=== PATIENT | male | born 1940 | race Caucasian/White ===

== ENCOUNTER 2017-08-19 15:00 | Outpatient (RCR) | payer MEDICARE, OTHER, SELFPAY ==
--- NOTE | 2017-06-02 12:03 | HP.PTEVAL_ITS ---
Patient's Visit Information DHARA ORDONEZ is a 77 year old M referred to Physical Therapy by MD ANALI Pickett with a diagnosis of R shoulder pain. Date of Evaluation: 06/02/17 Physical Therapist: Everardo Mckinley DPT, OC - Visit Plan Frequency: 1x/Week Duration: 2-4 Weeks Plan: weekly to progress HEP of postural strength, c/s stretches and ensure appropriate activity modification(impingement vs R stenosis.) Pec stretches. - Subjective Subjective: Just before [place], was doing GTB ex rows and progressed to blue band. R Shoulder hurt afterwards. Pain is middle of shoulder and moved out to lateral shoulder and sometimes into scapula. Hurts to use the mouse. No numbness or tingling. Sometimes hurts at rest intermittently. Later in day is worse. Evening TV watching [employer] heating pad. Shoulder feels tight. Sleep is not interrupted. Cannot lie on side as it hurts. Basic ADLS as dressing can be painful. Reaching behind can hurt. Doing the dishes and reaching OH can be painful. Spends day cleaning house and laundry. Puzzles on computer and they can hurt shoulder. - Pain R lateral shoulder pain. Pain Intensity (Out of 10): 1 Pain Intensity Range: 0, 7 - Objective R shoulder tender supraspinatus and into UT. Forward head posture with elevated adn prottracted scapula. Tightness present in UT and hard for patient to move scapula smoothly. UE AROM elevation 135 B shoulders, 60 ext rot adn full IR only slight pain with IR R. C/S aROM 30 ext, 30 R rot and 45 L rotation , R SB reproduces R shoulder pain. reflexes 2/3 bi and tri. sensation UE WNL to gross light touch. Strength UE 4-/5 without myotomal abnormalities or unusual pain. - HK adn neer impingement tests. - ext rot lag test. Slight + R c/s compression test. - Goals Goal 1:: Full R shoulder AROM and c/s ROM without pain Goal Time Frame: 2-4 Weeks Goal 2:: Pt feel 50% improvement in pain level. Goal Time Frame: 2-4 Weeks Goal 3:: I approp HEP to minimize future problems. Goal Time Frame: 2-4 Weeks - Rehabilitation Potential Physical Therapy Diagnosis: C/S stenosis vs R shoulder bursitis. Rehabilitation Potential: Fair - Anticipated Interventions Patient/Client Instruction: Educate patient on: Condition, Plan of Care For the Purpose of:: To decrease pain, To increase ROM, To improve nutrient delivery to tissue Therapeutic Exercise to Include: Strength training, Flexibilty training, Passive ROM, Active ROM, Scapular Strength/Stabilization For the Purpose of:: To decrease pain, To improve nutrient delivery to tissue Thank you for the opportunity to evaluate your patient. For Medicare and Medicare HMO plans, please review the plan of care and approve it. It will need to be FAXED BACK to us at [phone] for Medicare purposes. Please let me know if there are questions or concerns regarding this plan of care. Physician Signature: Date:
--- NOTE | 2017-07-21 11:20 | HP.PTREVAL_ITS ---
Elmer Roth MD, It has been my pleasure to treat DHARA ORDONEZ over the last 3 visits for R shoulder pain. Please see the progress note below for an update on the physical therapy plan of care! Subjective: Had bad flu and that has kept him out of here. Could not do his ex early on. Has been able to do his back exercises lately. Breathing muscles hurt with some his his pulling exercises. Gets some LBP and diagphragm pain which doctor knows about and with specific movements. Shoulder has hardly bothered him lately, other pain are getting his attention. Objective/Function: Patient has 140 degrees abd and flexion today without pain. Ext rotation is symmetrical and 50 and IR is L4 B and slightly painful on R. Posture is good today with focus. Strength in shoulders is 4-/5 without pain today in rotations and flex, abd. OVERALL DOING GREAT FAR SHOULDER IS CONCERNED BUT ACTIVITY HAS BEEN LIMITED DUE TO FLU. THIS HAS LIKELY HELPED HIS INFLAMMATION BUT NTO HIS STRENGTH. Plan Plan: Taugth patient to wean back to current ex. F/U in 2-3 weeks after back to current ex for progression to iso c/s ret, IR, add, ext with pics. Will likely f/u again 2 weeks later for discharge depending on condition. Goals Goal 1:: Full R shoulder AROM and c/s ROM without pain Goal Time Frame: 2-4 Weeks Goal Progress: Goal Met Goal 2:: Pt feel 50% improvement in pain level. Goal Time Frame: 2-4 Weeks Goal Progress: Goal Met Goal 3:: I approp HEP to minimize future problems. Goal Time Frame: 2-4 Weeks Goal Progress: Progressing Anticipated Interventions Patient/Client Instruction: Educate patient on: Condition, Plan of Care For the Purpose of:: To decrease pain, To increase ROM, To improve nutrient delivery to tissue Therapeutic Exercise to Include: Strength training, Flexibilty training, Passive ROM, Active ROM, Scapular Strength/Stabilization For the Purpose of:: To decrease pain, To improve nutrient delivery to tissue Please do not hesitate to contact me at [phone] by phone or Fax: if you have questions or concerns regarding this new plan of care! Sincerely, Everardo Mckinley, DPT, OC
--- NOTE | 2017-08-19 15:58 | HP.PTDCSUM_ITS ---
HP - PT D/C Summary It has been my pleasure to treat DHARA ORDONEZ under orders from Elmer Roth MD, for the diagnosis of R shoulder pain for a total of 5 visit(s). Discharge Date: 08/19/17 Please see the following information for a summary of their discharge status. 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 Will have another standard stress test. That will be in September. Shoulder is fine...pretty well. L ribs seem to come and go, was doing well fro a while. Back to regular exercises and doing 2 sets. Doing back exercises adn some stretches. Activites at home are normal, not as busy in the spring, yard work conrad tart soon. Will need to mow and garden. - Pain R lateral shoulder pain. Pain Intensity (Out of 10): 0 - Objective Objective/Function: Full aROM R shoulder awithout pain. Strength at 4/5 and symmetrical with L without apin. Still has some intermittent c/o pain in L ribs since flu . - Goals Goal 1:: Full R shoulder AROM and c/s ROM without pain Goal Progress: Goal Met Goal 2:: Pt feel 50% improvement in pain level. Goal Progress: Goal Met Goal 3:: I approp HEP to minimize future problems. Goal Progress: Goal Met - Plan Plan: D/C shoulder. Recommended he see doctor for L rib pain as it is up and down and lingering. - D/C Information Discharge Comments: Patient ready to continue shoulder strength and stretching I. No pain and full aROM. Will contact doctor regarding cotninuing L rib pain from flu. If there are questions or concerns regarding this patient's physical therapy, please feel free to call me at [phone]. Thank you for the referral of this patient. Sincerely, Everardo Mckinley, DPT, OC
== END 2017-08-19 19:00 | disposition home or self-care (01) ==
LOC: PT 15:00
PROVIDERS: Family Provider Family Medicine; PCP Family Medicine; Visit Provider Family Medicine
DX: M25.511 Pain in right shoulder (principal)
CPT/HCPCS: 97110; 97162; 97164; 97530

== ENCOUNTER → 2017-09-10 10:24 | Outpatient (CLI) | payer MEDICARE, OTHER, SELFPAY ==
--- NOTE | 2017-09-10 10:25 | STE_ITS ---
Reason For Study: CAD/ASHD Stress Results Protocol: Stress Echocardiogram Maximum Predicted HR: 142 bpm Target HR: 121 bpm% Maximum Pr edicted HR: 92 % DurationHeart Rate Stage (mm:ss) (bpm) BPCom ment BASELINE 53 140/76 DEFINITY 5 ML USED DURING STRESS MIRA PROTOCOL- STAGE 1 2:10 13 0 140/80SOB, FATIGUE RECOVERY 75 122/80 Stress Duration: 2:10 mm:ss Maximum Stress HR: 130 bpm Baseline Echocardiogram Findings The estimated ejection fraction is 65 %. Stress Echo Wall motion Data Resting WMIntermediate WMStress WM Resting Wall Motion Wall Motion Stress No regional wall motion Anterio-Basal: Severely abnormalities noted. hypokinetic. Mid-Anterior : Severely Hypokinetic. Mid-anteroseptal : Severly Hypokinetic. Anterior [place] : Severly Hypokinetic. EKG Data Normal intervals are noted. The patient exercised according to the regular Mira protocol for a total duration of 2:10. The maximum heart rate attained was 130 beats per minute. This was 91% of maximum predicted heart rate. The patient exercised into stage 1 of the Mira protocol. Interpretation Summary No regional wall motion abnormalities noted. The estimated ejection fraction is 65 %. Abnormal, adequate, treadmill echocardiogram. Positive for ischemia by echocardiographic criteria. Very poor exercise capacity for age. Appropriate blood pressure response to exercise. Test terminated due to dyspnea. Patient developed rate-dependent right bundle branch block during exercise with associated PVCs. In addition the patient developed severe proximal mid and apical anterior anterior apical hypokinesis at peak exercise with a post-rest EF of approximately 25%. No anginal symptoms noted. Patient referred to our office for set up for urgent catheterization tomorrow morning. Patient's symptom-free at the end of the procedure. Results explained immediately to the patient and his . Ordering Physician: Bro Wahl Referring Physician: Bro Wahl Performed By: Marissa Wylie, RDCS, RVT
--- NOTE | 2017-09-10 12:15 | RAD_ITS ---
STUDY: X-RAY CHEST REASON FOR EXAM: Male, 77 years old. Shortness of breath. TECHNIQUE: PA and lateral views of the chest. COMPARISON: September 26, 2013. FINDINGS: The lungs are clear and expanded. There is no demonstrated pleural abnormality. Normal size heart. Normal mediastinum and dary. Normal visualized pulmonary arteries. Normal visualized aortic arch and descending thoracic aorta. There are diffuse degenerative changes of the visualized thoracic spine. There is degenerative osteoarthritis of the bilateral shoulders. There is no demonstrated abnormality of the visualized soft tissue structures of the upper abdomen. RAD/Chest PA and Lateral IMPRESSION: No acute cardiopulmonary disease or interval change. Electronically Signed: Angelo Sanabria DO at 12:06 EDT Tel [phone], Service support ,
[2017-09-10 13:00] LABS: Absolute Lymphocyte Count 1.73 X10^3/ul (0.83-4.51); Basophil# 0.01 X10^3/uL; Basophil% 0.2 % (0-1); Eosinophil# 0.25 X10^3/uL; Eosinophils% 4.4 % (0-5); Hematocrit 42.5 % (40-54); Hemoglobin 14.1 g/dl (13.0-16.5); Lymphocyte # 1.73 X10^3/ul (4.0); Lymphocyte % 30.6 % (19-41); Mean Corp Hgb Conc 33.2 g/gl (32-36); Mean Corpuscular Hgb 30.7 pg (27.0-32.0); Mean Corpuscular Volume 92.4 fL (80-94); Mean Platelet Vol. 10.7 fl (6.2-12.0); Monocyte# 0.62 X10^3/uL; Neutrophil # 3.03 X10^3/uL (2.7-7.7); Neutrophil % 53.6 % (47-70); Platelet Count 214 K/mm3 (150-450); RBC Distribution Width CV 14.3 % (11.6-14.6); RBC Distribution Width SD 46.8 fl (35.1-43.9); White Blood Count 5.7 K/mm3 (4.4-11.0)
[2017-09-10 13:10] LABS: POSITIVE COUNT NO; POSITIVE DIFFERENTIAL NO; POSITIVE MORPHOLOGY NO
[2017-09-10 13:17] LABS: International Normalized Ratio 1.1; Prothrombin Time (Protime)PT. 13.8 SECONDS (11.7-14.9)
[2017-09-10 13:18] LABS: Partial Thromboplast Time 29.7 Seconds (24.1-36.2)
[2017-09-10 13:23] LABS: Anion Gap 6 (5-15); BUN 20 mg/dL (7-18); BUN/Creat Ratio 19.6 RATIO (10-20); Calcium,Total 9.3 mg/dL (8.5-10.1); Chloride 108 mmol/L (98-107); Creatinine, Serum 1.02 mg/dL (0.70-1.30); EST Glomerular Filtration Rate 75 mL/min (>60); Est Glom Filt Rate - Afr Amer 91 mL/min (>60); Glucose 96 mg/dL (74-106); Potassium 5.2 mmol/L (3.5-5.1); Sodium Level 142 mmol/L (136-145)
== END ==
PROVIDERS: Family Provider Family Medicine; PCP Family Medicine; Visit Provider Internal Medicine Cardiovascular Disease
DX: I25.10 Atherosclerotic heart disease of native coronary artery without angina pectoris (principal); I25.2 Old myocardial infarction; E78.5 Hyperlipidemia, unspecified; Z86.73 Personal history of transient ischemic attack (TIA), and cerebral infarction without residual deficits; I61.9 Nontraumatic intracerebral hemorrhage, unspecified; R94.39 Abnormal result of other cardiovascular function study
CPT/HCPCS: 36415; 71046; 80048; 85025; 85610; 85730; 93017; 93350; Q9957; A4216; C8928

== ENCOUNTER 2017-09-11 08:01 | Day surgery (SDC) | payer MEDICARE, OTHER, SELFPAY ==
[2017-09-10 13:49] VITALS: BMI 25.9
--- NOTE | 2017-09-11 10:43 | CL.D_ITS ---
Patient Name: DHARA ORDONEZ Study Date: 09/11/2017 Performing: Bro Wahl MD Ht: 70.07 inches 178 cm : 1940 Wt: 180.78 lbs 82 kg Age: 77 Gender: male BSA: 2 PROCEDURE(S) PERFORMED MN72-YST/COR/LV CLINICAL PROFILE AND INDICATIONS Indications: New Onset Angina <= 2 months, Worsening Angina, Stable Known CAD Heart Failure: None Stress/Imaging Stress Echocardiogram: Yes Result: Positive High RiskStress Echocardiogram: Positi ve High Risk Angina Classification Anginal Classification w/in 2 Weeks: CCS II CAD Presentations: Unstable angina. Comorbidities/Risk Factors: Hypertension Dyslipidemia CONCLUSIONS Triple vessel CAD of the LAD, DIAG, RCA RECOMMENDATIONS Surgery consult for coronary revascularization at [facility] with Dr Chávez or Randi. Start hyzaar 50/12.5mg po daily. Manual sheath removal. DESCRIPTION OF PROCEDURE The patient arrived to the procedure lab. The risks and benefits of the procedure as well as a full d escription of our services here and current unavailability of surgical backup were fully explained to the patient and/or their significant other prior to the catheterization. The Timeout was completed, verifying the correct patient and procedure. The patient's procedural site was prepped and draped in the usual fashion. Local anesthetic was given subcutaneously to right groin region with Lidocaine 2%. Using a modified Seldinger technique, arterial access was obtained via the right femoral artery, a 4 Fr sheath was inserted Left Coronary Artery selective angiography was performed in multiple views us ing a 4 Fr. JL5 catheter. Left Coronary Artery selective angiography was performed in multiple views using a 4 Fr. JL4 catheter. Right Coronary Artery selective angiography was then performed in multipl e views using a 4 Fr. 3DRC catheter. Left Ventriculography was performed in PHILLIPS projection using a 4 Fr. Pigtail catheter. LV to AO pullback pressures were then recorded.The arterial sheath was pulled a nd manual compression applied until hemostasis is achieved. CORONARY ANGIOGRAPHY DOMINANCE: Right Dominant LEFT HEART ASSESSMENT Left Ventricular Ejection Fraction: by LV Gram 65 % Normal LV wall motion Normal Left Ventricular systolic function Elevated Left Ventricular End Diastolic Pressure LEFT ANTERIOR DECENDING ARTERY: PROX LAD: is occluded DIAGONAL 1: Proximal - 70 % Stenosis CIRCUMFLEX ARTERY: Angiographically normal RIGHT CORONARY ARTERY: PROX RCA: 60 % Stenosis MID RCA: 75 % Stenosis COLLATERAL FLOW: Collateral flow from Right to Left COMPLICATIONS No Complications PROCEDURE MEDICATIONS Versed 1 mg IV Oxygen: 2 L/min via nasal cannula SUMMARY OF HEMODYNAMIC DATA Time AIR REST ECG 08:18:03 AO 132/67 (96) SA 10:17:58 LV 168/-8, 16 10:24:53 LV 189/-10, 20 10:25:00 LVp 189/-10, 18 10:25:21 AOp 184/76 (118) 10:25:26 AO 188/77 (120) 10:26:42 Signed By Bro Wahl MD On 09/11/2017 10:42:41 Bro Wahl MD
== END 2017-09-11 23:59 | disposition home or self-care (01) ==
PROVIDERS: Family Provider Family Medicine; PCP Family Medicine; Visit Provider Internal Medicine Cardiovascular Disease
DX: I25.110 Atherosclerotic heart disease of native coronary artery with unstable angina pectoris (principal); I25.2 Old myocardial infarction; I10 Essential (primary) hypertension; E78.5 Hyperlipidemia, unspecified; F32.9 Major depressive disorder, single episode, unspecified; F41.9 Anxiety disorder, unspecified; Z87.891 Personal history of nicotine dependence; Z79.82 Long term (current) use of aspirin; Z79.899 Other long term (current) drug therapy
CPT/HCPCS: 93458; 99152; 99153; J7030; C1769; C1894; Q9967

== ENCOUNTER → 2018-04-20 09:50 | Outpatient (CLI) | payer MEDICARE, OTHER, SELFPAY ==
[2018-04-15 13:17] VITALS: BMI 26.9
--- NOTE | 2018-04-20 09:52 | CDU_ITS ---
Reason For Study: CVA Rt. Velocities/BP Lt. Velocities/BP Prox CCA 144/22.6 cm/sec. Prox CCA 118/15.7 cm/sec. Mid CCA 84.5/16.7 cm/sec. Mid CCA 108/20.4 cm/sec. Dist CCA 85.6/14.9 cm/sec. Dist CCA 90.4/18.9 cm/sec. Prox ICA 73.9/18.9 cm/sec. Prox ICA 84.4/21.1 cm/sec. Mid ICA 76.2/24 cm/sec. Mid ICA 74.5/19.9 cm/sec. Dist ICA 104/21.7 cm/sec. Dist ICA 75/27 cm/sec. Rt. ICA/CCA = 1.21. Lt. ICA/CCA = 0.78. Prox ECA 107/13.4 cm/sec. Prox ECA 76.8/7.62 cm/sec. Rt. Vert. 65.7/12.9 cm/sec. Lt. Vert. 57.5/17.6 cm/sec. Right Extracranial There is intimal thickening but no significant atherosclerotic plaque noted in the right common carotid artery. There is heterogeneous, smooth atherosclerotic plaque noted in the right internal carotid artery. The atherosclerotic plaque causes acoustic shadowing. There is intimal thickening but no significant atherosclerotic plaque noted in the right external carotid artery. Antegrade flow is noted in the right vertebral artery. Left Extracranial There is intimal thickening but no significant atherosclerotic plaque noted in the left common carotid artery. There is heterogeneous, smooth atherosclerotic plaque noted in the left internal carotid artery. There is intimal thickening but no significant atherosclerotic plaque noted in the left external carotid artery. Antegrade flow is noted in the left vertebral artery. Procedure Carotid Duplex [id number]. Exam performed in department. Interpretation Summary Mild plague at the proximal right internal carotid with <50% stenosis. Mild calcific plague at the proximal left internal carotid with <50% stenosis. Normal flow bilateral external carotids Patent and antegrade vertebrals bilaterally Ordering Physician: Bro Wahl Referring Physician: Elmer Roth Performed By: Jesika Eisenberg RVT and Student
--- OUTSIDE RECORDS SUMMARY | 2018-06-06 10:00 | XMS RPT_ITS ---
:1940 Author Organization OHIP Support Name Relationship Address Phone ORDONEZ, MATT Unavailable [address] + [place] [address] R Unavailable Unavailable Unavailable ORDONEZ, MATT Unavailable [address] + [place] [address] R Unavailable Unavailable Unavailable ORDONEZ, MATT Unavailable [address] + [place] [address] R Unavailable Unavailable Unavailable ORDONEZ, MATT Unavailable [address] + [place] [address] R Unavailable Unavailable Unavailable ORDONEZ, MATT Unavailable [address] + [place] [address] R Unavailable Unavailable Unavailable ORDONEZ, MATT Unavailable [address] + [place] [address] R Unavailable Unavailable Unavailable ORDONEZ, MATT Unavailable [address] + [place] [address] R Unavailable Unavailable Unavailable ORDONEZ, MATT Unavailable [address] + [place] [address] R Unavailable Unavailable Unavailable ORDONEZ, MATT Unavailable [address] + [place] [address] R Unavailable Unavailable Unavailable ORDONEZ, MATT Unavailable [address] + [place] [address] R Unavailable Unavailable Unavailable ORDONEZ, MATT Unavailable [address] + [place] [address] R Unavailable Unavailable Unavailable ORDONEZ, MATT Unavailable [address] + [place] [address] R Unavailable Unavailable Unavailable ORDONEZ, MATT Unavailable [address] + [place] [address] R Unavailable Unavailable Unavailable ORDONEZ, MATT Unavailable [address] + [place] [address] R Unavailable Unavailable Unavailable MATT ORDONEZ Unavailable [address] + [place] [address] R Unavailable Unavailable Unavailable Care Team Providers Name Role Phone PriyaGagandeep george Attending Unavailable Bro Wahl Referring Unavailable Gonzalez, Elmer Primary Care Unavailable Bro Wahl Consulting Unavailable Bro Wahl Attending Unavailable Bro Wahl Referring Unavailable Gonzalez, Elmer Primary Care Unavailable Gonzalez, Elmer Attending Unavailable Gonzalez, Elmer Referring Unavailable Gonzalez, Elmer Primary Care Unavailable Bro Wahl Attending Unavailable Gonzalez, Elmer Referring Unavailable Bro Wahl Attending Unavailable Bro Wahl Referring Unavailable Ognzalez, Elmer Primary Care Unavailable Viktor Fierro D.O. Attending Unavailable Bro Wahl Referring Unavailable Hayley Sanchez Attending Unavailable Bro Wahl Attending Unavailable Gonzalez, Elmer Referring Unavailable Gonzalez, Elmer Primary Care Unavailable Bro Wahl Attending Unavailable Bro Wahl Referring Unavailable Gonzalez, Elmer Primary Care Unavailable Bro Wahl Attending Unavailable Gonzalez, Elmer Primary Care Unavailable Bro Wahl Referring Unavailable Bro Wahl Attending Unavailable Bro Wahl Attending Unavailable Bro Wahl Attending Unavailable Gonzalez, Elmer Referring Unavailable Bro Wahl Attending Unavailable Gonzalez, Elmer Referring Unavailable Bro Wahl Attending Unavailable Vish, Bro Referring Unavailable Gonzalez, Elmer Primary Care Unavailable PROBLEMS PROBLEMS DATE TYPE CONDITION / CODE ATTENDING STATUS SOURCE 05/13/2018 Unknown I25.10 - Ile[place] Sam Atherosclerotic heart D.O. [facility] disease [facility] coronary artery Repository without angina pectoris / I25.10(ICD-10) 04/23/2018 Unknown I63.9 - Cerebral Bro Wahl Active [place] infarction, Community unspecified / Hospital I63.9(ICD-10) Repository 04/23/2018 Unknown E78.5 - Bro Wahl Active [place] Hyperlipidemia, Community unspecified / Hospital E78.5(ICD-10) Repository 04/15/2018 Unknown R94.39 - Abnormal Bro aWhl Active [place] result of other [facility] cardiovascular Hospital function study / Repository R94.39(ICD-10) 10/22/2017 Unknown I25.2 - Old Bro Wahl Active [place] myocardial infarction Community / I25.2(ICD-10) Hospital Repository 10/22/2017 Unknown I61.9 - Nontraumatic Bro Wahl Active [place] intracerebral Community hemorrhage, Hospital unspecified / Repository I61.9(ICD-10) 08/20/2017 Unknown M25.511 - Pain in Gonzalez Elmer Active [place] right shoulder / Community M25.511(ICD-10) Hospital Repository PROCEDURES PROCEDURES No Procedure Records FoundRESULTS RESULTS PULMONARY FUNCTION Observed: 2018 Status: F Source: [place] TEST 10:24 AM [facility] [place] [facility] Pulmonary Services/Neurology [address] [place] [address] MR#: [id number] Acct: [id number] Name: JARED ORDONEZ Rep #: [id number] : 1940 78 From: Viktor Fierro DO Referring Dr: Bro Wahl MD Status: REG CLI Ordering Dr: Date: Location: [facility] Sex: M C INTRODUCTION: The patient is a 77-year-old male that presents for pulmonary function studies secondary to a diagnosis of coronary artery disease. Respiratory therapy reports good patient effort. Bronchodilators were used during testing. INTERPRETATION: Forced expiration spirometry demonstrates the presence of a moderate large airways obstructive ventilatory defect. There was no significant response to aerosolized bronchodilators, based upon strict ATS criteria. Spirograms are of good quality and do not plateau indicating slow emptying of the lungs. Body plethysmography was performed and reveals lung volumes to be within normal limits. Diffusing capacity by single breath CO is within normal limits at 83% of predicted. IMPRESSION: These pulmonary function studies demonstrate the presence of an irreversible moderate large airways obstructive ventilatory defect with preserved lung volumes and diffusing capacity. 04/30/18 1024 <Electronically signed by Viktor Fierro DO> Date Viktor Fierro DO CC: Bro Wahl MD; Elmer Roth MD Date Dictated: 04/30/18 1022 Date Transcribed: 04/30/18 1022 Endband Sizer: HARISH Signed LIVER PROFILE Collected: 04/23/2018 Status: F Source: [place] 10:06 AM [facility] [place] TYPE CODE TESTS RESULT OUT OF RANGE REFERENCE UNITS LAB L501.1500 6.4-8.2 g/dL Normal T PROT 7.1 LAB L501.1800 3.2-5.0 g/dL Normal ALB 3.5 LAB L501.1950 2.2-4.2 g/dL Normal GLOB 3.6 LAB L501.4100 15-37 U/L Normal AST 20 LAB L501.4305 45-117 U/L High ALK P 118 LAB L501.4405 16-61 U/L Normal ALT 24 LAB L501.4600 0.20-1.00 mg/dL Normal T BILI 0.90 LAB L501.4700 0.00-0.30 mg/dL Normal D BILI 0.21 Performed By: #### L500.3400, L500.4100 #### [facility] [address] [facility] [address] [place], [place], [address] LIPID PROFILE Collected: 04/23/2018 Status: F Source: [place] 10:06 AM [facility] [place] TYPE CODE TESTS RESULT OUT OF RANGE REFERENCE UNITS LAB L501.4900 200 mg/dL Normal CHOL 158 Result Comment: <200 mg/dL Desirable 200-240 mg/dL Borderline >240 mg/dL High Risk LAB L501.5000 mg/dL Normal TRIG 124 Result Comment: The drugs N-Acetylcysteine and Metamizole may falsely depress this assay. Serum Triglycerides Reference Interval Normal <150 mg/dL Borderline high 150 - 199 mg/dL High 200 - 499 mg/dL Very High > or = 500 mg/dL LAB L501.6400 mg/dL Normal HDL 59 Result Comment: The drugs N-Acetylcysteine and Metamizole may falsely depress this assay. Reference Range HDL <40 mg/dL Low HDL Cholesterol HDL >or= 60 mg/dL High HDL Cholesterol LAB L501.6500 0-130 mg/dL Normal LDL 74 LAB L501.6600 5-40 mg/dL Normal VLDL 25 Performed By: #### L500.3400, L500.4100 #### [facility] [address] [facility] [address] [place], [place], [address] CAROTID DUPLEX Observed: 04/20/2018 Status: F Source: [place] ULTRASOUND 12:35 PM [facility] [place] [facility] Cardiovascular Services [address] [facility] [address] [place] [address] Carotid Duplex Ultrasound 04/20/18 0957 MR#: [id number] Acct: [id number] Name: JARED ORDONEZ Rep #: [id number] : 1940 77 From: Gagandeep Hendricks MD Attending Dr: Bro Wahl MD Status: REG CLI Ordering Dr: Bro Wahl MD Date: 04/20/18 Location: [facility] Sex: M C Admitted: Reason For Study: CVA Rt. Velocities/BP Lt. Velocities/BP Prox CCA 144/22.6 cm/sec. Prox CCA 118/15.7 cm/sec. Mid CCA 84.5/16.7 cm/sec. Mid CCA 108/20.4 cm/sec. Dist CCA 85.6/14.9 cm/sec. Dist CCA 90.4/18.9 cm/sec. Prox ICA 73.9/18.9 cm/sec. Prox ICA 84.4/21.1 cm/sec. Mid ICA 76.2/24 cm/sec. Mid ICA 74.5/19.9 cm/sec. Dist ICA 104/21.7 cm/sec. Dist ICA 75/27 cm/sec. Rt. ICA/CCA = 1.21. Lt. ICA/CCA = 0.78. Prox ECA 107/13.4 cm/sec. Prox ECA 76.8/7.62 cm/sec. Rt. Vert. 65.7/12.9 cm/sec. Lt. Vert. 57.5/17.6 cm/sec. Right Extracranial There is intimal thickening but no significant atherosclerotic plaque noted in the right common carotid artery. There is heterogeneous, smooth atherosclerotic plaque noted in the right internal carotid artery. The atherosclerotic plaque causes acoustic shadowing. There is intimal thickening but no significant atherosclerotic plaque noted in the right external carotid artery. Antegrade flow is noted in the right vertebral artery. Left Extracranial There is intimal thickening but no significant atherosclerotic plaque noted in the left common carotid artery. There is heterogeneous, smooth atherosclerotic plaque noted in the left internal carotid artery. There is intimal thickening but no significant atherosclerotic plaque noted in the left external carotid artery. Antegrade flow is noted in the left vertebral artery. Procedure Carotid Duplex [id number]. Exam performed in department. Interpretation Summary Mild plague at the proximal right internal carotid with <50% stenosis. Mild calcific plague at the proximal left internal carotid with <50% stenosis. Normal flow bilateral external carotids Patent and antegrade vertebrals bilaterally Ordering Physician: Bro Wahl Referring Physician: Elmer Roth Performed By: Jesika Eisenberg RVT and Student 04/20/18 1235 Date Gagandeep Hendricks MD CC: Bro Wahl MD; Elmer Roth MD Date Dictated: 04/20/18 0957 Date Transcribed: 04/20/18 1235 Endband Sizer: Signed CARDIOLOGY VISIT Observed: 04/15/2018 Status: F Source: [place] REPORT 1:49 PM [facility] HOSPITAL REPOSITORY [facility] [address] [place] [address]. [address] [place] [address] OFFICE VISIT Date of Service: 04/15/18 MR#: [id number] Acct: [id number] Name: JARED ORDONEZ Rep #: [id number] : 1940 Provider: Bro Wahl MD Age/Sex: 77/M Location: [facility] [place] Status: Signed HPI HPI Chief Complaint: Routine follow-up/discuss treatment options. Details: Mister Ordonez is a very pleasant 77-year-old gentleman, who came to [facility] ER on 09/26/13 and noted a increasing fever and minimal headache. A CT scan of his head demonstrated a small intra-axial acute hematoma along the left occipital lobe with edema. He was then transferred to [facility] for further care. At that time he was found to have diminishing mental status and hypotension requiring urgent intubation. During this time troponins were evaluated and the patient was found to have a small type II non-ST elevation myocardial infarction with a peak troponin of 1.7. Patient underwent medical therapy and underwent an echocardiogram on 09/27/13. This demonstrated normal LV function with an LVEF 55%, RVSP of 33 mmHg. patient then underwent a transesophageal echocardiogram on 10/04/13 which demonstrated normal LV function, negative bubble study, and a mobile echodensity in the right atrium that may be consistent with a calcified Chiari network or filamentous mobile mass. Patient underwent a coronary CT angiogram on 10/05/13 which demonstrated the object in the right atrium appeared to be a thickened елена terminalis, with a possible stenosis of 70% in both the LAD and diagonal branch, 50% in the left circumflex, and 50% in the right coronary. No catheterization was performed given the patient's recent CVA and inability to endure dual antiplatelet therapy at that time. A stress test dated 11/02/13 was negative for inducible ischemia. His CVA had resolved he underwent a diagnostic coronary angiogram on 09/11/17 at [facility] which demonstrated severe three-vessel coronary artery disease and he was referred for bypass surgery at [facility] with Dr Bryan. I am not sure exactly what happened, but apparently the patient required additional testing such as PFTs and carotids, however none of these were ever scheduled, and the patient did not follow-up with Dr. Bryan. The patient claims that severity of his condition was not discussed with him at the time of his catheterization, however this was conveyed to the patient as well as to his , confirmed by his today. at that time, the patient and his family decided to pursue medical therapy given his history of bacterial meningitis and previous CVA. He is now here in follow-up. Since that time the patient denies any chest pain, angina, shortness of breath or dyspnea on exertion. 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 He is been doing fairly well ever since. In our office today's blood pressure is 90/44, pulse is 56 and regular. His physical exam is as below. His lipids as of 01/2015 showed HDL of 46 and LDL of 73. his lipids as of 10/04/15 showing HDL 60 and LDL of 90. Lipids as of 02/22/16 show an HDL of 56 and an LDL of 65. His lipids as of 04/09/17 show an HDL of 59 and an LDL of 79. Repeat lipids are pending. dobutamine stress echo on 11/02/13 was negative for inducible ischemia. 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 Accompanied by: Is patient in pain?: No Allergies No Known Allergies Allergy (Verified 04/13/18 10:33) Medications acetaminophen 325 mg capsule 325 mg PO Q4H PRN 08/12/17 [History Confirmed 04/13/18] aspirin 81 mg tablet,delayed release 81 mg PO QDAY tab 08/12/17 [History Confirmed 04/13/18] ibuprofen 200 mg tablet 400 mg PO QHS tab 08/12/17 [History Confirmed 04/13/18] lorazepam 1 mg tablet 1 mg PO QDAY tab 08/12/17 [History Confirmed 04/13/18] paroxetine 20 mg tablet 20 mg PO .COMPLEX 08/12/17 [History Confirmed 04/13/18] clopidogrel 75 mg tablet 75 mg PO QDAY #30 tab 09/10/17 [Rx Confirmed 04/13/18] metoprolol tartrate 25 mg tablet 25 mg PO BID #180 tab 10/29/17 [Rx Confirmed 04/13/18] atorvastatin 40 mg tablet 40 mg PO QHS #90 tab 12/16/17 [Rx Confirmed 04/13/18] losartan 50 mg-hydrochlorothiazide 12.5 mg tablet 1 tab PO QDAY #90 tab 03/15/18 [Rx Confirmed 04/13/18] [facility] Medical History Triple vessel coronary artery disease (Chronic) Atherosclerotic heart disease of [place] coronary artery without angina pectoris (Chronic) History of non-ST elevation myocardial infarction (NSTEMI) (Acute) Hyperlipidemia (Chronic) CVA (cerebral vascular accident) (Acute) Intracerebral hemorrhage (Acute) Anxiety (Chronic) Depression (Chronic) History of tobacco abuse (Resolved) Surgical History History of thoracentesis (Resolved) History of vasectomy (Resolved) Family History Father Presence of permanent cardiac pacemaker Social History Smoking Status: Former smoker alcohol intake: never substance use type: does not use ROS Const Const: Positive for other (Here to discuss PCI, wants to talk to Dr. Vish cortez.); negative for fatigue, weakness, body ache, fever(s), headache(s), chills, frequent falls, night sweats, daytime sleepiness, difficulty sleeping, excessive sweating, weight gain, weight loss, increased appetite, poor appetite or anorexia Eyes Eyes: Negative for blind spots, loss of peripheral vision, transient loss of vision, blurry vision, change in vision, double vision, floaters, tunnel vision or other ENT ENT: Negative for dizziness, hearing loss, tinnitus, Nosebleed/epistaxis, post nasal drip, lip swelling, tongue swelling, bleeding gums, hoarseness, neck pain, dry mouth, other, headache(s) or balance problems Cardio Chest Pain: No Palpitations: No Edema: None Muscle aches with walking: None Resp Respiratory: Negative for SOB with activity, SOB at rest, SOB orthopnea\SOB lying down, Cough, Coughing up blood/hemoptysis, chest congestion, pain on inspiration, snoring, stridor, wheezing, crackles, paroxysmal nocturnal dyspnea or other GI GI: Negative nausea, vomiting, heartburn, constipation, belching, bloating, cramping, vomiting blood/hematemesis, bright, red blood in stools, black,tarry stools, loose stools, Difficulty Swallowing or other : Negative for hematuria, frequent nighttime urination/ nocturia, erectile dysfunction or abnormal vaginal bleeding Musc Musc: Positive for joint pain (Left knee pain); negative for balance problems, muscle aches/ myalgia or muscle weakness Skin Skin: Negative redness, non-healing lesions, rash, unusual bruising, skin ulcer, wounds, jaundice or other Neuro Neuro: Negative for blurry vision, double vision, dizziness, lightheadedness, near syncope, syncope, orthostatic symptoms, confusion, memory loss, restless legs, vertigo, seizures, lack of coordination, other, weakness, headache(s) or frequent falls Tigre Hematologic/Lymphatic: Negative for easy bleeding, easy bruising, enlarged lymph nodes or other Endo Endo: Negative for cold intolerance, heat intolerance, flushing, increased thirst/drinking, increased hunger, hair loss, hair growth, other, fatigue or excessive sweating Psych Psych: Negative for anxiety, depression, thoughts of harming anyone, thoughts of harming yourself, visual hallucinations, panic attacks or audible hallucinations Allergy Allergy/Immunology: Negative for lip swelling, Negative for tongue swelling, Negative for rash, Negative for throat swelling, Negative for hives Cardiology Exam Const Appearance: cooperative, healthy appearing and no acute distress Nutritional Appearance: well nourished Orientation: alert, oriented x3 and oriented to person Head Head: normal to inspection, atraumatic and normocephalic Nose: external nose normal Face and Sinus: face symmetric Mouth: oral mucosae normal Eyes General: appearance normal, both eyes and all related structures Eyelids: eyelids normal Conjunctivae: conjunctivae normal Pupils: PERRL and normal by confrontation EOM: EOM intact bilaterally Neck Neck: normal visual inspection and full ROM Carotids: normal carotid upstroke Chest Chest inspection: normal inspection of the chest Auscultation: Bilateral: Clear to Auscultation Cardio Palpation: normal PMI Rate: regular rate Rhythm: regular rhythm Heart sounds: S1 normal and S2 normal GI GI: normal to inspection, no hepatosplenomegaly and bowel sounds present Neuro General: alert, oriented x3, awake, CN's II-XI intact bilaterally and moves all extremities Skin Skin: no rashes or lesions noted Extremities Pulses: Normal: Right Femoral Pulse, Left Femoral Pulse, Right Dorsalis Pedis Pulse, Left Dorsalis Pedis Pulse, Right Posterior Tibial Pulse, Left Posterior Tibial Pulse, Right Radial Pulse, Left Radial Pulse Lower Extremity Edema: None: Bilateral Psych Psychological: normal affect Assessment AND Plan 1. Atherosclerotic heart disease of [place] coronary artery without angina pectoris I25.10 Plan 1. Coronary artery disease: I once again thoroughly explained to the patient and his his coronary artery and anatomy, and indicated to them that his angioplasty is somewhat high risk as it provides collateral blood flow from the right coronary artery to the LAD. The patient's and the patient are quite concerned about possible emergent bypass surgery here at a non-surgical center. In addition, my feeling is that the patient would most likely benefit from bypass surgery to bypass his RCA, distal LAD, and diagonal branches. This would provide a much more complete revascularization. In addition the patient requires carotid ultrasound and pulmonary function test to risk stratify him for upcoming bypass surgery. After discussing with the patient and his the options, they wish to pursue consultation for a second opinion with Dr. Ro at [facility]. In addition if he is not a surgical candidate, I would refer him to Dr. Khan at [facility] for PCI of his RCA and medical management of his LAD. Patient should the patient have difficulty with PCI of his RCA he may be sent to emergency bypass surgery rather than be transported emergently to [facility]. Given his anatomy and the concerns of the patient is I would not recommend PCI here at [facility] unless it was emergent. We will order PFTs, carotid ultrasound, the patient will continue his baby aspirin, Plavix and Lopressor as well as his Hyzaar. Orders Orders: Referrals: 2. Hyperlipidemia E78.5 Plan 2. Hyperlipidemia: We will repeat his lipid profile. His LDL should be less than 70. Continue Lipitor. 3. Return office in 6 months. This note was generated using a voice recognition system and there may be incorrect words, spelling or punctuation that were not noted when reviewing the office note prior to saving. Orders Orders: Plan Detail Other Orders Orders: Follow Up +6M (Vish) Coding Level of Care Code Off vis,est,level 3 Diagnoses Atherosclerotic heart disease of [place] coronary artery without angina pectoris I25.10 Hyperlipidemia E78.5 Coding Level of Care Code Off vis,est,level 3 Diagnoses Atherosclerotic heart disease of [place] coronary artery without angina pectoris I25.10 Hyperlipidemia E78.5 04/15/18 1349 <Electronically signed by Bro Wahl MD> Date Bro Wahl MD [facility] Signature: Date (if applicable) CC: Elmer Roth MD CARDIOLOGY VISIT Observed: 03/15/2018 Status: F Source: [place] REPORT 3:26 PM [facility] [place] [facility] [address] [place] [address] OFFICE VISIT Date of Service: 03/15/18 MR#: [id number] Acct: [id number] Name: JARED ORDONEZ Rep #: [id number] : 1940 Provider: Bro Wahl MD Age/Sex: 77/M Location: [facility] [place] Status: Signed HPI HPI Chief Complaint: Routine follow-up Details: Mister Ordonez is a very pleasant 77-year-old gentleman, who came to [facility] ER on 09/26/13 and noted a increasing fever and minimal headache. A CT scan of his head demonstrated a small intra-axial acute hematoma along the left occipital lobe with edema. He was then transferred to [facility] for further care. At that time he was found to have diminishing mental status and hypotension requiring urgent intubation. During this time troponins were evaluated and the patient was found to have a small type II non-ST elevation myocardial infarction with a peak troponin of 1.7. Patient underwent medical therapy and underwent an echocardiogram on 09/27/13. This demonstrated normal LV function with an LVEF 55%, RVSP of 33 mmHg. patient then underwent a transesophageal echocardiogram on 10/04/13 which demonstrated normal LV function, negative bubble study, and a mobile echodensity in the right atrium that may be consistent with a calcified Chiari network or filamentous mobile mass. Patient underwent a coronary CT angiogram on 10/05/13 which demonstrated the object in the right atrium appeared to be a thickened елена terminalis, with a possible stenosis of 70% in both the LAD and diagonal branch, 50% in the left circumflex, and 50% in the right coronary. No catheterization was performed given the patient's recent CVA and inability to endure dual antiplatelet therapy at that time. A stress test dated 11/02/13 was negative for inducible ischemia. His CVA had resolved he underwent a diagnostic coronary angiogram on 09/11/17 at [facility] which demonstrated severe three-vessel coronary artery disease and he was referred for bypass surgery at [facility]. At that time, the patient and his family decided to pursue medical therapy given his history of bacterial meningitis and previous CVA. He is now here in follow-up. Since that time the patient denies any chest pain, angina, shortness of breath or dyspnea on exertion. 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 He is been doing fairly well ever since. In our office today's blood pressure is 110/60, pulse is 64 and regular. His physical exam is as below. His lipids as of 01/2015 showed HDL of 46 and LDL of 73. his lipids as of 10/04/15 showing HDL 60 and LDL of 90. Lipids as of 02/22/16 show an HDL of 56 and an LDL of 65. His lipids as of 04/09/17 show an HDL of 59 and an LDL of 79. Repeat lipids are pending dobutamine stress echo on 11/02/13 was negative for inducible ischemia. Intake Vital Signs03/15/18 Height 5 ft 10 in 03/15/18 Weight: 193 lb 03/15/18 Body Mass Index (BMI) 27.6 03/15/18 Blood Pressure 110/60 Intake Visit Reasons: 6 M FU Allergies No Known Allergies Allergy (Verified 08/14/17 10:39) Medications acetaminophen 325 mg capsule 325 mg PO Q4H PRN 08/12/17 [History Confirmed 03/15/18] aspirin 81 mg tablet,delayed release 81 mg PO QDAY tab 08/12/17 [History Confirmed 03/15/18] ibuprofen 200 mg tablet 400 mg PO QHS tab 08/12/17 [History Confirmed 03/15/18] lorazepam 1 mg tablet 1 mg PO QDAY tab 08/12/17 [History Confirmed 03/15/18] paroxetine 20 mg tablet 20 mg PO .COMPLEX 08/12/17 [History Confirmed 03/15/18] clopidogrel 75 mg tablet 75 mg PO QDAY #30 tab 09/10/17 [Rx Confirmed 03/15/18] metoprolol tartrate 25 mg tablet 25 mg PO BID #180 tab 10/29/17 [Rx Confirmed 03/15/18] atorvastatin 40 mg tablet 40 mg PO QHS #90 tab 12/16/17 [Rx Confirmed 03/15/18] losartan 50 mg-hydrochlorothiazide 12.5 mg tablet 1 tab PO QDAY #90 tab 03/15/18 [Rx Confirmed 03/15/18] [facility] Medical History Atherosclerotic heart disease of [place] coronary artery without angina pectoris (Chronic) History of non-ST elevation myocardial infarction (NSTEMI) (Acute) Hyperlipidemia (Chronic) CVA (cerebral vascular accident) (Acute) Intracerebral hemorrhage (Acute) Anxiety (Chronic) Depression (Chronic) History of tobacco abuse (Resolved) Surgical History History of thoracentesis (Resolved) History of vasectomy (Resolved) Family History Father Presence of permanent cardiac pacemaker Social History Smoking Status: Former smoker alcohol intake: never substance use type: does not use ROS Const Const: Negative for fatigue, weakness, body ache, fever(s), headache(s), chills, frequent falls, night sweats, daytime sleepiness, difficulty sleeping, excessive sweating, weight gain, weight loss, increased appetite, poor appetite, anorexia or other Eyes Eyes: Negative for blind spots, loss of peripheral vision, transient loss of vision, blurry vision, change in vision, double vision, floaters, tunnel vision or other ENT ENT: Negative for headache(s), dizziness, hearing loss, tinnitus, Nosebleed/epistaxis, balance problems, post nasal drip, lip swelling, tongue swelling, bleeding gums, hoarseness, neck pain, dry mouth or other Cardio Chest Pain: No Resp Respiratory: Negative for SOB with activity, SOB at rest, SOB orthopnea\SOB lying down, Coughing up blood/hemoptysis, chest congestion, pain on inspiration, snoring, stridor, wheezing, crackles, paroxysmal nocturnal dyspnea or other GI GI: Negative nausea, vomiting, heartburn, constipation, belching, bloating, cramping, vomiting blood/hematemesis, bright, red blood in stools, black,tarry stools, loose stools, Difficulty Swallowing or other : Negative for hematuria, frequent nighttime urination/ nocturia, erectile dysfunction or abnormal vaginal bleeding Musc Musc: Negative for balance problems, muscle aches/ myalgia, muscle weakness or joint pain Skin Skin: Negative redness, non-healing lesions, rash, unusual bruising, skin ulcer, wounds, jaundice or other Neuro Neuro: Negative for weakness, headache(s), frequent falls, blurry vision, double vision, dizziness, lightheadedness, near syncope, syncope, orthostatic symptoms, confusion, memory loss, restless legs, vertigo, seizures, lack of coordination or other Tigre Hematologic/Lymphatic: Negative for easy bleeding, easy bruising, enlarged lymph nodes or other Endo Endo: Negative for fatigue, excessive sweating, cold intolerance, heat intolerance, flushing, increased thirst/drinking, increased hunger, hair loss, hair growth or other Psych Psych: Negative for anxiety, depression, thoughts of harming anyone, thoughts of harming yourself, visual hallucinations, panic attacks or audible hallucinations Allergy Allergy/Immunology: Negative for lip swelling, Negative for tongue swelling, Negative for rash, Negative for throat swelling, Negative for hives Cardiology Exam Const Appearance: cooperative, healthy appearing and no acute distress Nutritional Appearance: well nourished Orientation: alert, oriented x3 and oriented to person Head Head: normal to inspection, atraumatic and normocephalic Nose: external nose normal Face and Sinus: face symmetric Mouth: oral mucosae normal Eyes General: appearance normal, both eyes and all related structures Eyelids: eyelids normal Conjunctivae: conjunctivae normal Pupils: PERRL and normal by confrontation EOM: EOM intact bilaterally Neck Neck: normal visual inspection and full ROM Carotids: normal carotid upstroke Chest Chest inspection: normal inspection of the chest Auscultation: Bilateral: Clear to Auscultation Cardio Palpation: normal PMI Rate: regular rate Rhythm: regular rhythm Heart sounds: S1 normal and S2 normal GI GI: normal to inspection, no hepatosplenomegaly and bowel sounds present Neuro General: alert, oriented x3, awake, CN's II-XI intact bilaterally and moves all extremities Skin Skin: no rashes or lesions noted Extremities Pulses: Normal: Right Femoral Pulse, Left Femoral Pulse, Right Dorsalis Pedis Pulse, Left Dorsalis Pedis Pulse, Right Posterior Tibial Pulse, Left Posterior Tibial Pulse, Right Radial Pulse, Left Radial Pulse Lower Extremity Edema: None: Bilateral Psych Psychological: normal affect Assessment AND Plan 1. Atherosclerotic heart disease of [place] coronary artery without angina pectoris I25.10 Plan 1. Coronary artery disease: Patient had climbed to go through bypass surgery and wish to pursue medical management at that time in September 2017. Over the summer he had some dyspnea on exertion which she attributed to the high humidity. Patient has had no exertional anginal symptoms, and a positive stress test in September 2017 with abnormalities of the anterior apical wall. I recommended to the patient that I relocate is Cassy from September 2017 to determine if he may benefit from angioplasty and stenting. He tolerated dual antiplatelet therapy despite his previous CVA in the past. She may require bare-metal stenting in order to limit dual antiplatelet therapy. The meantime his blood pressure is fairly well controlled. He will continue his baby aspirin, Hyzaar and metoprolol. Orders Orders: 2. Hyperlipidemia E78.5 Plan 2. Hyperlipidemia: His LDL and HDL cholesterol are fairly well-controlled on her last lipid profile. We will repeat his lipid profile. Continue Lipitor. 3. Return office in 6 months. This note was generated using a voice recognition system and there may be incorrect words, spelling or punctuation that were not noted when reviewing the office note prior to saving. Orders Orders: Plan Detail Other Medications Refilled: Follow Up +6M (Vish) Coding Level of Care Code Off vis,est,level 3 Diagnoses Atherosclerotic heart disease of [place] coronary artery without angina pectoris I25.10 Hyperlipidemia E78.5 Coding Level of Care Code Off vis,est,level 3 Diagnoses Atherosclerotic heart disease of [place] coronary artery without angina pectoris I25.10 Hyperlipidemia E78.5 03/15/18 1526 <Electronically signed by Bro Wahl MD> Date Bro Wahl MD Cosigner Signature: Date (if applicable) CC: Elmer Roth MD STRESS TEST ECHO W/O Observed: 09/10/2017 Status: F Source: [place] CONTRAST 1:08 PM [facility] [place] [facility] Cardiovascular Services [address] [place] [address] Stress Test Echo W/Contrast MR#: [id number] Acct: [id number] Name: JARED ORDONEZ Rep #: [id number] : 1940 77 From: Bro Wahl MD Primary Care: Elmer Roth Status: REG CLI Ordering Dr: Bro Wahl MD Sex: M C Reason For Study: CAD/ASHD Stress Results Protocol: Stress Echocardiogram Maximum Predicted HR: 142 bpm Target HR: 121 bpm% Maximum Pr edicted HR: 92 % DurationHeart Rate Stage (mm:ss) (bpm) BPCom ment BASELINE 53 140/76 DEFINITY 5 ML USED DURING STRESS JAC PROTOCOL- STAGE 1 2:10 13 0 140/80SOB, FATIGUE RECOVERY 75 122/80 Stress Duration: 2:10 mm:ss Maximum Stress HR: 130 bpm Baseline Echocardiogram Findings The estimated ejection fraction is 65 %. Stress Echo Wall motion Data Resting WMIntermediate WMStress WM Resting Wall Motion Wall Motion Stress No regional wall motion Anterio-Basal: Severely abnormalities noted. hypokinetic. Mid-Anterior : Severely Hypokinetic. Mid-anteroseptal : Severly Hypokinetic. Anterior [place] : Severly Hypokinetic. EKG Data Normal intervals are noted. The patient exercised according to the regular Jac protocol for a total duration of 2:10. The maximum heart rate attained was 130 beats per minute. This was 91% of maximum predicted heart rate. The patient exercised into stage 1 of the Jac protocol. Interpretation Summary No regional wall motion abnormalities noted. The estimated ejection fraction is 65 %. Abnormal, adequate, treadmill echocardiogram. Positive for ischemia by echocardiographic criteria. Very poor exercise capacity for age. Appropriate blood pressure response to exercise. Test terminated due to dyspnea. Patient developed rate-dependent right bundle branch block during exercise with associated PVCs. In addition the patient developed severe proximal mid and apical anterior anterior apical hypokinesis at peak exercise with a post-rest EF of approximately 25%. No anginal symptoms noted. Patient referred to our office for set up for urgent catheterization tomorrow morning. Patient's symptom-free at the end of the procedure. Results explained immediately to the patient and his . Ordering Physician: Bro Wahl Referring Physician: Bro Wahl Performed By: Marissa Wylie, RDCS, RVT 09/10/17 1308 Date Bro Wahl MD CC: Bro Wahl MD; [facility] Date Dictated: 09/10/17 1047 Date Transcribed: 09/10/17 1308 Endband Sizer: Signed CBC W/DIFF, AUTOMATED Collected: 09/10/2017 Status: F Source: [place] 12:30 PM [facility] [place] TYPE CODE TESTS RESULT OUT OF RANGE REFERENCE UNITS LAB L100.1000 4.4-11.0 K/mm3 Normal WBC 5.7 LAB L100.1200 4.6-6.2 M/mm3 Normal RBC 4.60 LAB L100.1300 13.0-16.5 g/dl Normal HGB 14.1 LAB L100.1400 40-54 % Normal HCT 42.5 LAB L100.1500 80-94 fL Normal MCV 92.4 LAB L100.1600 27.0-32.0 pg Normal MCH 30.7 LAB L100.1700 32-36 g/gl Normal MCHC 33.2 LAB L100.1810 11.6-14.6 % Normal RDW CV 14.3 LAB L100.1820 35.1-43.9 fl High RDW SD 46.8 LAB L100.1900 150-450 K/mm3 Normal PLT 214 LAB L100.2000 6.2-12.0 fl Normal MPV 10.7 LAB L100.2100 47-70 % Normal NEUT% 53.6 LAB L100.2200 19-41 % Normal LY% 30.6 LAB L100.2300 0-10 % High MONO% 11.0 LAB L100.2400 0-5 % Normal EO% 4.4 LAB L100.2500 0-1 % Normal BASO% 0.2 LAB L100.2550 0.0-0.9 % Normal IM GRAN % 0.200 Result Comment: IG% - Immature Granulocytes (promyelocytes, myelocytes and metamyelocytes) > 1% indicates that a LEFT SHIFT is Present. LAB L100.2620 2.0-7.7 X10 3/uL Normal Absolute Neut 3.0 LAB L100.2720 0.83-4.51 X10 3/ul Normal Absolute Lymph 1.73 Performed By: #### L100.0100 #### [facility] [address] [place], [address] PROTHROMBIN TIME W/INR Collected: 09/10/2017 Status: F Source: [place] 12:30 PM [facility] [place] TYPE CODE TESTS RESULT OUT OF RANGE REFERENCE UNITS LAB L300.4150 11.7-14.9 SECONDS Normal PROTIME 13.8 LAB L300.4200 Normal INR 1.1 Performed By: #### L300.3900, L300.4310, L500.2500 #### [facility] [address] [place], [address] PARTIAL THROMBOPLAST Collected: 09/10/2017 Status: F Source: [place] TIME 12:30 PM [facility] [place] TYPE CODE TESTS RESULT OUT OF RANGE REFERENCE UNITS LAB L300.4310 24.1-36.2 Seconds Normal PTT 29.7 Performed By: #### L300.3900, L300.4310, L500.2500 #### [facility] [address] [place], [address] BASIC METABOLIC Collected: 09/10/2017 Status: F Source: [place] PROFILE (BMP) 12:30 PM [facility] [place] TYPE CODE TESTS RESULT OUT OF RANGE REFERENCE UNITS LAB L501.0100 74-106 mg/dL Normal GLU 96 Result Comment: Please note revised GLUCOSE reference range effective 2017. LAB L501.1000 7-18 mg/dL High BUN 20 LAB L501.1100 0.70-1.30 mg/dL Normal CREAT,SERUM 1.02 Result Comment: The validity of the calculated GFR AND GFRAA in patients over 70 years has not been determined. Clinical correlation is essential. LAB L501.1110 >60 mL/min Normal EST GFR 75 Result Comment: Non- GFR Calc LAB L501.1115 >60 mL/min Normal EST GFR - AA 91 Result Comment: GFR Calc LAB L501.1300 10-20 RATIO Normal BUN/CRE 19.6 LAB L501.2200 8.5-10.1 mg/dL CA Normal 9.3 LAB L501.5300 136-145 mmol/L NA Normal 142 LAB L501.5600 3.5-5.1 mmol/L High K 5.2 LAB L501.5900 98-107 mmol/L High CL 108 LAB L501.6100 21.0-32.0 mmol/L Normal CO2 28.0 LAB L501.6200 5-15 Normal GAP 6 Performed By: #### L300.3900, L300.4310, L500.2500 #### [facility] [address] [place], [address] CHEST PA AND LATERAL Observed: 09/10/2017 Status: F Source: [place] 12:09 PM [facility] [place] [facility] Imaging Services [address] [place] [address] Chest PA and Lateral MR#: [id number] Acct: [id number] Name: JARED ORDONEZ Earl Rep #: [id number] : 1940 M 77 From: Angelo Sanabria DO PCP: Elmer Roth Status: REG CLI Study: Chest PA and Lateral Date of Exam: 09/10/17 Exam# [id number] Ordering Dr: Bro Wahl MD STUDY: X-RAY CHEST REASON FOR EXAM: Male, 77 years old. Shortness of breath. TECHNIQUE: PA and lateral views of the chest. COMPARISON: September 26, 2013. FINDINGS: The lungs are clear and expanded. There is no demonstrated pleural abnormality. Normal size heart. Normal mediastinum and dary. Normal visualized pulmonary arteries. Normal visualized aortic arch and descending thoracic aorta. There are diffuse degenerative changes of the visualized thoracic spine. There is degenerative osteoarthritis of the bilateral shoulders. There is no demonstrated abnormality of the visualized soft tissue structures of the upper abdomen. RAD/Chest PA and Lateral IMPRESSION: No acute cardiopulmonary disease or interval change. Electronically Signed: Angelo SanabriaDO at 12:06 EDT Tel [phone], Service support , CC: Bro Wahl MD; Elmer Roth Endband Sizer: Signed PT D/C SUMMARY (1) Observed: 08/20/2017 Status: F Source: [place] 9:07 AM [facility] [place] [facility] [address] [place], [place] [address] Fax REHABILITATION SERVICES DISCHARGE SUMMARY MR#: [id number] Acct: [id number] Name: JARED ORDONEZ Rep #: [id number] : 1940 77 From: Everarod Mckinley DPT, OCS, CSCS Referring Dr.: Elmer Roth Status: REG RCR Insurance: MEDICARE PART A B AARP HP - PT D/C Summary It has been my pleasure to treat JARED ORDONEZ under orders from Elmer Roth MD, for the diagnosis of R shoulder pain for a total of 5 visit(s). Discharge Date: 08/19/17 Please see the following information for a summary of their discharge status. 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 Will have another standard stress test. That will be in September. Shoulder is fine...pretty well. L ribs seem to come and go, was doing well fro a while. Back to regular exercises and doing 2 sets. Doing back exercises adn some stretches. Activites at home are normal, not as busy in the spring, yard work conrad tart soon. Will need to mow and garden. - Pain R lateral shoulder pain. Pain Intensity (Out of 10): 0 - Objective Objective/Function: Full aROM R shoulder awithout pain. Strength at 4/5 and symmetrical with L without apin. Still has some intermittent c/o pain in L ribs since flu . - Goals Goal 1:: Full R shoulder AROM and c/s ROM without pain Goal Progress: Goal Met Goal 2:: Pt feel 50% improvement in pain level. Goal Progress: Goal Met Goal 3:: I approp HEP to minimize future problems. Goal Progress: Goal Met - Plan Plan: D/C shoulder. Recommended he see doctor for L rib pain as it is up and down and lingering. - D/C Information Discharge Comments: Patient ready to continue shoulder strength and stretching I. No pain and full aROM. Will contact doctor regarding cotninuing L rib pain from flu. If there are questions or concerns regarding this patient's physical therapy, please feel free to call me at [phone]. Thank you for the referral of this patient. Sincerely, Everardo Mckniley, DPT, OC <Electronically signed by Everardo Mckinley DPT, OCS, CSCS> 08/20/17 0907 CC: Elmer Roth EBG Signed CARDIOLOGY VISIT Observed: 08/14/2017 Status: F Source: [place] REPORT 11:32 AM [facility] [place] [facility] [place] [address] [place] [address] OFFICE VISIT Date of Service: 08/14/17 MR#: [id number] Acct: [id number] Name: JARED ORDONEZ Rep #: [id number] : 1940 Provider: Bro Wahl MD Age/Sex: 77/M Location: [facility] Status: Signed HPI HPI Chief Complaint: Routine follow-up Details: Mister Ordonez is a very pleasant 77-year-old gentleman, who came to [facility] ER on 09/26/13 and noted a increasing fever and minimal headache. A CT scan of his head demonstrated a small intra-axial acute hematoma along the left occipital lobe with edema. He was then transferred to [facility] for further care. At that time he was found to have diminishing mental status and hypotension requiring urgent intubation. During this time troponins were evaluated and the patient was found to have a small type II non-ST elevation myocardial infarction with a peak troponin of 1.7. Patient underwent medical therapy and underwent an echocardiogram on 09/27/13. This demonstrated normal LV function with an LVEF 55%, RVSP of 33 mmHg. patient then underwent a transesophageal echocardiogram on 10/04/13 which demonstrated normal LV function, negative bubble study, and a mobile echodensity in the right atrium that may be consistent with a calcified Chiari network or filamentous mobile mass. Patient underwent a coronary CT angiogram on 10/05/13 which demonstrated the object in the right atrium appeared to be a thickened елена terminalis, with a possible stenosis of 70% in both the LAD and diagonal branch, 50% in the left circumflex, and 50% in the right coronary. No catheterization was performed given the patient's recent CVA and inability to endure dual antiplatelet therapy at that time. A stress test dated 11/02/13 was negative for inducible ischemia. He has Never had a heart catheterization. Prior to that and since that time the patient denies any chest pain, angina, shortness of breath or dyspnea on exertion. 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 He is been doing fairly well ever since. In our office today's blood pressure is 120/60, pulse is 58 and regular. His physical exam is as below. His lipids as of 01/2015 showed HDL of 46 and LDL of 73. his lipids as of 10/04/15 showing HDL 60 and LDL of 90. Lipids as of 02/22/16 show an HDL of 56 and an LDL of 65. Dobutamine stress echo on 11/02/13 was negative for inducible ischemia. MEDICATIONS Intake Vital Signs08/14/17 Height 5 ft 10 in Intake Visit Reasons: F/U Allergies No Known Allergies Allergy (Verified 08/14/17 10:39) Medications acetaminophen 325 mg capsule 325 mg PO Q4H PRN 08/12/17 [History Confirmed 08/14/17] aspirin 81 mg tablet,delayed release 81 mg PO QDAY tab 08/12/17 [History Confirmed 08/14/17] atorvastatin 40 mg tablet 40 mg PO QHS tab 08/12/17 [History Confirmed 08/14/17] ibuprofen 200 mg tablet 400 mg PO QHS tab 08/12/17 [History Confirmed 08/14/17] lorazepam 1 mg tablet 1 mg PO QDAY tab 08/12/17 [History Confirmed 08/14/17] metoprolol tartrate 25 mg tablet 25 mg PO BID 08/12/17 [History Confirmed 08/14/17] paroxetine 20 mg tablet 20 mg PO .COMPLEX 08/12/17 [History Confirmed 08/14/17] [facility] Medical History Atherosclerotic heart disease of [place] coronary artery without angina pectoris (Chronic) History of non-ST elevation myocardial infarction (NSTEMI) (Acute) Hyperlipidemia (Chronic) CVA (cerebral vascular accident) (Acute) Intracerebral hemorrhage (Acute) Anxiety (Chronic) Depression (Chronic) History of tobacco abuse (Resolved) Surgical History History of thoracentesis (Resolved) History of vasectomy (Resolved) Family History Father Presence of permanent cardiac pacemaker Social History Smoking Status: Former smoker alcohol intake: never substance use type: does not use ROS Const Const: Negative for fatigue, weakness, difficulty sleeping, frequent falls, headache(s) or excessive sweating Eyes Eyes: Negative for loss of peripheral vision, transient loss of vision, blurry vision or double vision ENT ENT: Negative for headache(s), dizziness, Nosebleed/epistaxis or balance problems Cardio Chest Pain: No Edema: None Muscle aches with walking: None Resp Respiratory: Negative for SOB with activity, SOB at rest, SOB orthopnea\SOB lying down or paroxysmal nocturnal dyspnea GI GI: Negative nausea or heartburn : Negative for hematuria Musc Musc: Negative for muscle aches/ myalgia, muscle weakness, joint pain or balance problems Skin Skin: Negative non-healing lesions, unusual bruising or rash Neuro Neuro: Negative for weakness, frequent falls, blurry vision, headache(s), dizziness, lightheadedness, orthostatic symptoms or double vision Tigre Hematologic/Lymphatic: Negative for easy bruising Endo Endo: Negative for fatigue, excessive sweating or increased thirst/drinking Psych Psych: Negative for anxiety or depression Allergy Allergy/Immunology: Negative for hives, Negative for rash Cardiology Exam Const Appearance: cooperative, healthy appearing and no acute distress Nutritional Appearance: well nourished Orientation: alert, oriented x3 and oriented to person Head Head: normal to inspection, atraumatic and normocephalic Nose: external nose normal Face and Sinus: face symmetric Mouth: oral mucosae normal Eyes General: appearance normal, both eyes and all related structures Eyelids: eyelids normal Conjunctivae: conjunctivae normal Pupils: PERRL and normal by confrontation EOM: EOM intact bilaterally Neck Neck: normal visual inspection and full ROM Carotids: normal carotid upstroke Chest Chest inspection: normal inspection of the chest Auscultation: Bilateral: Clear to Auscultation Cardio Palpation: normal PMI Rate: regular rate Rhythm: regular rhythm Heart sounds: S1 normal and S2 normal GI GI: normal to inspection, no hepatosplenomegaly and bowel sounds present Neuro General: alert, oriented x3, awake, CN's II-XI intact bilaterally and moves all extremities Skin Skin: no rashes or lesions noted Extremities Pulses: Normal: Right Femoral Pulse, Left Femoral Pulse, Right Dorsalis Pedis Pulse, Left Dorsalis Pedis Pulse, Right Posterior Tibial Pulse, Left Posterior Tibial Pulse, Right Radial Pulse, Left Radial Pulse Lower Extremity Edema: None: Bilateral Psych Psychological: normal affect Assessment AND Plan 1. Atherosclerotic heart disease of [place] coronary artery without angina pectoris I25.10 Plan 1. Coronary artery disease: The patient has known coronary disease but evidence by CT scan when he had his non-STEMI during his CVA. Patient denies any chest pain symptoms however he had evidence of calcified disease in his LAD, circumflex and RCA. I recommended he undergo a repeat treadmill echocardiogram for coronary surveillance that is been 4 years since his last one. If this is grossly abnormal for ischemia, I have a low threshold for repeat catheterization. In the meantime he will continue baby aspirin, Lopressor. Orders Orders: 2. Hyperlipidemia E78.5 Plan 2. Hyperlipidemia: His LDL and HDL cholesterol are fairly well-controlled. Continue Lipitor. 3. Return office in 6 months per This note was generated using a voice recognition system and there may be incorrect words, spelling or punctuation that were not noted when reviewing the office note prior to saving. Orders Orders: Plan Detail Follow Up +6m (Vish) Coding Level of Care Code Off vis,est,level 3 Diagnoses Atherosclerotic heart disease of [place] coronary artery without angina pectoris I25.10 Hyperlipidemia E78.5 Coding Level of Care Code Off vis,est,level 3 Diagnoses Atherosclerotic heart disease of [place] coronary artery without angina pectoris I25.10 Hyperlipidemia E78.5 08/14/17 1132 <Electronically signed by Bro Wahl MD> Date Bro Wahl MD Cosign Signature: Date (if applicable) CC: RE-EVALUATION - PT (1) Observed: 07/21/2017 Status: F Source: [place] 11:53 AM [facility] [place] [facility] [address] [place], [place] [address] Fax REEVALUATION / MEDICARE RECERTIFICATION PHYSICAL THERAPY MR#: [id number] Acct: [id number] Name: JARED ORDONEZ Rep #: [id number] : 1940 77 From: Everardo Mckinley DPT, OCS, CSCS Referring Dr.: Elmer Roth Status: REG RCR Insurance: MEDICARE PART A B AARP Elmer Roth MD, It has been my pleasure to treat JARED ORDONEZ over the last 3 visits for R shoulder pain. Please see the progress note below for an update on the physical therapy plan of care! Subjective: Had bad flu and that has kept him out of here. Could not do his ex early on. Has been able to do his back exercises lately. Breathing muscles hurt with some his his pulling exercises. Gets some LBP and diagphragm pain which doctor knows about and with specific movements. Shoulder has hardly bothered him lately, other pain are getting his attention. Objective/Function: Patient has 140 degrees abd and flexion today without pain. Ext rotation is symmetrical and 50 and IR is L4 B and slightly painful on R. Posture is good today with focus. Strength in shoulders is 4-/5 without pain today in rotations and flex, abd. OVERALL DOING GREAT FAR SHOULDER IS CONCERNED BUT ACTIVITY HAS BEEN LIMITED DUE TO FLU. THIS HAS LIKELY HELPED HIS INFLAMMATION BUT NTO HIS STRENGTH. Plan Plan: Taugth patient to wean back to current ex. F/U in 2- 3 weeks after back to current ex for progression to iso c/s ret, IR, add, ext with pics. Will likely f/u again 2 weeks later for discharge depending on condition. Goals Goal 1:: Full R shoulder AROM and c/s ROM without pain Goal Time Frame: 2-4 Weeks Goal Progress: Goal Met Goal 2:: Pt feel 50% improvement in pain level. Goal Time Frame: 2-4 Weeks Goal Progress: Goal Met Goal 3:: I approp HEP to minimize future problems. Goal Time Frame: 2-4 Weeks Goal Progress: Progressing Anticipated Interventions Patient/Client Instruction: Educate patient on: Condition, Plan of Care For the Purpose of:: To decrease pain, To increase ROM, To improve nutrient delivery to tissue Therapeutic Exercise to Include: Strength training, Flexibilty training, Passive ROM, Active ROM, Scapular Strength/Stabilization For the Purpose of:: To decrease pain, To improve nutrient delivery to tissue Please do not hesitate to contact me at [phone] by phone or if you have questions or concerns regarding this new plan of care! Sincerely, Everardo Mckinley DPT, OC <Electronically signed by Everardo Mckinley DPT, NGUYEN, CSCS> 07/21/17 1153 CC: Elmer Roth EBG Signed For Medicare only, by signing this I certify the plan of care. Physicians Signature Date INITAL EVALUATION (1) Observed: 06/03/2017 Status: F Source: [place] - PT 7:52 AM [facility] [place] [facility] [address] [place] [address] Fax REHABILITATION SERVICES INITIAL EVALUATION MR#: [id number] Acct: [id number] Name: JARED ORDONEZ Rep #: [id number] : 1940 77 From: Everardo Mckinley DPT, OCS, CSCS Referring DrDandy: Elmer Roth Status: REG RCR Insurance: AARP MEDICARE PART A B Patient's Visit Information JARED ORDONEZ is a 77 year old M referred to Physical Therapy by MD ANALI Pickett with a diagnosis of R shoulder pain. Date of Evaluation: 06/02/17 Physical Therapist: Everardo Mckinley DPT, OC - Visit Plan Frequency: 1x/Week Duration: 2-4 Weeks Plan: weekly to progress HEP of postural strength, c/s stretches and ensure appropriate activity modification(impingement vs R stenosis.) Pec stretches. - Subjective Subjective: Just before [place], was doing GTB ex rows and progressed to blue band. R Shoulder hurt afterwards. Pain is middle of shoulder and moved out to lateral shoulder and sometimes into scapula. Hurts to use the mouse. No numbness or tingling. Sometimes hurts at rest intermittently. Later in day is worse. Evening TV watching [employer] heating pad. Shoulder feels tight. Sleep is not interrupted. Cannot lie on side as it hurts. Basic ADLS as dressing can be painful. Reaching behind can hurt. Doing the dishes and reaching [place] can be painful. Spends day cleaning house and laundry. Puzzles on computer and they can hurt shoulder. - Pain R lateral shoulder pain. Pain Intensity (Out of 10): 1 Pain Intensity Range: 0, 7 - Objective R shoulder tender supraspinatus and into UT. Forward head posture with elevated adn prottracted scapula. Tightness present in UT and hard for patient to move scapula smoothly. UE AROM elevation 135 B shoulders, 60 ext rot adn full IR only slight pain with IR R. C/S aROM 30 ext, 30 R rot and 45 L rotation, R SB reproduces R shoulder pain. reflexes 2/3 bi and tri. sensation UE WNL to gross light touch. Strength UE 4-/5 without myotomal abnormalities or unusual pain. - HK adn neer impingement tests. - ext rot lag test. Slight + R c/s compression test. - Goals Goal 1:: Full R shoulder AROM and c/s ROM without pain Goal Time Frame: 2-4 Weeks Goal 2:: Pt feel 50% improvement in pain level. Goal Time Frame: 2-4 Weeks Goal 3:: I approp HEP to minimize future problems. Goal Time Frame: 2-4 Weeks - Rehabilitation Potential Physical Therapy Diagnosis: C/S stenosis vs R shoulder bursitis. Rehabilitation Potential: Fair - Anticipated Interventions Patient/Client Instruction: Educate patient on: Condition, Plan of Care For the Purpose of:: To decrease pain, To increase ROM, To improve nutrient delivery to tissue Therapeutic Exercise to Include: Strength training, Flexibilty training, Passive ROM, Active ROM, Scapular Strength/Stabilization For the Purpose of:: To decrease pain, To improve nutrient delivery to tissue Thank you for the opportunity to evaluate your patient. For Medicare and Medicare HMO plans, please review the plan of care and approve it. It will need to be FAXED BACK to us at [phone] for Medicare purposes. Please let me know if there are questions or concerns regarding this plan of care. Physician Signature: Date: <Electronically signed by Everardo Mckinley DPT, OCS, CSCS> 06/03/17 0752 CC: Elmer Roth EBG Signed For Medicare only, by signing this I certify the plan of care. Physicians Signature Date ALLERGIES ALLERGIES DATE TYPE / CODE NAME / CODE REACTION SEVERITY SOURCE 04/13/2018 Drug No Known Unknown Jany [facility] Allergy/4160 Allergies/F00 Hospital 53641(SNOMED [id number](RXNOR Repository CT) M) ENCOUNTERS ENCOUNTERS ADMIT/DISCHARGE ACCOUNT ADMITTING ENCOUNTER LOCATION SOURCE NUMBER CLASS 2018 [id number] Ambulatory BMSBuilding:[place] 0 [facility] Repository 04/29/2018 [id number] Ambulatory [place] 8 [facility] ing:PSN Repository 04/23/2018 [id number] Ambulatory [place]any 7 [facility] ing:LABSPEC Repository 04/20/2018 [id number] Ambulatory BMSBuilding:B Jany 5 [facility] Repository 04/20/2018 [id number] Ambulatory [place] Jany 7 [facility] ing:CVS Repository 04/15/2018/ [id number] Ambulatory BMSBuilding:B [place] [address] [facility] Repository 03/15/2018/ [id number] Ambulatory BMSBuilding:B Jany 8 [address] [facility] Repository 09/11/2017/ [id number] Ambulatory Jany [place] 8 [facility] ing:CLSP Repository 09/11/2017 [id number] Ambulatory BMSBuilding:W [place] 7 [facility] Repository 09/10/2017 [id number] Ambulatory [place] 9 [facility] ing:CVS Repository 09/10/2017 [id number] Ambulatory BMSBuilding:W [place] 3 [facility] Repository 08/19/2017/ [id number] Ambulatory [place] 8 2 [facility] ing:PT Repository 08/14/2017/ [id number] Ambulatory BMSBuilding:B [place] 8 [address] [facility] Repository 08/12/2017 [id number] Ambulatory BMSBuilding:B [place] [address] [facility] Repository 06/18/2017 [id number] Ambulatory BMSBuilding:B [place] [address] [facility] Repository PAYERS PAYERS ENCOUNTER GUARANTOR PAYER SUBSCRIBER SOURCE 2018 JARED Elliott Primary JARED Nguyenoster [id number] Insurance:MEDICARE PRATTDOB: [facility] [id number] Number[place] Repository [id number]: [phone] [id number] [phone] () Date:2018-04-15 2018 Secondary JARED R Jany Insurance:AARPPolicy PRATTDOB: [facility] Number: [id number] Hospital [id number] Repository Date:9554-95-55[address], [place] [address]QJ: 2018 Tertiary NOT GIVENUNK Jany Insurance:SELF PAY [facility] Number: Effective Repository Date:2018 04/29/2018 JARED Elliott Primary JARED [place]oster [id number] Insurance:MEDICARE PRATTDOB: [facility] PART A olicy [id number] Number: Repository [address]Pnl: 330 [id number] [phone] () Date:2018-04-15 04/29/2018 Secondary JARED R [place] Insurance:AARPPolicy PRATTDOB: Community Number: [id number] [id number] Repository Date:9500-05-89[address], [place] [address]KA: 04/29/2018 Tertiary NOT GIVENUNK Jany Insurance:SELF PAY [facility] Number: Effective Repository Date:2018-04-15 04/23/2018 JARED R Primary JARED R [place] [id number] Insurance:MEDICARE PRATTDOB: [facility] PART A olic [id number] Number: Repository [id number]: 330 [id number] [phone] (HP) Date:2018-04-23 04/23/2018 Secondary JARED R [place] Insurance:AARPPolicy PRATTDOB: Community Number: [id number] Hospital [id number] Repository Date:7066-45-60FJ [address], [place] [address]EX: 04/23/2018 Tertiary NOT GIVENUNK Jany Insurance:SELF PAY [facility] Number: Effective Repository Date:2018-04-23 04/20/2018 JARED R Primary JARED R Jany [id number] Insurance:MEDICARE PRATTDOB: [facility] PART A olic [id number] Number: Repository [id number]: 330 [id number] [phone] () Date:2018-04-15 04/20/2018 Secondary JARED R [place] Insurance:AARPPolicy PRATTDOB: Community Number: [id number] Hospital [id number] Repository Date:9963-19-94[address], [place] [address]EM: 04/20/2018 Tertiary NOT GIVENUNK [place] Insurance:SELF PAY [facility] Number: Effective Repository Date:2018-04-20 04/20/2018 JARED R Primary JARED R Jany [id number] Insurance:MEDICARE PRATTDOB: Community [place] PART A [facility] [id number] Number: Repository [id number]: 330 [id number] [phone] (HP) Date:2018-04-15 04/20/2018 Secondary JARED R [place] Insurance:AARPPolicy PRATTDOB: Community Number: [id number] Hospital [id number] Repository Date:4779-59-66OI [facility] [address], [place] [address]DG: 04/20/2018 Tertiary NOT GIVENUNK [place] Insurance:SELF PAY [facility] Number: Effective Repository Date:2018-04-15 04/15/2018 JARED R Primary JARED R Jany [id number] Insurance:MEDICARE PRATTDOB: [facility] PART A [facility] [id number] [place] Number[facility] Repository [address]Vuh: 330 [id number] [phone] () Date:2018-04-08 04/15/2018 Secondary JARED R [place] Insurance:AARPPolicy PRATTDOB: Community Number: [id number] Hospital [id number] Repository Date:1862-56-96[address], [place] [address]PF: 04/15/2018 Tertiary NOT GIVENUNK Jany Insurance:SELF PAY [facility] Number: Effective Repository Date:2018-04-15 03/15/2018 JARED R Primary JARED R Jany [id number] Insurance:MEDICARE PRATTDOB: [facility] PART A [facility] [id number] [place] Number: Repository [address]Doo: 330 [id number] [phone] (HP) Date:2017-08-14 03/15/2018 Secondary JARED R [place] Insurance:AARPPolicy PRATTDOB: Community Number: [id number] Hospital [id number] Repository Date:5743-55-21NV [address], [place] [address]AQ: 03/15/2018 Tertiary NOT GIVENUNK [place] Insurance:SELF PAY [facility] Number: Effective Repository Date:2018-03-15 09/11/2017 JARED R Primary JARED R Jany [id number] Insurance:MEDICARE PRATTDOB: Community [place] PART A [place]licy [id number] Number: Repository [address]Njv: [phone] [id number] [phone] () Date:2017-09-10 09/11/2017 Secondary JARED R Jany Insurance:AARPPolicy PRATTDOB: Community Number: [id number] Hospital [id number] Repository Date:7474-62-83UY [address], [place] [address]UU: 09/11/2017 Tertiary NOT GIVENUNK Jany Insurance:SELF PAY [facility] Number: Effective Repository Date:2017-09-10 09/11/2017 JARED R Primary JARED R Jany [id number] Insurance:MEDICARE PRATTDOB: Community [place] PART A olic [id number] Number: Repository [address]Rcv: [phone] [id number] [phone] (HP) Date:2017-09-10 09/11/2017 Secondary JARED R [place] Insurance:AARPPolicy PRATTDOB: Community Number: [id number] Hospital [id number] Repository Date:3832-18-49EY [address], [place] [address]MM: 09/11/2017 Tertiary NOT GIVENUNK Jany Insurance:SELF PAY [facility] Number: Effective Repository Date:2017-09-11 09/10/2017 JARED R Primary JARED R [place] [id number] Insurance:MEDICARE PRATTDOB: Community BIGGS PART [facility] [id number] Number: Repository [id number]: [phone] [id number] [phone] (HP) Date:2017-08-14 09/10/2017 Secondary JARED R [place] Insurance:AARPPolicy PRATTDOB: Community Number: [id number] Hospital [id number] Repository Date:9395-61-71WO [address], [place] [address]ZW: 09/10/2017 Tertiary NOT GIVENUNK [place] Insurance:SELF PAY [facility] Number: Effective Repository Date:2017-08-14 09/10/2017 JARED R Primary JARED R [place] [id number] Insurance:MEDICARE PRATTDOB: [facility] [id number] Number: Repository [id number]: 330 [id number] [phone] (HP) Date:2017-08-14 09/10/2017 Secondary JARED R Jany Insurance:AARPPolicy PRATTDOB: Community Number: [id number] Hospital [id number] Repository Date:3631-06-34[address]X [address], [place] [address]XN: 09/10/2017 Tertiary NOT GIVENUNK Jany Insurance:SELF PAY [facility] Number: Effective Repository Date:2017-09-10 08/19/2017 JARED R Primary JARED R [place] [id number] Insurance:MEDICARE PRATTDOB: [facility] PART [facility] [id number] Number: Repository [address]Nbz: [phone] [id number] [phone] (HP) Date:2004-04-10 08/19/2017 Secondary JARED R Jany Insurance:AARPPolicy PRATTDOB: Community Number: [id number] Hospital [id number] Repository Date:7140-42-39[address], [place] [address]UM: 08/19/2017 Tertiary NOT GIVENUNK Jany Insurance:SELF PAY [facility] Number: Effective Repository Date:2017-05-27 08/14/2017 JARED R Primary JARED R Jany [id number] Insurance:MEDICARE PRATTDOB: Community BIG[place] PART A [facility] [id number] Number: Repository [id number]: [phone] [id number] [phone] (HP) Date:2017-07-08 08/14/2017 Secondary JARED R [place] Insurance:AARPPolicy PRATTDOB: Community Number: [id number] Hospital [id number] Repository Date:4735-64-71SU [address], [place] [address]CV: 08/14/2017 Tertiary NOT GIVENUNK Jany Insurance:SELF PAY [facility] Number: Effective Repository Date:2017-08-14 08/12/2017 Jared R Primary Jared R Jany [id number] Insurance:MEDICARE PrattDOB: [facility] PART A [facility] [id number] Number: Repository [id number]: [phone] [id number] [phone] () Date:2017-08-12 08/12/2017 Secondary Jared R Jany Insurance:AARPPolicy PrattDOB: Community Number: [id number] Hospital [id number] Repository Date:7857-79-72GZ [address], [place] [address]PT: 08/12/2017 Tertiary NOT GIVENUNK Jany Insurance:SELF PAY [facility] Number: Effective Repository Date:2017-08-12 06/18/2017 Jared R Primary Jared R Jany [id number] Insurance:AARPPolicy PrattDOB: [facility] Number: [id number], [place] [id number] Repository [address]Qpg: [phone]) Date:3658-12-10[phone] () [place]19[place], [place] [address]MD: 06/18/2017 Secondary Jared Carmichael Insurance:MEDICARE PrattDOB: Community PART A BPolicy [id number] [facility] Number: Repository [id number] Date:2017-04-15 06/18/2017 Tertiary NOT GIVENANGEL Carmichael Insurance:SELF PAY [facility] Number: Effective Repository Date:2017-04-15
== END ==
PROVIDERS: Family Provider Family Medicine; PCP Family Medicine; Referring Provider Internal Medicine Cardiovascular Disease; Visit Provider Internal Medicine Cardiovascular Disease
DX: Z01.818 Encounter for other preprocedural examination (principal); Z86.73 Personal history of transient ischemic attack (TIA), and cerebral infarction without residual deficits; I25.10 Atherosclerotic heart disease of native coronary artery without angina pectoris
CPT/HCPCS: 93880

== ENCOUNTER → 2018-04-23 10:00 | Outpatient (CLI) | payer MEDICARE, OTHER, SELFPAY ==
[2018-04-15 13:17] VITALS: BMI 26.9
[2018-04-23 11:46] LABS: AST(SGOT) 20 U/L (15-37); Alanine Aminotransfer ALT/SGPT 24 U/L (16-61); Albumin, Serum 3.5 g/dL (3.2-5.0); Alkaline Phosphatase 118 U/L (45-117); Bilirubin, Direct 0.21 mg/dL (0.00-0.30); Cholesterol 158 mg/dL (200); Globulin 3.6 g/dL (2.2-4.2); High Density Lipoprotein 59 mg/dL; Protein, Total 7.1 g/dL (6.4-8.2); Triglycerides 124 mg/dL; Very Low Density Lipoprotein 25 mg/dL (5-40)
--- OUTSIDE RECORDS SUMMARY | 2018-06-09 00:29 | XMS RPT_ITS ---
:1940 Author Organization OHIP Support Name Relationship Address Phone ORDONEZ, MATT Unavailable [address] + [place] [address] R Unavailable Unavailable Unavailable ORDONEZ, MATT Unavailable [address] + [place] [address] R Unavailable Unavailable Unavailable ORDONEZ, MATT Unavailable [address] + [place] [address] R Unavailable Unavailable Unavailable ORDONEZ, MATT Unavailable [address] + [place] [address] R Unavailable Unavailable Unavailable ORDONEZ, MATT Unavailable [address] + [place] [address] R Unavailable Unavailable Unavailable ORDONEZ, MATT Unavailable [address] + [place] [address] R Unavailable Unavailable Unavailable ORDONEZ, MATT Unavailable [address] + [place] [address] R Unavailable Unavailable Unavailable ORDONEZ, MATT Unavailable [address] + [place] [address] R Unavailable Unavailable Unavailable ORDONEZ, MATT Unavailable [address] + [place] [address] R Unavailable Unavailable Unavailable ORDONEZ, MATT Unavailable [address] + [place] [address] R Unavailable Unavailable Unavailable ORDONEZ, MATT Unavailable [address] + [place] [address] R Unavailable Unavailable Unavailable ORDONEZ, MATT Unavailable [address] + [place] [address] R Unavailable Unavailable Unavailable ORDONEZ, MATT Unavailable [address] + [place] [address] R Unavailable Unavailable Unavailable ORDONEZ, MATT Unavailable [address] + [place] [address] R Unavailable Unavailable Unavailable MATT ORDONEZ Unavailable [address] + [place] [address] R Unavailable Unavailable Unavailable Care Team Providers [...] Referring Unavailable Gonzalez, Elmer Primary Care Unavailable Viktor Fierro D.O. [...] I25.10 - Ileana Sam Atherosclerotic heart [facility] disease 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 / I25.2(ICD-10) Hospital Repository 10/22/2017 Unknown 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, Hospital unspecified / Repository I61.9(ICD-10) 08/20/2017 Unknown M25.511 - Pain in Gonzalez Elmer Active [place] right shoulder / Community M25.511(ICD-10) Hospital Repository PROCEDURES PROCEDURES No Procedure Records FoundRESULTS RESULTS PULMONARY FUNCTION Observed: 2018 Status: F Source: [place] TEST 10:24 AM [facility] REPOSITORY [facility] Pulmonary Services/Neurology [address] [place] [address] MR#: [id number] Acct: [id number] Name: JARED ORDONEZ Rep #: [id number] : 1940 78 From: Viktor Fierro DO Referring Dr: Bro Wahl MD Status: REG CLI Ordering Dr: Date: Location: [facility] Sex: M C INTRODUCTION: The patient is [...] Dictated: 04/30/18 1022 Date Transcribed: 04/30/18 1022 Metal Bonding Press Operator: HARISH Signed LIVER PROFILE Collected: 04/23/2018 Status: F Source: [place] 10:06 AM [facility] REPOSITORY TYPE CODE TESTS RESULT OUT OF [...] 0.21 Performed By: #### L500.3400, L500.4100 #### [facility] [address] [facility] [address] [place], [place], [address] LIPID PROFILE Collected: 04/23/2018 Status: F Source: [place] 10:06 AM [facility] REPOSITORY TYPE CODE TESTS RESULT OUT OF [...] 25 Performed By: #### L500.3400, L500.4100 #### [facility] [address] [facility] [address] [place], [place], [address] CAROTID DUPLEX Observed: 04/20/2018 Status: F Source: [place] ULTRASOUND 12:35 PM [facility] REPOSITORY [facility] Cardiovascular Services [address] [facility] [place] [address] Carotid Duplex Ultrasound 04/20/18 0957 MR#: [id number] Acct: [id number] Name: JARED ORDONEZ Rep #: [id number] : 1940 77 From: Gagandeep Hendricks MD [...] the left vertebral artery. Procedure Carotid Duplex 76377. Exam performed in department. Interpretation Summary Mild [...] Dictated: 04/20/18 0957 Date Transcribed: 04/20/18 1235 Metal Bonding Press Operator: Signed CARDIOLOGY VISIT Observed: 04/15/2018 Status: F Source: [place] REPORT 1:49 PM [facility] HOSPITAL REPOSITORY [facility] [address] [place] [address]. [address] [place] [address] OFFICE VISIT Date of Service: 04/15/18 MR#: [id number] Acct: [id number] Name: JARED ORDONEZ Rep #: [id number] : 1940 Provider: Bro Wahl MD Age/Sex: 77/M Location: [facility] Status: Signed HPI HPI Chief Complaint: Routine follow-up/discuss treatment options. Details: Mister Ordonez is a very pleasant 77-year-old gentleman, who came to [facility] ER on 09/26/13 and noted a increasing fever and minimal headache. A CT scan of his head demonstrated a small intra-axial acute hematoma along the left occipital lobe with edema. He was then transferred to [facility] for further care. At that time he [...] a diagnostic coronary angiogram on 09/11/17 at [facility] which demonstrated severe three-vessel coronary artery disease and he was referred for bypass surgery at [facility] with Dr Bryan. 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 Atherosclerotic heart disease of enterprise coronary artery without angina pectoris I25.10 Plan [...] a second opinion with Dr. Ro at [facility]. In addition if he is not a surgical candidate, I would refer him to Dr. Khan at [facility] for PCI of his RCA and medical management of his LAD. Patient should the patient have difficulty with PCI of his RCA he may be sent to emergency bypass surgery rather than be transported emergently to [facility]. Given his anatomy and the concerns of the patient is I would not recommend PCI here at [facility] unless it was emergent. We will [...] vis,est,level 3 Diagnoses Atherosclerotic heart disease of enterprise coronary artery without angina pectoris I25.10 Hyperlipidemia E78.5 Coding Level of Care Code Off vis,est,level 3 Diagnoses Atherosclerotic heart disease of enterprise coronary artery without angina pectoris I25.10 Hyperlipidemia E78.5 04/15/18 1349 <Electronically signed by Bro Wahl MD> Date Bro Wahl MD [facility] Signature: Date (if applicable) CC: Elmer Roth MD CARDIOLOGY VISIT Observed: 03/15/2018 Status: F Source: [place] REPORT 3:26 PM [facility] REPOSITORY [facility] [address] [place] [address] OFFICE VISIT Date of Service: 03/15/18 MR#: [id number] Acct: [id number] Name: JARED ORDONEZ Rep #: [id number] : 1940 Provider: Bro Wahl MD Age/Sex: 77/M Location: [facility] [place] [place] Status: Signed HPI HPI Chief Complaint: Routine follow-up Details: Mister Ordonez is a very pleasant 77-year-old gentleman, who came to [facility] ER on 09/26/13 and noted a increasing fever and minimal headache. A CT scan of his head demonstrated a small intra-axial acute hematoma along the left occipital lobe with edema. He was then transferred to [facility] for further care. At that time he [...] a diagnostic coronary angiogram on 09/11/17 at [facility] which demonstrated severe three-vessel coronary artery disease and he was referred for bypass surgery at [facility]. 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 Atherosclerotic heart disease of enterprise coronary artery without angina pectoris I25.10 Plan [...] vis,est,level 3 Diagnoses Atherosclerotic heart disease of enterprise coronary artery without angina pectoris I25.10 Hyperlipidemia E78.5 Coding Level of Care Code Off vis,est,level 3 Diagnoses Atherosclerotic heart disease of enterprise coronary artery without angina pectoris I25.10 Hyperlipidemia E78.5 03/15/18 1526 <Electronically signed by Bro Wahl MD> Date Bro Wahl MD Cosigner Signature: Date (if applicable) CC: Elmer Roth MD STRESS TEST ECHO W/O Observed: 09/10/2017 Status: F Source: [place] CONTRAST 1:08 PM [facility] REPOSITORY [facility] Cardiovascular Services [address] [place] [address] Stress Test Echo W/Contrast MR#: [id number] Acct: [id number] Name: JARED ORDONEZ Rep #: [id number] : 1940 77 From: Bro Wahl MD [...] Severely Hypokinetic. Mid-anteroseptal : Severly Hypokinetic. Anterior [place] : Severly Hypokinetic. EKG Data Normal intervals [...] Bro Wahl MD CC: Bro Wahl MD; [facility] Date Dictated: 09/10/17 1047 Date Transcribed: 09/10/17 1308 Metal Bonding Press Operator: Signed CBC W/DIFF, AUTOMATED Collected: 09/10/2017 Status: F Source: [place] 12:30 PM [facility] REPOSITORY TYPE CODE TESTS RESULT OUT OF [...] Lymph 1.73 Performed By: #### L100.0100 #### [facility] [address] [facility] [place], [address] PROTHROMBIN TIME W/INR Collected: 09/10/2017 Status: F Source: [place] 12:30 PM [facility] REPOSITORY TYPE CODE TESTS RESULT OUT OF RANGE REFERENCE UNITS LAB L300.4150 11.7-14.9 SECONDS Normal PROTIME 13.8 LAB L300.4200 Normal INR 1.1 Performed By: #### L300.3900, L300.4310, L500.2500 #### [facility] [address] [place], [address] PARTIAL THROMBOPLAST Collected: 09/10/2017 Status: F Source: [place] TIME 12:30 PM [facility] REPOSITORY TYPE CODE TESTS RESULT OUT OF RANGE REFERENCE UNITS LAB L300.4310 24.1-36.2 Seconds Normal PTT 29.7 Performed By: #### L300.3900, L300.4310, L500.2500 #### [facility] [address] [place], [address] BASIC METABOLIC Collected: 09/10/2017 Status: F Source: [place] PROFILE (BMP) 12:30 PM [facility] REPOSITORY TYPE CODE TESTS RESULT OUT OF [...] Performed By: #### L300.3900, L300.4310, L500.2500 #### [facility] [address] [place], [address] CHEST PA AND LATERAL Observed: 09/10/2017 Status: F Source: [place] 12:09 PM [facility] REPOSITORY [facility] Imaging Services [address] [place] [address] Chest PA and Lateral MR#: [id number] Acct: [id number] Name: JARED ORDONEZ Earl Rep #: [id number] : 1940 M 77 From: Angelo Sanabria DO PCP: Elmer Roth Status: REG CLI Study: Chest PA and Lateral Date of Exam: 09/10/17 Exam# [id number] Ordering Dr: Bro Wahl MD STUDY: X-RAY [...] Signed: Angelo SanabriaDO at 12:06 EDT Tel [phone], Service support , CC: Bro Wahl MD; Elmer Roth Metal [employer]ing Press Operator: Signed PT D/C SUMMARY (1) Observed: 08/20/2017 Status: F Source: [place] 9:07 AM [facility] REPOSITORY [facility] [address] [place], [place] [address] Fax REHABILITATION SERVICES DISCHARGE SUMMARY MR#: [id number] Acct: [id number] Name: JARED ORDONEZ Rep #: [id number] : 1940 77 From: Everardo Mckinley DPT, [...] their discharge status. - Subjective Subjective: Saw supervisor border department. Will have another standard stress test. That [...] please feel free to call me at [phone]. Thank you for the referral of this patient. Sincerely, Everardo Mckinley, DPT, OC <Electronically signed by Everardo Mckinley DPT, OCS, CSCS> 08/20/17 0907 CC: Elmer Roth EBG Signed CARDIOLOGY VISIT Observed: 08/14/2017 Status: F Source: [place] REPORT 11:32 AM [facility] REPOSITORY [place] [facility] [place] [address] [facility] [place] [address] OFFICE VISIT Date of Service: 08/14/17 MR#: [id number] Acct: [id number] Name: JARED ORDONEZ Rep #: [id number] : 1940 Provider: Bro Wahl MD Age/Sex: 77/M Location: [facility] [place] [place] Status: Signed HPI HPI Chief Complaint: Routine follow-up Details: Mister Ordonez is a very pleasant 77-year-old gentleman, who came to [facility] ER on 09/26/13 and noted a increasing fever and minimal headache. A CT scan of his head demonstrated a small intra-axial acute hematoma along the left occipital lobe with edema. He was then transferred to [facility] for further care. 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 Atherosclerotic heart disease of enterprise coronary artery without angina pectoris I25.10 Plan [...] vis,est,level 3 Diagnoses Atherosclerotic heart disease of enterprise coronary artery without angina pectoris I25.10 Hyperlipidemia E78.5 Coding Level of Care Code Off vis,est,level 3 Diagnoses Atherosclerotic heart disease of enterprise coronary artery without angina pectoris I25.10 Hyperlipidemia E78.5 08/14/17 1132 <Electronically signed by Bro Wahl MD> Date Bro Wahl MD Cosign Signature: Date (if applicable) CC: RE-EVALUATION - PT (1) Observed: 07/21/2017 Status: F Source: [place] 11:53 AM [facility] REPOSITORY [facility] [address] [place], [place] [address] Fax REEVALUATION / MEDICARE RECERTIFICATION PHYSICAL THERAPY MR#: [id number] Acct: [id number] Name: JARED ORDONEZ Rep #: [id number] : 1940 77 From: Everardo Mckinley DPT, [...] do not hesitate to contact me at [phone] by phone or if you have questions or concerns regarding this new plan of care! Sincerely, Everardo Mckinley DPT, OC <Electronically signed by Everardo Mckinley DPT, NGUYEN, CSCS> 07/21/17 1153 CC: Elmer Roth EBG Signed For Medicare only, by signing this I certify the plan of care. Physicians Signature Date INITAL EVALUATION (1) Observed: 06/03/2017 Status: F Source: [place] - PT 7:52 AM [facility] REPOSITORY [facility] Physical Therapy [address] [place] [address] Fax REHABILITATION SERVICES INITIAL EVALUATION MR#: [id number] Acct: [id number] Name: JRAED ORDONEZ Rep #: [id number] : 1940 77 From: Everardo Mckinley DPT, [...] in day is worse. Evening TV watching 3nder heating pad. Shoulder feels tight. Sleep is [...] to be FAXED BACK to us at [phone] for Medicare purposes. Please let me know [...] SOURCE 04/13/2018 Drug No Known Unknown [place] [facility] Allergy/4160 Allergies/F00 Hospital 34457(SNOMED 9360474(RXNOR Repository CT) M) ENCOUNTERS ENCOUNTERS ADMIT/DISCHARGE ACCOUNT ADMITTING ENCOUNTER LOCATION SOURCE NUMBER CLASS 2018 [id number] Ambulatory BMSBuilding:W [place] 0 [facility] Repository 04/29/2018 [id number] Ambulatory [place] 8 [facility] ing:PSN Repository 04/23/2018 [id number] Ambulatory [place] 7 [facility] ing:LABSPEC Repository 04/20/2018 [id number] Ambulatory BMSBuilding:B [place] 5 [facility] Repository 04/20/2018 [id number] Ambulatory [place] 7 [facility] ing:CVS Repository 04/15/2018/ [id number] Ambulatory BMSBuilding:B [place] 8 1 [facility] Repository 03/15/2018/ [id number] Ambulatory BMSBuilding:B [place] 8 5 [facility] Repository 09/11/2017/ [id number] Ambulatory [place] 8 8 [facility] ing:CLSP Repository 09/11/2017 [id number] Ambulatory BMSBuilding:W [place] 7 [facility] Repository 09/10/2017 [id number] Ambulatory [place] 9 [facility] ing:CVS Repository 09/10/2017 [id number] Ambulatory BMSBuilding:W [place] 3 [facility] Repository 08/19/2017/ [id number] Ambulatory [place] 8 2 [facility] ing:PT Repository 08/14/2017/ [id number] Ambulatory BMSBuilding:B [place] 8 3 [facility] Repository 08/12/2017 [id number] Ambulatory BMSBuilding:B [place] 3 [facility] Repository 06/18/2017 [id number] Ambulatory BMSBuilding:B [place] 6 [facility] Repository PAYERS PAYERS ENCOUNTER GUARANTOR PAYER SUBSCRIBER SOURCE 2018 JARED Elliott Primary JARED [place] [id number] Insurance:MEDICARE PRATTDOB: [facility] [id number], [place] Number: Repository [id number]: [phone] [id number] [phone] () Date:2018-04-15 2018 Secondary JARED R [place] Insurance:AARPPolicy PRATTDOB: [facility] Number: [id number] Hospital [id number] Repository Date:6340-16-68CF [address], [place] [address]QY: 2018 Tertiary NOT GIVENUNK [place] Insurance:SELF PAY [facility] Number: Effective Repository Date:2018 04/29/2018 JARED Elliott Primary JARED [place] [id number] Insurance:MEDICARE PRATTDOB: [facility] PART A [place]licy [id number], [place] Number: Repository 526[address]Lnk: 330 [id number] [phone] () Date:2018-04-15 04/29/2018 Secondary JARED R [place] Insurance:AARPPolicy PRATTDOB: Community Number: [id number] Hospital [id number] Repository Date:1164-06-00IV [address], [place] [address]JX: 04/29/2018 Tertiary NOT GIVENUNK [place] Insurance:SELF PAY [facility] Number: Effective Repository Date:2018-04-15 04/23/2018 JARED R Primary JARED R [place] [id number] Insurance:MEDICARE PRATTDOB: [facility] PART A olic [id number], [place] Number: Repository [id number]: 330 [id number] [phone] (HP) Date:2018-04-23 04/23/2018 Secondary JARED R [place] Insurance:AARPPolicy PRATTDOB: Community Number: [id number] Hospital [id number] Repository Date:1122-25-82[address], [place] [address]CD: 04/23/2018 Tertiary NOT GIVENUNK [place] Insurance:SELF PAY [facility] Number: Effective Repository Date:2018-04-23 04/20/2018 JARED R Primary JARED R [place] [id number] Insurance:MEDICARE PRATTDOB: [facility] PART A olic [id number], [place] Number: Repository [address]Wld: 330 [id number] [phone] () Date:2018-04-15 04/20/2018 Secondary JARED R [place] Insurance:AARPPolicy PRATTDOB: Community Number: [id number] Hospital [id number] Repository Date:8107-16-09XS [address]JNPWCS, [place] [address]BM: 04/20/2018 Tertiary NOT GIVENUNK [place] Insurance:SELF PAY [facility] Number: Effective Repository Date:2018-04-20 04/20/2018 JARED R Primary JARED R [place] [id number] Insurance:MEDICARE PRATTDOB: Community [place] PART A [facility] [id number], [place] Number: Repository [id number]: 330 [id number] [phone] (HP) Date:2018-04-15 04/20/2018 Secondary JARED R [place] Insurance:AARPPolicy PRATTDOB: Community Number: [id number] Hospital [id number] Repository Date:4818-71-52HZ [facility] [address], [place] [address]BD: 04/20/2018 Tertiary NOT GIVENUNK [place] Insurance:SELF PAY [facility] Number: Effective Repository Date:2018-04-15 04/15/2018 JARED R Primary JARED R [place] [id number] Insurance:MEDICARE PRATTDOB: [facility] PART A [id number] [place] Number: Repository [id number]: 330 [id number] [phone] () Date:2018-04-08 04/15/2018 Secondary JARED R [place] Insurance:AARPPolicy PRATTDOB: Community Number: [id number] Hospital [id number] Repository Date:5150-51-75QM [address], [place] [address]EP: 04/15/2018 Tertiary NOT GIVENUNK [place] Insurance:SELF PAY [facility] Number: Effective Repository Date:2018-04-15 03/15/2018 JARED R Primary JARED R [place] [id number] Insurance:MEDICARE PRATTDOB: [facility] PART A [id number] [place] Number: Repository [address]Fjj: 330 [id number] [phone] (HP) Date:2017-08-14 03/15/2018 Secondary JARED R [place] Insurance:AARPPolicy PRATTDOB: Community Number: [id number] Hospital [id number] Repository Date:0262-41-53JS [address]B, [place] [address]FB: 03/15/2018 Tertiary NOT GIVENUNK [place] Insurance:SELF PAY [facility] Number: Effective Repository Date:2018-03-15 09/11/2017 JARED R Primary JARED R [place] [id number] Insurance:MEDICARE PRATTDOB: Community [address] PART A [place] [id number], [place] Number: Repository [address]Qgu: [phone]) [id number] [phone] () Date:2017-09-10 09/11/2017 Secondary JARED R [place] Insurance:AARPPolicy PRATTDOB: Community Number: [id number] Hospital [id number] Repository Date:3712-12-53VE [address]LEFPQ, [place] [address]DS: 09/11/2017 Tertiary NOT GIVENUNK [place] Insurance:SELF PAY [facility] Number: Effective Repository Date:2017-09-10 09/11/2017 JARED R Primary JARED R [place] [id number] Insurance:MEDICARE PRATTDOB: Community [place] PART A olic [id number], [place] Number: Repository [address]Iho: [phone]) [id number] [phone] (HP) Date:2017-09-10 09/11/2017 Secondary JARED R [place] Insurance:AARPPolicy PRATTDOB: Community Number: [id number] Hospital [id number] Repository Date:3458-15-93WO [address]JA, [place] [address]YA: 09/11/2017 Tertiary NOT GIVENUNK [place] Insurance:SELF PAY [facility] Number: Effective Repository Date:2017-09-11 09/10/2017 JARED R Primary JARED R [place] [id number] Insurance:MEDICARE PRATTDOB: Community [address] PART [facility] [id number], [place] Number: Repository [address]Iiv: [phone]) [id number] [phone] (HP) Date:2017-08-14 09/10/2017 Secondary JARED R [place] Insurance:AARPPolicy PRATTDOB: Community Number: [id number] Hospital [id number] Repository Date:8133-26-10KO [address]ZBQSLPB, [place] [address]QW: 09/10/2017 Tertiary NOT GIVENUNK [place] Insurance:SELF PAY [facility] Number: Effective Repository Date:2017-08-14 09/10/2017 JARED R Primary JARED R [place] [id number] Insurance:MEDICARE PRATTDOB: [facility] [id number], [place] Number: Repository [address]Dre: 330 [id number] [phone] (HP) Date:2017-08-14 09/10/2017 Secondary JARED R [place] Insurance:AARPPolicy PRATTDOB: Community Number: [id number] Hospital [id number] Repository Date:7838-92-43OC [address]UKFSAFB, [place] [address]LK: 09/10/2017 Tertiary NOT GIVENUNK [place] Insurance:SELF PAY [facility] Number: Effective Repository Date:2017-09-10 08/19/2017 JARED R Primary JARED R [place] [id number] Insurance:MEDICARE PRATTDOB: [facility] PART [facility] [id number], [place] Number: Repository [address]Ylp: [phone]) [id number] [phone] (HP) Date:2004-04-10 08/19/2017 Secondary JARED R [place] Insurance:AARPPolicy PRATTDOB: Community Number: [id number] Hospital [id number] Repository Date:[id number] [address], [place] [address]OT: 08/19/2017 Tertiary NOT GIVENUNK Jany Insurance:SELF PAY [facility]: Effective Repository Date:2017-05-27 08/14/2017 JARED R Primary JARED R Jany [id number] Insurance:MEDICARE PRATTDOB: Community BIGGS PART A [facility] [id number] Number: Repository [id number]: [phone] [id number] [phone] (HP) Date:2017-07-08 08/14/2017 Secondary JARED R [place] Insurance:AARPPolicy PRATTDOB: Community Number: [id number] Hospital [id number] Repository Date:[id number] [address], [place] [address]WA: 08/14/2017 Tertiary NOT GIVENUNK Jany Insurance:SELF PAY [facility] Number: Effective Repository Date:2017-08-14 08/12/2017 Jared R Primary Jared R Jany [id number] Insurance:MEDICARE PrattDOB: [facility] PART A [facility] [id number] Number: Repository [address]Rjl: [phone] [id number] [phone] Date:2017-08-12 08/12/2017 Secondary Jared R Jany Insurance:AARPPolicy PrattDOB: Community Number: [id number] Hospital [id number] Repository Date:[id number] [address], [place] [address]ZV: 08/12/2017 Tertiary NOT GIVENUNK Jany Insurance:SELF PAY [facility] Number: Effective Repository Date:2017-08-12 06/18/2017 Jared R Primary Jared R Jany [id number] Insurance:AARPPolicy PrattDOB: [facility] Number: [id number] [id number] Repository [address]Zqm: [phone] Date:[id number] [phone] () [place], [place] [address]XM: 06/18/2017 Secondary Jared Carm[place] Insurance:MEDICARE PrattDOB: Community PART A BPolicy [id number] [facility] Number: Repository [id number] Date:2017-04-15 06/18/2017 Tertiary NOT GIVENANGEL [place] Insurance:SELF PAY [facility] Number: Effective Repository Date:2017-04-15
== END ==
PROVIDERS: Family Provider Family Medicine; PCP Family Medicine; Referring Provider Internal Medicine Cardiovascular Disease; Visit Provider Internal Medicine Cardiovascular Disease
DX: E78.5 Hyperlipidemia, unspecified (principal); I25.10 Atherosclerotic heart disease of native coronary artery without angina pectoris; Z86.73 Personal history of transient ischemic attack (TIA), and cerebral infarction without residual deficits
CPT/HCPCS: 36415; 80061; 80076

== ENCOUNTER → 2018-04-29 09:51 | Outpatient (CLI) | payer MEDICARE, OTHER, SELFPAY ==
[2018-04-15 13:17] VITALS: BMI 26.9
--- NOTE | 2018-04-30 10:22 | PFT ---
INTRODUCTION: The patient is a 77-year-old male that presents for pulmonary function studies secondary to a diagnosis of coronary artery disease. Respiratory therapy reports good patient effort. Bronchodilators were used during testing. INTERPRETATION: Forced expiration spirometry demonstrates the presence of a moderate large airways obstructive ventilatory defect. There was no significant response to aerosolized bronchodilators, based upon strict ATS criteria. Spirograms are of good quality and do not plateau indicating slow emptying of the lungs. Body plethysmography was performed and reveals lung volumes to be within normal limits. Diffusing capacity by single breath CO is within normal limits at 83% of predicted. IMPRESSION: These pulmonary function studies demonstrate the presence of an irreversible moderate large airways obstructive ventilatory defect with preserved lung volumes and diffusing capacity.
== END ==
PROVIDERS: Family Provider Family Medicine; PCP Family Medicine; Referring Provider Internal Medicine Cardiovascular Disease; Visit Provider Internal Medicine Cardiovascular Disease
DX: I25.10 Atherosclerotic heart disease of native coronary artery without angina pectoris (principal); R94.39 Abnormal result of other cardiovascular function study
CPT/HCPCS: 94060; 94726; 94729

== ENCOUNTER → 2018-09-10 12:48 | Outpatient (CLI) | payer MEDICARE, OTHER, SELFPAY ==
[2018-04-15 13:17] VITALS: BMI 26.9
--- NOTE | 2018-09-10 12:59 | RAD_ITS ---
STUDY: X-RAY - LUMBAR SPINE REASON FOR EXAM: Male, 78 years old. Back and hip pain TECHNIQUE: 5 view(s) of the lumbar spine were obtained. COMPARISON: None FINDINGS: Normal lumbar lordosis. There is a dextroscoliosis of the lumbar spine. There is a normal alignment of the vertebrae. There is diffuse demineralization with multi-level endplate spondylosis. There is multi-level degenerative disc disease with multi-level disc space narrowing. There is no demonstrated fracture. There is no demonstrated spondylolysis of the pars interarticulares. Severe multilevel facet arthropathy identified throughout the lumbar spine. There is atherosclerotic calcification of the abdominal aorta without a demonstrated aneurysm. RAD/L/S Spine Min 4 Views IMPRESSION: Severe multilevel degenerative disc disease and facet arthropathy. Canal and foraminal stenosis likely. No compression fracture. Electronically Signed: Arie Fong MD at 7:46 EDT , Service support ,
--- NOTE | 2018-09-10 12:59 | RAD_ITS ---
STUDY: X-RAY - PELVIS AND LEFT HIP REASON FOR EXAM: Male, 78 years old. Left hip pain TECHNIQUE: 3 views of the pelvis and hip. COMPARISON: None. FINDINGS: There is a non-specific bowel gas pattern. There are atherosclerotic vascular calcifications of the pelvic arteries. Normal bilateral iliac wings, sacroiliac joints and visualized sacrum. Normal bilateral superior and inferior pubic rami. Normal pubic symphysis. Normal bilateral ischial tuberosities. There are osteoarthritic changes of the femoral head with marginal osteophyte formation. There is osteoarthritic spur formation of the acetabular rim. There is moderate articular joint space narrowing of the hip. RAD/HIP, UNI W/ Pelvis 2-3 Views IMPRESSION: 1. Moderate osteoarthrosis of the left hip. Electronically Signed: Arie Fong MD at 7:47 EDT , Service support ,
== END ==
PROVIDERS: Family Provider Family Medicine; PCP Family Medicine; Referring Provider Family Medicine; Visit Provider Family Medicine
DX: M54.32 Sciatica, left side (principal)
CPT/HCPCS: 72110; 73502

== ENCOUNTER → 2018-10-22 10:08 | Outpatient (CLI) | payer MEDICARE, OTHER, SELFPAY ==
[2018-04-15 13:17] VITALS: BMI 26.9
[2018-10-22 11:13] LABS: AST(SGOT) 23 U/L (15-37); Alanine Aminotransfer ALT/SGPT 23 U/L (16-61); Albumin, Serum 3.6 g/dL (3.2-5.0); Alkaline Phosphatase 113 U/L (45-117); Bilirubin, Direct 0.16 mg/dL (0.00-0.30); Cholesterol 154 mg/dL (200); Globulin 3.4 g/dL (2.2-4.2); High Density Lipoprotein 71 mg/dL; Triglycerides 83 mg/dL; Very Low Density Lipoprotein 17 mg/dL (5-40)
== END ==
PROVIDERS: Family Provider Family Medicine; PCP Family Medicine; Referring Provider Internal Medicine Cardiovascular Disease; Visit Provider Internal Medicine Cardiovascular Disease
DX: I25.10 Atherosclerotic heart disease of native coronary artery without angina pectoris (principal); E78.5 Hyperlipidemia, unspecified
CPT/HCPCS: 36415; 80061; 80076

== ENCOUNTER 2018-10-25 14:00 | Outpatient (RCR) | payer MEDICARE, OTHER, SELFPAY ==
[2018-04-15 13:17] VITALS: BMI 26.9
--- NOTE | 2018-09-21 14:31 | HP.PTEVAL_ITS ---
Patient's Visit Information DHARA ORDONEZ is a 78 year old M referred to Physical Therapy by Elmer Roth MD with a diagnosis of Sciatica,. Date of Evaluation: 09/21/18 Physical Therapist: Everardo Mckinley, MARY JANET, OCS, CSCS - Visit Plan Frequency: 2x /Week Duration: 2-4 Weeks Plan: 2x/week for 2-4 weeks for. long leg traction L. HS, piriformis stretch adn quad stretch. L hip NWB strength. - Subjective Findings: LBP starting the week bfore Thanksgiving last year for no apparent reason. This happened 13 years ago and was doing well until this started back up. Has been busy and could not take care of it unitl now. Was doing exercises from first occurence for 13 years. Had x rays: Sever Lumbar disc disease, OA L hip. PT. Given meds prednisone for 7 days whcih did not help. That was a couple weeks ago. Doing some exercises at home btu unable to get up and down from floor. Pain is all in L leg to foot and into mid LB. Pain is constant adn worse with walking adn stepping. L knee always hurts also. Needs meds to sleep at night due to pain. Sitting is not painful, walking is worse. Walking the dog up the hill is most painful. Able to do basics at home. Activities include doing stuff at home, washing cleaning. Avoids anything strenuous due to heart, is to avoid strenuous activity by cardiac doctor. No falls and no AD. - Pain L leg and LB Pain Intensity (Out of 10): 1 Pain Intensity Range: 1, 9 - Objective Walks with L antalgia and avoid L hip extension. Much better with cane in R and walker as far as pain goes. Transfers I, steps not attempted today. R hip aROM WFL and without pain. L hip ROM ext to neutral, flexion to 100 adn very painful end range, er 25 adn IR painful extreme at 10, R hip rotation int 25 adn exteranl 45. knee AROM WFL and without pain. HS adn piriformis mod tender L. strength B hips 3+, knees 4-. ankles strength 4/5. LB AROM ext max limited, flexion mod limited, SB mod limited and painful to go left. + L hip scour. - SLR and slump test. - Goals Goal 1:: Pain 0-2/10 at worst adn walk withotu antalgia. Goal Time Frame: 4-6 Weeks Goal 2:: Pt feel 50% better with pain and activities normal for him as prior to onset. Goal Time Frame: 4-6 Weeks - Rehabilitation Potential Physical Therapy Diagnosis: L sided pain Rehabilitation Potential: Questionable - Anticipated Interventions Patient/Client Instruction: Educate patient on: Condition For the Purpose of:: To decrease pain, To improve ability of physical actions for home/community/work/leisure, To improve gait and locomotor functions Therapeutic Exercise to Include: Strength training, Flexibilty training, Passive ROM, Active ROM For the Purpose of:: To decrease pain, To increase tolerance to activity/condition/position Thank you for the opportunity to evaluate your patient. For Medicare and Medicare HMO plans, please review the plan of care and approve it. It will need to be FAXED BACK to us at [phone] for Medicare purposes. For Medicare only, by signing this I certify the plan of care. Please let me know if there are questions or concerns regarding this plan of care. Physician Signature: Date:
--- NOTE | 2018-10-25 15:13 | HP.PTDCSUM ---
HP - PT D/C Summary It has been my pleasure to treat DHARA ORDONEZ under orders from Elmer Roth MD, for the diagnosis of Sciatica, for a total of 9 visit(s). Discharge Date: 10/25/18 Please see the following information for a summary of their discharge status. - Subjective Subjective: Wasn't horrible pain over the weekend 09/17. - Pain L leg and LB Pain Intensity (Out of 10): 0 - Overall Improvement % Improvement: 0 - Objective Objective/Function: Gait is improved and less L antalgia but still avoids L hip extension at end of stance. L hip strength is 4/5. L hip PROM is 5 IR with pain, 30 ext rotation, 105 flexion and neutral ext. This appears to be a L hip arthritic problem to this therapist and treating the hip nor the back has given much improvement. - Goals Goal 1:: Pain 0-2/10 at worst adn walk withotu antalgia. Goal Progress: Not Progressing Goal 2:: Pt feel 50% better with pain and activities normal for him as prior to onset. Goal Progress: Not Progressing - Plan Plan: D/C back to doctor for next option(injection/ortho?) May benefit from aquatic therapy if no other options. - D/C Information Discharge Comments: Not progressing and recommend return to doctor for next step. If there are questions or concerns regarding this patient's physical therapy, please feel free to call me at [phone]. Thank you for the referral of this patient. Sincerely, Everardo Mckinley, DPT, OCS, CSCS
== END 2018-10-25 19:00 | disposition home or self-care (01) ==
LOC: PT 14:00
PROVIDERS: Family Provider Family Medicine; PCP Family Medicine; Visit Provider Family Medicine
DX: M54.32 Sciatica, left side (principal); M51.36 Other intervertebral disc degeneration, lumbar region
CPT/HCPCS: 97110; 97140; 97162; 97530

== ENCOUNTER → 2018-12-22 11:48 | Outpatient (CLI) | payer MEDICARE, OTHER, SELFPAY ==
[2018-10-28 13:01] VITALS: BMI 26.6
--- NOTE | 2018-12-22 12:10 | RAD_ITS ---
STUDY: X-RAY - LEFT KNEE REASON FOR EXAM: Male, 78 years old. Knee pain TECHNIQUE: 4 view(s) of the knee. COMPARISON: None. FINDINGS: Normal visualized distal femur. Normal visualized proximal tibia and fibula. Normal proximal tibiofibular articulation. Normal medial femorotibial compartment. Normal lateral femorotibial compartment. Normal patellofemoral articulation. There are atherosclerotic calcifications. RAD/Knee 4 or More Views IMPRESSION: Normal x-ray examination of the knee. Electronically Signed: Jared Holt MD at 12:37 EDT Tel , Service support ,
== END ==
PROVIDERS: Family Provider Family Medicine; PCP Family Medicine; Referring Provider Anesthesiology Pain Medicine; Visit Provider Anesthesiology Pain Medicine
DX: M17.12 Unilateral primary osteoarthritis, left knee (principal)
CPT/HCPCS: 73564

== ENCOUNTER → 2019-01-03 14:55 | Outpatient (CLI) | payer MEDICARE, OTHER, SELFPAY ==
[2018-10-28 13:01] VITALS: BMI 26.6
[2019-01-03 17:48] LABS: Absolute Lymphocyte Count 1.37 X10^3/uL (0.83-4.51); Absolute Neutrophil Count 3.6 X10^3/uL (2.0-7.7); Basophil# 0.04 X10^3/uL; Basophil% 0.6 % (0-1); Eosinophil# 0.35 X10^3/uL; Eosinophils% 5.5 % (0-5); Hemoglobin 11.4 g/dL (13.0-16.5); Lymphocyte # 1.37 X10^3/ul (4.0); Lymphocyte % 21.4 % (19-41); Mean Corp Hgb Conc 33.5 g/dL (32-36); Mean Corpuscular Hgb 29.7 pg (27.0-32.0); Mean Corpuscular Volume 88.5 fL (80-94); Mean Platelet Vol. 10.5 fl (6.2-12.0); Monocyte# 1.01 X10^3/uL; Monocyte% 15.8 % (0-10); NRBC Flagged by Analyzer 0 % (0-5); Neutrophil # 3.62 X10^3/uL (2.7-7.7); Neutrophil % 56.4 % (47-70); Platelet Count 345 K/mm3 (150-450); RBC Distribution Width CV 12.9 % (11.6-14.6); RBC Distribution Width SD 41.7 fl (35.1-43.9); Red Blood Count 3.84 M/mm3 (4.6-6.2); White Blood Count 6.4 K/mm3 (4.4-11.0)
[2019-01-03 17:56] LABS: ALB/GLOB Ratio 0.7 RATIO (0.9-2.4); AST(SGOT) 28 U/L (15-37); Alanine Aminotransfer ALT/SGPT 29 U/L (16-61); Albumin, Serum 2.9 g/dL (3.2-5.0); Alkaline Phosphatase 149 U/L (45-117); Anion Gap 10 (5-15); BUN 12 mg/dL (7-18); BUN/Creat Ratio 13.4 RATIO (10-20); Calcium,Total 8.9 mg/dL (8.5-10.1); Chloride 100 mmol/L (98-107); Creatinine, Serum 0.89 mg/dL (0.70-1.30); EST Glomerular Filtration Rate 87 mL/min (>60); Est Glom Filt Rate - Afr Amer 105 mL/min (>60); Globulin 4.4 g/dL (2.2-4.2); Glucose 83 mg/dL (74-106); Potassium 3.1 mmol/L (3.5-5.1); Protein, Total 7.3 g/dL (6.4-8.2); Sodium Level 137 mmol/L (136-145); T4 Free Direct 1.37 ng/dL (0.76-1.46); Thyroid Stim Hormone (TSH) 1.93 uIU/mL (0.358-3.74)
[2019-01-03 18:26] LABS: Vitamin B12 769 pg/mL (211-911)
== END ==
PROVIDERS: Family Provider Family Medicine; PCP Family Medicine; Visit Provider Family Medicine
DX: E78.5 Hyperlipidemia, unspecified (principal); F05 Delirium due to known physiological condition; F03.90 Unspecified dementia, unspecified severity, without behavioral disturbance, psychotic disturbance, mood disturbance, and anxiety
CPT/HCPCS: 36415; 80053; 82607; 84439; 84443; 85025

== ENCOUNTER → 2019-01-21 11:11 | Outpatient (CLI) | payer MEDICARE, OTHER, SELFPAY ==
[2018-10-28 13:01] VITALS: BMI 26.6
[2019-01-21 12:54] LABS: Absolute Lymphocyte Count 1.09 X10^3/uL (0.83-4.51); Basophil# 0.02 X10^3/uL; Basophil% 0.3 % (0-1); Eosinophil# 0.19 X10^3/uL; Eosinophils% 2.6 % (0-5); Hematocrit 34.3 % (40-54); Hemoglobin 11.5 g/dL (13.0-16.5); Lymphocyte # 1.09 X10^3/ul (4.0); Lymphocyte % 14.9 % (19-41); Mean Corp Hgb Conc 33.5 g/dL (32-36); Mean Corpuscular Volume 86.6 fL (80-94); Mean Platelet Vol. 10.3 fl (6.2-12.0); Monocyte# 0.99 X10^3/uL; Monocyte% 13.5 % (0-10); NRBC Flagged by Analyzer 0 % (0-5); Neutrophil # 4.99 X10^3/uL (2.7-7.7); Neutrophil % 68.3 % (47-70); Platelet Count 296 K/mm3 (150-450); RBC Distribution Width CV 13.7 % (11.6-14.6); RBC Distribution Width SD 43.1 fl (35.1-43.9); Red Blood Count 3.96 M/mm3 (4.6-6.2); White Blood Count 7.3 K/mm3 (4.4-11.0)
[2019-01-21 13:36] LABS: Anion Gap 9 (5-15); BUN 16 mg/dL (7-18); BUN/Creat Ratio 16.1 RATIO (10-20); Chloride 103 mmol/L (98-107); Creatinine, Serum 0.99 mg/dL (0.70-1.30); EST Glomerular Filtration Rate 77 mL/min (>60); Est Glom Filt Rate - Afr Amer 93 mL/min (>60); Ferritin 790 ng/mL (26-388); Glucose 86 mg/dL (74-106); Iron 27 ug/dL (65-175); Potassium 3.1 mmol/L (3.5-5.1); Sodium Level 139 mmol/L (136-145)
== END ==
PROVIDERS: Family Provider Family Medicine; PCP Family Medicine; Visit Provider Family Medicine
DX: E87.6 Hypokalemia (principal); D64.9 Anemia, unspecified
CPT/HCPCS: 36415; 80048; 82728; 83540; 85025

== ENCOUNTER 2019-01-21 13:32 | Inpatient (IN) | payer MEDICARE, OTHER, SELFPAY ==
[2018-10-28 13:01] VITALS: BMI 26.6
[2019-01-21 13:33] VITALS: BP 100/54; PULSE 92; RESP 20; TEMP 36.8; O2SAT 97; BMI 26.5
[2019-01-21 13:50] VITALS: BP 117/65; PULSE 83; RESP 18; O2SAT 97
--- NOTE | 2019-01-21 13:53 | ED.DCSUM_ITS ---
History of Present Illness Chief Complaint: Hypotension Informant: Patient, Family Onset: Today Current Severity: Moderate Maximum Severity: Moderate Narrative: Presents with inability to be at home. 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 He is now left to be by himself at home. He is brought in by his [id number] who is leaving for [place] tomorrow and the neighbor. They both state that the patient cannot function outpatient by himself, apparently he wanders the streets has some dementia, and is unsafe. Past Medical History - Allergies and Home Meds Allergies/Adverse Reactions: Allergies No Known Allergies Allergy (Verified 01/21/19 13:35) Primary Care Physician: Elmer Roth MD [Primary Care Provider] - 3-5 Days Past Medical History: - - Medical history and medications were reviewed. Hypertension, hypercholesterolemia, psychiatric disease, smoker Lives: Spouse/ Significant Other Smoking Status: Former smoker Review of Systems All systems negative except as indicated General: Reports: - - Is oriented to place to person. He understand the situation he has and and he agrees that he can no longer stay at home that he is not safe. He gives me a reasonable review of systems. Denies: Chills, Fever Cardiovascular: Denies: Chest pain Respiratory: Denies: Dyspnea, Cough Gastrointestinal: Denies: Abdominal pain, Nausea Genitourinary: Denies: Dysuria, Hematuria Neurological: Denies: Headache Psych: Denies: Depression Endocrine: Denies: Polyuria Hematologic: Denies: Easy bruising Allergy: Denies: Uticaria Physical Exam Vital Signs/Narrative: Vital Signs Temp Pulse Resp BP Pulse Ox 01/21/19 13:50 83 18 117/65 97 01/21/19 13:33 98.3 F 92 20 H 100/54 L 97 Diagnostic/Tx/Re-eval - Medical Decision Making Patient is medically clear, I discussed with social services coordinator, unfortunately because of insurance he cannot be placed to any facility I have talked to continuum of care manager and social work, there is no availability of any ECF tonight. I called the hospitalist for admission to observation. Disposition admit to observation in stable condition ED Disposition - Plan for ED Patient: Disposition: Psychiatric Hospital or Unit Diagnosis: Weakness, Dementia Referrals: Elmer Roth MD [Primary Care Provider] - 3-5 Days
[2019-01-21 14:20] LABS: Absolute Lymphocyte Count 1.27 X10^3/uL (0.83-4.51); Absolute Neutrophil Count 4.1 X10^3/uL (2.0-7.7); Basophil# 0.02 X10^3/uL; Basophil% 0.3 % (0-1); Eosinophil# 0.27 X10^3/uL; Eosinophils% 3.9 % (0-5); Hematocrit 32.6 % (40-54); Lymphocyte # 1.27 X10^3/ul (4.0); Lymphocyte % 18.5 % (19-41); Mean Corp Hgb Conc 33.7 g/dL (32-36); Mean Corpuscular Hgb 29.3 pg (27.0-32.0); Mean Corpuscular Volume 86.9 fL (80-94); Mean Platelet Vol. 10.2 fl (6.2-12.0); Monocyte# 1.22 X10^3/uL; Monocyte% 17.8 % (0-10); NRBC Flagged by Analyzer 0 % (0-5); Neutrophil # 4.05 X10^3/uL (2.7-7.7); Neutrophil % 59.2 % (47-70); Platelet Count 297 K/mm3 (150-450); RBC Distribution Width CV 13.8 % (11.6-14.6); RBC Distribution Width SD 42.4 fl (35.1-43.9); Red Blood Count 3.75 M/mm3 (4.6-6.2); White Blood Count 6.9 K/mm3 (4.4-11.0)
--- NOTE | 2019-01-21 14:30 | CM.ED ---
Social Work Assessment Date of Assessment: 01/21/19 Informant: DR. CONTRERAS Reason for Consult: DISCHARGE PLANNING-PLACEMENT PATIENT UNABLE TO CARE FOR SELF AT HOME. Information obtained from: CHART, DR. CONTRERAS, PATIENT, PATIENT'S FRIEND AND [id number], JOSE LUIS. 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 FAMILY DOES NOT ANTICIPATE WILL BE RELEASED FROM HOSPITAL UNTIL THURSDAY. FAMILY STATING DOES NOT FEEL CAN CONTINUE TO CARE FOR PATIENT AND ARE WANTING PATIENT PLACED AT THIS TIME FOR RESPITE CARE. DISCUSSED OPTIONS AND REFERRAL FOR RESPITE CARE TO BE MADE TO THE [facility]. Mental Health History: PATIENT REPORTS HX OF ANXIETY AND DEPRESSION. PATIENT IS TREATED WITH MEDICATION AND STATES FOLLOWS WITH DR. PRIETO. Substance Abuse History: PATIENT AND FAMILY DENY ANY HX OF SUBSTANCE ABUSE. Interventions: DROSSER ASSESSMENT LIST OF NURSING HOMES REVIEWED AND DISCUSSED REFERRAL FOR RESPITE CARE TO BE MADE TO THE [facility] Assessment: PATIENT REFERRED TO DROSSER BY DR. CONTRERAS PATIENT IS UNABLE TO CARE FOR SELF AT HOME. PATIENT'S IS CURRENTLY IN THE HOSPITAL AND IS MAIN CAREGIVER FOR PATIENT. PATIENT'S [id number], JOSE LUIS HAS BEEN ASSISTING PATIENT, BUT MUST GO BACK HOME FOR HIS OWN MEDICAL NEEDS. PATIENT'S FRIEND IS ALSO PRESENT AND REPORTS WAS ATTEMPTING TO FIND RESPITE CARE FOR PATIENT, BUT DID NOT GET IT SET UP IN TIME. NO OTHER FAMILY MEMBERS ABLE TO ASSIST WITH PATIENT'S CARE NEEDS. [id number] STATES PATIENT WITH SLIGHT DEMENTIA AND WILL SLEEP ALL DAY AND THEN WANDER THE HOUSE AT NIGHT. PATIENT IN AGREEMENT THAT HE CAN NOT GO BACK HOME AND CARE FOR SELF. DISCUSSED RETIREMENT. PATIENT WILL BE PRIVATE PAY DR. CONTRERAS STATES PATIENT DOES NOT MEET CRITERIA FOR ADMISSION. REFERRAL TO BE MADE TO THE [facility]. PLAN: RETIREMENT PLACEMENT FOR RESPITE CARE, FAMILY TO CONTINUE TO DISCUSS LONG-TERM CARE NEEDS. CONRADO VELAZQUEZ, STEAM PRESSER, STUDIO CONTROL OPERATOR.
--- NOTE | 2019-01-21 14:35 | CM.ED ---
SOCIAL WORK CALL TO [facility] [place], SPOKE WITH CARLENE. CARLENE STATES WILL NEED TO REVIEW AND SPEAK WITH OR SOMEONE IN CHARGE OF FINANCES TO REVIEW PRIVATE PAYMENT. THIS WORKER TO FOLLOW UP. CONRADO VELAZQUEZ, AUTO BODY STRAIGHTENER, GUARD ENTRANCE REGISTRAR.
[2019-01-21 14:36] LABS: ALB/GLOB Ratio 0.7 RATIO (0.9-2.4); AST(SGOT) 33 U/L (15-37); Alanine Aminotransfer ALT/SGPT 23 U/L (16-61); Albumin, Serum 2.9 g/dL (3.2-5.0); Alkaline Phosphatase 173 U/L (45-117); Anion Gap 7 (5-15); BUN 15 mg/dL (7-18); BUN/Creat Ratio 15.4 RATIO (10-20); Calcium,Total 9.1 mg/dL (8.5-10.1); Chloride 101 mmol/L (98-107); Creatinine, Serum 0.98 mg/dL (0.70-1.30); EST Glomerular Filtration Rate 79 mL/min (>60); Est Glom Filt Rate - Afr Amer 95 mL/min (>60); Estimated Creatinine Clearance 63.11 ml/min; Glucose 106 mg/dL (74-106); Potassium 3.7 mmol/L (3.5-5.1); Protein, Total 6.9 g/dL (6.4-8.2); Sodium Level 135 mmol/L (136-145)
[2019-01-21 15:09] VITALS: BP 127/62; PULSE 78; RESP 16; O2SAT 98
--- NOTE | 2019-01-21 15:20 | CM.ED ---
SOCIAL WORK MET WITH PATIENT AND PATIENT'S [id number] IN ROOM TO FURTHER DISCUSS PRIVATE PAY OPTION. IS UNAVAILABLE BY PHONE TO DISCUSS WITH CUSTODIAL. [id number] TO ATTEMPT TO GET IN CONTACT WITH PATIENT AND 'S FINANCIAL POWER OF ELECTRIC POWER LINE EXAMINER TO ANSWER QUESTIONS FOR FACILITY. FINANCIAL POWER OF ELECTRIC POWER LINE EXAMINER IS IMMANUEL PEREZ . CALL TO CARLENE AT THE AVEN[facility] TO UPDATE ON THE ABOVE. CARLENE TO FOLLOW UP WITH FINANCIAL POA. CONRADO VELAZQUEZ, LAMINATION OPERATOR, FIRMWARE MANAGER.
--- NOTE | 2019-01-21 15:30 | CM.ED ---
SOCIAL WORK DEMOGRAPHIC AND CLINICAL DOCUMENTATION FAXED TO CARLENE AT THE [facility]. CONRADO VELAZQUEZ, TREE PLANTER, DIRECTOR OF UNDERGRADUATE ADMISSIONS.
--- NOTE | 2019-01-21 16:50 | CM.ED ---
SOCIAL WORK CALL TO CARLENE AT THE AVENUE TO CHECK ON STATUS OF REFERRAL. PER CARLENE, HAS NOT SPOKEN TO FINANCIAL POA AND DID NOT RECEIVE FAX AND REQUESTS INFORMATION BE FAXED TO A DIFFERENT FAX NUMBER. REFERRAL RE-FAXED AT THIS TIME. CARLENE TO CALL FINANCIAL POA AT THIS TIME. CONRADO VELAZQUEZ, DIRECTOR SOCIAL SERVICE, CERTIFIED MEDICAL ASST.
[2019-01-21 16:54] VITALS: BP 125/77; PULSE 67; RESP 16; O2SAT 97
--- NOTE | 2019-01-21 17:15 | CM.ED ---
SOCIAL WORK MET WITH PATIENT AND [id number] IN ROOM TO UPDATE ON STATUS. CALL TO THE AVENUE, SPOKE WITH CARLENE. PER CARLENE, CONCERNED WITH REPORT BY ED PHYSICIAN D/T WANDERING THE STREETS. CARLENE STATES WILL NEED TO REVIEW WITH HER BOSS AND GET BACK TO THIS WORKER. DR. CONTRERAS AND NURSING UPDATED ON THE ABOVE. CONRADO VELAZQUEZ, LABOR ECONOMICS PROFESSOR, MANAGER ANIMAL.
--- NOTE | 2019-01-21 17:20 | CM.ED ---
SOCIAL WORK RECEIVED CALL BACK FROM CARLENE AT THE [place] WHO REPORTS ADMINISTRATION HAS DECLINED PATIENT D/T CONCERNS WITH WANDERING AND PRIVATE PAY STATUS. THIS WORKER DISCUSSED WITH PATIENT AND [id number] WHO REPORT PATIENT ONLY WANDERS THE HOUSE AT NIGHT. THIS WORKER CALLED AND RELAYED INFORMATION TO CARLENE WHO STATES STILL UNABLE TO ACCOMMODATE PATIENT. CALL TO [facility] WHO REPORT ADMISSIONS HAS LEFT FOR THE DAY. UPDATED DR. CONTRERAS. DR. CONTRERAS TO DISCUSS WITH HOSPITALIST PATIENT IS UNSAFE TO RETURN HOME ALONE. CONRADO VELAZQUEZ, TWISTER OPERATOR, JAVA SPRING DEVELOPER.
--- NOTE | 2019-01-21 18:12 | PCM.HP.STD ---
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 Wahl reviewed films. (4) Abnormal stress echo Status: Chronic (5) Atherosclerotic heart disease of [place] coronary artery without angina pectoris Status: Chronic (6) History of non-ST elevation myocardial infarction (NSTEMI) Status: Chronic (7) Hyperlipidemia Status: Chronic (8) CVA (cerebral vascular accident) Status: Chronic (9) Intracerebral hemorrhage Status: Chronic History of Present Illness Date of Admission: 01/21/19 Chief Complaint: Generalized weakness. Hypotension The patient is a 78 year old M with multiple comorbidities as listed above was brought in ER as patient was found hypotensive by PCP, Dr. Damon. As per the patient, patient blood pressure has been running low and Dr. Doll is trying to lower the antihypertensive medications. The patient has dementia and does not remember well his BP but in ED, it was found 100/54. Heart rate 92/min. No hypoxia or tachypnea. Patient activities of living are dependent on secondary to dementia and arthritis and she is being admitted in [facility] for valvular surgery. Patient has severe left hip arthritis and you just walker and needs help for ADL. 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 [] Labs are unremarkable except alkaline phosphatase 173, albumin 2.9. Sodium 135. Patient had one urine output in the ER which he does not remember well. Past Medical History Past Medical History (Chronic Problems): Chronic Problems (Last Reviewed 10/14/18 @ 19:21 by Sisi Orellana) Dementia (Chronic) Triple vessel coronary artery disease (Chronic) Patient was seen by surgery but he refused CABG: now possibly could have PCI of RCA, Dr. Wahl reviewed films. Abnormal stress echo (Chronic) Atherosclerotic heart disease of [place] coronary artery without angina pectoris (Chronic) History of non-ST elevation myocardial infarction (NSTEMI) (Chronic) Hyperlipidemia (Chronic) CVA (cerebral vascular accident) (Chronic) Intracerebral hemorrhage (Chronic) Medical History: Medical History (Last Reviewed 10/14/18 @ 19:21 by Sisi Orellana) Triple vessel coronary artery disease (Chronic) I25.10 Patient was seen by surgery but he refused CABG: now possibly could have PCI of RCA, Dr. Wahl reviewed films. Atherosclerotic heart disease of [place] coronary artery without angina pectoris (Chronic) I25.10 History of non-ST elevation myocardial infarction (NSTEMI) (Acute) I25.2 Hyperlipidemia (Chronic) E78.5 CVA (cerebral vascular accident) (Acute) I63.9 Intracerebral hemorrhage (Acute) I61.9 Anxiety F41.9 Depression F32.9 History of tobacco abuse Z87.891 Allergies No Known Allergies Allergy (Verified 01/21/19 13:35) Home Medications: Ambulatory Orders Medication Instructions Recorded ibuprofen 200 mg tablet 400 mg PO BID tab 08/12/17 lorazepam 1 mg tablet 1 mg PO 4X/DAY PRN PRN tab 08/12/17 paroxetine 20 mg tablet 10 mg PO DAILY 08/12/17 atorvastatin 40 mg tablet 40 mg PO QHS #90 tab 12/29/18 Clopidogrel Bisulfate [Clopidogrel] 75 mg PO DAILY 01/21/19 Ibuprofen 200 mg PO BID 01/21/19 Losartan/Hydrochlorothiazide 0.5 tab PO DAILY 01/21/19 [Losartan-Hctz 50-12.5 mg Tab] Ramelteon 8 mg PO DAILY 01/21/19 Surgical History: Surgical History (Last Reviewed 10/14/18 @ 19:21 by Sisi Orellana) History of thoracentesis Z98.890 09/29/13 Lt sided pleural effusion History of vasectomy Z98.52 Lives: Spouse/ Significant Other Smoking Status: Former smoker - *Family History Paternal Family History: Family History (Last Reviewed 10/14/18 @ 19:21 by Sisi Orellana) Father Presence of permanent cardiac pacemaker Review of Systems Constitutional: Denies: Chills, Fever, Weight Change HEENT: Reports: Difficulty Hearing Cardiovascular: Denies: Chest Pain, Palpitations Respiratory: Denies: Cough, Shortness of breath at rest, Sputum production Gastrointestinal: Denies: Abdominal Pain, Nausea, Vomiting Neurological: Reports: Balance problems, Incoordination Unable to obtain accurate/complete ROS d/t: Because of dementia. VTE Information - Inpt Only VTE Present on Admission: No VTE Mechan Device Prophylaxis: None VTE Pharm Prophylaxis ordered?: Yes Patient Problems: Active and Suspected Problems (Last Reviewed 06/06/19 @ 19:21 by Sisi Orellana) Weakness (Acute) - Physical Exam General: Alert, Cooperative, Disoriented - Disoriented to time HEENT: Atraumatic, PERRLA, EOMI, Normocephalic Oral: Dry Mucosa Neck: Supple, No JVD, Negative Carotid Bruits Lungs: Clear to auscultation, No rhonchi, No wheeze, No rales, Diminished - Air entry diminished in bilateral lung bases. Cardiovascular: Regular rate, Regular Rhythm, Normal S1, Normal S2, No murmurs Abdomen: Bowel Sounds Present, Soft, Non Tender, Non-Distended Extremities: No edema, Capillary Refill Less than 3 Seconds Skin: No rashes, No breakdown Musculoskeletal: Arthritic Changes, Tenderness - Tenderness over the left hip joint. Neurological: Cranial nerves II-XII grossly intact, Deep Tendon Reflexes 2+/4 and Symmetrical, Neuro grossly intact Psych/Mental Status: Normal Affect, Appropriate Vital Signs Temp Pulse Resp BP Pulse Ox 98.3 F 67 16 125/77 H 97 01/21/19 13:33 01/21/19 16:54 01/21/19 16:54 01/21/19 16:54 01/21/19 16:54 Oxygen Delivery Method Room Air Weight: 185 lb Body Mass Index (BMI) 26.5 Laboratory Tests Past 24 Hrs 01/21/19 01/21/19 14:05 14:05 WBC 6.9 RBC 3.75 L Hgb 11.0 L Hct 32.6 L MCV 86.9 MCH 29.3 MCHC 33.7 RDW Std Deviation 42.4 RDW Coeff of Ethan 13.8 Plt Count 297 MPV 10.2 Immature Gran % (Auto) 0.300 Neut % (Auto) 59.2 Lymph % (Auto) 18.5 L [place] % (Auto) 17.8 H Eos % (Auto) 3.9 Baso % (Auto) 0.3 Absolute Neuts (auto) 4.1 Absolute Lymphs (auto) 1.27 Nucleated RBC % 0 Sodium 135 L Potassium 3.7 Chloride 101 Carbon Dioxide 27.0 Anion Gap 7 BUN 15 Creatinine 0.98 Estim Creat Clear Calc 63.11 Est GFR (MDRD) Af Amer 95 Est GFR (MDRD) Non-Af 79 BUN/Creatinine Ratio 15.4 Glucose 106 Calcium 9.1 Total Bilirubin 1.00 AST 33 ALT 23 Alkaline Phosphatase 173 H Total Protein 6.9 Albumin 2.9 L Globulin 4.0 Albumin/Globulin Ratio 0.7 L Assessment/Plan All Active Problems (Last Reviewed 10/14/18 @ 19:21 by Sisi Orellana) Weakness (Acute) The patient is a 78 year old M with multiple comorbidities as listed above was brought in ER as patient was found hypotensive by PCP, Dr. Roth'tasha. As per the patient, patient blood pressure has been running low and Dr. Doll is trying to lower the antihypertensive medications. The patient has dementia and does not remember well his BP but in ED, it was found 100/54. Heart rate 92/min. No hypoxia or tachypnea. [] Labs are unremarkable except alkaline phosphatase 173, albumin 2.9. Sodium 135. Patient had one urine output in the ER which he does not remember well. 1. Hypotension: This is recovered in ER. Most recent blood pressure 127/62. Heart rate 78/min. IV fluid normal saline 100 mils per hour. Hold antihypertensive medication today and may resume tomorrow a.m. with lower dose, starting losartan 25 mg daily and titrate up as per BP profiles. At home, patient is on losartan?HCTZ 50/12.5 mg; half tablet daily. 2. Decreased functional activity/dependent ADL: Patient is being admitted as an observation status. PT OT ordered. product line manager for SNF placement, I think most probably will happen on Thursday. 3. Atherosclerotic artery disease, coronary artery disease, triple-vessel; patient refused the surgery earlier. Follows Dr. Wahl. Stable. Does not have any chest pain or shortness of breath. 4. Other comorbidities include CVA, intracerebral hemorrhage, dementia, left hip severe arthritis: Home medications reconciliation done. DVT prophylaxis: On Lovenox 40 mg subcu daily. Code Visit OBSV E&M: 90319 Initial observation care L2
[2019-01-21 18:21] VITALS: BP 147/74; PULSE 77; RESP 16; TEMP 36.8; O2SAT 100
[2019-01-21 18:52] VITALS: BMI 22.1
[2019-01-21 18:54] VITALS: BMI 22.1
[2019-01-21] MEDS: oxyCODONE 5 MG Tablet PO (20:45)
[2019-01-21] MEDS: Enoxaparin 40 MG/0.4 ML Syringe SC (20:49)
[2019-01-21] MEDS: 0.9% Normal Saline 1,000 ML 100 ML IV (21:44)
[2019-01-21] MEDS: MELATONIN 10 MG TABLET PO (21:52)
[2019-01-21] MEDS: Famotidine 20 MG Tablet PO (21:52)
[2019-01-21] MEDS: Atorvastatin Calcium 40 MG Tablet PO (21:52)
[2019-01-21] MEDS: Ondansetron 4 MG/2 ML Vial IV (23:05)
[2019-01-22 01:57] VITALS: BP 143/76; PULSE 73; RESP 16; TEMP 36.8; O2SAT 98
[2019-01-22] MEDS: oxyCODONE 5 MG Tablet PO (02:07)
[2019-01-22 07:13] LABS: Anion Gap 4 (5-15); BUN 11 mg/dL (7-18); BUN/Creat Ratio 15.4 RATIO (10-20); Calcium,Total 8.3 mg/dL (8.5-10.1); Chloride 107 mmol/L (98-107); Creatinine, Serum 0.71 mg/dL (0.70-1.30); EST Glomerular Filtration Rate 113 mL/min (>60); Est Glom Filt Rate - Afr Amer 137 mL/min (>60); Estimated Creatinine Clearance 59.26 ml/min; Glucose 86 mg/dL (74-106); Potassium 3.1 mmol/L (3.5-5.1); Sodium Level 136 mmol/L (136-145)
[2019-01-22] MEDS: 0.9% NaCl Peripheral Flush Adult/Peds IV (07:57)
[2019-01-22 08:00] VITALS: BP 94/63; PULSE 80; RESP 14; TEMP 36.7; O2SAT 95
[2019-01-22] MEDS: Clopidogrel Bisulfate 75 MG Tablet PO (10:23)
[2019-01-22] MEDS: Famotidine 20 MG Tablet PO ×2 (10:23→20:38)
[2019-01-22] MEDS: Enoxaparin 40 MG/0.4 ML Syringe SC (10:24)
[2019-01-22] MEDS: PARoxetine 10 MG Tablet PO (10:24)
[2019-01-22] MEDS: Ibuprofen 200 MG Tablet PO (10:33)
--- NOTE | 2019-01-22 14:46 | CASEMGMT ---
Addendum entered by Brook Velazquez 01/22/19 16:12: REFERRAL FAXED TO [facility] Original Note: SOCIAL WORK DISCUSSED CASE WITH LILI LOCK. PATIENT HAS BEEN ADMITTED AND FAMILY WANTING SNF. CALL TO PATIENT'S [id number], ALBA WHO WAS ABLE TO CONNECT THIS SW WITH PATIENT'S , KO. PER KO, PATIENT UNABLE TO RETURN HOME. KO STATES PATIENT HAS CONTINUED TO DECLINE AND FEELS D/T HER MEDICAL ISSUES AT THIS TIME WOULD BENEFIT FROM SNF. KO REQUESTS REFERRAL TO [facility] OR [facility]. INFORMED KO REFERRAL WILL BE COMPLETED AND DANCE MASTER WILL FOLLOW UP ON THURSDAY. BROOK VELAZQUEZ, RISK MANAGEMENT SPECIALIST, PATIENT ACCESS SPECIALIST.
--- NOTE | 2019-01-22 15:45 | PN_ITS ---
Patient Problems: Active and Suspected Problems (Last Reviewed 10/14/18 @ 19:21 by Sisi Orellana) Weakness (Acute) Subjective: Patient was seen and examined today, I detected mild confusion today on my exam but patient was not agitated, depressed, or anxious. The patient in admission today, the plan is for the patient to go to a half-way facility for temporary inpatient skilled services. Patient's is in the hospital currently after undergoing cardiac surgery. - Physical Exam General: Alert, Cooperative, No apparent distress, Well developed, Confused - Mild confusion HEENT: Atraumatic, PERRLA, EOMI, Normocephalic Neck: Supple, No JVD, Negative Carotid Bruits Lungs: Clear to auscultation, Normal air movement, No rhonchi, No wheeze, No rales Cardiovascular: Regular rate, Regular Rhythm, Normal S1, Normal S2, No murmurs, PMI Normal Abdomen: Bowel Sounds Present, Soft, Non Tender, Non-Distended Extremities: No clubbing, No edema, Capillary Refill Less than 3 Seconds Skin: No rashes, No breakdown Musculoskeletal: No Tenderness to Palpation of Joints or Extremities Neurological: Cranial nerves II-XII grossly intact, Neuro grossly intact, Sensory exam intact to light touch and pain Psych/Mental Status: - - Patient shows signs of mild confusion, he does not appear agitated, anxious, or depressed. He appears appropriate when answering simple questions Vital Signs Temp Pulse Resp BP Pulse Ox 98.0 F 80 14 94/63 95 01/22/19 08:00 01/22/19 08:00 01/22/19 08:00 01/22/19 08:00 01/22/19 08:00 Oxygen Delivery Method Room Air Weight: 69.944 kg Body Mass Index (BMI) 22.1 Intake and Output for Last 24 Hours 01/20/19 01/21/19 01/22/19 23:59 23:59 23:59 Intake Total 1850.00 / 1850.00 Output Total 800 / 800 Balance 1050.00 / 1050.00 Laboratory Tests Past 24 Hrs 01/22/19 06:45 Sodium 136 Potassium 3.1 L Chloride 107 Carbon Dioxide 25.0 Anion Gap 4 L BUN 11 Creatinine 0.71 Estim Creat Clear Calc 59.26 Est GFR (MDRD) Af Amer 137 Est GFR (MDRD) Non-Af 113 BUN/Creatinine Ratio 15.4 Glucose 86 Calcium 8.3 L Medical Necessity - Tobacco Use Smoking Status: Former smoker Assessment/Plan All Active Problems (Last Reviewed 10/14/18 @ 19:21 by Sisi Orellana) Weakness (Acute) #1 generalized debility-PT and OT will continue to see the patient, he will need short-term placement in a half-way facility #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 Code Visit Inpatient E&M: 32002 Init Hosp L3
[2019-01-22 16:00] VITALS: BP 106/61; PULSE 93; RESP 14; TEMP 37.2; O2SAT 95
[2019-01-22] MEDS: MELATONIN 10 MG TABLET PO (20:38)
[2019-01-22] MEDS: Atorvastatin Calcium 40 MG Tablet PO (20:38)
[2019-01-22 20:50] VITALS: BP 117/66; PULSE 88; RESP 18; TEMP 36.9; O2SAT 94
[2019-01-23 02:51] VITALS: BP 153/82; PULSE 92; RESP 18; TEMP 36.7; O2SAT 99
[2019-01-23] MEDS: Losartan Potassium 25 MG Tablet PO (07:47)
[2019-01-23] MEDS: Famotidine 20 MG Tablet PO ×2 (07:47→21:51)
[2019-01-23] MEDS: Enoxaparin 40 MG/0.4 ML Syringe SC (07:47)
[2019-01-23] MEDS: PARoxetine 10 MG Tablet PO (07:47)
[2019-01-23] MEDS: Clopidogrel Bisulfate 75 MG Tablet PO (07:47)
--- NOTE | 2019-01-23 07:51 | NURSING ---
am meds given at this time, pt very concerned that he has not been receiving any meds.
[2019-01-23 08:00] VITALS: BP 147/81; PULSE 82; RESP 14; TEMP 36.6; O2SAT 99
[2019-01-23 13:58] VITALS: BP 148/86; PULSE 100; RESP 14; TEMP 37.4; O2SAT 98
[2019-01-23] MEDS: oxyCODONE 5 MG Tablet PO (16:08)
[2019-01-23] MEDS: QUEtiapine 25 MG Tablet PO ×2 (16:08→21:52)
[2019-01-23] MEDS: Ibuprofen 200 MG Tablet PO (17:29)
--- NOTE | 2019-01-23 17:36 | PCM.PROGNOTE ---
Patient Problems: Active and Suspected Problems (Last Reviewed 10/14/18 @ 19:21 by Sisi Orellana) Weakness (Acute) Subjective: She was seen and examined today, this afternoon he appeared to be agitated and more confused when he was yesterday. Patient wants to go home and he does not understand why he is being kept in the hospital. Nursing was unable to contact any family members yesterday to discuss CODE STATUS with them concerning the patient. Patient's is in the hospital in [place] after undergoing heart surgery. I wrote for the patient to have a dose of Seroquel this afternoon due to his agitation. - Physical Exam General: Alert, No apparent distress, Well developed, Confused, Non-Cooperative HEENT: Atraumatic, PERRLA, EOMI, Normocephalic Oral: Moist Mucosa Neck: Supple, Trachea Midline, Thyroid Normal Size and Texture Lungs: Clear to auscultation, Normal air movement, No rhonchi, No wheeze, No rales Cardiovascular: Regular rate, Regular Rhythm, Normal S1, Normal S2, No murmurs, PMI Normal Abdomen: Bowel Sounds Present, Soft, Non Tender, Non-Distended, No hernias noted Extremities: No clubbing, No cyanosis, No edema, Capillary Refill Less than 3 Seconds Skin: No rashes, No breakdown Musculoskeletal: No Tenderness to Palpation of Joints or Extremities Neurological: Cranial nerves II-XII grossly intact, Neuro grossly intact, Sensory exam intact to light touch and pain Psych/Mental Status: Agitated, Delusions, Irrational Behavior, Restless Vital Signs Temp Pulse Resp BP Pulse Ox 99.3 F H 100 14 148/86 H 98 01/23/19 13:58 01/23/19 13:58 01/23/19 13:58 01/23/19 13:58 01/23/19 13:58 Oxygen Delivery Method Room Air Weight: 69.944 kg Body Mass Index (BMI) 22.1 Intake and Output for Last 24 Hours 01/21/19 01/22/19 01/23/19 23:59 23:59 23:59 Intake Total 1850.00 / 1850.00 300 / 300 Output Total 800 / 800 275 / 275 Balance 1050.00 / 1050.00 25 / 25 Medical Necessity - Tobacco Use Smoking Status: Former smoker Assessment/Plan All Active Problems (Last Reviewed 10/14/18 @ 19:21 by Sisi Orellana) Weakness (Acute) #1 generalized debility-PT and OT will continue to see the patient, he will need short-term placement in a long term facility again, I gave the patient a dose of Seroquel this afternoon due to agitation #2 Alzheimer's dementia with behavioral disturbances-patient was given Seroquel this afternoon #3 coronary artery disease-stable at this time-patient has a history of triple-vessel coronary disease-this was not addressed surgically, family decided to pursue medical therapy #4 cerebrovascular disease #5 hyperlipidemia #6 essential hypertension #7 status post anterior parenchymal hematoma left occipital lobe 09/26/2013 Patient remains a full code at this time Code Visit Inpatient E&M: 02396 Subs Hosp L2
[2019-01-23 19:59] VITALS: BP 109/58; PULSE 131; RESP 20; TEMP 37.1; O2SAT 96
[2019-01-23] MEDS: MELATONIN 10 MG TABLET PO (21:51)
[2019-01-23] MEDS: Atorvastatin Calcium 40 MG Tablet PO (21:52)
[2019-01-24] VITALS (7 sets, daily range): BP systolic 111–168; BP diastolic 66–96; PULSE 87–105; RESP 16–18; TEMP 36.4–36.9; O2SAT 85–100
[2019-01-24] MEDS: Losartan Potassium 25 MG Tablet PO (08:30)
[2019-01-24] MEDS: Enoxaparin 40 MG/0.4 ML Syringe SC (08:31)
[2019-01-24] MEDS: Famotidine 20 MG Tablet PO ×2 (08:31→21:42)
[2019-01-24] MEDS: PARoxetine 10 MG Tablet PO (08:31)
[2019-01-24] MEDS: Clopidogrel Bisulfate 75 MG Tablet PO (08:31)
--- NOTE | 2019-01-24 08:55 | NURSING ---
reviewed vital signs taken by Jessie Yoon nursing care partner. O2 sat rechecked to be WNL.
--- NOTE | 2019-01-24 10:49 | CASEMGMT ---
Addendum entered by Didi Garcia 01/24/19 11:40: EMELY received call from Mary at [facility] requesting more updates as referral was sent Thursday. EMELY faxed updated clinicals to Mary at [facility]. Original Note: Social Work Note SW placed a call to Mary at [facility] and left her a message regarding referral. Per physician pt is medically cleared for discharge and will be discharged today pending acceptance to SNF. Plan: SNF today pending acceptance Didi SHELTON, WAX PATTERN REPAIRER
--- NOTE | 2019-01-24 13:34 | CASEMGMT ---
Social Work Note EMELY received message from Mary at [facility] stating they are not able to accept pt at this time due to not being able to accommodate pt's level of care. EMELY placed a call to pt's Geetha. Geetha states she just got home from the hospital yesterday. EMELY updated Geetha that [facility] and [facility] are not able to accept pt at this time. EMELY asked for third choice. Geetha states [facility] is third choice. EMELY informed Geetha that physician is ready to discharge pt today to SNF. Geetha states well I was hoping pt would stay to get third midnight. EMELY explained that medically pt is ready for discharge today so SNF needs to be decided for pt. Geetha states well I will have to speak to people and give you a call back. EMELY asked if this worker could call [facility] to determine if they have any beds available as they are usually pretty full. Geetha gave this worker permission to call [facility] to determine if they have any beds available. EMELY reviewed list of SNF with Geetha and again explained that the physician is ready to discharge pt so she needs to pick a SNF for pt. EMELY asked Geetha if [facility] is not able to accept pt or doesn't have any beds available, if she had a different choice. Geetha states again I will need to talk this over and figure out the next step. EMELY provided Geetha with this worker's direct number and asked for Geetha to call this worker today with SNF options today. EMELY placed a call to Lorenzo at [facility] who states she has no male beds available at this time. EMELY will wait to see if pt's calls this worker today with different SNF options. Plan: SNF pending acceptance Didi Garcia MILEAGE CLERK, OIL DISTRIBUTOR TENDER
--- NOTE | 2019-01-24 15:00 | CASEMGMT ---
Social Work Note EMELY received call from pt's Geetha asking for update on SNF. EMELY informed Geetha that this worker did call [facility] and they have no male beds available at this time. EMELY asked Geetha for different options. Geetha states Well I don't know but I guess I have to figure it out since he is being discharged today. Geetha states she spoke with physician who stated as well that pt was medically cleared for discharge. EMELY informed Geetha that the last two SNF in [place] are [facility] and [facility]. May states that her first choice between the two is [facility] and gave this worker permission to make referral to [facility]. EMELY placed a call to Meir at [facility] and provided referral. EMELY faxed referral to [facility]. Plan: [facility] pending acceptance Didi Garcia TOOL COORDINATOR, TRAVELING PHLEBOTOMIST
--- NOTE | 2019-01-24 15:01 | NURSING ---
Pt very confused, doesnt know where he is, says he's in his new room with his cousins on the bed. Pt A but not oriented
--- NOTE | 2019-01-24 15:11 | NURSING ---
reviewed vitals taken by Jessie Yoon clinical nursing director
--- NOTE | 2019-01-24 15:35 | PCM.PN.HOSP ---
Patient Problems: Active and Suspected Problems (Last Reviewed 10/14/18 @ 19:21 by Sisi Orellana) Weakness (Acute) Subjective: Denies any complaints. Vitals/I&O's: Vital Signs Temp Pulse Resp BP Pulse Ox 36.7 C 105 H 18 111/66 96 01/24/19 14:58 01/24/19 14:58 01/24/19 14:58 01/24/19 14:58 01/24/19 14:58 Oxygen Delivery Method Room Air Weight: 69.944 kg Body Mass Index (BMI) 22.1 Intake and Output for Last 24 Hours 01/22/19 01/23/19 01/24/19 23:59 23:59 23:59 Intake Total 1850.00 / 1850.00 300 / 540 790 / 790 Output Total 800 / 800 275 / 275 Balance 1050.00 / 1050.00 25 / 265 790 / 790 General: - - oriented to self only. HEENT: Atraumatic, Normocephalic Oral: Moist Mucosa, No Gingival or Mucosal Lesions/ Ulcerations Neck: No Nodes, Thyroid Normal Size and Texture Lungs: Clear to auscultation, Normal air movement, No rhonchi, No wheeze, No rales Cardiovascular: Regular rate, Regular Rhythm, Normal S1, Normal S2, No murmurs Abdomen: Bowel Sounds Present, Soft, Non Tender, Non-Distended Extremities: No edema, No Calf Tenderness Current Medications Acetaminophen (Tylenol) 650 mg PO Q6H PRN PRN PRN Reason: Mild Pain (1-3)/Temp > 100.7 F Albuterol Sulfate (Ventolin Aerosols) 2.5 mg INHALATION Q2H PRN PRN PRN Reason: Shortness of Breath/Wheezing Atorvastatin Calcium (Lipitor) 40 mg PO QHS [facility] Last Admin: 01/23/19 21:52 Dose: 40 mg Documented by: Clopidogrel Bisulfate (Plavix) 75 mg PO DAILY [facility] Last Admin: 01/24/19 08:31 Dose: 75 mg Documented by: Dextrose (D50w Syringe) 0 gm IV X1 PRN; Protocol PRN Reason: Hypoglycemia Enoxaparin Sodium (Lovenox) 40 mg SC DAILY@1000 [facility] Last Admin: 01/24/19 08:31 Dose: 40 mg Documented by: Famotidine (Pepcid) 20 mg PO BID [facility] Last Admin: 01/24/19 08:31 Dose: 20 mg Documented by: Glucagon () 1 mg IM .X1 PRN PRN Reason: Hypoglycemia Ibuprofen (Motrin) 200 mg PO BID PRN PRN PRN Reason: arthritis Last Admin: 01/23/19 17:29 Dose: 200 mg Documented by: Losartan Potassium (Cozaar) 25 mg PO DAILY [facility] Last Admin: 01/24/19 08:30 Dose: 25 mg Documented by: Melatonin (Melatonin) 10 mg PO QHS [facility] Last Admin: 01/23/19 21:51 Dose: 10 mg Documented by: Morphine Sulfate () 2 mg IV Q3H PRN PRN PRN Reason: Severe pain (7-10/10) Ondansetron HCl (Zofran) 4 mg IV Q8H PRN PRN PRN Reason: NAUSEA/VOMITING Last Admin: 01/21/19 23:05 Dose: 4 mg Documented by: Oxycodone HCl (Oxyir) 5 mg PO Q4H PRN PRN PRN Reason: Moderate Pain (4-6/10) Last Admin: 01/23/19 16:08 Dose: 5 mg Documented by: Paroxetine HCl (Paxil) 10 mg PO DAILY [facility] Last Admin: 01/24/19 08:31 Dose: 10 mg Documented by: Quetiapine Fumarate (Seroquel) 25 mg PO QHS [facility] Last Admin: 01/23/19 21:52 Dose: 25 mg Documented by: Senna/Docusate Sodium (Senokot-S, Taty-Colace) 2 tablet PO BID PRN PRN PRN Reason: Constipation Sodium Chloride () 10 - 40 ml IV UD PRN PRN Reason: SALINE FLUSH Last Admin: 01/22/19 07:57 Dose: 10 ml Documented by: Medical Necessity - Tobacco Use Smoking Status: Former smoker Assessment/Plan All Active Problems (Last Reviewed 10/14/18 @ 19:21 by Sisi Orellana) Weakness (Acute) 1. failure to thrive: family unable to care for patient awaiting acceptance from facility 2. Hypotension: prior to arrival not demonstrated here losartan has been cut back from 50 to 25. HCTZ held 3. Dementia/Depression/anxiety complicates care Receives lorazepam through a Dr. Modi, who family states is a psychiatrist. Last received 01/03 lorazepam is poor long-term choice for anxiety given it high potential for physiologic dependence. will resume given the risk of withdrawal, but start at BID prn (was on QID from home) has been started on quetiapine QHS 4. VTE prophylaxis: LMWH DW patient's sister and . Greater than 35 minutes of which greater than 50% of the time was discussing with the patient's sister and about admission and observation and explained about the patient's current course and awaiting on placement. I listen to write her concerns about the patient not returning home. Explained to them that the plan was not for him to return home but to go to a fdc facility and just awaiting on approval for him to go. Code Visit Inpatient E&M: 12727 Subs Hosp L3
--- NOTE | 2019-01-24 16:30 | CASEMGMT ---
Social Work Note SW received a call from Tiffanie at [facility] stating she received a call from pt's family member requesting referral be sent to [facility]. EMELY placed a call to pt's Geetha and informed her that this worker received call from [facility] regarding sending them a referral for pt. Geetha confirms that she heard good things about [facility] and would like a referral sent to [facility]. EMELY placed a call back to Tiffanie at [facility] and provided referral. Tiffanie states she is willing to review referral but won't have an answer if she is able to accept pt or not until tomorrow. EMELY faxed referral to [facility]. EMELY received message from Meir at [facility] stating she does have a male bed available but states when she call pt's Geetha to discuss self-pay Geetha informed her that pt won't be discharged tonight as she doesn't want pt to be discharged tonight. Meir states she will follow up with this worker tomorrow. Plan: SNF tomorrow pending acceptance Didi Garcia GEOSCIENCE TECHNICIAN, NURSING UNIT COORDINATOR
[2019-01-24] MEDS: MELATONIN 10 MG TABLET PO (21:42)
[2019-01-24] MEDS: Atorvastatin Calcium 40 MG Tablet PO (21:42)
[2019-01-24] MEDS: QUEtiapine 25 MG Tablet PO (21:42)
[2019-01-25 03:00] VITALS: BP 141/74; PULSE 91; RESP 16; TEMP 37.5; O2SAT 98
[2019-01-25] MEDS: Clopidogrel Bisulfate 75 MG Tablet PO (08:43)
[2019-01-25] MEDS: Enoxaparin 40 MG/0.4 ML Syringe SC (08:43)
[2019-01-25] MEDS: Losartan Potassium 25 MG Tablet PO (08:44)
[2019-01-25] MEDS: Famotidine 20 MG Tablet PO (08:44)
[2019-01-25] MEDS: PARoxetine 10 MG Tablet PO (08:45)
[2019-01-25 08:50] VITALS: BP 132/59; PULSE 76; RESP 16; TEMP 36.7; O2SAT 100
--- NOTE | 2019-01-25 11:16 | PCM.TXEXTCAR ---
- Diet 01/21/19 18:29 Diet: Cardiac/Low Cholesterol Food consistency:: Regular Liquid Consistency:: Regular/Thin Is pt able to select menu?: No - Therapies Physical Therapy: Eval and Treat Occupational Therapy: Eval and Treat - Allergies/Procedures Done in Hospital Allergies/Adverse Reactions: Allergies No Known Allergies Allergy (Verified 01/21/19 13:35) Procedures: None - Type of Care/Length of Stay Estimated LOS: Convalescent Care Less Than 30 days Type of Care Needed: Skilled Rehab Potential: Fair Prognosis: Fair - Additional Orders/Day of Discharge Day of Discharge: 01/25/19 - Follow Up Care Primary Care Physician: Elmer Roth MD [Primary Care Provider] - Within 2 Weeks
--- NOTE | 2019-01-25 11:18 | DS.PCM_ITS ---
Discharge Date and Diagnosis - Problem List Patient Problems: Active and Suspected Problems (Last Reviewed 10/14/18 @ 19:21 by Sisi Orellana) Failure to thrive (Acute) Weakness (Acute) Date of Admission: 01/21/19 Date of Discharge: 01/25/19 - Primary Discharge Diagnosis Active and Suspected Problems (Last Reviewed 10/14/18 @ 19:21 by Sisi Orellana) Weakness (Acute) - Secondary Discharge Diagnosis Chronic Problems (Last Reviewed 10/14/18 @ 19:21 by Sisi Orellana) Dementia (Chronic) Triple vessel coronary artery disease (Chronic) Patient was seen by surgery but he refused CABG: now possibly could have PCI of RCA, Dr. Wahl reviewed films. Abnormal stress echo (Chronic) Atherosclerotic heart disease of [place] coronary artery without angina pectoris (Chronic) History of non-ST elevation myocardial infarction (NSTEMI) (Chronic) Hyperlipidemia (Chronic) CVA (cerebral vascular accident) (Chronic) Intracerebral hemorrhage (Chronic) Hospital Course and Treatment Operations: None Procedures: None Summary of Care Provided: The patient is a 78 year old M presents with hypotension at PCPs office 1. failure to thrive: * family unable to care for patient * awaiting acceptance from facility * apparently, his refused his discharge on the . She was aware that if he were discharged on the , he would not have had his 3rd midnight (admitted) and would be financially responsible. Now he has had his 3rd midnight.. 2. Hypotension: * prior to arrival * not demonstrated here * losartan has been cut back from 50 to 25. HCTZ held 3. Dementia/Depression/anxiety * complicates care * Receives lorazepam through a Dr. Modi, who family states is a psychiatrist. Last received 01/03 * lorazepam is poor long-term choice for anxiety given it high potential for physiologic dependence. * will resume given the risk of withdrawal, but start at BID prn (was on QID from home). Wean to off over the next several weeks. * has been started on quetiapine QHS [] Patient Problems: Active and Suspected Problems (Last Reviewed 10/14/18 @ 19:21 by Sisi Orellana) Failure to thrive (Acute) Weakness (Acute) - Physical Exam General: Alert, No apparent distress, - - eating breakfast in his chair, in the nude. HEENT: Atraumatic, Normocephalic Psych/Mental Status: Normal Affect, Appropriate Vital Signs Temp Pulse Resp BP Pulse Ox 36.7 C 76 16 132/59 H 100 01/25/19 08:50 01/25/19 08:50 01/25/19 08:50 01/25/19 08:50 01/25/19 08:50 Oxygen Delivery Method Room Air Weight: 69.944 kg Body Mass Index (BMI) 22.1 Intake and Output for Last 24 Hours 01/23/19 01/24/19 01/25/19 23:59 23:59 23:59 Intake Total 300 / 540 1090 / 1390 540 / 540 Output Total 275 / 275 350 / 350 Balance 25 / 265 1090 / 1040 190 / 190 Discharge Diet: No Restrictions Discharge Activity: Return to Normal Activity Home Medications: Medications to take at Discharge paroxetine 20 mg tablet 10 mg PO DAILY 08/12/17 atorvastatin 40 mg tablet 40 mg PO QHS #90 tab 12/29/18 Clopidogrel Bisulfate [Clopidogrel] 75 mg PO DAILY 01/21/19 Ibuprofen 200 mg PO BID 01/21/19 Acetaminophen [Tylenol Tablet] 650 mg PO Q6H PRN PRN tab 01/25/19 Lorazepam [Ativan] 1 mg PO BID PRN #6 tab 01/25/19 Losartan Potassium [Cozaar] 25 mg PO DAILY tab 01/25/19 Quetiapine Fumarate [Seroquel] 25 mg PO QHS tab 01/25/19 Following Prescrptions Were Given to Patient: Lorazepam [Ativan] 1 mg PO BID PRN #6 tab PRN Reason: ANXIETY Prescription Printed Primary Care Physician: Elmer Roth MD [Primary Care Provider] - Within 2 Weeks Disposition: [facility] facility Minutes spent on discharge:: 32 Patient Condition:: Fair Medical Necessity - Tobacco Use Smoking Status: Former smoker Meaningful Use Info Meaningful Use Diagnoses (Choose all that apply): None applicable Code Visit Inpatient E&M: 89717 Disch Hosp
--- NOTE | 2019-01-25 11:45 | CASEMGMT ---
Social Work Note EMELY spoke with Jennifer at [facility]. Jennifer states she is willing to accept pt now as pt has a payer (Medicare) as pt has had three midnight stay. EMELY placed a call to pt's Geetha. EMELY updated Geetha that at this time, both [facility] and [facility] are able to accept pt. EMELY informed Geetha that this worker still hasn't heard back from [facility]. EMELY verbally provided Geetha with Medicare ratings for [facility], [facility] and [facility]. Geetha states she needs to think about it and speak to friends before making a decision. This worker informed Geetha that the physician has put the discharge in for pt today so a facility will need to be chosen today. Geetha states understanding, states she will give this worker a call back. EMELY waiting for call back from pt's . Plan: SNF today Didi Garcia CALCULUS TUTOR, [employer] REP
--- NOTE | 2019-01-25 14:30 | CASEMGMT ---
Social Work Note EMELY placed a call to pt's Geetha to confirm discharge plans. Geetha states she would like pt to go to [facility]. EMELY placed a call to [facility]. Meir (EMELY) has left for the day and Chuy (CRISTIANE) is in a meeting. EMELY left message for Chuy to call this worker after the meeting. EMELY placed a call to Jennifer at [facility] who is assisting with referrals to [facility]. Jennifer states [facility] is able to accept pt today and will place a call to staff at [facility] to update. EMELY faxed completed discharge paperwork to [facility] including transfer to extended care facility, signed medication list and any scripts. Original in SNF folder and copy on pt's chart. EMELY completed [facility] in [facility]. Original in SNF folder and copy on pt's chart. EMELY arranged transportation through [facility] via cot for 3:30pm. Transportation form completed and placed on SNF folder and copy on pt's chart. EMELY placed a call to [facility] and updated Chuy on transportation time. Chuy states understanding, confirms [facility] is able to accept pt today. EMELY placed a call to pt's Geetha and updated her on transportation time. RN updated on transportation time. Plan: Pt to discharge to [facility] skilled today with [facility] transporting via cot at 3:30pm Didi Garcia MSW, ACCESS CONTROL OFFICER
[2019-01-25 14:35] VITALS: BP 105/56; PULSE 80; RESP 16; TEMP 36.7; O2SAT 100
--- NOTE | 2019-01-25 15:00 | NURSING ---
REPORT CALLED ROBLES CHOI AT [facility] FOR DISCHARGE.
== END 2019-01-25 15:45 | disposition skilled nursing facility (03) | DRG 948 ==
LOC: ED 16:00 → MS3 19:43
PROVIDERS: Admitting Provider Internal Medicine; Emergency Provider Emergency Medicine; Family Provider Family Medicine; PCP Family Medicine; Referring Provider Internal Medicine
DX: R53.1 Weakness (principal); F02.81 Dementia in other diseases classified elsewhere, unspecified severity, with behavioral disturbance; G30.9 Alzheimer's disease, unspecified; M16.12 Unilateral primary osteoarthritis, left hip; I25.10 Atherosclerotic heart disease of native coronary artery without angina pectoris; I95.9 Hypotension, unspecified; R53.81 Other malaise; R62.7 Adult failure to thrive; E78.5 Hyperlipidemia, unspecified; E87.6 Hypokalemia; D64.9 Anemia, unspecified; F32.9 Major depressive disorder, single episode, unspecified; F41.9 Anxiety disorder, unspecified; I10 Essential (primary) hypertension; I25.2 Old myocardial infarction; Z87.891 Personal history of nicotine dependence
CPT/HCPCS: 36415; 80048; 80053; 82728; 83540; 85025; 97110; 97116; 97162; 97166; 97530; 97535; 97802; 99283; J7030; A4216; J2405

== ENCOUNTER 2019-01-27 19:17 | Emergency (ER) | payer MEDICARE, OTHER, SELFPAY ==
[2019-01-27 19:19] VITALS: BP 134/79; PULSE 100; RESP 18; TEMP 37.1; O2SAT 100; O2SAT 98; BMI 26.3
--- NOTE | 2019-01-27 19:42 | EKG12_ITS ---
Test Reason : MHC Blood Pressure : / mmHG Vent. Rate : 081 BPM Atrial Rate : 081 BPM P-R Int : 160 ms QRS Dur : 136 ms QT Int : 406 ms P-R-T Axes : 064 -70 032 degrees QTc Int : 471 ms Normal sinus rhythm Left axis deviation Right bundle branch block Septal infarct , age undetermined Abnormal ECG Confirmed by PRABHAKAR MAZA, OCRNELIO ([id number]), copy editor HUMAIRA BLACK ([id number]) on 01/28/2019 1:12:26 PM Referred By: CRUZ Confirmed By:DULCE RADFORD MD
--- NOTE | 2019-01-27 19:42 | RAD_ITS ---
STUDY: X-RAY CHEST REASON FOR EXAM: Male, 78 years old. Cough. Confusion. TECHNIQUE: Single AP portable view of the chest. COMPARISON: September 10, 2017. FINDINGS: The lungs are clear and expanded. There is no demonstrated pleural abnormality. Normal size heart. Normal mediastinum and dary. Normal visualized pulmonary arteries. There is atherosclerotic calcification of the aortic arch with tortuosity. There are diffuse degenerative changes of the visualized thoracic spine. There is degenerative osteoarthritis of the bilateral shoulders. There is no demonstrated abnormality of the visualized soft tissue structures of the upper abdomen. RAD/Chest 1 View (Portable) IMPRESSION: Degenerative changes, as described above. No demonstrated acute cardiopulmonary process. There is no major interval change. Electronically Signed: Angelo Sanabria DO at 20:01 EDT Tel [phone], Service support ,
[2019-01-27 20:27] LABS: Absolute Lymphocyte Count 1.68 X10^3/uL (0.83-4.51); Absolute Neutrophil Count 5.8 X10^3/uL (2.0-7.7); Basophil# 0.04 X10^3/uL; Basophil% 0.5 % (0-1); Eosinophils% 2.3 % (0-5); Hematocrit 36.8 % (40-54); Hemoglobin 12.1 g/dL (13.0-16.5); Lymphocyte # 1.68 X10^3/ul (4.0); Lymphocyte % 19.5 % (19-41); Mean Corp Hgb Conc 32.9 g/dL (32-36); Mean Corpuscular Hgb 29.2 pg (27.0-32.0); Mean Corpuscular Volume 88.7 fL (80-94); Monocyte# 0.93 X10^3/uL; Monocyte% 10.8 % (0-10); NRBC Flagged by Analyzer 0 % (0-5); Neutrophil # 5.75 X10^3/uL (2.7-7.7); Neutrophil % 66.6 % (47-70); Platelet Count 259 K/mm3 (150-450); RBC Distribution Width CV 14.6 % (11.6-14.6); RBC Distribution Width SD 46.5 fl (35.1-43.9); Red Blood Count 4.15 M/mm3 (4.6-6.2); White Blood Count 8.6 K/mm3 (4.4-11.0)
[2019-01-27 20:50] LABS: Bacteria 0 SEEN /hpf (None Seen); Squamous Epithelial Cells - UA 0 SEEN /hpf (0-5); White Blood Cells 0 SEEN /hpf (0-5)
[2019-01-27 20:52] LABS: Color, Urine Yellow (Yellow); Glucose, Dipstick Normal (Normal); Ketone-Dipstick 15 mg/dl (Negative); Leukocyte Esterase-Dipstick 25 /ul (Negative); Nitrite-Dipstick Negative (Negative); Occult Blood-Urine Negative /ul (Negative); Protein-Dipstick 30 mg/dl (Negative); Specific Gravity, Urine 1.015 (1.002-1.030); Urine Bilirubin Dipstick Negative (Negative); Urine Clarity Cloudy (Clear); Urine Urobilinogen 4 mg/dl (Normal); Urine pH 6.5 (5.0 - 8.0)
[2019-01-27 21:00] LABS: Anion Gap 7 (5-15); BUN 25 mg/dL (7-18); BUN/Creat Ratio 28.4 RATIO (10-20); Calcium,Total 9.1 mg/dL (8.5-10.1); Chloride 107 mmol/L (98-107); Creatinine, Serum 0.88 mg/dL (0.70-1.30); EST Glomerular Filtration Rate 89 mL/min (>60); Est Glom Filt Rate - Afr Amer 107 mL/min (>60); Estimated Creatinine Clearance 56.99 ml/min; Glucose 87 mg/dL (74-106); Potassium 3.3 mmol/L (3.5-5.1); Sodium Level 138 mmol/L (136-145); Thyroid Stim Hormone (TSH) 2.71 uIU/mL (0.358-3.74)
--- NOTE | 2019-01-27 21:00 | CT_ITS ---
STUDY: CT BRAIN WITHOUT CONTRAST REASON FOR EXAM: Male, 78 years old. Altered mental status. History of dementia. RADIATION DOSAGE (If Supplied By Facility): CTDIvol = ( 44.99 ) mGy, DLP = ( 829.58 ) mGycm TECHNIQUE: Transaxial CT imaging of the brain was performed without administration of intravenous contrast material. Individualized dose optimization techniques were used for this CT. COMPARISON: No relevant priors. FINDINGS: Normal soft tissue structures. Normal calvarium. There is mild cerebral atrophy with widening of the extra-axial spaces and ventricular dilatation. There are areas of decreased attenuation within the white matter tracts of the supratentorial brain, consistent with microvascular disease changes. Area of increased low attenuation in the left occipital lobe which may represent a remote infarct. Normal basal ganglia and thalami. Normal brainstem. Normal cerebellum. There is no intracranial hemorrhage. There are no findings of an acute ischemic infarction. Normal visualized paranasal sinuses. CT/Brain/Head without Contrast IMPRESSION: Chronic involutional changes without evidence of acute intracranial or calvarial abnormality. Question remote left occipital lobe infarct. Electronically Signed: Angelo Sanabria DO at 21:19 EDT Tel [phone], Service support ,
[2019-01-27 21:17] LABS: Red Blood Cells-Urine 0-5 SEEN /hpf (0-5)
[2019-01-27 21:18] LABS: Mucous, Urine 1+ /hpf (<or=2+)
[2019-01-27 21:41] VITALS: RESP 14
--- NOTE | 2019-01-27 21:49 | CM.ED ---
SOCIAL WORK INFORMANT: DR. MAGANA REASON FOR REFERRAL: MENTAL HEALTH EVALUATION CASE COLLABORATED WITH DR. MAGANA. PATIENT FROM [facility]. MET WITH PATIENT IN ROOM. INTRODUCED ROLE. PATIENT PLEASANTLY CONFUSED STATING HE'S GOING TO GET A JOB HERE. PATIENT STATES WAS COMPLETING THERAPY AND PLANS TO RETURN TO FACILITY TO COMPLETE THERAPY. PATIENT BEGAN TALKING ABOUT AND HER HEALTH ISSUES. EMOTIONAL SUPPORT AND ACTIVE LISTENING PROVIDED. PATIENT CALM AND COOPERATIVE WHILE SPEAKING WITH THIS WORKER. DISCUSSED WITH DR. MAGANA. PATIENT DOES NOT MEET CRITERIA FOR INPATIENT HOSPITALIZATION. CALL TO [facility] AND UPDATED PATIENT HAS BEEN MEDICALLY CLEARED. PATIENT TO RETURN TO [facility]. CONRADO VELAZQUEZ, WINDOW REPAIRER, RISK CONSULTING TREASURY DIRECTOR.
--- NOTE | 2019-01-27 21:56 | ED.VISSUMM ---
- ER Visit Summary Date of Service: 01/27/19 Chief Complaint: Combative at SNF History of Present Illness: The patient is a 78 M who is brought in by EMS because of being combative at his long-term. They state that he was very aggressive tonight. EMS picked patient up and he has been cooperative with them since. The patient has a history of dementia. He is alert to his self only. Apparently he was given Ativan at the long-term. He was recently admitted to the hospital for weakness and hypotension. He was given Seroquel here in the hospital. It appears that he is on this at night at the long-term. Physical Examination: Vital signs reviewed. HEENT exam unremarkable. Heart is regular rate and rhythm without murmurs. Lungs are clear to auscultation. Abdomen is soft and nontender. Extremities reveal no edema. Skin exam normal. Neurologic exam shows that he is alert to his self only. He has no other focal neurologic deficits. He is cooperative throughout his stay in the emergency department Test Results: EKG was sinus rhythm with right bundle branch block. Nonspecific ST and T wave changes noted. Heme globin 12.1. Potassium 3.3. TSH normal. Urinalysis and chest x-ray have no infection. CAT scan of the head reveals chronic changes with a remote infarct Emergency Department Course and Treatment: Patient has been cooperative throughout his stay in the emergency department. I feel he can go back to his long-term. I did have the social work job titles evaluate the patient and she agrees with my assessment. Treatment Plan: [] Disposition: Discharge back to SNF Impression: Dementia with behavior disturbances This note was generated with [employer] dictation software. It may contain incorrect words, spelling, and punctuation that were not noted in review of the chart prior to signing ED Disposition - Plan for ED Patient: Referrals: Ming Mckeon MD [Primary Care Provider] -
--- NOTE | 2019-01-27 21:59 | ED.DEP ---
ED Disposition - Plan for ED Patient: Disposition: Home or Assisted Living Instructions: DEMENTIA, Any Type Referrals: Ming Mckeon MD [Primary Care Provider] -
[2019-01-27 22:10] VITALS: RESP 18
[2019-01-27 22:18] VITALS: BP 138/79; PULSE 74; RESP 16; O2SAT 95
== END 2019-01-27 22:19 | disposition home or self-care (01) ==
PROVIDERS: Emergency Provider Emergency Medicine; Family Provider Family Medicine; PCP Family Medicine
DX: F03.91 Unspecified dementia, unspecified severity, with behavioral disturbance (principal); I45.10 Unspecified right bundle-branch block; F32.9 Major depressive disorder, single episode, unspecified; Z79.899 Other long term (current) drug therapy; Z79.02 Long term (current) use of antithrombotics/antiplatelets
CPT/HCPCS: 70450; 71045; 80048; 81001; 84443; 85025; 93005; 99285

== ENCOUNTER 2019-05-16 06:24 | Day surgery (SDC) | payer MEDICARE, OTHER, SELFPAY ==
[2019-05-16] VITALS (7 sets, daily range): BP systolic 88–126; BP diastolic 51–69; PULSE 73–88; RESP 16–18; TEMP 36.1–36.4; O2SAT 95–99; BMI 24.5
[2019-05-16] MEDS: Lactated Ringers 1,000 ML 100 ML IV (07:17)
--- NOTE | 2019-05-16 08:06 | RAD_ITS ---
STUDY: X-RAY - LEFT KNEE REASON FOR EXAM: Male, 79 years old. RADIO FREQ ABLATION TECHNIQUE: 5 cone down intraoperative view(s) of the knee. COMPARISON: None. FINDINGS: Intraoperative imaging provided for radiofrequency ablation. RAD/Knee 1 or 2 Views IMPRESSION: Intraoperative imaging provided for radiofrequency ablation. Electronically Signed: Steven Quiroz, at 11:09 EST , Service support ,
[2019-05-16] MEDS: MethylPREDNISolone Acetate 80 MG/ML Vial (08:14)
[2019-05-16] MEDS: Bupivacaine 0.25% 30 ML Vial (08:15)
--- NOTE | 2019-05-16 08:33 | PCM.OPRPT ---
Report of Operation Date of Procedure: 05/16/19 Description of Surgical Findings:: PREOPERATIVE DIAGNOSIS: Osteoarthritis of the left knee, nonoperative knee pain POSTOPERATIVE DIAGNOSIS: Osteoarthritis of the left knee, nonoperative knee pain PROCEDURE PERFORMED: Left knee radiofrequency ablation of superomedial, superolateral, and inferomedial genicular nerves under fluoroscopy guidance. ANESTHESIA: MAC. BLOOD LOSS: Minimal. COMPLICATIONS: None. DESCRIPTION OF PROCEDURE: History and physical of today was reviewed. Risks and benefits of the procedure were explained. The patient understood and agreed to proceed. Informed consent was obtained. IV inserted per routine protocol. The patient was taken to the operating room and placed in the supine position. The left knee was prepped and draped in a sterile fashion using iodine x3. Under fluoroscopy guidance on AP view, the right knee was visualized. The skin and subcutaneous tissue was anesthetized with approximately 15 mL of 1% lidocaine using a 22-gauge 10 cm with a 10 mm curved active tip radiofrequency ablation needle at the vicinity of the superomedial, superolateral, and inferomedial genicular nerves. Under direct visualization of fluoroscopy on AP view as well as lateral view, starting on the right superomedial, ending on the right inferomedial, passing through the right superolateral genicular nerves, the needle was passed through the skin. The tip of the needle was maneuvered and directed towards the diaphyseal junction of each corresponding nerve. Once tip of the needle was in the vicinity of the diaphysis and in contact with the bone, after confirmation on AP as well as lateral view and repeated negative aspiration for blood the radiofrequency ablation probe was inserted at each level impedance was recorded at the superior medial 295 oh at the superior lateral 243 at the inferior medial 283, motor evoked potential was then initiated to 1.5 V without any motor response at each corresponding level the probes were then removed intact and after negative aspiration for blood a total of 6 cc of preservative-free 1% lidocaine were injected in divided doses between those 3 levels the radiofrequency ablation probe was then reinserted after repeated confirmation AP as well as lateral view radiofrequency ablation was then initiated to 80 ?C for 90 seconds at each level, a total of 3 mL of preservative-free 0.25% Marcaine with 40 mg of Depo-Medrol was injected in divided doses between those three levels. The needles were then removed intact. The patient experienced no sign or symptoms of intravascular injection. The patient experienced no paresthesia. The procedure was completed without any apparent difficulty or any complications. The patient appeared to tolerate it well. ASSESSMENT AND PLAN: This is a 79-year-old male with osteoarthritis of the left knee, nonoperative knee pain status post left knee radiofrequency ablation of the superior medial, superior lateral, inferior medial genicular nerve under fluoroscopic guidance patient will continue his current medications patient found approximately 2 weeks for reevaluation.
== END 2019-05-16 09:41 | disposition home or self-care (01) ==
LOC: SDC 06:25 → AC 06:27
PROVIDERS: Family Provider Family Medicine; PCP Family Medicine; Referring Provider Anesthesiology Pain Medicine; Visit Provider Student in an Organized Health Care Education/Training Program
PROC: (CPT 64624; principal; 2019-05-16 07:55)
DX: M17.12 Unilateral primary osteoarthritis, left knee (principal); M16.12 Unilateral primary osteoarthritis, left hip; M47.27 Other spondylosis with radiculopathy, lumbosacral region; M51.17 Intervertebral disc disorders with radiculopathy, lumbosacral region; I25.10 Atherosclerotic heart disease of native coronary artery without angina pectoris; F41.9 Anxiety disorder, unspecified; Z79.02 Long term (current) use of antithrombotics/antiplatelets; Z79.899 Other long term (current) drug therapy; I25.2 Old myocardial infarction; Z86.73 Personal history of transient ischemic attack (TIA), and cerebral infarction without residual deficits; Z87.891 Personal history of nicotine dependence
CPT/HCPCS: 64624; 73560; 76000; J7120

== ENCOUNTER 2019-07-25 07:27 | Day surgery (SDC) | payer MEDICARE, OTHER, SELFPAY ==
[2019-05-16 06:47] VITALS: BMI 24.5
[2019-07-25] VITALS (7 sets, daily range): BP systolic 96–133; BP diastolic 53–73; PULSE 71–82; RESP 16–18; TEMP 36.3–36.6; O2SAT 93–96; BMI 26.9
[2019-07-25] MEDS: Lactated Ringers 1,000 ML 100 ML IV (08:38)
--- NOTE | 2019-07-25 09:00 | RAD_ITS ---
PROCEDURE: Left hip injection. DATE OF EXAMINATION: July 25, 2019. INDICATION: Male, 79 years old. Chronic left shoulder pain. FLUOROSCOPY TIME (if supplied): (7 seconds) minutes/seconds Intraoperative imaging provided for left hip injection.. RAD/Fluoro Guided Needle Placement IMPRESSION: Intraoperative imaging provided for left hip injection. Electronically Signed: Steven Quiroz, at 10:14 EDT , Service support ,
[2019-07-25] MEDS: MethylPREDNISolone Acetate 80 MG/ML Vial (09:08)
[2019-07-25] MEDS: Bupivacaine 0.25% 30 ML Vial (09:08)
--- NOTE | 2019-07-25 09:47 | OP.PCM_ITS ---
Report of Operation Date of Procedure: 07/25/19 Description of Surgical Findings:: PREOPERATIVE DIAGNOSIS: Osteoarthritis of the left hip POSTOPERATIVE DIAGNOSIS: Osteoarthritis of the left hip PROCEDURE PERFORMED: Left hip intraarticular steroid injection under fluoroscopy guidance. ANESTHESIA: MAC. BLOOD LOSS: Minimal. COMPLICATIONS: None. DESCRIPTION OF PROCEDURE: History and physical of today was reviewed. Risks a nd benefits of the procedure were explained. The patient understood and agreed to proceed. Informed consent was obtained. IV inserted per routine protocol. The patient was taken to the operating room and placed in the supine position. The left hip area was prepped and draped in a sterile fashion using iodine x3. Under fluoroscopy guidance on AP view, the left hip joint was visualized. The s kin and subcutaneous tissue was anesthetized with approximately 3 mL of 1% lidocaine using a 25-gauge regular needle approximately 3 cm cephalad to the left greater trochanter. Under direct visualization with fluoroscopy on an AP view, using a 22-gauge 5-inch spinal needle, the needle was advanced via the skin using the lateral approach. The tip of the needle was maneuvered and directed towards the superiormost aspect of the hip joint. Once the tip of the needle was at the vicinity of the joint, after negative aspiration for blood and positive aspiration of synovial fluid, a total of 1 mL of contrast was injected to confirm correct placement of the needle as well as halo spread around the hip joint. After repeated negative aspiration for blood and confirmation on AP as well as oblique view, a total of 10 mL of preservative-free 0.25% Marcaine with 80 mg of Depo-Medrol was injected easily. The needle was then removed intact. The patient experienced no sign or symptoms of intrathecal or intravascular injection. The patient experienced no paresthesia. The procedure was completed without any apparent difficulty or any complications. The patient appeared to tolerate it well. ASSESSMENT AND PLAN: This is an 79-year-old male with osteoarthritis of the left hip status post left hip intra-articular steroid injection under fluoroscopic guidance, patient will continue his current medications, patient will follow approximately 2 weeks for reevaluation.
== END 2019-07-25 10:10 | disposition skilled nursing facility (03) ==
LOC: SDC 07:27 → AC 07:29
PROVIDERS: PCP Family Medicine; Referring Provider Anesthesiology Pain Medicine; Visit Provider Anesthesiology Pain Medicine
PROC: 3E0U3GC Introduction of Other Therapeutic Substance into Joints, Percutaneous Approach (ICD-10-PCS; CPT 20610; principal; 2019-07-25 09:15)
DX: M16.12 Unilateral primary osteoarthritis, left hip (principal); G89.29 Other chronic pain; M51.17 Intervertebral disc disorders with radiculopathy, lumbosacral region; M47.817 Spondylosis without myelopathy or radiculopathy, lumbosacral region; M17.12 Unilateral primary osteoarthritis, left knee; I25.10 Atherosclerotic heart disease of native coronary artery without angina pectoris; E78.00 Pure hypercholesterolemia, unspecified; I10 Essential (primary) hypertension; R13.10 Dysphagia, unspecified; F32.9 Major depressive disorder, single episode, unspecified; F41.9 Anxiety disorder, unspecified; Z79.02 Long term (current) use of antithrombotics/antiplatelets; Z79.899 Other long term (current) drug therapy; I25.2 Old myocardial infarction; Z86.73 Personal history of transient ischemic attack (TIA), and cerebral infarction without residual deficits; Z86.61 Personal history of infections of the central nervous system; Z87.891 Personal history of nicotine dependence
CPT/HCPCS: 01200; 20610; 76000; 77002; J7120

== ENCOUNTER → 2019-10-24 15:01 | Outpatient (CLI) | payer MEDICARE, OTHER, SELFPAY ==
[2019-07-25 07:53] VITALS: BMI 26.9
== END ==
PROVIDERS: PCP Family Medicine; Referring Provider Nurse Practitioner Adult Health; Visit Provider Nurse Practitioner Adult Health
DX: J98.8 Other specified respiratory disorders (principal)
CPT/HCPCS: 87635; U0003

== ENCOUNTER → 2020-01-18 09:09 | Outpatient (CLI) | payer MEDICARE, MEDICAID, SELFPAY ==
[2019-07-25 07:53] VITALS: BMI 26.9
[2020-01-18 12:39] LABS: Vitamin B12 294 pg/mL (211-911)
[2020-01-18 12:41] LABS: Absolute Lymphocyte Count 1.26 X10^3/uL (0.83-4.51); Absolute Neutrophil Count 2.6 X10^3/uL (2.0-7.7); Basophil# 0.03 X10^3/uL; Basophil% 0.6 % (0-1); Eosinophil# 0.33 X10^3/uL; Eosinophils% 6.7 % (0-5); Hematocrit 36.9 % (40-54); Hemoglobin 12.2 g/dL (13.0-16.5); Lymphocyte # 1.26 X10^3/ul (4.0); Lymphocyte % 25.7 % (19-41); Mean Corp Hgb Conc 33.1 g/dL (32-36); Mean Corpuscular Hgb 29.9 pg (27.0-32.0); Mean Corpuscular Volume 90.4 fL (80-94); Monocyte# 0.66 X10^3/uL; Monocyte% 13.5 % (0-10); NRBC Flagged by Analyzer 0 % (0-5); Neutrophil # 2.61 X10^3/uL (2.7-7.7); Neutrophil % 53.3 % (47-70); Platelet Count 234 K/mm3 (150-450); RBC Distribution Width CV 14.3 % (11.6-14.6); RBC Distribution Width SD 47.4 fl (35.1-43.9); Red Blood Count 4.08 M/mm3 (4.6-6.2); White Blood Count 4.9 K/mm3 (4.4-11.0)
[2020-01-18 12:47] LABS: ALB/GLOB Ratio 1.1 RATIO (0.9-2.4); AST(SGOT) 21 U/L (15-37); Alanine Aminotransfer ALT/SGPT 21 U/L (16-61); Albumin, Serum 3.7 g/dL (3.2-5.0); Alkaline Phosphatase 152 U/L (45-117); Anion Gap 7 (5-15); BUN 23 mg/dL (7-18); BUN/Creat Ratio 23.6 RATIO (10-20); Calcium,Total 8.9 mg/dL (8.5-10.1); Chloride 109 mmol/L (98-107); Cholesterol 168 mg/dL (200); Creatinine, Serum 0.98 mg/dL (0.70-1.30); EST Glomerular Filtration Rate 79 mL/min (>60); Est Glom Filt Rate - Afr Amer 95 mL/min (>60); Ferritin 147 ng/mL (26-388); Globulin 3.5 g/dL (2.2-4.2); Glucose 95 mg/dL (74-106); High Density Lipoprotein 77 mg/dL; Iron 83 ug/dL (65-175); Potassium 3.6 mmol/L (3.5-5.1); Protein, Total 7.2 g/dL (6.4-8.2); Sodium Level 139 mmol/L (136-145); Thyroid Stim Hormone (TSH) 2.07 uIU/mL (0.358-3.74); Triglycerides 69 mg/dL; Very Low Density Lipoprotein 14 mg/dL (5-40)
== END ==
PROVIDERS: PCP Family Medicine; Visit Provider Family Medicine
DX: I10 Essential (primary) hypertension (principal); R60.9 Edema, unspecified; I25.10 Atherosclerotic heart disease of native coronary artery without angina pectoris; D64.9 Anemia, unspecified; F32.9 Major depressive disorder, single episode, unspecified
CPT/HCPCS: 36415; 80053; 80061; 82607; 82728; 83540; 84443; 85025

== ENCOUNTER → 2020-08-01 10:52 | Outpatient (CLI) | payer MEDICARE, MEDICAID, SELFPAY ==
[2019-07-25 07:53] VITALS: BMI 26.9
[2020-08-01 12:22] LABS: Absolute Lymphocyte Count 1.93 X10^3/uL (0.83-4.51); Absolute Neutrophil Count 3.3 X10^3/uL (2.0-7.7); Basophil# 0.04 X10^3/uL; Basophil% 0.6 % (0-1); Eosinophil# 0.49 X10^3/uL; Eosinophils% 7.3 % (0-5); Hematocrit 37.2 % (40-54); Hemoglobin 12.1 g/dL (13.0-16.5); Lymphocyte # 1.93 X10^3/ul (4.0); Lymphocyte % 28.9 % (19-41); Mean Corp Hgb Conc 32.5 g/dL (32-36); Mean Corpuscular Hgb 29.9 pg (27.0-32.0); Mean Corpuscular Volume 91.9 fL (80-94); Mean Platelet Vol. 10.4 fl (6.2-12.0); Monocyte# 0.88 X10^3/uL; Monocyte% 13.2 % (0-10); NRBC Flagged by Analyzer 0 % (0-5); Neutrophil # 3.33 X10^3/uL (2.7-7.7); Neutrophil % 49.9 % (47-70); Platelet Count 218 K/mm3 (150-450); RBC Distribution Width SD 50.4 fl (35.1-43.9); Red Blood Count 4.05 M/mm3 (4.6-6.2); White Blood Count 6.7 K/mm3 (4.4-11.0)
[2020-08-01 13:23] LABS: Vitamin B12 519 pg/mL (211-911)
[2020-08-01 13:27] LABS: AST(SGOT) 20 U/L (15-37); Alanine Aminotransfer ALT/SGPT 26 U/L (16-61); Albumin, Serum 3.5 g/dL (3.2-5.0); Alkaline Phosphatase 127 U/L (45-117); Anion Gap 5 (5-15); BUN 22 mg/dL (7-18); BUN/Creat Ratio 22.8 RATIO (10-20); Calcium,Total 8.8 mg/dL (8.5-10.1); Chloride 108 mmol/L (98-107); Creatinine, Serum 0.97 mg/dL (0.70-1.30); EST Glomerular Filtration Rate 79 mL/min (>60); Est Glom Filt Rate - Afr Amer 96 mL/min (>60); Ferritin 79 ng/mL (26-388); Globulin 3.6 g/dL (2.2-4.2); Glucose 92 mg/dL (74-106); Iron 59 ug/dL (65-175); Potassium 4.2 mmol/L (3.5-5.1); Protein, Total 7.1 g/dL (6.4-8.2); Sodium Level 141 mmol/L (136-145); T4 Free Direct 0.73 ng/dL (0.76-1.46); Thyroid Stim Hormone (TSH) 1.75 uIU/mL (0.358-3.74)
== END ==
PROVIDERS: PCP Family Medicine; Referring Provider Family Medicine; Visit Provider Family Medicine
DX: M51.36 Other intervertebral disc degeneration, lumbar region (principal); D51.9 Vitamin B12 deficiency anemia, unspecified; F41.9 Anxiety disorder, unspecified; D64.9 Anemia, unspecified; R74.8 Abnormal levels of other serum enzymes
CPT/HCPCS: 36415; 80053; 82607; 82728; 83540; 84439; 84443; 85025

== ENCOUNTER 2020-10-10 12:31 | Inpatient (IN) | payer MEDICARE, MEDICAID, SELFPAY ==
[2019-07-25 07:53] VITALS: BMI 26.9
[2020-10-10] VITALS (8 sets, daily range): BP systolic 104–131; BP diastolic 37–63; PULSE 87–112; RESP 16–31; TEMP 36.6–37.6; O2SAT 91–95; BMI 25.2; BMI 26.6
--- NOTE | 2020-10-10 12:59 | RAD_ITS ---
STUDY: X-RAY CHEST REASON FOR EXAM: Male, 80 years old. Dyspnea TECHNIQUE: Single AP portable view of the chest. COMPARISON: Comparison is made with prior study dated 01/27/2019. FINDINGS: EKG electrodes are seen. Focal irregular increased markings at the right lung base suggestive of possible early infiltrate. There is no demonstrated pleural abnormality. Normal size heart. Normal mediastinum and dary. Normal visualized pulmonary arteries. There is atherosclerotic tortuosity of the aortic arch and descending thoracic aorta. There are diffuse degenerative changes of the visualized thoracic spine. Normal visualized ribs, clavicles, and shoulders. There is no demonstrated abnormality of the visualized soft tissue structures of the upper abdomen. RAD/Chest 1 View (Portable) IMPRESSION: Findings suggestive of early right lower lobe infiltrate. Electronically Signed: Steven Quiroz MD at 14:31 EDT , Service support ,
--- NOTE | 2020-10-10 12:59 | EKG12_ITS ---
Test Reason : COUGH Blood Pressure : / mmHG Vent. Rate : 098 BPM Atrial Rate : 098 BPM P-R Int : 166 ms QRS Dur : 132 ms QT Int : 374 ms P-R-T Axes : 049 -68 022 degrees QTc Int : 477 ms Sinus rhythm with Premature supraventricular complexes Right bundle branch block Left anterior fascicular block Bifascicular block Abnormal ECG Confirmed by PRABHAKAR MAZA, CORNELIO ([id number]), acquisition editor ELIOT ZELAYA ([id number]) on 10/11/2020 12:52:49 PM Referred By: TOM/ZAYNAB Confirmed By:DULCE RADFORD MD
--- NOTE | 2020-10-10 13:01 | EDS_ITS ---
HPI History of Present Illness Chief Complaint: Cough Detail of Chief Complaint: Cough and shortness of breath for 5 days Informant: patient Narrative Narrative: Patient presents to the emergency department with a productive cough that started 5 days ago. Has had a fever up to 101. Patient denies any chest pain. Patient states that he has had both COVID-19 vaccinations. Patient states that his healthcare worker was coughing 6 days ago when she was visiting him. Patient seen by primary care physician today and referred to the emergency department. Patient denies recent travel or surgery. Patient coughing up thick yellow sputum. [facility] Medical History (Updated 10/10/20 @ 14:[address] 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 Home Medications paroxetine HCl 20 mg tablet 40 mg PO DAILY 08/12/17 [History Last Taken 05/16/19] atorvastatin 40 mg tablet 40 mg PO QHS #90 tab 12/29/18 [Rx Last Taken 01/20/19] clopidogrel 75 mg PO DAILY 01/21/19 [History Last Taken 07/24/19] lorazepam 1 mg PO BID PRN #6 tab 01/25/19 [Rx Last Taken Unknown] losartan 25 mg PO DAILY tab 01/25/19 [Rx Last Taken 05/16/19] calcium carbonate 1,000 mg PO Q4H PRN PRN 05/13/19 [History Last Taken Unknown] magnesium hydroxide 30 ml PO DAILY PRN PRN 05/13/19 [History Last Taken Unknown] melatonin 5 mg PO QHS 05/13/19 [History Last Taken Unknown] menthol 1 applic TP QHS 05/13/19 [History Last Taken Unknown] quetiapine 50 mg PO DAILY 05/13/19 [History Last Taken 05/16/19] acetaminophen 650 mg PO QHS 10/10/20 [History Last Taken Unknown] mecobalamin (vitamin B12) [B12 Active] 1,000 mcg PO DAILY 10/10/20 [History Last Taken Unknown] mirtazapine 15 mg PO QHS 10/10/20 [History Last Taken Unknown] quetiapine 100 mg PO QHS 10/10/20 [History Last Taken Unknown] Allergy/AdvReac Type Severity Reaction Status Date / Time No Known Allergies Allergy Verified 05/13/19 11:16 Family History Father Presence of permanent cardiac pacemaker Surgical History History of thoracentesis History of vasectomy Social History Smoking Status: Former smoker alcohol intake: never substance use type: does not use ROS ROS ED Constitutional Constitutional ED: Reports systems reviewed and no addt'l complaints, except as documented; Denies body ache(s), change in weight or chills Eyes Eyes: Denies acute decrease in peripheral vision, change in vision, double vision or loss of vision ENT ENT ED: Reports none; Denies ear pain, lip swelling, loss taste/smell, neck pain, otalgia or sore throat Cardiovascular Cardiovascular: Reports none; Denies abdominal pain, chest pain with activity, leg edema, lightheadedness, palpitations, rapid heart rate or syncope Respiratory/Chest Respiratory/Chest: Reports none, cough, dyspnea and sputum; Denies change in mental status, dry cough, hemoptysis, shortness of breath at rest or shortness of breath with exertion Gastrointestinal Gastrointestinal: Reports none; Denies abdominal pain, change in stool character, diarrhea, hematemesis, hematochezia, melena, rectal bleeding or v omiting Genitourinary Genitourinary ED: Reports none; Denies abdominal discomfort, anuria, dysuria, genital pain or polyuria Musculoskeletal Musculoskeletal: Reports none; Denies arthralgias, back pain, difficulty walking, extremity pain, muscle weakness or myalgias Integumentary Reports none; Denies abscess or rash Neurologic Neurologic: Reports none; Denies abnormal gait, confusion, focal weakness, frequent falls, headache(s), loss of vision, numbness, paresthesias, radicular pain, vertigo or weakness Psychiatric Psychiatric: Reports systems reviewed and no addt'l complaints, except as documented and none; Denies behavioral changes, confusion, difficulty concentrating, hallucinations, suicidal ideation, tactile hallucinations or visual hallucinations Endocrine Endocrinology: Denies none, cold intolerance, excessive sweating, fatigue or heat intolerance Hematologic/Lymphatic Hematologic/Lymphatic: Reports none; Denies anemia, easy bleeding or easy bruisi ng Allergic/Immunologic Allergic/Immunologic ED: Denies as per HPI, none, lip swelling, mouth swelling, throat swelling, tongue swelling or hives EXAM Physical Exam Const Vital Signs: 10/10/20 12:32 10/10/20 14:24 Temperature 97.8 F Temperature Source Temporal Pulse Rate 112 H Respiratory Rate 22 H Respiratory Effort Short of Breath Respiratory Depth Normal Respiratory Pattern Normal Blood Pressure 104/37 L Blood Pressure Mean 59 Pulse Ox 92 Oxygen Delivery Method Room Air Room Air Positive well nourished and well developed General Appearance ED: well developed and NAD HEENT Reports TM's clear and moist mucous membranes normocephalic and atraumatic; Negative for trauma or tenderness Tympanic Membrane ED: Yes TM's clear Eyes PERRL and EOMs intact bilaterally General Eye ED: Negative for pale conjunctiva or scleral icterus Neck no lymphadenopathy, supple and no JVD General: Negative for tenderness Chest Wall inspection of chest normal and palpation of chest normal Chest: Negative for tenderness Resp normal respiratory effort Effort and Inspection: Negative for respiratory distress or pain with movement Auscultation: rhonchi, wheezes and diminished lung sounds Cardio regular rate, regular rhythm, S1 normal heart sound, S2 normal heart sound and no murmurs Peripheral Pulses: pulses 2+ throughout GI normal to inspection, nondistended, normoactive bowel sounds, soft to palpation, non-tender, non-distended and no masses Back/Spine no CVA tenderness and no thoracic nor lumbar tenderness Extremity normal to inspection General Extremety ED: Negative for edema General Extremity: Negative for edema Neuro oriented x3, CN's II-XII intact bilaterally, no sensory deficits noted and gait normal Sensorium / Orientation: awake, alert, oriented to person, oriented to place and oriented to time Motor Exam: strength 5/5 throughout and strength abnormal Psych mental status grossly normal Skin no rashes or lesions noted and no wounds MDM MDM MDM Narrative Medical decision making narrative: Patient noted to have a right lower lobe infiltrate consistent with pneumonia. Despite breathing treatment here he still tachypneic. Will start on Zithromax and Rocephin IV. Case will be discussed with hospitalist evaluate patient for admission. Lab Data Labs: Laboratory Results - last 24 hr 10/10/20 10/10/20 10/10/20 13:28 13:28 13:28 WBC 9.5 RBC 4.00 L Hgb 11.9 L Hct 36.0 L MCV 90.0 MCH 29.8 MCHC 33.1 RDW Std Deviation 46.9 H RDW Coeff of Ethan 14.2 Plt Count 215 MPV 10.3 Immature Gran % (Auto) 0.700 Neut % (Auto) 77.6 H Lymph % (Auto) 5.8 L [place] % (Auto) 14.8 H Eos % (Auto) 0.8 Baso % (Auto) 0.3 Absolute Neuts (auto) 7.4 Absolute Lymphs (auto) 0.55 L Nucleated RBC % 0 Differential Comment SCANNED Dohle Bodies 1+ Sodium 138 Potassium 3.7 Chloride 104 Carbon Dioxide 26.0 Anion Gap 8 BUN 19 H Creatinine 1.16 Estim Creat Clear Calc 51.57 Est GFR (MDRD) Af Amer 78 Est GFR (MDRD) Non-Af 64 BUN/Creatinine Ratio 16.4 Glucose 107 H Lactic Acid 1.4 Calcium 9.3 Troponin I 0.018 Radiography Chest X-Ray - ED: 1 View Diagnostic Testing: Radiology Impression Chest X-Ray 10/10/20 12:59 IMPRESSION: Findings suggestive of early right lower lobe infiltrate. Electronically Signed: Steven Quiroz MD at 14:31 EDT , Service support , 1 view chest x-ray obtained interpreted by myself as increased markings in right lower lobe consistent with infiltrate. Radiology in agreement. EKG Initial EKG: Comments: EKG obtained showed a sinus rhythm with a ventricular rate of 98 bpm with a right bundle branch block and left anterior fascicular block. When compared with prior EKG no significant changes noted. Prior EKG tracings: available for review Prior: Unchanged Discharge Plan Triage Chief Complaint: Cough ED Provider: Fransico Beauchamp Dx/Rx/DC Orders Clinical Impression: Community acquired pneumonia Prescriptions: No Action paroxetine HCl 20 mg tablet 40 mg PO DAILY RF: 0 clopidogrel 75 MG tablet 75 mg PO DAILY RF: 0 losartan 25 MG tablet 25 mg PO DAILY RF: 0 lorazepam 1 MG tablet 1 mg PO BID PRN (Reason: ANXIETY) Qty: 6 RF: 0 magnesium hydroxide 30 ML suspension 30 ml PO DAILY PRN PRN (Reason: Constipation) RF: 0 calcium carbonate 500 MG tablet 1,000 mg PO Q4H PRN PRN (Reason: Indigestion) RF: 0 menthol 1 APPLIC gel 1 applic TP QHS RF: 0 melatonin 3 MG capsule 5 mg PO QHS RF: 0 quetiapine 25 MG tablet 50 mg PO DAILY RF: 0 quetiapine 100 mg Tablet 100 mg PO QHS RF: 0 mirtazapine 15 mg Tablet 15 mg PO QHS RF: 0 B12 Active 1,000 mcg Tablet,Chewable 1,000 mcg PO DAILY RF: 0 acetaminophen 325 MG tablet 650 mg PO QHS RF: 0 atorvastatin 40 mg tablet 40 mg PO QHS Qty: 90 RF: 3 Primary Care Provider: Elmer Roth Referrals: Elmer Roth MD [Primary Care Provider] - Disposition Disposition: Acute Care Hospital [facility]
[2020-10-10] MEDS: 0.9% Normal Saline 1,000 ML 150 ML IV (13:36)
[2020-10-10 13:58] LABS: Absolute Lymphocyte Count 0.55 X10^3/uL (0.83-4.51); Absolute Neutrophil Count 7.4 X10^3/uL (2.0-7.7); Basophil# 0.03 X10^3/uL; Basophil% 0.3 % (0-1); Eosinophil# 0.08 X10^3/uL; Eosinophils% 0.8 % (0-5); Hemoglobin 11.9 g/dL (13.0-16.5); Lymphocyte # 0.55 X10^3/ul (0.83-4.51); Lymphocyte % 5.8 % (19-41); Mean Corp Hgb Conc 33.1 g/dL (32-36); Mean Corpuscular Hgb 29.8 pg (27.0-32.0); Mean Platelet Vol. 10.3 fl (6.2-12.0); Monocyte# 1.41 X10^3/uL; Monocyte% 14.8 % (0-10); NRBC Flagged by Analyzer 0 % (0-5); Neutrophil # 7.36 X10^3/uL (2.7-7.7); Neutrophil % 77.6 % (47-70); POSITIVE DIFFERENTIAL YES; POSITIVE MORPHOLOGY YES; Platelet Count 215 K/mm3 (150-450); RBC Distribution Width CV 14.2 % (11.6-14.6); RBC Distribution Width SD 46.9 fl (35.1-43.9); White Blood Count 9.5 K/mm3 (4.4-11.0)
[2020-10-10 14:06] LABS: Differential Indicated SCAN CRITERIA MET
[2020-10-10 14:18] LABS: BUN 19 mg/dL (7-18); BUN/Creat Ratio 16.4 RATIO (10-20); Calcium,Total 9.3 mg/dL (8.5-10.1); Creatinine, Serum 1.16 mg/dL (0.70-1.30); EST Glomerular Filtration Rate 64 mL/min (>60); Est Glom Filt Rate - Afr Amer 78 mL/min (>60); Estimated Creatinine Clearance 51.57 ml/min; Glucose 107 mg/dL (74-106)
[2020-10-10 14:19] LABS: Anion Gap 8 (5-15); Chloride 104 mmol/L (98-107); Potassium 3.7 mmol/L (3.5-5.1); Sodium Level 138 mmol/L (136-145)
[2020-10-10 14:28] LABS: Lactic Acid 1.4 mmol/L (0.4-1.9)
[2020-10-10 14:42] LABS: Differential Comment SCANNED; Dohle Bodies 1+
--- NOTE | 2020-10-10 14:53 | PCM.HP.STD ---
HPI - General General Date of Admission: 10/10/20 Date of Service: 10/10/20 Chief Complaint: Cough, fever, dyspnea. HPI Narrative The patient is an 80 y/o M w/ PMHx: CAD with tripple vessel disease with decline of CABG consideration noted in chart, Hx CVA, Hx intracranial hemorrhage, Dementia unclear type with no behavioral disturbance history, HTN, HLD, Anxiety and Depression, Hx Tobacco use who presents to the [facility] ED on 10/10/20 with history of ongoing fatigue, malaise, productive cough although difficulty bringing it up in addition to dyspnea worsening over the last 5 days reporting that he did have a visiting RN who is coughing although states that she is a chronic smoker and has a chronic cough and this seemed unchanged in addition to episodes of nausea and emesis secondary to coughing fits with episodes of fevers and chills concurrently prompting eventual ED evaluation following PCP referral. Work-up in the ED included T 97.8, heart rate 112, BP 104/37, respiratory rate 22, initially 92% on room air, CBC with WBC 9.5, hemoglobin 11.9, platelet 215 with lymphopenia, BMP with BUN/creatinine 19/1.16, glucose 107 otherwise not marked appearing, lactic acid 1.6, troponin less than 0.018, chest x-ray with right lower lobe infiltrate, EKG was sinus rhythm with right bundle branch block and left anterior fascicular block unchanged from prior with no acute evidence of ischemia. In the ED patient ministered normal saline, Rocephin and azithromycin. [facility] Medical History (Updated 10/10/20 @ 18:[address] Rosey Best MD) Anxiety Atherosclerotic heart disease of [place] coronary artery without angina pectoris CVA (cerebral vascular accident) Depression History of non-ST elevation myocardial infarction (NSTEMI) History of tobacco abuse Hyperlipidemia Intracerebral hemorrhage Triple vessel coronary artery disease Home Medications clopidogrel 75 mg PO DAILY 01/21/19 [History Last Taken 10/10/20] lorazepam 1 mg PO BID PRN #6 tab 01/25/19 [Rx Last Taken 10/10/20] calcium carbonate 1,000 mg PO Q4H PRN PRN 05/13/19 [History Last Taken 10/09/20] menthol 1 applic TP QHS 05/13/19 [History Last Taken 10/09/20] quetiapine 50 mg PO DAILY 05/13/19 [History Last Taken 10/10/20] acetaminophen 650 mg PO QHS 10/10/20 [History Last Taken 10/09/20] atorvastatin 40 mg PO QHS 10/10/20 [History Last Taken 10/09/20] losartan 25 mg PO DAILY 10/10/20 [History Last Taken 10/10/20] mecobalamin (vitamin B12) [B12 Active] 1,000 mcg PO DAILY 10/10/20 [History Last Taken 10/10/20] melatonin 5 mg PO QHS 10/10/20 [History Last Taken 10/09/20] mirtazapine 15 mg PO QHS 10/10/20 [History Last Taken 10/09/20] paroxetine HCl 40 mg PO DAILY 10/10/20 [History Last Taken 10/10/20] quetiapine 100 mg PO QHS 10/10/20 [History Last Taken 10/09/20] Allergy/AdvReac Type Severity Reaction Status Date / Time No Known Allergies Allergy Verified 05/13/19 11:16 Family History (Updated 10/10/20 @ 18:[address] Rosey Best MD) Father Heart disease Dementia Mother CVA (cerebral vascular accident) Dementia Surgical History History of thoracentesis History of vasectomy Social History (Updated 10/10/20 @ 18:[address] Rosey Best MD) household members: spouse Smoking Status: Former smoker how long ago did patient quit smoking: Quit 5-7 yrs prior, started in college, 1-1.5 ppd. alcohol intake: never substance use type: does not use ROS ROS Narrative Admission Review of Systems: CONSTITUTIONAL: No weight loss, + fever, chills, weakness or fatigue. HEENT: Eyes: No visual loss, blurred vision, double vision or yellow sclerae. Ears, Nose, Throat: No hearing loss, sneezing, congestion, runny nose or sore throat. SKIN: No rash or itching, lesions, wounds. CARDIOVASCULAR: No chest pain, chest pressure or chest discomfort, palpitations, edema, orthopnea, syncopal events. RESPIRATORY: + shortness of breath, cough with increased sputum, wheezing, No hemoptysis. GASTROINTESTINAL: No anorexia, nausea, vomiting or diarrhea, abdominal pain, melena, BRBPR. GENITOURINARY: No dysuria, frequency, urgency or retention. NEUROLOGICAL: No headache, dizziness, syncope, paralysis, ataxia, numbness or tingling in the extremities, focal weakness, change in bowel or bladder control, seizure. MUSCULOSKELETAL: + muscle, back pain, joint pain or stiffness. HEMATOLOGIC: + anemia, bleeding or bruising. LYMPHATICS: No enlarged nodes. No history of splenectomy. PSYCHIATRIC: + history of depression or anxiety. ENDOCRINOLOGIC: No reports of sweating, cold or heat intolerance. No polyuria or polydipsia. ALLERGIES: No history of asthma, hives, eczema or rhinitis. Vital Signs Vital Signs Vital Signs: 10/10/20 12:32 10/10/20 14:24 Temperature 97.8 F Temperature Source Temporal Pulse Rate 112 H Respiratory Rate 22 H Respiratory Effort Short of Breath Respiratory Depth Normal Respiratory Pattern Normal Blood Pressure 104/37 L Blood Pressure Mean 59 Pulse Ox 92 Oxygen Delivery Method Room Air Room Air Weight Weight: 176 lb Body Mass Index (BMI) 25.2 Physical Exam Narrative Physical Examination: General: awake, alert, oriented x 3 including to self, place and some recent events, does have underlying dementia, remains cooperative, seated upright in the ED bed in no apparent distress, frequently coughing. Skin: normal color, normal turgor, no icterus, no cyanosis. HEENT: AT/NC, EOMI, PERRLA, mildly dry MM, no carotid bruits or JVD noted. Lungs: Diminished breath sounds, mildly coarse bases, right greater than left, end expiratory wheezing diffusely, no evidence of any distress. Heart: Mildly tachycardic with regular rhythm; no gallop, rub audible. Abdomen: soft, NTTP, ND, normal BS, no HSM. Extremities: no cyanosis, clubbing, or edema. Neurological: patient awake, alert, oriented as noted, cognitive function appears baseline intact with underlying dementia; pupils equally reactive to light and accommodation, cranial nerves II-XII grossly normal, moving all 4 extremities, no focal deficits, strength moderately to severely global decrease secondary to acute presentation. Psychiatric: affect appears fatigued, no acute evidence of depressive or anxiety feelings. Lab / Micro Data Result Diagrams: 10/10/20 13:28 10/10/20 13:28 Labs: Laboratory Results - last 24 hr 0610/10/20 10/10/20 13:28 13:28 13:28 WBC 9.5 RBC 4.00 L Hgb 11.9 L Hct 36.0 L MCV 90.0 MCH 29.8 MCHC 33.1 RDW Std Deviation 46.9 H RDW Coeff of Ethan 14.2 Plt Count 215 MPV 10.3 Immature Gran % (Auto) 0.700 Neut % (Auto) 77.6 H Lymph % (Auto) 5.8 L [place] % (Auto) 14.8 H Eos % (Auto) 0.8 Baso % (Auto) 0.3 Absolute Neuts (auto) 7.4 Absolute Lymphs (auto) 0.55 L Nucleated RBC % 0 Differential Comment SCANNED Dohle Bodies 1+ Sodium 138 Potassium 3.7 Chloride 104 Carbon Dioxide 26.0 Anion Gap 8 BUN 19 H Creatinine 1.16 Estim Creat Clear Calc 51.57 Est GFR (MDRD) Af Amer 78 Est GFR (MDRD) Non-Af 64 BUN/Creatinine Ratio 16.4 Glucose 107 H Lactic Acid 1.4 Calcium 9.3 Troponin I 0.018 Micro: Microbiology 10/10/20 13:30 SARS-CoV-2 Antigen (Rapid) - Final Mucosa - Nasopharyngeal Radiology Impression Chest X-Ray 10/10/20 12:59 IMPRESSION: Findings suggestive of early right lower lobe infiltrate. Electronically Signed: Steven Quiroz MD at 14:31 EDT , Service support , Assessment & Plan Assessment/Plan (1) Sepsis: QUALIFIERS: Sepsis type: sepsis due to unspecified organism Sepsis acute organ dysfunction status: unspecified Qualified Code(s): A41.9 - Sepsis, unspecified organism (2) COPD exacerbation: (3) Community acquired pneumonia: QUALIFIERS: Laterality: right Lung location: lower lobe of lung Qualified Code(s): J18.9 - Pneumonia, unspecified organism PLAN: The patient is an 80 y/o M w/ PMHx: CAD with tripple vessel disease with decline of CABG consideration noted in chart, Hx CVA, Hx intracranial hemorrhage, Dementia unclear type with no behavioral disturbance history, HTN, HLD, Anxiety and Depression, Hx Tobacco use who presents to the [facility] ED on 10/10/20 with history of ongoing fatigue, malaise, productive cough although difficulty bringing it up in addition to dyspnea worsening over the last 5 days reporting that he did have a visiting RN who is coughing although states that she is a chronic smoker and has a chronic cough and this seemed unchanged in addition to episodes of nausea and emesis secondary to coughing fits with episodes of fevers and chills concurrently prompting eventual ED evaluation following PCP referral. 1. Acute Sepsis secondary to Community Acquired Pneumonia and suspected Acute likely on Chronic COPD Exacerbation with associated Hypoxia: CXR in the ED w/ RLL pneumonia. Will admit to [facility], maintain on oxygen with wean as tolerated to room air, PRN albuterol, maintained on IV Rocephin and Azithromycin pending ST evaluation and if any concern for aspiration alter abx therapy, maintian on IV solumedrol, HOB, IS parameters w/ pending sputum cultures and urine antigens. Negative COVID antigen. Bld Cx x 2 pending per ED. 2. CAD: Patient with history of triple-vessel disease but at that time had declined any intervention including CABG consideration, will continue patient Plavix, losartan, atorvastatin regimen, not on beta-meghan therapy per current list, will clarify. 3. History CVA: Patient also with noted history of intracranial hemorrhage, unclear specific timeline, currently maintained on Plavix, will continue concurrent statin, hypertensive regimen. 4. Hypertension: Continue home regimen including losartan with hold meters, PRN hydralazine. 5. Hyperlipidemia: Continue home statin regimen. 6. Dementia, unclear type with reportedly no behavioral disturbance history: Patient does have significant usage of regimen for anxiety and depression as well as mood stabilization, no obvious disturbance in the ED but will continue to closely monitor. 7. Anxiety and depression: We will continue patient home paroxetine, mirtazapine, quetiapine as well as Ativan regimen. 8. Former tobacco use: Encourage continued tobacco cessation. 9. DVT prophylaxis: SCDs, Lovenox. 10. CODE status: Patient DELIA is his who is present and living will is currently in place. Discussed CODE status at length including difference between FULL code, DNR-CCA and DNR-CC status. Following discussions about the differences in these status, requested DNR-CCA, no intubation status. Advanced Care Planning Face to Face Time: 16 minutes. Visit Charges Inpatient E&M: 05356 Init Hosp L3 Procedures Hospitalists Procedures: [id number] Advncd Care Plan 30 Min
--- NOTE | 2020-10-10 15:37 | NURSING ---
MED SURG WHITE PNEUMONIA DYSPNEA
[2020-10-10] MEDS: Ceftriaxone 1 GM/50 ML BAG IV (15:50)
[2020-10-10 16:53] LABS: Lactic Acid 1.6 mmol/L (0.4-1.9)
[2020-10-10 16:59] LABS: Magnesium 2.1 mg/dL (1.6-2.6)
[2020-10-10] MEDS: 0.9% Normal Saline 1,000 ML 100 ML IV (19:57)
[2020-10-10] MEDS: MethylPREDNISolone 125 MG/2 ML Vial IV (20:00)
[2020-10-10] MEDS: 0.9% Saline Lock 10 ML Syringe IV (20:00)
[2020-10-10] MEDS: Ipratropium/Albuterol Sulfate 3 ML AMPUL.NEB INHALATION (20:16)
[2020-10-10] MEDS: MELATONIN 3 MG TABLET PO (22:04)
[2020-10-10] MEDS: QUEtiapine 100 MG Tablet PO (22:04)
[2020-10-10] MEDS: Famotidine 20 MG Tablet PO (22:04)
[2020-10-10] MEDS: Mirtazapine 15 MG Tablet PO (22:04)
[2020-10-10] MEDS: Atorvastatin Calcium 40 MG Tablet PO (22:04)
[2020-10-10] MEDS: LORazepam 1 MG Tablet PO (22:04)
[2020-10-10] MEDS: Calcium Carbonate 500 MG Tablet 1000 MG PO (22:11)
[2020-10-10] MEDS: BENZOCAINE/MENTHOL 1 LOZENGE MUCOUS MEM (22:11)
[2020-10-11] VITALS (7 sets, daily range): BP systolic 111–125; BP diastolic 53–70; PULSE 56–89; RESP 16–20; TEMP 36.4–37; O2SAT 92–94
[2020-10-11 06:01] LABS: Absolute Lymphocyte Count 0.52 X10^3/uL (0.83-4.51); Absolute Neutrophil Count 5.9 X10^3/uL (2.0-7.7); Basophil# 0.01 X10^3/uL; Basophil% 0.1 % (0-1); Hemoglobin 10.9 g/dL (13.0-16.5); Lymphocyte # 0.52 X10^3/ul (0.83-4.51); Lymphocyte % 7.8 % (19-41); Mean Corpuscular Hgb 29.9 pg (27.0-32.0); Mean Corpuscular Volume 90.4 fL (80-94); Mean Platelet Vol. 10.5 fl (6.2-12.0); NRBC Flagged by Analyzer 0 % (0-5); Neutrophil # 5.92 X10^3/uL (2.7-7.7); Neutrophil % 88.4 % (47-70); POSITIVE DIFFERENTIAL YES; POSITIVE MORPHOLOGY YES; Platelet Count 224 K/mm3 (150-450); RBC Distribution Width CV 14.3 % (11.6-14.6); RBC Distribution Width SD 47.3 fl (35.1-43.9); Red Blood Count 3.65 M/mm3 (4.6-6.2); White Blood Count 6.7 K/mm3 (4.4-11.0)
[2020-10-11 06:02] LABS: Differential Indicated SCAN CRITERIA MET
[2020-10-11 06:29] LABS: ALB/GLOB Ratio 0.6 RATIO (0.9-2.4); AST(SGOT) 29 U/L (15-37); Alanine Aminotransfer ALT/SGPT 24 U/L (16-61); Albumin, Serum 2.4 g/dL (3.2-5.0); Alkaline Phosphatase 92 U/L (45-117); Anion Gap 7 (5-15); BUN 17 mg/dL (7-18); BUN/Creat Ratio 16.5 RATIO (10-20); Calcium,Total 8.6 mg/dL (8.5-10.1); Chloride 109 mmol/L (98-107); Creatinine, Serum 1.03 mg/dL (0.70-1.30); EST Glomerular Filtration Rate 74 mL/min (>60); Est Glom Filt Rate - Afr Amer 89 mL/min (>60); Estimated Creatinine Clearance 58.08 ml/min; Globulin 4.3 g/dL (2.2-4.2); Glucose 170 mg/dL (74-106); Potassium 3.4 mmol/L (3.5-5.1); Protein, Total 6.7 g/dL (6.4-8.2); Sodium Level 141 mmol/L (136-145)
[2020-10-11] MEDS: 0.9% Saline Lock 10 ML Syringe IV (06:45)
[2020-10-11] MEDS: Ipratropium/Albuterol Sulfate 3 ML AMPUL.NEB INHALATION ×3 (06:58→19:02)
[2020-10-11] MEDS: Ceftriaxone 1 GM/50 ML BAG IV (09:47)
[2020-10-11] MEDS: Paroxetine 20 MG Tablet 40 MG PO (09:51)
[2020-10-11] MEDS: Clopidogrel Bisulfate 75 MG Tablet PO (09:51)
[2020-10-11] MEDS: Enoxaparin 40 MG/0.4 ML Syringe SC (09:52)
[2020-10-11] MEDS: Losartan Potassium 25 MG Tablet PO (09:52)
[2020-10-11] MEDS: Potassium Chloride Oral Tablet 20 MEQ PO (09:52)
[2020-10-11] MEDS: Famotidine 20 MG Tablet PO ×2 (09:52→21:39)
[2020-10-11] MEDS: QUEtiapine 25 MG Tablet 50 MG PO (09:52)
[2020-10-11] MEDS: LORazepam 1 MG Tablet PO ×2 (11:17→21:43)
--- NOTE | 2020-10-11 12:05 | CASEMGMT ---
RN HAYDE Face to Face with patient for initial transition planning/care coordination assessment. RN CM introduced self and role at [facility]. Patient sitting in chair, alert and oriented, at bedside. Patient willing to participate in assessment and is able to answer all questions appropriately. Care providers, pharmacy, and demographics verified. Patient wishes to discharge home and would like HHC and prefers [facility] as they have had them in the past. Patient states he has no further needs or concerns at this time. CM to follow for discharge planning needs that may arise. PCP: Gonzalez Specialists: sonia Modi Preferred Pharmacy: [facility] Insurance: [employer] [facility] Prescription Benefit: yes Living Will/HPOA: yes, Geetha JJOK: Living Arrangements: Patient lives with in a 2 story home with bed and bath on first floor. 3 steps and railing to enter the home. Patient has aide to assist with bathing. Patient states he is independent with toileting and dressing. Transportation: DME/HHC: [employer] states he has shower chair, raised toilet, cane, walker, grab bars. Patient has Passport services with aides 3x per week through [facility]. Patient has been to [facility] in the past and [facility]. Disposition Plan: Patient to discharge home with HHC, family support, and follow-up plans in place. Didi HERNANDEZ, RN, CM
[2020-10-11] MEDS: guaiFENesin/D-Methorphan TAB.SR.12H 1 TABLET PO ×2 (12:36→21:49)
[2020-10-11] MEDS: 0.9% Normal Saline 1,000 ML 100 ML IV ×2 (12:36→21:39)
--- NOTE | 2020-10-11 14:07 | PCM.PN.HOSP ---
Documented by User: Melissa Childers NP, HYDRO ELECTRIC STATION OPERATOR-C 10/11/20 14:17 Subjective Subjective Patient seen and examined. Resting comfortably in bed. Oxygen stable on room air. Patient reports continued shortness of breath and nonproductive cough. Denies fever, chills. Objective Data Objective Data Vital Signs: Vital Signs Temp Pulse Resp BP Pulse Ox 97.9 F 85 20 H 118/70 92 10/11/20 09:45 10/11/20 12:39 10/11/20 12:39 10/11/20 09:45 10/11/20 09:45 Oxygen Delivery Method Room Air Weight: 182 lb 15.739 oz Body Mass Index (BMI) 26.6 Intake & Output: Intake and Output for Last 24 Hours 10/09/20 10/10/20 10/11/20 23:59 23:59 23:59 Intake Total 1270 / 1270 1701.67 / 1701.67 Output Total 350 / 350 Balance 1270 / 1270 1351.67 / 1351.67 Lab / Micro Data Result Diagrams: 10/11/20 05:34 10/11/20 05:34 Labs: Laboratory Results - last 24 hr 10/10/20 10/10/20 10/10/20 13:28 13:28 13:28 WBC RBC Hgb Hct MCV MCH MCHC RDW Std Deviation RDW Coeff of Ethan Plt Count MPV Immature Gran % (Auto) Neut % (Auto) Lymph % (Auto) [place] % (Auto) Eos % (Auto) Baso % (Auto) Absolute Neuts (auto) Absolute Lymphs (auto) Nucleated RBC % Differential Comment SCANNED Dohle Bodies 1+ Sodium 138 Potassium 3.7 Chloride 104 Carbon Dioxide 26.0 Anion Gap 8 BUN 19 H Creatinine 1.16 Estim Creat Clear Calc 51.57 Est GFR (MDRD) Af Amer 78 Est GFR (MDRD) Non-Af 64 BUN/Creatinine Ratio 16.4 Glucose 107 H Lactic Acid 1.4 Calcium 9.3 Magnesium Total Bilirubin AST ALT Alkaline Phosphatase Troponin I 0.018 Total Protein Albumin Globulin Albumin/Globulin Ratio 10/10/20 10/10/20 10/11/20 13:28 15:55 05:34 WBC 6.7 RBC 3.65 L Hgb 10.9 L Hct 33.0 L MCV 90.4 MCH 29.9 MCHC 33.0 RDW Std Deviation 47.3 H RDW Coeff of Ethan 14.3 Plt Count 224 MPV 10.5 Immature Gran % (Auto) 0.700 Neut % (Auto) 88.4 H Lymph % (Auto) 7.8 L [place] % (Auto) 3.0 Eos % (Auto) 0.0 Baso % (Auto) 0.1 Absolute Neuts (auto) 5.9 Absolute Lymphs (auto) 0.52 L Nucleated RBC % 0 Differential Comment Dohle Bodies Sodium Potassium Chloride Carbon Dioxide Anion Gap BUN Creatinine Estim Creat Clear Calc Est GFR (MDRD) Af Amer Est GFR (MDRD) Non-Af BUN/Creatinine Ratio Glucose Lactic Acid 1.6 Calcium Magnesium 2.1 Total Bilirubin AST ALT Alkaline Phosphatase Troponin I Total Protein Albumin Globulin Albumin/Globulin Ratio 10/11/20 05:34 WBC RBC Hgb Hct MCV MCH MCHC RDW Std Deviation RDW Coeff of Ethan Plt Count MPV Immature Gran % (Auto) Neut % (Auto) Lymph % (Auto) [place] % (Auto) Eos % (Auto) Baso % (Auto) Absolute Neuts (auto) Absolute Lymphs (auto) Nucleated RBC % Differential Comment Dohle Bodies Sodium 141 Potassium 3.4 L Chloride 109 H Carbon Dioxide 25.0 Anion Gap 7 BUN 17 Creatinine 1.03 Estim Creat Clear Calc 58.08 Est GFR (MDRD) Af Amer 89 Est GFR (MDRD) Non-Af 74 BUN/Creatinine Ratio 16.5 Glucose 170 H Lactic Acid Calcium 8.6 Magnesium Total Bilirubin 0.40 AST 29 ALT 24 Alkaline Phosphatase 92 Troponin I Total Protein 6.7 Albumin 2.4 L Globulin 4.3 H Albumin/Globulin Ratio 0.6 L Micro: Microbiology 10/10/20 20:07 Sputum, Expectorated/Coughed Gram Stain - Final 10/11/20 01:04 Urine, Clean Catch Legionella Antigen - Final 10/11/20 01:04 Urine, Clean Catch Streptococcus pneumoniae Antigen (M - Final 10/10/20 20:20 Mucosa - Nasopharyngeal Respiratory Panel (PCR) - Final 10/10/20 13:30 Mucosa - Nasopharyngeal SARS-CoV-2 Antigen (Rapid) - Final Radiography Diagnostic Testing: Radiology Impression Chest X-Ray 10/10/20 12:59 IMPRESSION: Findings suggestive of early right lower lobe infiltrate. Electronically Signed: Steven Quiroz MD at 14:31 EDT , Service support , Physical Exam Const alert and no apparent distress Orientation / Consciousness: awake and confused HEENT normocephalic and moist oral mucous membranes Eyes PERRL, EOMs intact bilaterally and conjunctivae normal Neck no lymphadenopathy Resp Auscultation: diminished lung sounds and other Coarse breath sounds, expiratory wheezing. Cardio regular rate, regular rhythm and no murmurs Peripheral Pulses: pulses 2+ throughout GI normal to inspection, nondistended, normoactive bowel sounds, non-tender and non-distended Extremity normal to inspection Skin no rashes or lesions noted Lesions: no lesions Rashes: no rashes Trauma: no lacerations or abrasions Neuro CN's II-XII intact bilaterally, no focal motor deficits, no sensory deficits noted and deep tendon reflexes 2+ bilaterally Psych mental status grossly normal and affect normal Assessment & Plan Assessment/Plan (1) COPD exacerbation: (2) Sepsis: QUALIFIERS: Sepsis acute organ dysfunction status: unspecified Sepsis type: sepsis due to unspecified organism Qualified Code(s): A41.9 - Sepsis, unspecified organism (3) Community acquired pneumonia: QUALIFIERS: Laterality: right Lung location: lower lobe of lung Qualified Code(s): J18.9 - Pneumonia, unspecified organism PLAN: 1. Acute sepsis secondary to community-acquired pneumonia-IV Rocephin and IV azithromycin. Albuterol DuoNeb aerosols. Sputum culture pending. Covid negative. Blood cultures pending. 2. Acute hypoxic respiratory insufficiency secondary to community-acquired pneumonia and COPD exacerbation-oxygen now stable on room air. Walking pulse ox prior to discharge. Continue pneumonia treatment per above. IV Solu-Medrol. Albuterol DuoNeb aerosols. 3. CAD with history of triple-vessel disease-continue medical management including Plavix, losartan, statin. 4. History of CVA-history of intracranial hemorrhage as well. Continue Plavix, statin. 5. Hypertension-stable, continue current regimen. 6. Hyperlipidemia-continue statin. 7. Advanced dementia-unknown behavioral disturbance history. On Seroquel, as needed Ativan. 8. Anxiety/depression-on paroxetine, mirtazapine, quetiapine. As needed Ativan. 9. Former tobacco use-encouraged continued cessation. DVT prophylaxis-Lovenox subcu This patient was seen by Melissa Childers NP-C under the supervision of Dr. Brownlee. Documented by User: Dr. Imtiaz Brownlee MD 10/11/20 15:35 Subjective Subjective Patient is wheezing in the morning. Comfortable at rest but easily gets dyspnea on exertion when going to bathroom. Admitted with COPD exacerbation from pneumonia. Objective Data Lab / Micro Data Result Diagrams: 10/11/20 05:34 10/11/20 05:34 Physical Exam Narrative General: Alert, Oriented x3, Cooperative HEENT: Atraumatic, PERRLA, EOMI, Normocephalic Oral: No Gingival or Mucosal Lesions/ Ulcerations Neck: Supple, No JVD, Negative Carotid Bruits Lungs: Air entry diminished in bilateral lung bases. Mild bilateral expiratory wheezing. Dyspnea on exertion. Cardiovascular: Regular rate, Regular Rhythm, Normal S1, Normal S2, LLSB systolic murmur. Abdomen: Bowel Sounds Present, Soft, Non Tender, Non-Distended : No renal angle tenderness. No suprapubic tenderness. Extremities: No edema, Capillary Refill Less than 3 Seconds Skin: No rashes, No breakdown Musculoskeletal: No Tenderness to Palpation of Joints or Extremities Neurological: Cranial nerves II-XII grossly intact, Deep Tendon Reflexes 2+/4 and Symmetrical, Neuro grossly intact Psych/Mental Status: Normal Affect, Appropriate. Assessment & Plan Assessment/Plan (1) COPD exacerbation: (2) Community acquired pneumonia: QUALIFIERS: Laterality: right Lung location: lower lobe of lung Qualified Code(s): J18.9 - Pneumonia, unspecified organism PLAN: This patient was seen in conjunction with HYDRO ELECTRIC STATION OPERATORMelissa. I have independently interviewed and examined the patient and reviewed pertinent history, examination findings, laboratory and plan of management. I have reviewed the note and agree with the documented findings with the few additional points. In brief, patient is admitted for sepsis secondary to right lower lobe community-acquired pneumonia resulting into COPD exacerbation. On IV Rocephin and Zithromax, IV Solu-Medrol, bronchodilator, incentive spirometry and Pep. COVID-19 is negative. Rest of comorbidities including coronary artery disease with triple-vessel disease, CVA and other comorbidities as mentioned above I have discussed my assessment with HYDRO ELECTRIC STATION OPERATORMelissa and orders have been reviewed. Charges/Coding Visit Charges Inpatient E&M: 52431 Subs Hosp L2
--- NOTE | 2020-10-11 14:30 | CASEMGMT ---
Addendum entered by Didi Nunez 10/11/20 16:01: ROBLES LOCK received call back from [facility] and they are able to accept the patient. ROBLES LOCK updated the patient. Original Note: Patient was provided a list of [facility] providers including quality and resource use data and consistent with the patient?s preferred geographic region, medical needs, and insurance network. The patient?s preferred provider is [facility]. ROBLES LOCK sent referral to [facility] and awaiting call back.
--- NOTE | 2020-10-11 14:42 | CASEMGMT ---
Social Work Note SW updated that pt has PASSPORT services through [facility]. SW placed a call to [facility] and spoke with Mo Narvaez. Mo states pt's CM is Sonia and pt has aide services through [facility] for 9hrs a week and pt has an emergency response button. EMELY placed a call to pt's CM Sonia and left message updating her on pt's admission to [facility]. Didi Garcia CAR REFINISHER, LODGE OFFICER
[2020-10-11] MEDS: Mirtazapine 15 MG Tablet PO (21:39)
[2020-10-11] MEDS: QUEtiapine 100 MG Tablet PO (21:39)
[2020-10-11] MEDS: Atorvastatin Calcium 40 MG Tablet PO (21:39)
[2020-10-11] MEDS: MELATONIN 3 MG TABLET PO (21:39)
[2020-10-11] MEDS: Acetaminophen 325 MG Tablet 650 MG PO (21:43)
[2020-10-11] MEDS: Calcium Carbonate 500 MG Tablet 1000 MG PO (23:02)
[2020-10-11] MEDS: BENZOCAINE/MENTHOL 1 LOZENGE MUCOUS MEM (23:02)
[2020-10-12] MEDS: guaiFENesin 10 ML UDC (200MG/10ML) 20 ML PO (00:40)
[2020-10-12] MEDS: 0.9% Saline Lock 10 ML Syringe IV (02:38)
[2020-10-12 02:40] VITALS: BP 106/56; PULSE 77; RESP 18; TEMP 36.6; O2SAT 94
[2020-10-12] MEDS: BENZOCAINE/MENTHOL 1 LOZENGE MUCOUS MEM (05:49)
[2020-10-12 06:02] LABS: Anion Gap 6 (5-15); BUN 20 mg/dL (7-18); Chloride 114 mmol/L (98-107); Creatinine, Serum 0.87 mg/dL (0.70-1.30); EST Glomerular Filtration Rate 89 mL/min (>60); Est Glom Filt Rate - Afr Amer 108 mL/min (>60); Estimated Creatinine Clearance 68.76 ml/min; Glucose 135 mg/dL (74-106); Sodium Level 143 mmol/L (136-145)
[2020-10-12 06:39] VITALS: PULSE 60; RESP 16; O2SAT 94
[2020-10-12] MEDS: Ipratropium/Albuterol Sulfate 3 ML AMPUL.NEB INHALATION (06:39)
[2020-10-12] MEDS: 0.9% Normal Saline 1,000 ML 100 ML IV (08:27)
[2020-10-12] MEDS: Clopidogrel Bisulfate 75 MG Tablet PO (08:44)
[2020-10-12] MEDS: Enoxaparin 40 MG/0.4 ML Syringe SC (08:44)
[2020-10-12] MEDS: Losartan Potassium 25 MG Tablet PO (08:44)
[2020-10-12] MEDS: Paroxetine 20 MG Tablet 40 MG PO (08:44)
[2020-10-12] MEDS: QUEtiapine 25 MG Tablet 50 MG PO (08:44)
[2020-10-12] MEDS: Famotidine 20 MG Tablet PO (08:44)
[2020-10-12 08:45] VITALS: BP 124/60; PULSE 94; RESP 18; TEMP 37; O2SAT 95
[2020-10-12] MEDS: LORazepam 1 MG Tablet PO (08:48)
[2020-10-12 10:00] VITALS: O2SAT 93
--- NOTE | 2020-10-12 10:07 | PCM.DC ---
Discharge Instructions Diet Discharge Diet: Low fat / Low cholesterol Activity Discharge Activity: Return to Normal Activity Dressing / Incision Call your doctor if you observe: Fever of 101 or Higher, Shortness of breath, Dizziness and Chest pain Follow Up Care Test Results: Test results from this visit will be discussed in further detail at your follow-up appointment, if applicable. Discharge Plan Admission Admit Date/Time: 10/10/20 16:09 Primary Reason for Your Visit: Pneumonia, COPD exacerbation Attending Provider: Imtiaz Brownlee Primary Care Provider: Elmer Roth Discharge Orders/Prescriptions Prescriptions: New prednisone 10 mg tablet See Taper mg PO DAILY Qty: 30 RF: 0 azithromycin 500 mg tablet 500 mg PO DAILY 1 Days Qty: 1 RF: 0 amoxicillin-pot clavulanate [Augmentin] 875-125 mg tablet 1 tab PO Q12H Qty: 10 RF: 0 albuterol sulfate [ProAir HFA] 90 mcg/actuation HFA aerosol inhaler 1 inh inhalation Q6H PRN (Reason: shortness of breath or wheezing) Qty: 6.7 RF: 0 Zyrtec 10 mg capsule 10 mg PO DAILY Qty: 30 RF: 0 Continued clopidogrel 75 MG tablet 75 mg PO DAILY RF: 0 lorazepam 1 MG tablet 1 mg PO BID PRN (Reason: ANXIETY) Qty: 6 RF: 0 calcium carbonate 500 MG tablet 1,000 mg PO Q4H PRN PRN (Reason: Indigestion) RF: 0 menthol 1 APPLIC gel 1 applic TP QHS RF: 0 quetiapine 25 MG tablet 50 mg PO DAILY RF: 0 quetiapine 100 mg Tablet 100 mg PO QHS RF: 0 mirtazapine 15 mg Tablet 15 mg PO QHS RF: 0 B12 Active 1,000 mcg Tablet,Chewable 1,000 mcg PO DAILY RF: 0 acetaminophen 325 MG tablet 650 mg PO QHS RF: 0 paroxetine HCl 40 mg tablet 40 mg PO DAILY RF: 0 melatonin 5 mg Capsule 5 mg PO QHS RF: 0 atorvastatin 40 mg tablet 40 mg PO QHS RF: 0 losartan 25 MG tablet 25 mg PO DAILY RF: 0 Referrals / Follow Up: Elmer Roth MD [Primary Care Provider] - In 1 Week Disposition Disposition (needs filled in before D/C Order can be placed): Home Health Service
--- NOTE | 2020-10-12 10:15 | CASEMGMT ---
ROBLES CM NOTE: TC to [facility]. VM left w/Lacie informing her pt is being discharged home today. Brenton HERNANDEZ RN CM
--- NOTE | 2020-10-12 10:28 | DS.PCM_ITS ---
Documented by User: Melissa Childers NP, BOWLING PIN SETTERS INSTALLER-C 10/12/20 10:32 Providers Date of Admission: 10/10/20 Date of Discharge: 10/12/20 Primary Care Physician: Dr. Elmer Roth MD Reason For Visit: SEPSIS, PNA, SUSPECT COPD EXAC Diagnosis Discharge Diagnosis (1) COPD exacerbation: Status: Chronic Code(s): J44.1 - Chronic obstructive pulmonary disease with (acute) exacerbation (2) Community acquired pneumonia: Status: Acute Code(s): J18.9 - Pneumonia, unspecified organism Qualifiers: Laterality: right Lung location: lower lobe of lung Qualified Code(s): J18.9 - Pneumonia, unspecified organism Medications at Discharge Home Medications clopidogrel 75 mg PO DAILY 01/21/19 lorazepam 1 mg PO BID PRN #6 tab 01/25/19 calcium carbonate 1,000 mg PO Q4H PRN PRN 05/13/19 menthol 1 applic TP QHS 05/13/19 quetiapine 50 mg PO DAILY 05/13/19 B12 Active 1,000 mcg PO DAILY 10/10/20 acetaminophen 650 mg PO QHS 10/10/20 atorvastatin 40 mg PO QHS 10/10/20 losartan 25 mg PO DAILY 10/10/20 melatonin 5 mg PO QHS 10/10/20 mirtazapine 15 mg PO QHS 10/10/20 paroxetine HCl 40 mg PO DAILY 10/10/20 quetiapine 100 mg PO QHS 10/10/20 albuterol sulfate [ProAir HFA] 1 inh INHALATION Q6H PRN #6.7 g 10/12/20 amoxicillin-pot clavulanate [Augmentin] 1 tab PO Q12H #10 tab 10/12/20 azithromycin 500 mg PO DAILY 1 Days #1 tab 10/12/20 cetirizine [Zyrtec] 10 mg PO DAILY #30 cap 10/12/20 prednisone See Taper PO DAILY #30 tab 10/12/20 Hospital Course Operations None Procedures None Summary of Care Provided Minutes Spent on Discharge: 35 Hospital Course: Patient is an 80-year-old male admitted 10/10/20 due to cough, fever, dyspnea. 1. Acute sepsis secondary to community-acquired pneumonia-IV Rocephin and IV azithromycin during admission. Albuterol DuoNeb aerosols. Sputum culture growing 1+ gram-negative karen. Covid negative. Blood culture with no growth so far. Discharged on Augmentin and azithromycin to complete course. Oxygen stable on room air, walking pulse ox completed prior to discharge. Follow-up with PCP in 1 week. Home with home health/therapies at discharge. 2. Acute hypoxic respiratory insufficiency secondary to community-acquired pneumonia and COPD exacerbation-oxygen now stable on room air. Pneumonia treatment per above. IV Solu-Medrol during admission. Prednisone taper at discharge. As needed albuterol inhaler prescribed. Patient also reports significant seasonal allergies and postnasal drainage. Rx for Zyrtec at discharge as well. 3. CAD with history of triple-vessel disease-continue medical management including Plavix, losartan, statin. 4. History of CVA-history of intracranial hemorrhage as well. Continue Plavix, statin. 5. Hypertension-stable, continue current regimen. 6. Hyperlipidemia-continue statin. 7. Advanced dementia-unknown behavioral disturbance history. On Seroquel, as needed Ativan. 8. Anxiety/depression-on paroxetine, mirtazapine, quetiapine. As needed Ativan. 9. Former tobacco use-encouraged continued cessation. Physical Exam Const alert and no apparent distress Orientation / Consciousness: awake and confused HEENT normocephalic and moist oral mucous membranes Eyes PERRL, EOMs intact bilaterally and conjunctivae normal Neck no lymphadenopathy Resp Auscultation: diminished lung sounds and other Coarse breath sounds, expiratory wheezing. Cardio regular rate, regular rhythm and no murmurs Peripheral Pulses: pulses 2+ throughout GI normal to inspection, nondistended, normoactive bowel sounds, non-tender and non-distended Extremity normal to inspection Skin no rashes or lesions noted Lesions: no lesions Rashes: no rashes Trauma: no lacerations or abrasions Neuro CN's II-XII intact bilaterally, no focal motor deficits, no sensory deficits noted and deep tendon reflexes 2+ bilaterally Psych mental status grossly normal and affect normal Patient seen and examined prior to discharge. Physical assessment as noted above. Patient is stable for discharge with follow up recommendations as noted above. This patient was seen by CLAIRE Rojo under the supervision of Dr. Brownlee. ABG / Lab / Microbiology Data Result Diagrams: 10/11/20 05:34 10/12/20 05:30 Laboratory: Laboratory Results - last 24 hr 10/12/20 05:30 Sodium 143 Potassium 4.0 Chloride 114 H Carbon Dioxide 23.0 Anion Gap 6 BUN 20 H Creatinine 0.87 Estim Creat Clear Calc 68.76 Est GFR (MDRD) Af Amer 108 Est GFR (MDRD) Non-Af 89 BUN/Creatinine Ratio 23.0 H Glucose 135 H Calcium 8.0 L Microbiology: Microbiology 10/10/20 20:07 Gram Stain - Final Sputum, Expectorated/Coughed Respiratory Culture - Preliminary Gram negative karen Microbiology 10/10/20 20:07 Sputum, Expectorated/Coughed Gram Stain - Final 10/10/20 20:07 Sputum, Expectorated/Coughed Respiratory Culture - Preliminary Gram negative karen 10/11/20 01:04 Urine, Clean Catch Legionella Antigen - Final 10/11/20 01:04 Urine, Clean Catch Streptococcus pneumoniae Antigen (M - Final 10/10/20 20:20 Mucosa - Nasopharyngeal Respiratory Panel (PCR) - Final 10/10/20 13:30 Mucosa - Nasopharyngeal SARS-CoV-2 Antigen (Rapid) - Final D/C Instructions Discharge Diet: Low fat / Low cholesterol Call your doctor if you observe: Fever of 101 or Higher, Shortness of breath, Dizziness and Chest pain Meaningful Use Info Meaningful Use Diagnoses (Choose all that apply): None applicable Discharge Plan Admission Admit Date/Time: 10/10/20 16:09 Primary Reason for Your Visit: Pneumonia, COPD exacerbation Attending Provider: Imtiaz Brownlee Primary Care Provider: Elmer Roth Discharge Orders/Prescriptions Prescriptions: New prednisone 10 mg tablet See Taper mg PO DAILY Qty: 30 RF: 0 azithromycin 500 mg tablet 500 mg PO DAILY 1 Days Qty: 1 RF: 0 amoxicillin-pot clavulanate [Augmentin] 875-125 mg tablet 1 tab PO Q12H Qty: 10 RF: 0 albuterol sulfate [ProAir HFA] 90 mcg/actuation HFA aerosol inhaler 1 inh inhalation Q6H PRN (Reason: shortness of breath or wheezing) Qty: 6.7 RF: 0 Zyrtec 10 mg capsule 10 mg PO DAILY Qty: 30 RF: 0 Continued clopidogrel 75 MG tablet 75 mg PO DAILY RF: 0 lorazepam 1 MG tablet 1 mg PO BID PRN (Reason: ANXIETY) Qty: 6 RF: 0 calcium carbonate 500 MG tablet 1,000 mg PO Q4H PRN PRN (Reason: Indigestion) RF: 0 menthol 1 APPLIC gel 1 applic TP QHS RF: 0 quetiapine 25 MG tablet 50 mg PO DAILY RF: 0 quetiapine 100 mg Tablet 100 mg PO QHS RF: 0 mirtazapine 15 mg Tablet 15 mg PO QHS RF: 0 B12 Active 1,000 mcg Tablet,Chewable 1,000 mcg PO DAILY RF: 0 acetaminophen 325 MG tablet 650 mg PO QHS RF: 0 paroxetine HCl 40 mg tablet 40 mg PO DAILY RF: 0 melatonin 5 mg Capsule 5 mg PO QHS RF: 0 atorvastatin 40 mg tablet 40 mg PO QHS RF: 0 losartan 25 MG tablet 25 mg PO DAILY RF: 0 Referrals / Follow Up: Elmer Roth MD [Primary Care Provider] - In 1 Week Disposition Disposition (needs filled in before D/C Order can be placed): Home Health Service Documented by User: Dr. Imtiaz Brownlee MD 10/12/20 11:09 Providers Date of Admission: 10/10/20 Reason For Visit: SEPSIS, PNA, SUSPECT COPD EXAC Medications at Discharge Home Medications clopidogrel 75 mg PO DAILY 01/21/19 lorazepam 1 mg PO BID PRN #6 tab 01/25/19 calcium carbonate 1,000 mg PO Q4H PRN PRN 05/13/19 menthol 1 applic TP QHS 05/13/19 quetiapine 50 mg PO DAILY 05/13/19 B12 Active 1,000 mcg PO DAILY 10/10/20 acetaminophen 650 mg PO QHS 10/10/20 atorvastatin 40 mg PO QHS 10/10/20 losartan 25 mg PO DAILY 10/10/20 melatonin 5 mg PO QHS 10/10/20 mirtazapine 15 mg PO QHS 10/10/20 paroxetine HCl 40 mg PO DAILY 10/10/20 quetiapine 100 mg PO QHS 10/10/20 albuterol sulfate [ProAir HFA] 1 inh INHALATION Q6H PRN #6.7 g 10/12/20 amoxicillin-pot clavulanate [Augmentin] 1 tab PO Q12H #10 tab 10/12/20 azithromycin 500 mg PO DAILY 1 Days #1 tab 10/12/20 cetirizine [Zyrtec] 10 mg PO DAILY #30 cap 10/12/20 prednisone See Taper PO DAILY #30 tab 10/12/20 Hospital Course Summary of Care Provided Hospital Course: This patient was seen in conjunction with BOWLING PIN SETTERS INSTALLERMelissa. I have independently interviewed and examined the patient and reviewed pertinent history, examination findings, laboratory and plan of management. I have reviewed the note and agree with the documented findings with the few additional points. In brief, patient is admitted for sepsis secondary to right lower lobe community-acquired pneumonia resulting into COPD exacerbation. On IV Rocephin and Zithromax, IV Solu-Medrol, bronchodilator, incentive spirometry and Pep. COVID-19 is negative. Patient shortness of breath, cough and overall breathing improved. Discharged on Augmentin and azithromycin. Rest of comorbidities including coronary artery disease with triple-vessel disease, CVA and other comorbidities as mentioned above Discharge medication reconciliation done. Discharge follow-up instructions completed. Discharge process discussed with the patient and all questions were answered to patient's satisfaction. Total time spent, exact 35 minutes on discharge meds reconciliation, examination, coordination of care with nurses and ancillary staff, review of imaging and blood test and discussion with the patient on follow-up instructions I have discussed my assessment with Melissa SOLO and orders have been reviewed. Physical Exam Narrative General: Alert, Oriented x3, Cooperative HEENT: Atraumatic, PERRLA, EOMI, Normocephalic Oral: No Gingival or Mucosal Lesions/ Ulcerations Neck: Supple, No JVD, Negative Carotid Bruits Lungs: Air entry diminished in bilateral lung bases. Mild expiratory rhonchi. Cardiovascular: Regular rate, Regular Rhythm, Normal S1, Normal S2, LLSB systolic murmur. Abdomen: Bowel Sounds Present, Soft, Non Tender, Non-Distended : No renal angle tenderness. No suprapubic tenderness. Extremities: No edema, Capillary Refill Less than 3 Seconds Skin: No rashes, No breakdown Musculoskeletal: No Tenderness to Palpation of Joints or Extremities Neurological: Cranial nerves II-XII grossly intact, Deep Tendon Reflexes 2+/4 and Symmetrical, Neuro grossly intact Psych/Mental Status: Normal Affect, Appropriate. ABG / Lab / Microbiology Data Result Diagrams: 10/11/20 05:34 10/12/20 05:30 Discharge Plan Admission Admit Date/Time: 10/10/20 16:09 Primary Reason for Your Visit: Pneumonia, COPD exacerbation Attending Provider: Imtiaz Brownlee Primary Care Provider: Elmer Roth Discharge Orders/Prescriptions Prescriptions: New prednisone 10 mg tablet See Taper mg PO DAILY Qty: 30 RF: 0 azithromycin 500 mg tablet 500 mg PO DAILY 1 Days Qty: 1 RF: 0 amoxicillin-pot clavulanate [Augmentin] 875-125 mg tablet 1 tab PO Q12H Qty: 10 RF: 0 albuterol sulfate [ProAir HFA] 90 mcg/actuation HFA aerosol inhaler 1 inh inhalation Q6H PRN (Reason: shortness of breath or wheezing) Qty: 6.7 RF: 0 Zyrtec 10 mg capsule 10 mg PO DAILY Qty: 30 RF: 0 Continued clopidogrel 75 MG tablet 75 mg PO DAILY RF: 0 lorazepam 1 MG tablet 1 mg PO BID PRN (Reason: ANXIETY) Qty: 6 RF: 0 calcium carbonate 500 MG tablet 1,000 mg PO Q4H PRN PRN (Reason: Indigestion) RF: 0 menthol 1 APPLIC gel 1 applic TP QHS RF: 0 quetiapine 25 MG tablet 50 mg PO DAILY RF: 0 quetiapine 100 mg Tablet 100 mg PO QHS RF: 0 mirtazapine 15 mg Tablet 15 mg PO QHS RF: 0 B12 Active 1,000 mcg Tablet,Chewable 1,000 mcg PO DAILY RF: 0 acetaminophen 325 MG tablet 650 mg PO QHS RF: 0 paroxetine HCl 40 mg tablet 40 mg PO DAILY RF: 0 melatonin 5 mg Capsule 5 mg PO QHS RF: 0 atorvastatin 40 mg tablet 40 mg PO QHS RF: 0 losartan 25 MG tablet 25 mg PO DAILY RF: 0 Referrals / Follow Up: Elmer Roth MD [Primary Care Provider] - In 1 Week Disposition Disposition (needs filled in before D/C Order can be placed): Home Health Service Charges/Coding Visit Charges Inpatient E&M: 50544 Disch Hosp
[2020-10-12] MEDS: Ceftriaxone 1 GM/50 ML BAG IV (10:56)
--- NOTE | 2020-10-12 12:11 | PHA.DC.MC ---
Pharmacy Service has performed discharge medication reconciliation and counseling for this patient. 1. ALBUTEROL INHALER 1 INHALATION Q6H PRN SOB/WHEEZING 2. AUGMENTIN 875MG PO Q12H X 5 DAYS 3. AZITHROMYCIN 500MG PO DAILY FOR 1 DOSE 4. PREDNISONE 40MG PO DAILY X 3 DAYS, THEN 30MG X 3 DAYS, THEN 20MG X 3 DAYS, THEN 10MG X 3 DAYS 5. CETIRIZINE 10MG PO DAILY The patient's discharge medication list was reviewed for discrepancies and discrepancies were resolved. Home Medications clopidogrel 75 mg PO DAILY 01/21/19 lorazepam 1 mg PO BID PRN #6 tab 01/25/19 calcium carbonate 1,000 mg PO Q4H PRN PRN 05/13/19 menthol 1 applic TP QHS 05/13/19 quetiapine 50 mg PO DAILY 05/13/19 B12 Active 1,000 mcg PO DAILY 10/10/20 acetaminophen 650 mg PO QHS 10/10/20 atorvastatin 40 mg PO QHS 10/10/20 losartan 25 mg PO DAILY 10/10/20 melatonin 5 mg PO QHS 10/10/20 mirtazapine 15 mg PO QHS 10/10/20 paroxetine HCl 40 mg PO DAILY 10/10/20 quetiapine 100 mg PO QHS 10/10/20 albuterol sulfate [ProAir HFA] 1 inh INHALATION Q6H PRN #6.7 g 10/12/20 amoxicillin-pot clavulanate [Augmentin] 1 tab PO Q12H #10 tab 10/12/20 azithromycin 500 mg PO DAILY 1 Days #1 tab 10/12/20 cetirizine [Zyrtec] 10 mg PO DAILY #30 cap 10/12/20 prednisone See Taper PO DAILY #30 tab 10/12/20 The patient was counseled on the following discharge medications and changes in medications for homegoing were reviewed. The Reason for Use, instructions for use, and potential side effects were reviewed for all new medications. The patient's questions regarding all of their medications were answered. The patient was able to verbally demonstrate an understanding of their discharge medications.
[2020-10-12 13:55] VITALS: BP 120/67; PULSE 91; RESP 16; TEMP 36.4; O2SAT 95
--- NOTE | 2020-10-15 15:26 | CASEMGMT ---
[facility] Discharge Follow Up Phone Call: CHRISTOPHER: Naveen Strata: 3 Call Date: 10.15.20 Discharge Date: 10.12.20 Time of Call: 1523 Duration: 3 min Admitting Dx: sepsis, pna, suspect COPD exac RN HAYDE completed follow up phone call after recent hospitalization. Pt states he is doing ok. States that he is still a little tired. He was able to obtain his rx without difficulty and states his manages them for him. Pt states the passport aide has started back. He is using his IS. He denies any questions regarding his medications or discharge instructions. No further concerns.
== END 2020-10-12 14:09 | disposition home health service (06) | DRG 871 ==
LOC: ED 14:47 → MS3 16:31
PROVIDERS: Nurse Practitioner Family; Admitting Provider Family Medicine; Emergency Provider Emergency Medicine; PCP Family Medicine; Visit Provider Internal Medicine
DX: A41.9 Sepsis, unspecified organism (principal); J18.9 Pneumonia, unspecified organism; J44.1 Chronic obstructive pulmonary disease with (acute) exacerbation; J44.0 Chronic obstructive pulmonary disease with (acute) lower respiratory infection; R09.02 Hypoxemia; Z20.822 Contact with and (suspected) exposure to COVID-19; I25.10 Atherosclerotic heart disease of native coronary artery without angina pectoris; I10 Essential (primary) hypertension; E78.5 Hyperlipidemia, unspecified; F03.90 Unspecified dementia, unspecified severity, without behavioral disturbance, psychotic disturbance, mood disturbance, and anxiety; F32.9 Major depressive disorder, single episode, unspecified; F41.9 Anxiety disorder, unspecified; Z79.02 Long term (current) use of antithrombotics/antiplatelets; Z79.899 Other long term (current) drug therapy; Z86.73 Personal history of transient ischemic attack (TIA), and cerebral infarction without residual deficits; Z87.891 Personal history of nicotine dependence
CPT/HCPCS: 36415; 71045; 80048; 80053; 83605; 83735; 84484; 85025; 87040; 87070; 87077; 87186; 87205; 87426; 87449; 87633; 87635; 92610; 93005; 94640; 97162; 97166; 99251; 99285; J7030; U0005; A4216; G0463; U0003

== ENCOUNTER → 2020-10-10 | Outpatient (CLI) | payer MEDICARE, MEDICAID, SELFPAY ==
[2020-10-10 12:32] VITALS: BMI 25.2
== END | disposition home or self-care (01) ==
LOC: LABSPEC 15:34
PROVIDERS: PCP Family Medicine; Visit Provider Family Medicine
DX: Z20.822 Contact with and (suspected) exposure to COVID-19 (principal)
CPT/HCPCS: 87635; U0005; U0003

== ENCOUNTER 2020-12-10 15:05 | Emergency (ER) | payer MEDICARE, MEDICAID, SELFPAY ==
[2020-10-10 18:35] VITALS: BMI 26.6
[2020-12-10 15:06] VITALS: BP 106/67; PULSE 80; RESP 16; TEMP 37.3; O2SAT 96; BMI 27.3
[2020-12-10 15:09] VITALS: BP 106/67; PULSE 80; RESP 16; TEMP 37.3; O2SAT 95
--- NOTE | 2020-12-10 15:50 | CT_ITS ---
We are attempting to reach an attending provider to discuss findings. An addendum with communication details will be sent when the communication is complete. HISTORY: vision loss TECHNIQUE: Multiple axial images were obtained of the brain without intravenous contrast. A radiation dose optimization technique was used for this scan. IV Contrast dosage and agent: None. COMPARISON: 01/27/19 FINDINGS: # of images incl. paperwork: [id number] PARANASAL SINUSES AND MASTOID AIR CELLS: Clear. INTRACRANIAL HEMORRHAGE: Acute parenchymal hematoma in the right occipital lobe with adjacent edema measures 4.1 x 2.2 x 1.9 cm. There is intraventricular extension into the right occipital horn. BRAIN PARENCHYMA: No intracranial masses. Posterior fossa structures are unremarkable. There is hypoattenuation of the periventricular white matter. Chronic involutional changes are noted. CSF SPACES: Appropriate for age. There is no hydrocephalus. MASS EFFECT: No midline shift. CALVARIUM: No acute fracture. CT/Brain/Head without Contrast IMPRESSION: Acute right occipital parenchymal hematoma, possible hemorrhagic stroke. Chronic involutional and white matter changes. Individualized dose optimization techniques were used for this CT. at 1703 Reported and signed by: Arvind Rowell MD Electronically Signed: Arvind Rowell MD at 17:02 EDT Tel , Service support ,
--- NOTE | 2020-12-10 15:51 | EDS_ITS ---
HPI History of Present Illness Chief Complaint: Eye Problem Narrative Narrative: Patient presents with vision loss for the past 2 days. Patient saw the deputy treasurer and machine adjuster helper today with no intraocular involvement per their exam. Patient has some baseline confusion and can give me a reasonable history but not for the rest of history is from . No reported weakness or any further confusion and baseline. [facility] Medical History (Updated 12/10/20 @ 16:[address] Ming Pimentel MD) Anxiety Anxiety Atherosclerotic heart disease of [place] coronary artery without angina pectoris COPD (chronic obstructive pulmonary disease) CVA (cerebral vascular accident) Depression Former smoker GERD (gastroesophageal reflux disease) History of non-ST elevation myocardial infarction (NSTEMI) History of tobacco abuse Hyperlipidemia Intracerebral hemorrhage Myocardial infarct Triple vessel coronary artery disease Home Medications clopidogrel 75 mg PO DAILY 01/21/19 [History Last Taken 12/10/20] lorazepam 1 mg PO BID PRN #6 tab 01/25/19 [Rx Last Taken 12/10/20] calcium carbonate 1,000 mg PO Q4H PRN PRN 05/13/19 [History Last Taken 10/09/20] menthol 1 applic TP QHS 05/13/19 [History Last Taken 12/09/20] B12 Active 1,000 mcg PO DAILY 10/10/20 [History Last Taken 12/10/20] acetaminophen 650 mg PO QHS 10/10/20 [History Last Taken 12/09/20] atorvastatin 40 mg PO QHS 10/10/20 [History Last Taken 12/09/20] losartan 25 mg PO DAILY 10/10/20 [History Last Taken 12/10/20] melatonin 5 mg PO QHS 10/10/20 [History Last Taken 12/09/20] mirtazapine 15 mg PO QHS 10/10/20 [History Last Taken 12/09/20] paroxetine HCl 40 mg PO DAILY 10/10/20 [History Last Taken 12/10/20] quetiapine 100 mg PO QHS 10/10/20 [History Last Taken 12/09/20] cetirizine [Zyrtec] 10 mg PO DAILY 12/10/20 [History Last Taken 12/09/20] Allergy/AdvReac Type Severity Reaction Status Date / Time No Known Allergies Allergy Verified 05/13/19 11:16 Family History (Updated 10/10/20 @ 18:[address] Rosey Best MD) Father Heart disease Dementia Mother CVA (cerebral vascular accident) Dementia Surgical History History of thoracentesis History of vasectomy Social History (Updated 10/10/20 @ 18:[address] Rosey Best MD) household members: spouse Smoking Status: Former smoker how long ago did patient quit smoking: Quit 5-7 yrs prior, started in college, 1-1.5 ppd. alcohol intake: never substance use type: does not use ROS ROS ED ROS Narrative Past medical history: Reviewed, includes dementia, COPD, CAD, hyperlipidemia, hypertension, CVA Medications: Reviewed Social history: Noncontributory Review of systems: All systems negative except as indicated General: No fever Eyes: No visual changes ENT: No upper airway congestion, normal voice Neck: No neck pain Cardiovascular: No chest pain Respiratory: No shortness of breath or cough Gastrointestinal: No abdominal pain, nausea vomiting or diarrhea Genitourinary: No dysuria Musculoskeletal: Denies myalgias no difficulty with ambulation Skin: No rash Neurological: No memory loss, confusion or any focal weakness Psych: No recent behavioral changes Hematologic: No easy bleeding or easy bruising EXAM Physical Exam Narrative Exam Narrative: Physical exam General: Patient appears chronically ill Head: Normocephalic, Atraumatic Eyes: Conjunctiva not pale. Pupils are dilated from prior ophthalmology visit no obvious intraocular movement. ENT: Moist mucous membranes Neck: Supple, Nontender, No lymphadenopathy Cardiovascular: Regular rate, Regular rhythm Respiratory: No distress, CTA bilaterally Abdomen: Soft, Nontender, Nondistended Back: Nontender, Normal Inspection. Negative for: CVA tenderness Extremities: Nontender, No edema Skin: Normal color, No rash Neurological: Alert, he is oriented to month and year person and place. No focal deficit. He does have left-sided bilateral hemianopsia. Const Vital Signs: 12/10/20 15:06 12/10/20 15:09 Temperature 99.1 F 99.1 F Temperature Source Temporal Temporal Pulse Rate 80 80 Respiratory Rate 16 16 Blood Pressure 106/67 106/67 Blood Pressure Mean 80 80 Pulse Ox 96 95 Oxygen Delivery Method Room Air Room Air MDM MDM MDM Narrative Medical decision making narrative: Patient has an exam consistent with hemianopsia, a CT however does reveal intraparenchymal bleed consistent with his vision changes. I had a long discussion with the patient and the , patient is DNR CC and the does not want him transferred anywhere. She wants him admitted to this hospital for least one night to repeat a CT to make sure the bleed is not getting worse otherwise there plan is to do minimal management. They are both in agreement with this. Patient was seen by the hospitalist, apparently in order for him to stay at this institution he has to be in hospice patient is refusing hospice he now wants to be discharged. I agree this is also reasonable I talked in both patient and w abraham are in agreement. If anything changes they are to return. Critical Care Time Critical care time (excluding procedures): 30-74 minutes and - (Critical care time of 30-minute involved in discussion of end-of-life care, treatment and diagnostic as well as documentation.) Discharge Plan Triage Chief Complaint: Eye Problem ED Provider: Ming Pimentel Dx/Rx/DC Orders Clinical Impression: Intracerebral hemorrhage Instructions: Stroke Self Care After, What is Hemorrhagic Stroke? Prescriptions: No Action clopidogrel 75 MG tablet 75 mg PO DAILY RF: 0 lorazepam 1 MG tablet 1 mg PO BID PRN (Reason: ANXIETY) Qty: 6 RF: 0 calcium carbonate 500 MG tablet 1,000 mg PO Q4H PRN PRN (Reason: Indigestion) RF: 0 menthol 1 APPLIC gel 1 applic TP QHS RF: 0 quetiapine 100 mg Tablet 100 mg PO QHS RF: 0 mirtazapine 15 mg Tablet 15 mg PO QHS RF: 0 B12 Active 1,000 mcg Tablet,Chewable 1,000 mcg PO DAILY RF: 0 acetaminophen 325 MG tablet 650 mg PO QHS RF: 0 paroxetine HCl 40 mg tablet 40 mg PO DAILY RF: 0 melatonin 5 mg Capsule 5 mg PO QHS RF: 0 atorvastatin 40 mg tablet 40 mg PO QHS RF: 0 losartan 25 MG tablet 25 mg PO DAILY RF: 0 cetirizine [Zyrtec] 10 mg Tablet 10 mg PO DAILY RF: 0 Primary Care Provider: Bro Baires NP Referrals: Bro Baires NP, [employer] [Primary Care Provider] - Disposition Disposition: Home, Self Care
[2020-12-10 16:27] LABS: Absolute Lymphocyte Count 1.65 X10^3/uL (0.83-4.51); Absolute Neutrophil Count 3.9 X10^3/uL (2.0-7.7); Basophil# 0.02 X10^3/uL; Basophil% 0.3 % (0-1); Eosinophils% 4.2 % (0-5); Hematocrit 38.7 % (40-54); Hemoglobin 12.5 g/dL (13.0-16.5); Lymphocyte # 1.65 X10^3/ul (0.83-4.51); Lymphocyte % 23.3 % (19-41); Mean Corp Hgb Conc 32.3 g/dL (32-36); Mean Corpuscular Hgb 29.8 pg (27.0-32.0); Mean Corpuscular Volume 92.1 fL (80-94); Mean Platelet Vol. 10.3 fl (6.2-12.0); Monocyte# 1.19 X10^3/uL; Monocyte% 16.8 % (0-10); NRBC Flagged by Analyzer 0 % (0-5); Neutrophil # 3.89 X10^3/uL (2.7-7.7); Platelet Count 213 K/mm3 (150-450); RBC Distribution Width CV 14.8 % (11.6-14.6); RBC Distribution Width SD 50.5 fl (35.1-43.9); White Blood Count 7.1 K/mm3 (4.4-11.0)
[2020-12-10 16:33] LABS: Erythrocyte Sedimentation Rate 13 mm/hr (0-20)
[2020-12-10 16:40] LABS: ALB/GLOB Ratio 0.9 RATIO (0.9-2.4); AST(SGOT) 18 U/L (15-37); Alanine Aminotransfer ALT/SGPT 20 U/L (16-61); Albumin, Serum 3.6 g/dL (3.2-5.0); Alkaline Phosphatase 110 U/L (45-117); Anion Gap 3 (5-15); BUN 23 mg/dL (7-18); BUN/Creat Ratio 20.7 RATIO (10-20); Calcium,Total 8.3 mg/dL (8.5-10.1); Chloride 104 mmol/L (98-107); Creatinine, Serum 1.11 mg/dL (0.70-1.30); EST Glomerular Filtration Rate 68 mL/min (>60); Est Glom Filt Rate - Afr Amer 82 mL/min (>60); Estimated Creatinine Clearance 52.19 ml/min; Globulin 3.8 g/dL (2.2-4.2); Glucose 103 mg/dL (74-106); Potassium 3.7 mmol/L (3.5-5.1); Protein, Total 7.4 g/dL (6.4-8.2); Sodium Level 135 mmol/L (136-145)
--- NOTE | 2020-12-10 17:26 | NURSING ---
MED SURG [facility]
--- NOTE | 2020-12-10 17:47 | PCM.CONS.GEN ---
Assessment & Plan Assessment/Plan (1) Intracerebral hemorrhage: QUALIFIERS: Intracerebral hemorrhage etiology: nontraumatic Cerebral hemorrhage location: other cerebral location Laterality: right Qualified Code(s): I61.8 - Other nontraumatic intracerebral hemorrhage PLAN: 1. Acute parenchymal hematoma the right occipital lobe Patient appears remarkably well despite this large hematoma. Does have some evidence of some mild left shift as well. I recommended transfer to tertiary facility for evaluation by neurosurgery. I told him that that would not necessitate surgery but to be evaluated by a neurosurgeon to make further recommendations and prognostication. The patient is not interested in that. The patient's is present and she does not want that for him either fiber picker since he is so adamant about it. I did recommend hospice. The patient has misconceptions about hospice's for quarters. Explained that is to help with symptoms. Patient's tells me that he is not interested in hospice because of misconceptions that he has about it. I did advise the emergency room to provide the some information in regards to palliative care and hospice services. That they can be able to come out to the house and be able to help him with symptoms that even though he is doing okay at this time it may change very quickly particular if he does herniate. I told him I would not monitor the patient here in the hospital that he would either have to be transferred to tertiary facility or a would be admitted here with plans for hospice and the patient has no desire for that at this time. I did review the CAT scans with he and his and showed them the large amount of blood that has collected in his occipital lobe. Express understanding of the risks of further bleeding and possible herniation which could equate sudden . Obviously with this bleed patient will need to hold his clopidogrel Did advise the patient's that if symptoms do become worse to the point where she is not able to manage him at home that he may need to return to the emergency room for further care particular since they do not have hospice established yet. Prognosis guarded to poor. Greater than 30 minutes of which was spent discussing advanced care planning including hospice services with the patient and his and addressing misconceptions that he has in regards to hospice. She states that his quality of life prior to this was not great, gated by his underlying heart failure and the dementia. The patient is appropriate he has times where he does get confused. She states that overall his quality of life is not ideal and they understand that having surgery and further intervention would not automatically translates to his prior quality of life and would require additional therapy and rehab if he were to survive this. HPI Consult Data Date of Consult: 12/10/20 HPI Narrative HPI Narrative: DHARA ORDONEZ, is a 80 M who presents with vision loss in his left eye. Symptoms began on Thursday. Saw his accounts payable associate who did not see any etiology from a eye standpoint for his visual loss and sent patient to the emergency room. Patient had a CAT scan that showed 4.1 x 2.2 x 1.9cm acute parenchymal hematoma in the right occipital lobe. They expressed to the emergency room physician that they did not want surgery and I want to just be monitored in the hospital. Patient feels fine otherwise. He is very adamant that he does not want surgery nor does he want hospice as that is for losers. [facility] Medical History Anxiety Anxiety Atherosclerotic heart disease of [place] coronary artery without angina pectoris COPD (chronic obstructive pulmonary disease) CVA (cerebral vascular accident) Depression Former smoker GERD (gastroesophageal reflux disease) History of non-ST elevation myocardial infarction (NSTEMI) History of tobacco abuse Hyperlipidemia Intracerebral hemorrhage Myocardial infarct Triple vessel coronary artery disease Home Medications clopidogrel 75 mg PO DAILY 01/21/19 [History Last Taken 12/10/20] lorazepam 1 mg PO BID PRN #6 tab 01/25/19 [Rx Last Taken 12/10/20] calcium carbonate 1,000 mg PO Q4H PRN PRN 05/13/19 [History Last Taken 10/09/20] menthol 1 applic TP QHS 05/13/19 [History Last Taken 12/09/20] B12 Active 1,000 mcg PO DAILY 10/10/20 [History Last Taken 12/10/20] acetaminophen 650 mg PO QHS 10/10/20 [History Last Taken 12/09/20] atorvastatin 40 mg PO QHS 10/10/20 [History Last Taken 12/09/20] losartan 25 mg PO DAILY 10/10/20 [History Last Taken 12/10/20] melatonin 5 mg PO QHS 10/10/20 [History Last Taken 12/09/20] mirtazapine 15 mg PO QHS 10/10/20 [History Last Taken 12/09/20] paroxetine HCl 40 mg PO DAILY 10/10/20 [History Last Taken 12/10/20] quetiapine 100 mg PO QHS 10/10/20 [History Last Taken 12/09/20] cetirizine [Zyrtec] 10 mg PO DAILY 12/10/20 [History Last Taken 12/09/20] Allergy/AdvReac Type Severity Reaction Status Date / Time No Known Allergies Allergy Verified 05/13/19 11:16 Family History Father Heart disease Dementia Mother CVA (cerebral vascular accident) Dementia Surgical History History of thoracentesis History of vasectomy Social History household members: spouse Smoking Status: Former smoker how long ago did patient quit smoking: Quit 5-7 yrs prior, started in college, 1-1.5 ppd. alcohol intake: never substance use type: does not use ROS ROS Narrative Vision change. Transient headache. ROS Physical Exam Narrative Up in bed. Afebrile. Conversant and appropriate. Neuro Sensorium / Orientation: awake and alert Psych affect normal Lab / Micro Data Attestation: I reviewed the patient's lab results. Result Diagrams: 12/10/20 16:14 12/10/20 16:14 Labs: Laboratory Results - last 24 hr 12/10/20 16:14: WBC 7.1, RBC 4.20 L, Hgb 12.5 L, Hct 38.7 L, MCV 92.1, MCH 29.8, MCHC 32.3, RDW Std Deviation 50.5 H, RDW Coeff of Ethan 14.8 H, Plt Count 213, MPV 10.3, Immature Gran % (Auto) 0.400, Neut % (Auto) 55.0, Lymph % (Auto) 23.3, [place] % (Auto) 16.8 H, Eos % (Auto) 4.2, Baso % (Auto) 0.3, Absolute Neuts (auto) 3.9, Absolute Lymphs (auto) 1.65, Nucleated RBC % 0, ESR 13 12/10/20 16:14: Sodium 135 L, Potassium 3.7, Chloride 104, Carbon Dioxide 28.0, Anion Gap 3 L, BUN 23 H, Creatinine 1.11, Estim Creat Clear Calc 52.19, Est GFR (MDRD) Af Amer 82, Est GFR (MDRD) Non-Af 68, BUN/Creatinine Ratio 20.7 H, Glucose 103, Calcium 8.3 L, Total Bilirubin 1.00, AST 18, ALT 20, Alkaline Phosphatase 110, Total Protein 7.4, Albumin 3.6, Globulin 3.8, Albumin/Globulin Ratio 0.[address] 12/10/20 15:50 IMPRESSION: Acute right occipital parenchymal hematoma, possible hemorrhagic stroke. Chronic involutional and white matter changes. Individualized dose optimization techniques were used for this CT. at 1703 Reported and signed by: Arvind Rowell MD Electronically Signed: Arvind Rowell MD at 17:02 EDT Tel , Service support , ADDENDUM: 12/10/20 1732 IMPRESSION: Acute right occipital parenchymal hematoma, possible hemorrhagic stroke. Chronic involutional and white matter changes. Individualized dose optimization techniques were used for this CT. at 1703 Reported and signed by: Arvind Rowell MD N.B. : The above Results were Read Back by Arvind Rowell MD to Dr. Ming Pimentel MD, and understanding confirmed on 12/10/2020 17:25:26 (ET). Electronically Signed: Arvind Rowell MD at 17:02 EDT Tel , Service support , Charges/Coding Visit Charges Office Visits / Consults: 62937 OP Consult L3 Procedures Hospitalists Procedures: [id number] Advncd Care Plan 30 Min
[2020-12-10 17:49] LABS: Bacteria 0 SEEN /hpf (None Seen); Mucous, Urine 0 SEEN /hpf (<or=2+); Red Blood Cells-Urine 0 SEEN /hpf (0-5); Squamous Epithelial Cells - UA 0 SEEN /hpf (0-5); White Blood Cells 0 SEEN /hpf (0-5)
[2020-12-10 17:51] LABS: Color, Urine Yellow (Yellow); Glucose, Dipstick Normal (Normal); Ketone-Dipstick Negative (Negative); Leukocyte Esterase-Dipstick Negative /ul (Negative); Nitrite-Dipstick Negative (Negative); Occult Blood-Urine Negative /ul (Negative); Protein-Dipstick Negative (Negative); Specific Gravity, Urine 1.015 (1.002-1.030); Urine Bilirubin Dipstick Negative (Negative); Urine Clarity Clear (Clear); Urine Urobilinogen Normal (Normal)
[2020-12-10 18:06] VITALS: BP 148/75; PULSE 76; RESP 16; O2SAT 94
== END 2020-12-10 18:07 | disposition home or self-care (01) ==
PROVIDERS: Emergency Provider Emergency Medicine; PCP Nurse Practitioner Family
DX: I61.1 Nontraumatic intracerebral hemorrhage in hemisphere, cortical (principal); H53.47 Heteronymous bilateral field defects; H53.8 Other visual disturbances; I25.10 Atherosclerotic heart disease of native coronary artery without angina pectoris; J44.9 Chronic obstructive pulmonary disease, unspecified; I10 Essential (primary) hypertension; E78.5 Hyperlipidemia, unspecified; K21.9 Gastro-esophageal reflux disease without esophagitis; F03.90 Unspecified dementia, unspecified severity, without behavioral disturbance, psychotic disturbance, mood disturbance, and anxiety; F32.9 Major depressive disorder, single episode, unspecified; F41.9 Anxiety disorder, unspecified; Z79.02 Long term (current) use of antithrombotics/antiplatelets; Z79.899 Other long term (current) drug therapy; I25.2 Old myocardial infarction; Z86.73 Personal history of transient ischemic attack (TIA), and cerebral infarction without residual deficits; Z87.891 Personal history of nicotine dependence
CPT/HCPCS: 70450; 80053; 81001; 85025; 85652; 99283; A4216

== ENCOUNTER 2024-01-25 10:27 | Inpatient (IN) | payer MEDICARE, MEDICAID, SELFPAY ==
[2024-01-25] VITALS (26 sets, daily range): BP systolic 86–147; BP diastolic 51–68; PULSE 17–107; RESP 21–103; TEMP 36.1–37.7; O2SAT 87–100; BMI 27.0; BMI 27.8
--- NOTE | 2024-01-25 10:43 | RAD_ITS ---
STUDY: X-RAY CHEST REASON FOR EXAM: Male, 83 years old. Productive cough, hypoxia, clinically right sided TECHNIQUE: PA and lateral views of the chest. COMPARISON: Comparison is made with prior study dated October 10, 2020. FINDINGS: EKG electrodes are seen. Findings suggestive of a right lower lobe infiltrate with evidence of scarring at the lung bases. There is no demonstrated pleural abnormality. Normal size heart. Normal mediastinum and dary. Normal visualized pulmonary arteries. There is atherosclerotic calcification of the aortic arch with tortuosity. There are diffuse degenerative changes of the visualized thoracic spine. Normal visualized ribs, clavicles, and shoulders. There is no demonstrated abnormality of the visualized soft tissue structures of the upper abdomen. RAD/Chest PA and Lateral IMPRESSION: Findings suggest a right lower lobe infiltrate superimposed on bibasilar scarring. Electronically Signed: Steven Quiroz MD at 12:27 EDT ,
[2024-01-25] MEDS: 0.9% Normal Saline (1000mL) 1,000 ML 1000 ML IV ×2 (11:05→13:28)
[2024-01-25] MEDS: Albuterol 2.5 MG/3 ML VIAL.NEB. INHALATION ×3 (11:05→11:33)
[2024-01-25] MEDS: Ceftriaxone 2 GM in 0.9% Normal Saline (50mL MB+) 50 ML IV (11:19)
[2024-01-25 11:21] LABS: Absolute Lymphocyte Count 0.54 X10^3/uL (0.83-4.51); Absolute Neutrophil Count 3.8 X10^3/uL (2.0-7.7); Basophil# 0.01 X10^3/uL; Basophil% 0.2 % (0-1); Hemoglobin 11.7 g/dL (13.0-16.5); Lymphocyte # 0.54 X10^3/ul (0.83-4.51); Lymphocyte % 9.7 % (19-41); Mean Corp Hgb Conc 32.5 g/dL (32-36); Mean Corpuscular Hgb 29.1 pg (27.0-32.0); Mean Corpuscular Volume 89.6 fL (80-94); Monocyte# 1.15 X10^3/uL; Monocyte% 20.6 % (0-10); NRBC Flagged by Analyzer 0 % (0-5); Neutrophil # 3.84 X10^3/uL (2.7-7.7); Neutrophil % 68.6 % (47-70); POSITIVE DIFFERENTIAL YES; POSITIVE MORPHOLOGY YES; Platelet Count 190 K/mm3 (150-450); RBC Distribution Width CV 14.5 % (11.6-14.6); RBC Distribution Width SD 47.7 fl (35.1-43.9); Red Blood Count 4.02 M/mm3 (4.6-6.2); White Blood Count 5.6 K/mm3 (4.4-11.0)
[2024-01-25 11:34] LABS: ALB/GLOB Ratio 0.6 RATIO (0.9-2.4); AST(SGOT) 34 U/L (15-37); Alanine Aminotransfer ALT/SGPT 25 U/L (16-61); Albumin, Serum 2.7 g/dL (3.2-5.0); Alkaline Phosphatase 99 U/L (45-117); Anion Gap 9 (5-15); BUN 29 mg/dL (7-18); BUN/Creat Ratio 22.3 RATIO (10-20); Calcium,Total 9.7 mg/dL (8.5-10.1); Chloride 101 mmol/L (98-107); EST Glomerular Filtration Rate 56 mL/min (>60); Est Glom Filt Rate - Afr Amer 68 mL/min (>60); Globulin 4.4 g/dL (2.2-4.2); Glucose 123 mg/dL (74-106); Potassium 3.8 mmol/L (3.5-5.1); Protein, Total 7.1 g/dL (6.4-8.2); Sodium Level 136 mmol/L (136-145)
[2024-01-25 11:41] LABS: Lactic Acid 1.7 mmol/L (0.4-1.9)
[2024-01-25] MEDS: Azithromycin 500 MG in Dextrose 5%-Water (250mL Bag) 250 ML 250 MG IV (11:46)
[2024-01-25 11:49] LABS: Differential Indicated SCAN CRITERIA MET
[2024-01-25 11:50] LABS: Anisocytosis 1+; Differential Comment SCANNED; Dohle Bodies 1+; Platelet Estimate ADEQUATE (ADEQ); Toxic Granulation 2+; Vacuolated Cells 1+
[2024-01-25 11:51] LABS: Polychromasia 1+; Target Cells RARE; Tear Drop Cell RARE
--- NOTE | 2024-01-25 12:01 | EX.ED.DYSGE1 ---
HPI History of Present Illness Chief Complaint: Shortness of Breath Detail of Chief Complaint: Productive cough and shortness of breath that started 1 week ago. Informant: patient and family Onset/Context/Timing Onset: Weeks Context: Gradual Onset Timing: Continuous and Waxes and wanes Quality: Dyspnea, dyspnea on exertion, productive cough of green to brown-colored sp Location: Respiratory Current Severity: Moderate Maximum Severity: Severe Worsened by: Activity Relieved by: Nothing Associated Symptoms Associated Symptoms: Subjective fever, shortness of breath, productive cough Narrative Narrative: Patient is an 83-year-old male. He has remote history of pneumonia. He also has history of generalized diagnosed anxiety, depression. There is a history of COPD, coronary disease, hyperlipidemia, intracranial bleed and mild dementia. History was supplemented by family member since he is not a good informant. He denies documented fever. He has had some chills. He denies headache, visual, ocular auditory symptoms. Patient reports chronic nasal congestion. Patient does have a cough productive of green-brown sputum. This started 1 week ago. This is not normal for him. He has had increased shortness of breath over the past week. He denies PND. Last evening he had to sleep with 3 pillows. He did this because he thought it would be better if he was upright. It was not because he was short of breath in the supine position. Patient denies history of PE or DVT. He does have mild swelling of his feet. Patient denies chest tightness, heaviness or pressure. Patient denies abdominal pain, nausea, vomiting or diarrhea. Patient [place] black or maroon-colored stool. Patient denies urologic symptoms. Prior similar symptoms: Yes Recent Illness/Hospitalization: No PFSH [facility] Medical History Generalized anxiety disorder Major depressive disorder in remission Anxiety GERD (gastroesophageal reflux disease) Former smoker COPD (chronic obstructive pulmonary disease) Myocardial infarct Triple vessel coronary artery disease History of tobacco abuse Atherosclerotic heart disease of [place] coronary artery without angina pectoris History of non-ST elevation myocardial infarction (NSTEMI) Hyperlipidemia CVA (cerebral vascular accident) Intracerebral hemorrhage Anxiety Depression Home Medications ?Medication ?Instructions ?Recorded ?Last Taken ?Type acetaminophen 325 mg tablet 650 mg PO QHS PAIN 10/10/20 01/24/24 History atorvastatin 40 mg tablet 40 mg PO QHS CHOLESTEROL 10/10/20 01/24/24 History losartan 25 mg tablet 25 mg PO DAILY BP 10/10/20 01/25/24 History melatonin 5 mg capsule 5 mg PO QHS SLEEP 10/10/20 01/24/24 History cetirizine 10 mg tablet (Zyrtec) 10 mg PO DAILY 12/10/20 01/25/24 History escitalopram oxalate 20 mg tablet 20 mg PO DAILY #90 tabs 12/31/23 01/25/24 Rx lorazepam 0.5 mg tablet 0.5 mg PO BID ANXIETY 30 days #60 12/31/23 01/25/24 Rx tabs mirtazapine 15 mg tablet 15 mg PO QHS DEPRESSION 90 days 12/31/23 01/24/24 Rx #90 tabs quetiapine 100 mg tablet See Rx Instructions .Route 12/31/23 01/24/24 Rx .COMPLEX #90 tabs quetiapine 25 mg tablet 25 mg PO QAM #90 tabs 12/31/23 01/25/24 Rx guaifenesin 600 mg tablet, 1,200 mg PO BID 01/25/24 01/25/24 History extended release 12 hr (Mucinex) Allergy/AdvReac Type Severity Reaction Status Date / Time No Known Allergies Allergy Verified 01/25/24 10:28 Family History Father Heart disease Dementia Mother CVA (cerebral vascular accident) Dementia Surgical History History of thoracentesis History of vasectomy Social History household members: spouse Smoking Status: Former smoker how long ago did patient quit smoking: Quit 5-7 yrs prior, started in college, 1-1.5 ppd. alcohol intake: never substance use type: does not use ROS ROS ED Constitutional Constitutional ED: Reports sweats; Denies chills, fever(s) or subjective Eyes Eyes: Denies blurry vision or change in vision ENT ENT ED: Reports rhinorrhea; Denies ear pain or sore throat Cardiovascular Cardiovascular: Denies chest pain, orthopnea, palpitations, paroxysmal nocturnal dyspnea or racing heartbeat Respiratory/Chest Respiratory/Chest: Reports cough, dyspnea and dyspnea on exertion; Denies orthopnea or paroxysmal nocturnal dyspnea Gastrointestinal Gastrointestinal: Denies abdominal pain, constipation, diarrhea, nausea or vomiting Genitourinary Genitourinary ED: Denies dysuria, hematuria or urinary frequency Musculoskeletal Musculoskeletal: Denies arthralgias or myalgias Integumentary Denies rash Neurologic Neurologic: Reports weakness; Denies headache(s) or paresthesias Psychiatric Psychiatric: Denies anxiety or depression Endocrine Endocrinology: Denies cold intolerance or heat intolerance Hematologic/Lymphatic Hematologic/Lymphatic: Reports systems reviewed and no addt'l complaints, except as documented EXAM Physical Exam Const Vital Signs: 01/25/24 10:28 01/25/24 10:35 01/25/24 11:06 Temperature 97.0 F L Temperature Source Temporal Pulse Rate 106 H 107 H Respiratory Rate 24 H 32 H Respiratory Effort Respiratory Depth Respiratory Pattern Blood Pressure 101/57 L Blood Pressure Mean 71 Pulse Ox 87 92 Oxygen Delivery Method Room Air Nasal Cannula Oxygen Flow Rate (L/min) 2 Fraction of Inspired Oxygen (FIO2) 01/25/24 11:28 01/25/24 11:28 01/25/24 12:00 Temperature Temperature Source Pulse Rate 106 H 102 H Respiratory Rate 35 H 30 H Respiratory Effort Short of Breath Accessory Muscle Use Respiratory Depth Shallow Respiratory Pattern Tachypnea Blood Pressure 114/63 108/64 Blood Pressure Mean 80 78 Pulse Ox 96 95 Oxygen Delivery Method Nasal Cannula Nasal Cannula Airvo Oxygen Flow Rate (L/min) 4 4 Fraction of Inspired Oxygen (FIO2) 01/25/24 12:15 Temperature Temperature Source Pulse Rate 104 H Respiratory Rate 24 H Respiratory Effort Respiratory Depth Respiratory Pattern Blood Pressure Blood Pressure Mean Pulse Ox 94 Oxygen Delivery Method Oxygen Flow Rate (L/min) Fraction of Inspired Oxygen (FIO2) 50 Positive well nourished, well developed and unkempt Constitutional Narrative: Patient does not look well. He is tachypneic he has conversational dyspnea. He is tachycardic. He has hypoxic. There is no cyanosis that she is present on oxygen. General Appearance ED: unkempt, well developed and pallor; Negative for cyanotic or diaphoretic HEENT Reports dry mucous membranes HEENT Narrative: . Head is atraumatic normocephalic. Ears normal. Nares patent. Mouth ED: Yes dry mucous membranes Mouth: dry mucous membranes Eyes PERRL and EOMs intact bilaterally General Eye ED: Negative for pale conjunctiva or scleral icterus Neck no lymphadenopathy, supple and no JVD Chest Wall inspection of chest normal and palpation of chest normal Resp No normal respiratory effort and No clear to auscultation bilaterally Resp Narrative: Egophony on the right side. Rales bilaterally with expiratory wheezing bilaterally. Cardio regular rhythm, S1 normal heart sound, S2 normal heart sound and no murmurs GI normal to inspection, nondistended, normoactive bowel sounds, non-tender, non-distended and no masses; Negative for hepatosplenomegaly Back/Spine no CVA tenderness Thoracic Spine / Upper Back: Negative for thoracic spinal tenderness Lumbar Spine / Lower Back: Negative for lumbar spinal tenderness Extremity General Extremety ED: Yes edema General Extremity: edema Neuro oriented x3, CN's II-XII intact bilaterally and no sensory deficits noted Neuro Narrative: Awake but not alert. Sensorium / Orientation: Negative for alert Psych mental status grossly normal Appearance: unkempt Skin no wounds and No skin turgor normal General Skin Exam: pallor; Negative for elasticity normal or jaundice Sepsis Attestation Sepsis Alert: Yes Sepsis Attestation: Agree w/Sepsis Date exam was performed: 01/25/24 Possible Source of Sepsis: Pulmonary Sepsis Organ Dysfunction Criteria Present: SBP < 90 mmHg or MAP < 65 mmHg, Acute Respiratory Failure (New need for BiPAP/CPAP or MV) and PaO2/FiO2 ratio < 300 Supportive Findings: Patient responded to 1 L of normal saline. He was given no additional fluids. MDM MDM MDM Narrative Medical decision making narrative: Clinically patient has pneumonia. Patient does meet criteria for sepsis. Sepsis order set was initiated and patient was started on antibiotics. Prior records were reviewed. Because patient was hypotensive he did receive 1 L of normal saline wide open. Patient's blood pressure did respond to the 1 L of normal saline. Lab Data Attestation: I reviewed the patient's lab results. Lab results narrative: White count is normal. Patient has mild anemia. Differential is normal. Basic metabolic panel was an elevated BUN/creatinine of 29 and 1.3 with an estimated GFR of 56. Glucose slightly elevated 123 with a normal CO2 anion gap. Liver enzymes are normal. Lactate is normal at 1.7. Labs: Laboratory Results - last 24 hr 01/25/24 11:09 WBC 5.6 RBC 4.02 L Hgb 11.7 L Hct 36.0 L MCV 89.6 MCH 29.1 MCHC 32.5 RDW Std Deviation 47.7 H RDW Coeff of Ethan 14.5 Plt Count 190 MPV 11.0 Immature Gran % (Auto) 0.900 Neut % (Auto) 68.6 Lymph % (Auto) 9.7 L [place] % (Auto) 20.6 H Eos % (Auto) 0.0 Baso % (Auto) 0.2 Absolute Neuts (auto) 3.8 Absolute Lymphs (auto) 0.54 L Nucleated RBC % 0 Differential Comment SCANNED Toxic Granulation 2+ Toxic Vacuolation 1+ Dohle Bodies 1+ Platelet Estimate ADEQUATE Polychromasia 1+ Anisocytosis 1+ Target Cells RARE Tear Drop Cells RARE Sodium 136 Potassium 3.8 Chloride 101 Carbon Dioxide 26.0 Anion Gap 9 BUN 29 H Creatinine 1.30 Estim Creat Clear Calc 42.30 Est GFR (MDRD) Af Amer 68 Est GFR (MDRD) Non-Af 56 L BUN/Creatinine Ratio 22.3 H Glucose 123 H Lactic Acid 1.7 Calcium 9.7 Total Bilirubin 1.10 H AST 34 ALT 25 Alkaline Phosphatase 99 Total Protein 7.1 Albumin 2.7 L Globulin 4.4 H Albumin/Globulin Ratio 0.6 L Radiography Chest X-Ray - ED: Read by ED Physician (3 view chest x-ray reveals increased interstitial markings right lower lobe. The right hemidiaphragm is not obscured. The film is slightly rotated. There is no evidence of effusion or pneumothorax. Cardiac silhouette and size normal.Lateral view is unremarkable.) Diagnostic Testing: Clinical Impression(s) from Imaging Studies Chest X-Ray 01/25/24 10:43 IMPRESSION: Findings suggest a right lower lobe infiltrate superimposed on bibasilar scarring. Electronically Signed: Steven Quiroz MD at 12:27 EDT , EKG Initial EKG: Attestation: I personally reviewed and interpreted this EKG as follows: Interpretation: Sinus Tachycardia (Rate is at 101. There is premature atrial beats noted. FL interval is under 6 6 ms. Cures duration 142 ms. Patient has configuration of a right bundle branch block and there is also evidence of a left anterior fascicular block. QT duration 366 ms. [place] to left.) Treatment and Re-Evaluation :: Patient has 3 SIRS criteria. Since he is on 60 L of oxygen will contact hospitalist for admission to stepdown versus ICU. He is still tachypneic breathing 35 times a minute. Chest x-ray reveals evidence of pneumonia. Comments:: Patient was reevaluated at 1300. Patient's blood pressure is 81/61. Since he already has received 1 L of normal saline will order 1.5 L. Hospitalist has been paged since he is now hypotensive. Critical Care Time Critical Care Time: Yes Critical care time (excluding procedures): 30-74 minutes (34), Including time spent: (History, physical, documentation, treatment of hypotension, treatment for sepsis review of prior records.), Discussing w/Patient &/or Family/Senior Hr Generalist, Discussing w/Consultants, Arranging Admission or Transfer and - (Fluid bolus 30 cc/kg for hypotension.) Discharge Plan Dx/Rx/DC Orders Clinical Impression: Acute hypoxemic respiratory failure, Right lower lobe pneumonia, Bronchospasm, acute, History of COPD, Acute hypotension, Severe sepsis with acute organ dysfunction Disposition Disposition: [facility]
--- NOTE | 2024-01-25 13:31 | PCM.HP.STD ---
HPI - General General Date of Admission: 01/25/24 Date of Service: 01/25/24 Chief Complaint: Cough, mild shortness of breath for 10 days HPI Narrative DHARA ORDONEZ, is a 83 M productive cough, shortness of breath ongoing for 10 days. He has been getting progressively sick with more dyspnea on exertion and then dyspnea at rest. His sputum consistency also changed with thick, turned from whitish to greenish-yellow last 24 hours. His denies fever but is feeling cold, malaise and generalized weakness. Denies chest pain or pressure or tightness. Denies history of COPD. History of CAD with blockage as described by but did not require history. His usual blood pressure is systolic 110s but in the ED his blood pressure dropped to systolic 80s despite 1 L of fluid bolus. Second liter of IV fluid boluses on. Temperature 99.9 ?F. Patient tachypneic. Pulse ox episode percent on room air progressively increased currently on Airvo. No respiratory pathogen testing was done or even ordered in ED. chest x-ray shows right lower lobe infiltrate. IV ceftriaxone and Zithromax ordered. [facility] Medical History Generalized anxiety disorder Major depressive disorder in remission Anxiety GERD (gastroesophageal reflux disease) Former smoker COPD (chronic obstructive pulmonary disease) Myocardial infarct Triple vessel coronary artery disease History of tobacco abuse Atherosclerotic heart disease of [place] coronary artery without angina pectoris History of non-ST elevation myocardial infarction (NSTEMI) Hyperlipidemia CVA (cerebral vascular accident) Intracerebral hemorrhage Anxiety Depression Home Medications ?Medication ?Instructions ?Recorded ?Last Taken ?Type acetaminophen 325 mg tablet 650 mg PO QHS PAIN 10/10/20 01/24/24 History atorvastatin 40 mg tablet 40 mg PO QHS CHOLESTEROL 10/10/20 01/24/24 History losartan 25 mg tablet 25 mg PO DAILY BP 10/10/20 01/25/24 History melatonin 5 mg capsule 5 mg PO QHS SLEEP 10/10/20 01/24/24 History cetirizine 10 mg tablet (Zyrtec) 10 mg PO DAILY 12/10/20 01/25/24 History escitalopram oxalate 20 mg tablet 20 mg PO DAILY #90 tabs 12/31/23 01/25/24 Rx lorazepam 0.5 mg tablet 0.5 mg PO BID ANXIETY 30 days #60 12/31/23 01/25/24 Rx tabs mirtazapine 15 mg tablet 15 mg PO QHS DEPRESSION 90 days 12/31/23 01/24/24 Rx #90 tabs quetiapine 100 mg tablet See Rx Instructions .Route 12/31/23 01/24/24 Rx .COMPLEX #90 tabs quetiapine 25 mg tablet 25 mg PO QAM #90 tabs 12/31/23 01/25/24 Rx guaifenesin 600 mg tablet, 1,200 mg PO BID 01/25/24 01/25/24 History extended release 12 hr (Mucinex) Allergy/AdvReac Type Severity Reaction Status Date / Time No Known Allergies Allergy Verified 01/25/24 10:28 Family History Father Heart disease Dementia Mother CVA (cerebral vascular accident) Dementia Other Sepsis Surgical History History of thoracentesis History of vasectomy Social History household members: spouse Smoking Status: Former smoker how long ago did patient quit smoking: Quit 5-7 yrs prior, started in college, 1-1.5 ppd. alcohol intake: never substance use type: does not use ROS ROS Narrative Constitutional: Reports fatigue and weakness. Denies fever, allergies, HPI. Mild headache HEENT: Reports systems reviewed and no addt'l complaints, except as documented Respiratory/Chest: No history of COPD/wheezing. Rest as described in HPI CVS: Denies chest pressure or pain. Gastrointestinal: Denies coffee ground emesis, hematemesis or vomiting Genitourinary: Denies burning urination or new urinary tract symptoms Musculoskeletal: Denies acute joint pain or limited range of motion. No acute injury Neurologic: Denies seizure-like symptoms. History of meningitis with sepsis in the past. skin: No ulcer. No rash Endocrinology: Reports systems reviewed and no addt'l complaints, except as documented Hematologic/Lymphatic: Reports systems reviewed and no addt'l complaints, except as documented Rest 14 ROS are negative except as mentioned in HPI Vital Signs Vital Signs Vital Signs: 01/25/24 10:28 01/25/24 10:35 01/25/24 11:06 Temperature 97.0 F L Temperature Source Temporal Pulse Rate 106 H 107 H Respiratory Rate 24 H 32 H Respiratory Effort Respiratory Depth Respiratory Pattern Blood Pressure 101/57 L Blood Pressure Mean 71 Pulse Ox 87 92 Oxygen Delivery Method Room Air Nasal Cannula Oxygen Flow Rate (L/min) 2 Fraction of Inspired Oxygen (FIO2) 01/25/24 11:28 01/25/24 11:28 01/25/24 12:00 Temperature Temperature Source Pulse Rate 106 H 102 H Respiratory Rate 35 H 30 H Respiratory Effort Short of Breath Accessory Muscle Use Respiratory Depth Shallow Respiratory Pattern Tachypnea Blood Pressure 114/63 108/64 Blood Pressure Mean 80 78 Pulse Ox 96 95 Oxygen Delivery Method Nasal Cannula Nasal Cannula Airvo Oxygen Flow Rate (L/min) 4 4 Fraction of Inspired Oxygen (FIO2) 01/25/24 12:15 01/25/24 13:17 01/25/24 13:19 Temperature 99.9 F H Temperature Source Axillary Pulse Rate 104 H 17 L 96 Respiratory Rate 24 H 103 H 29 H Respiratory Effort Respiratory Depth Respiratory Pattern Blood Pressure 106/59 L 86/68 L Blood Pressure Mean 74 74 Pulse Ox 94 96 Oxygen Delivery Method Airvo Oxygen Flow Rate (L/min) Fraction of Inspired Oxygen (FIO2) 50 Weight Weight: 183 lb Body Mass Index (BMI) 27.0 Physical Exam Narrative General: Alert, Oriented x3, Cooperative, middle-aged, fatigue. HEENT: Atraumatic, PERRLA, EOMI, Normocephalic Oral: Oral mucosa dry. No Gingival or Mucosal Lesions/ Ulcerations Neck: Supple, No JVD, Negative Carotid Bruits Chest wall/Lungs: Air entry diminished in both lungs predominantly in right lung base. Bilateral coarse crepitations. Tachypnea and severe hypoxia Cardiovascular: Sinus tachycardia, normal S1, Normal S2, No M/G/R Abdomen: Bowel Sounds Present, Soft, Non Tender, Non-Distended : No dysuria. No renal angle tenderness. No suprapubic tenderness. Extremities: Mild pedal bilateral pitting edema, Capillary Refill Less than 3 Seconds Skin: No rashes, No breakdown Musculoskeletal: No Tenderness to Palpation of Joints or Extremities. ROM full but bilateral degenerative arthritis Neurological: Cranial nerves II-XII grossly intact, DTR 2+/4. No acute focal neurological deficit. Psych/Mental Status: Flat affect. Results Lab / Micro Data 01/25/24 11:09 01/25/24 11:09 Labs: Laboratory Results - last 24 hr 01/25/24 11:09: WBC 5.6, RBC 4.02 L, Hgb 11.7 L, Hct 36.0 L, MCV 89.6, MCH 29.1, MCHC 32.5, RDW Std Deviation 47.7 H, RDW Coeff of Ethan 14.5, Plt Count 190, MPV 11.0, Immature Gran % (Auto) 0.900, Neut % (Auto) 68.6, Lymph % (Auto) 9.7 L, [place] % (Auto) 20.6 H, Eos % (Auto) 0.0, Baso % (Auto) 0.2, Absolute Neuts (auto) 3.8, Absolute Lymphs (auto) 0.54 L, Nucleated RBC % 0, Differential Comment SCANNED, Toxic Granulation 2+, Toxic Vacuolation 1+, Dohle Bodies 1+, Platelet Estimate ADEQUATE, Polychromasia 1+, Anisocytosis 1+, Target Cells RARE, Tear Drop Cells RARE, Sodium 136, Potassium 3.8, Chloride 101, Carbon Dioxide 26.0, Anion Gap 9, BUN 29 H, Creatinine 1.30, Estim Creat Clear Calc 42.30, Est GFR (MDRD) Af Amer 68, Est GFR (MDRD) Non-Af 56 L, BUN/Creatinine Ratio 22.3 H, Glucose 123 H, Lactic Acid 1.7, Calcium 9.7, Total Bilirubin 1.10 H, AST 34, ALT 25, Alkaline Phosphatase 99, Total Protein 7.1, Albumin 2.7 L, Globulin 4.4 H, Albumin/Globulin Ratio 0.6 L Imaging Radiology Impression Chest X-Ray 01/25/24 10:43 IMPRESSION: Findings suggest a right lower lobe infiltrate superimposed on bibasilar scarring. Electronically Signed: Steven Quiroz MD at 12:27 EDT , Assessment & Plan Assessment/Plan (1) Right lower lobe pneumonia: (2) Acute hypoxemic respiratory failure: PLAN: Plan This is a 83-year-old gentleman being admitted for shortness of breath, severe tachypnea and hypoxia, hypotension suggestive of sepsis. 1. Suspected sepsis due to right lower lobe pneumonia: Patient is being admitted in ICU. The patient presented with sepsis with clinical indicators shortness of breath, tachypnea, hypoxia of due to right lower lobe consolidation/pneumonia with acute sepsis-related organ dysfunction as evidenced by hypotension, SBP requiring IV fluid bolus and acute hypoxic respiratory failure. WBC count normal but ALC low, toxic granulation 2+, toxic methylation, Dohle bodies all suggestive of sepsis. Chest x-ray reviewed and shows right lower lobe infiltrate with bibasilar atelectasis. IV fluid bolus 30 mill per KG as per sepsis protocol. Levophed blood pressure is still low. IV antibiotic upgraded to IV Zosyn and vancomycin. Sepsis workup ordered. 2. Acute hypoxic respiratory failure requiring Airvo: ABG ordered. Behavioral Pediatrician consulted. Discussed with the patient's and does not want intubation or ventilator therefore DNRCC arrest with no intubation. 3. Atherosclerotic heart disease, CAD triple-vessel disease: On medical treatment. Patient was admitted in 2019 and was suggested CABG but opted for medical management. 4. Chronic CVA/intracerebral hemorrhage, dementia, anxiety and depression with left hip severe arthritis: Patient follows psychiatris Dr. Brian. 5. Hypertension and dyslipidemia: Patient on a statin. Blood pressure is low, hypotension as described above 6. Former tobacco smoker: Started 1 to 1.5 pack/day in college. Quit about 7 years ago. As per his doctor, he does not have COPD DVT prophylaxis: On Lovenox 40 mg subcu daily. Living will/advanced directive/end of life care: Patient does have living will or advanced directive. His , May near the bedside is power of [employer] worker for health. She showed me the paper signed by PCP Dr. Ming Mckeon as DNR CC but she meant DNR CC arrest with no intubation. After discussion of benefits/risks procedures involved with full code, DNR CC arrest and DNR CC, the patient opted for full code. Patient and his do not want artificial life support including intubation, tube feed, ventilator and/chest compression, and DC shock if needed but okay with CVC catheter/PICC line and vasopressin Total time spent in [id number] encounter in discussion of advanced directive 17 minutes. Laboratory Results 01/25/24 11:09: WBC 5.6, RBC 4.02 L, Hgb 11.7 L, Hct 36.0 L, MCV 89.6, MCH 29.1, MCHC 32.5, RDW Std Deviation 47.7 H, RDW Coeff of Ethan 14.5, Plt Count 190, MPV 11.0, Immature Gran % (Auto) 0.900, Neut % (Auto) 68.6, Lymph % (Auto) 9.7 L, [place] % (Auto) 20.6 H, Eos % (Auto) 0.0, Baso % (Auto) 0.2, Absolute Neuts (auto) 3.8, Absolute Lymphs (auto) 0.54 L, Nucleated RBC % 0, Differential Comment SCANNED, Toxic Granulation 2+, Toxic Vacuolation 1+, Dohle Bodies 1+, Platelet Estimate ADEQUATE, Polychromasia 1+, Anisocytosis 1+, Target Cells RARE, Tear Drop Cells RARE, Sodium 136, Potassium 3.8, Chloride 101, Carbon Dioxide 26.0, Anion Gap 9, BUN 29 H, Creatinine 1.30, Estim Creat Clear Calc 42.30, Est GFR (MDRD) Af Amer 68, Est GFR (MDRD) Non-Af 56 L, BUN/Creatinine Ratio 22.3 H, Glucose 123 H, Lactic Acid 1.7, Calcium 9.7, Total Bilirubin 1.10 H, AST 34, ALT 25, Alkaline Phosphatase 99, Total Protein 7.1, Albumin 2.7 L, Globulin 4.4 H, Albumin/Globulin Ratio 0.6 L 01/25/24 13:22: PT 16.4 H, INR 1.3, APTT 38.2 H, Lactic Acid Pending, Magnesium Pending, Total Creatine Kinase Pending Clinical Impression(s) from Imaging Studies Chest X-Ray 01/25/24 10:43 IMPRESSION: Findings suggest a right lower lobe infiltrate superimposed on bibasilar scarring. Charges/Coding Visit Charges Inpatient E&M: 25826 Init Hosp L3 Procedures Hospitalists Procedures: 21344 Advncd Care Plan 30 Min
[2024-01-25 13:38] LABS: International Normalized Ratio 1.3; Prothrombin Time (Protime)PT. 16.4 SECONDS (11.7-14.9)
[2024-01-25 13:39] LABS: Partial Thromboplast Time 38.2 Seconds (24.1-36.2)
[2024-01-25 13:45] LABS: CPK Total, Creatine Kinase 125 U/L (39-308); Magnesium 1.7 mg/dL (1.6-2.6)
[2024-01-25 14:05] LABS: Lactic Acid 2.3 mmol/L (0.4-1.9)
[2024-01-25 14:07] LABS: Mucous, Urine 0 SEEN /hpf (<or=2+); Red Blood Cells-Urine 0 SEEN /hpf (0-5)
[2024-01-25] MEDS: 0.9% Normal Saline (500mL Bag) 500 ML 1000 ML IV (14:09)
[2024-01-25 14:11] LABS: Color, Urine Yellow (Yellow); Glucose, Dipstick Normal (Normal); Ketone-Dipstick Negative (Negative); Leukocyte Esterase-Dipstick 25 /ul (Negative); Nitrite-Dipstick Negative (Negative); Occult Blood-Urine 150 /ul (Negative); Protein-Dipstick 100 mg/dl (Negative); Urine Bilirubin Dipstick Negative (Negative); Urine Clarity Sl. Cloudy (Clear); Urine Urobilinogen 1 mg/dl (Normal)
[2024-01-25 14:22] LABS: Squamous Epithelial Cells - UA 0-5 SEEN /hpf (0-5)
[2024-01-25 14:23] LABS: Fine Granular Cast- Urine 0-5 SEEN /lpf (0-5); Hyaline Cast 0-5 SEEN /lpf (0-5); White Blood Cells 0-5 SEEN /hpf (0-5)
[2024-01-25 14:26] LABS: Bacteria 3+ /hpf (None Seen); Transitional Epithelial - Ur 0-5 SEEN /hpf (0-5)
--- NOTE | 2024-01-25 15:03 | SEPSISATNOTE ---
Sepsis Attestation Sepsis Alert: Yes Sepsis Attestation: Agree w/Sepsis Date exam was performed: 01/25/24 Time exam was performed: 12:45 Possible Source of Sepsis: Pulmonary Sepsis Organ Dysfunction Criteria Present: SBP < 90 mmHg or MAP < 65 mmHg, Acute Respiratory Failure (New need for BiPAP/CPAP or MV) and UOP < 0.5 mL/kg/hour for 2 consecutive hours Fluid Resuscitation Fluid resuscitation indicated?: Yes Fluid Resuscitation ordered: 30 ml/kg fluid bolus ordered Amount of fluid ordered: 2,500 Sepsis Note Date exam was performed: 01/25/24 Time exam was performed: 15:17 Sepsis Attestation: Sepsis re-evaluation was performed Response to fluids: Fluid responsive hypotension (Last blood pressure 114/64. No urine output since admission. Bladder scan, discussed with nursing staff.)
[2024-01-25] MEDS: 0.9% Normal Saline (250mL Bag) 250 ML 15 ML IV (15:29)
[2024-01-25] MEDS: Piperacil/Tazobactam 3.375 GM in 0.9% Normal Saline (50mL MB+) 50 ML IV ×2 (15:33→20:51)
[2024-01-25] MEDS: Enoxaparin 40 MG/0.4 ML Syringe SC (15:35)
[2024-01-25] MEDS: Ipratropium/Albuterol Sulfate 3 ML AMPUL.NEB INHALATION ×2 (15:39→19:22)
[2024-01-25 15:48] LABS: Base Excess -2 mmol/L (-2 to +2); Blood Gas Specimen Type ART; Mode Not entered; O2 Delivery Device Cannula; PO2 85 mmHG (75-100); SITE R Brach; SO2 96 % (95-99); Total Carbon Dioxide 24 mmol/L; pCO2 40.8 mmHg (35-45); pH 7.36 (7.35-7.45)
[2024-01-25] MEDS: Vancomycin HCl 1,250 MG in 0.9% Normal Saline (250mL Bag) 250 ML 167 MG IV (17:23)
[2024-01-25 17:25] LABS: Reflex Lactate? Y
[2024-01-25] MEDS: dexAMETHasone 10 MG/ML Vial 6 MG IV (17:50)
--- NOTE | 2024-01-25 18:35 | PCM.RX.CS ---
Consult Antibiotic Management Pharmacy has been consulted to manage selected antibiotic: Vancomycin Type of Intervention Type of Consult: New start Suspected Infection Suspected Infection: Pneumonia Labs Labs: Sodium 136 mmol/L (136-145) 01/25/24 11:09 Potassium 3.8 mmol/L (3.5-5.1) 01/25/24 11:09 Chloride 101 mmol/L (98-107) 01/25/24 11:09 Carbon Dioxide 26.0 mmol/L (21.0-32.0) 01/25/24 11:09 Anion Gap 9 (5-15) 01/25/24 11:09 BUN 29 mg/dL (7-18) H 01/25/24 11:09 Creatinine 1.30 mg/dL (0.70-1.30) 01/25/24 11:09 Est GFR (MDRD) Af Amer 68 mL/min (>60) 01/25/24 11:09 Est GFR (MDRD) Non-Af 56 mL/min (>60) L 01/25/24 11:09 BUN/Creatinine Ratio 22.3 RATIO (10-20) H 01/25/24 11:09 Glucose 123 mg/dL (74-106) H 01/25/24 11:09 Microbiology Microbiology: Microbiology 01/25/24 15:32 Mucosa - Nasopharyngeal Respiratory Panel (PCR) - Final 01/25/24 13:22 Mucosa - Nose SARS-CoV-2, Influenza & RSV (PCR) - Final SARS-CoV-2 (COVID 19 PCR) Pharmacy Plan for Drug Dosing Pharmacy Plan for Drug Dosing: NEW START IV VANCOMYCIN Consulting Physician: OTTONILE Indication: pneumonia Goal Trough: 15-20 mg/dl SrCr: 1.3 mg/dl0 CrCl: 42 ml/min Comments: initial standard dose of 1250mg given 01/24 @ 1723 Vancomycin Dose: will start 750mg Q12 and get a trough prior to 4th total dose Pending Level: 01/27/24 @ 0500 Pharmacy Service will continue to monitor and adjust dosing as required.
[2024-01-25 18:43] LABS: Lactic Acid 1.7 mmol/L (0.4-1.9)
[2024-01-26] VITALS (18 sets, daily range): BP systolic 92–131; BP diastolic 51–75; PULSE 63–86; RESP 18–36; TEMP 36.4–36.8; O2SAT 93–99; BMI 28.0
[2024-01-26 04:11] LABS: Hemoglobin 10.4 g/dL (13.0-16.5); Mean Corp Hgb Conc 33.5 g/dL (32-36); Mean Corpuscular Hgb 30.1 pg (27.0-32.0); Mean Corpuscular Volume 89.9 fL (80-94); Mean Platelet Vol. 10.7 fl (6.2-12.0); Platelet Count 163 K/mm3 (150-450); RBC Distribution Width CV 14.8 % (11.6-14.6); RBC Distribution Width SD 48.7 fl (35.1-43.9); Red Blood Count 3.45 M/mm3 (4.6-6.2); White Blood Count 5.3 K/mm3 (4.4-11.0)
[2024-01-26 04:26] LABS: Anion Gap 3 (5-15); BUN 20 mg/dL (7-18); BUN/Creat Ratio 24.4 RATIO (10-20); Calcium,Total 8.7 mg/dL (8.5-10.1); Chloride 109 mmol/L (98-107); Creatinine, Serum 0.82 mg/dL (0.70-1.30); EST Glomerular Filtration Rate 95 mL/min (>60); Est Glom Filt Rate - Afr Amer 115 mL/min (>60); Estimated Creatinine Clearance 71.29 ml/min; Glucose 162 mg/dL (74-106); Potassium 3.7 mmol/L (3.5-5.1); Sodium Level 139 mmol/L (136-145)
[2024-01-26] MEDS: Vancomycin HCl 750 MG in 0.9% Normal Saline (250mL Bag) 250 ML 250 MG IV (04:32)
[2024-01-26] MEDS: Piperacil/Tazobactam 3.375 GM in 0.9% Normal Saline (50mL MB+) 50 ML IV ×3 (04:34→21:26)
[2024-01-26] MEDS: Ipratropium/Albuterol Sulfate 3 ML AMPUL.NEB INHALATION ×4 (07:29→19:50)
--- NOTE | 2024-01-26 07:37 | CON.PCM.CC_ITS ---
Assessment & Plan Assessment/Plan (1) Acute hypoxemic respiratory failure: PLAN: Plan RECOMMENDATIONS: 1. Supplemental oxygen to maintain saturations at or above 90%. 2. Continue empiric antibiotics. Check MRSA screen. If negative, okay to discontinue vancomycin. 3. Continue Decadron to complete 10 days of therapy. 4. Encourage incentive spirometer use and mobilize patient as tolerated. 5. Continue appropriate DVT prophylaxis. IMPRESSIONS: 1. Acute hypoxemic respiratory failure Appears secondary to COVID-19 infection coupled with possible right lower lobe bacterial pneumonia. Given the duration of onset of symptoms, I agree with continuing Decadron along with empiric antibiotics. Recommend checking MRSA screen and discontinuing vancomycin if negative. The patient will be continued on supplemental oxygen to maintain saturations at or above 90%. Continue appropriate DVT prophylaxis. 2. History of coronary artery disease/hypertension/hyperlipidemia/depression/anxiety Complicates care, management, recovery and prognosis. Continue home medications as indicated. CODE STATUS: DNR CCA without intubation This note was generated with [employer] dictation software. It may contain incorrect words, spelling, and punctuation that were not noted in checking the note before signing. HPI Consult Data Date of Consult: 01/26/24 HPI Narrative Reason for Consultation: Acute hypoxemic respiratory failure HPI Narrative: The patient is an 83-year-old male, with a history as outlined below, who presented to the emergency department on January 24 with shortness of breath and cough which began approximately 1 week ago. The patient has a history of moderate obstructive lung disease based upon pulmonary function studies from 2018. In addition, the patient has known coronary artery disease, dementia, anxiety, hypertension and hyperlipidemia. The patient reported to me that he lives at home with his , but that she has not been ill recently. On presentation to the emergency department, the patient was noted to have a temperature of 97 ?F. He was mildly tachycardic and tachypneic but otherwise hemodynamically stable. Laboratory evaluation revealed a normal white blood cell count. The patient has chronic anemia with a stable hemoglobin. Platelet count was within normal limits. ABG was notable for a pH of 7.36 with a pCO2 of 40 pO2 of 85. Chemistry profile was unremarkable. Lactate was elevated at 2.3. Urine analysis was positive for leukocyte esterase and 3+ urine bacteria. Chest x-ray demonstrated a possible right lower lobe infiltrate. COVID PCR was positive. The patient received supplemental IV fluid hydration and was initiated on antimicrobials, along with Decadron. The patient was subsequently admitted to the medical intensive care unit for further management. [facility] Medical History Generalized anxiety disorder Major depressive disorder in remission Anxiety GERD (gastroesophageal reflux disease) Former smoker COPD (chronic obstructive pulmonary disease) Myocardial infarct Triple vessel coronary artery disease History of tobacco abuse Atherosclerotic heart disease of [place] coronary artery without angina pectoris History of non-ST elevation myocardial infarction (NSTEMI) Hyperlipidemia CVA (cerebral vascular accident) Intracerebral hemorrhage Anxiety Depression Home Medications ?Medication ?Instructions ?Recorded ?Last Taken ?Type acetaminophen 325 mg tablet 650 mg PO QHS PAIN 10/10/20 01/24/24 History atorvastatin 40 mg tablet 40 mg PO QHS CHOLESTEROL 10/10/20 01/24/24 History losartan 25 mg tablet 25 mg PO DAILY BP 10/10/20 01/25/24 History melatonin 5 mg capsule 5 mg PO QHS SLEEP 10/10/20 01/24/24 History cetirizine 10 mg tablet (Zyrtec) 10 mg PO DAILY 12/10/20 01/25/24 History escitalopram oxalate 20 mg tablet 20 mg PO DAILY #90 tabs 12/31/23 01/25/24 Rx lorazepam 0.5 mg tablet 0.5 mg PO BID ANXIETY 30 days #60 12/31/23 01/25/24 Rx tabs mirtazapine 15 mg tablet 15 mg PO QHS DEPRESSION 90 days 12/31/23 01/24/24 Rx #90 tabs quetiapine 100 mg tablet See Rx Instructions .Route 12/31/23 01/24/24 Rx .COMPLEX #90 tabs quetiapine 25 mg tablet 25 mg PO QAM #90 tabs 12/31/23 01/25/24 Rx guaifenesin 600 mg tablet, 1,200 mg PO BID 01/25/24 01/25/24 History extended release 12 hr (Mucinex) Allergy/AdvReac Type Severity Reaction Status Date / Time No Known Allergies Allergy Verified 01/25/24 10:28 Family History Father Heart disease Dementia Mother CVA (cerebral vascular accident) Dementia Other Sepsis Surgical History History of thoracentesis History of vasectomy Social History household members: spouse Smoking Status: Former smoker how long ago did patient quit smoking: Quit 5-7 yrs prior, started in college, 1-1.5 ppd. alcohol intake: never substance use type: does not use ROS ROS Narrative 10 systems were reviewed with pertinent positives as noted in the HPI above. Physical Exam Const alert and no apparent distress General Appearance: cooperative HEENT normocephalic, head/scalp atraumatic and moist oral mucous membranes Eyes PERRL, EOMs intact bilaterally and conjunctivae normal Neck supple General: trachea midline Chest inspection of chest normal Resp normal respiratory effort Auscultation: diminished lung sounds Cardio regular rate and regular rhythm GI normal to inspection, nondistended, normoactive bowel sounds Extremity no clubbing, cyanosis or edema Skin no rashes or lesions noted Neuro CN's II-XII intact bilaterally, moves all extremities and no focal motor deficits Psych cooperative and affect normal Lab / Micro Data 01/26/24 04:00 01/26/24 04:00 Labs: Laboratory Results - last 24 hr 01/25/24 11:09: WBC 5.6, RBC 4.02 L, Hgb 11.7 L, Hct 36.0 L, MCV 89.6, MCH 29.1, MCHC 32.5, RDW Std Deviation 47.7 H, RDW Coeff of Ethan 14.5, Plt Count 190, MPV 11.0, Immature Gran % (Auto) 0.900, Neut % (Auto) 68.6, Lymph % (Auto) 9.7 L, M jayson % (Auto) 20.6 H, Eos % (Auto) 0.0, Baso % (Auto) 0.2, Absolute Neuts (auto) 3.8, Absolute Lymphs (auto) 0.54 L, Nucleated RBC % 0, Differential Comment SCANNED, Toxic Granulation 2+, Toxic Vacuolation 1+, Dohle Bodies 1+, Platelet Estimate ADEQUATE, Polychromasia 1+, Anisocytosis 1+, Target Cells RARE, Tear Drop Cells RARE, Sodium 136, Potassium 3.8, Chloride 101, Carbon Dioxide 26.0, Anion Gap 9, BUN 29 H, Creatinine 1.30, Estim Creat Clear Calc 42.30, Est GFR (MDRD) Af Amer 68, Est GFR (MDRD) Non-Af 56 L, BUN/Creatinine Ratio 22.3 H, G lucose 123 H, Lactic Acid 1.7, Calcium 9.7, Total Bilirubin 1.10 H, AST 34, ALT 25, Alkaline Phosphatase 99, Total Protein 7.1, Albumin 2.7 L, Globulin 4.4 H, A lbumin/Globulin Ratio 0.6 L 01/25/24 13:22: PT 16.4 H, INR 1.3, APTT 38.2 H, Lactic Acid 2.3 H*, Magnesium 1.7, Total Creatine Kinase 125 01/25/24 14:00: Urine Color Yellow, Urine Clarity Sl. Cloudy, Urine pH 6.0, Ur Specific [place] 1.020, Urine Protein 100 H, Urine Glucose (UA) Normal, Urine Ketones Negative, Urine Occult Blood 150 H, Urine Nitrite Negative, Urine Bilirubin Negative, Urine Urobilinogen 1 H, Ur Leukocyte Esterase 25 H, Urine RBC 0 SEEN, Urine WBC 0-5 SEEN, Ur Squamous Epith Cells 0-5 SEEN, Ur Transition Epith Cell 0-5 SEEN, Urine Bacteria 3+, Hyaline Casts 0-5 SEEN, Fine Granular Casts 0-5 SEEN, Urine Mucus 0 SEEN 01/25/24 17:55: Lactic Acid 1.7 01/26/24 04:00: WBC 5.3, RBC 3.45 L, Hgb 10.4 L, Hct 31.0 L, MCV 89.9, MCH 30.1, MCHC 33.5, RDW Std Deviation 48.7 H, RDW Coeff of Ethan 14.8 H, Plt Count 163, MPV 10.7, Sodium 139, Potassium 3.7, Chloride 109 H, Carbon Dioxide 27.0, Anion Gap 3 L, BUN 20 H, Creatinine 0.82, Estim Creat Clear Calc 71.29, Est GFR (MDRD) Af Amer 115, Est GFR (MDRD) Non-Af 95, BUN/Creatinine Ratio 24.4 H, Glucose 162 H, Calcium 8.7 Micro: Microbiology 01/25/24 15:32 Mucosa - Nasopharyngeal Respiratory Panel (PCR) - Final 01/25/24 13:22 Mucosa - Nose SARS-CoV-2, Influenza & RSV (PCR) - Final SARS-CoV-2 (COVID 19 PCR) ABG Data ABG results: ABG 01/25/24 15:45 Specimen Type ART Sample Site R Brach pH 7.36 Bicarbonate Actual 23.0 Total CO2 24 Base Excess -2 O2 Saturation 96 O2 % 6.0 ABG pCO2 40.8 ABG pO2 85 O2 Delivery Device Cannula Vent Mode Not entered Imaging Radiology Impression Chest X-Ray 01/25/24 10:43 IMPRESSION: Findings suggest a right lower lobe infiltrate superimposed on bibasilar scarring. Electronically Signed: Steven Quiroz MD at 12:27 EDT , Charges/Coding Visit Charges Inpatient E&M: 86150 Init Hosp L3
[2024-01-26] MEDS: Enoxaparin 40 MG/0.4 ML Syringe SC (09:16)
[2024-01-26] MEDS: dexAMETHasone 10 MG/ML Vial 6 MG IV (09:16)
--- NOTE | 2024-01-26 09:18 | PN.HOSP_ITS ---
Reason for Visit Reason for Visit: Diagnoses Pneumonia, unspecified organism (01/25/24) Acute respiratory failure with hypoxia (01/25/24) Objective Data Objective Data Vital Signs: Vital Signs Temp Pulse Resp BP Pulse Ox O2 Del Method O2 Flow Rate 98.1 F 67 26 H 114/59 L 94 Airvo 60 01/26/24 04:00 01/26/24 07:32 01/26/24 07:32 01/26/24 07:00 01/26/24 07:32 01/26/24 07:00 01/26/24 06:00 FiO2 50 01/26/24 07:32 Oxygen Flow Rate (L/min) 60 Oxygen Delivery Method Airvo Weight: 189 lb 6.033 oz Body Mass Index (BMI) 28.0 Intake & Output: Intake and Output for Last 24 Hours 01/24/24 01/25/24 01/26/24 23:59 23:59 23:59 Intake Total 2857.75 / 2857.75 365 / 365 Output Total 375 / 375 125 / 125 Balance 2482.75 / 2482.75 240 / 240 Lab / Micro Data 01/26/24 04:00 01/26/24 04:00 Labs: Laboratory Results - last 24 hr 01/25/24 11:09: WBC 5.6, RBC 4.02 L, Hgb 11.7 L, Hct 36.0 L, MCV 89.6, MCH 29.1, MCHC 32.5, RDW Std Deviation 47.7 H, RDW Coeff of Ethan 14.5, Plt Count 190, MPV 11.0, Immature Gran % (Auto) 0.900, Neut % (Auto) 68.6, Lymph % (Auto) 9.7 L, M jayson % (Auto) 20.6 H, Eos % (Auto) 0.0, Baso % (Auto) 0.2, Absolute Neuts (auto) 3.8, Absolute Lymphs (auto) 0.54 L, Nucleated RBC % 0, Differential Comment SCANNED, Toxic Granulation 2+, Toxic Vacuolation 1+, Dohle Bodies 1+, Platelet Estimate ADEQUATE, Polychromasia 1+, Anisocytosis 1+, Target Cells RARE, Tear Drop Cells RARE, Sodium 136, Potassium 3.8, Chloride 101, Carbon Dioxide 26.0, Anion Gap 9, BUN 29 H, Creatinine 1.30, Estim Creat Clear Calc 42.30, Est GFR (MDRD) Af Amer 68, Est GFR (MDRD) Non-Af 56 L, BUN/Creatinine Ratio 22.3 H, G lucose 123 H, Lactic Acid 1.7, Calcium 9.7, Total Bilirubin 1.10 H, AST 34, ALT 25, Alkaline Phosphatase 99, Total Protein 7.1, Albumin 2.7 L, Globulin 4.4 H, A lbumin/Globulin Ratio 0.6 L 01/25/24 13:22: PT 16.4 H, INR 1.3, APTT 38.2 H, Lactic Acid 2.3 H*, Magnesium 1.7, Total Creatine Kinase 125 01/25/24 14:00: Urine Color Yellow, Urine Clarity Sl. Cloudy, Urine pH 6.0, Ur Specific [place] 1.020, Urine Protein 100 H, Urine Glucose (UA) Normal, Urine Ketones Negative, Urine Occult Blood 150 H, Urine Nitrite Negative, Urine Bilirubin Negative, Urine Urobilinogen 1 H, Ur Leukocyte Esterase 25 H, Urine RBC 0 SEEN, Urine WBC 0-5 SEEN, Ur Squamous Epith Cells 0-5 SEEN, Ur Transition Epith Cell 0-5 SEEN, Urine Bacteria 3+, Hyaline Casts 0-5 SEEN, Fine Granular Casts 0-5 SEEN, Urine Mucus 0 SEEN 01/25/24 17:55: Lactic Acid 1.7 01/26/24 04:00: WBC 5.3, RBC 3.45 L, Hgb 10.4 L, Hct 31.0 L, MCV 89.9, MCH 30.1, MCHC 33.5, RDW Std Deviation 48.7 H, RDW Coeff of Ethan 14.8 H, Plt Count 163, MPV 10.7, Sodium 139, Potassium 3.7, Chloride 109 H, Carbon Dioxide 27.0, Anion Gap 3 L, BUN 20 H, Creatinine 0.82, Estim Creat Clear Calc 71.29, Est GFR (MDRD) Af Amer 115, Est GFR (MDRD) Non-Af 95, BUN/Creatinine Ratio 24.4 H, Glucose 162 H, Calcium 8.7 Micro: Microbiology 01/25/24 15:32 Mucosa - Nasopharyngeal Respiratory Panel (PCR) - Final 01/25/24 13:22 Mucosa - Nose SARS-CoV-2, Influenza & RSV (PCR) - Final SARS-CoV-2 (COVID 19 PCR) ABG Data ABG results: ABG 01/25/24 15:45 Specimen Type ART Sample Site R Brach pH 7.36 Bicarbonate Actual 23.0 Total CO2 24 Base Excess -2 O2 Saturation 96 O2 % 6.0 ABG pCO2 40.8 ABG pO2 85 O2 Delivery Device Cannula Vent Mode Not entered Radiography Diagnostic Testing: Radiology Impression Chest X-Ray 01/25/24 10:43 IMPRESSION: Findings suggest a right lower lobe infiltrate superimposed on bibasilar scarring. Electronically Signed: Steven Quiroz MD at 12:27 EDT , Physical Exam Narrative Seen and examined. Patient sitting on the chair on Airvo. Still short of breath but better than yesterday. Patient hypotension recovered with IV fluid bolus and currently normotensive. Did not require vasopressor. Afebrile. Physical exam General: Alert, Oriented x3, Cooperative, middle-aged, fatigue. HEENT: Atraumatic, PERRLA, EOMI, Normocephalic Oral: Oral mucosa dry. No Gingival or Mucosal Lesions/ Ulcerations Neck: Supple, No JVD, Negative Carotid Bruits Chest wall/Lungs: Air entry diminished in both lungs. Bilateral coarse crepitations. Tachypnea and severe hypoxia Cardiovascular: Sinus tachycardia, normal S1, Normal S2, No M/G/R Abdomen: Bowel Sounds Present, Soft, Non Tender, Non-Distended : No dysuria. No renal angle tenderness. No suprapubic tenderness. Extremities: Mild pedal bilateral pitting edema, Capillary Refill Less than 3 Seconds Skin: No rashes, No breakdown Musculoskeletal: No Tenderness to Palpation of Joints or Extremities. ROM full but bilateral degenerative arthritis Neurological: Cranial nerves II-XII grossly intact, DTR 2+/4. No acute focal neurological deficit. Psych/Mental Status: Flat affect. Assessment & Plan Assessment/Plan (1) Right lower lobe pneumonia: (2) Acute hypoxemic respiratory failure: PLAN: Plan This is a 83-year-old gentleman being admitted for shortness of breath, severe tachypnea and hypoxia, hypotension suggestive of sepsis. 1. Suspected sepsis due to right lower lobe pneumonia: Patient is being admitted in ICU. The patient presented with sepsis with clinical indicators shortness of breath, tachypnea, hypoxia of due to right lower lobe consolidation/pneumonia with acute sepsis-related organ dysfunction as evidenced by hypotension, SBP requiring IV fluid bolus and acute hypoxic respiratory failure. WBC count normal but ALC low, toxic granulation 2+, Dohle bodies all suggestive of sepsis. Chest x-ray reviewed and shows right lower lobe infiltrate with bibasilar atelectasis. IV fluid bolus 30 mill per KG as per sepsis protocol. Levophed blood pressure is still low. IV antibiotic upgraded to IV Zosyn and vancomycin. Sepsis workup ordered. 01/25: Patient on Decadron. Does not qualify for remdesivir as patient's symptom for more than 10 days. Still tachypneic on Airvo. Patient on IV vancomycin and Zosyn 2. Acute hypoxic respiratory failure requiring Airvo: ABG ordered. Mall Manager consulted. Discussed with the patient's and does not want intubation or ventilator therefore DNRCC arrest with no intubation. ABG done on 01/25: 01/24 shows pH 7.3 6/41/85 on 6 L high flow oxygen. Therefore no hypercarbia. Patient seen by radiographic technologist. On Airvo. 3. Atherosclerotic heart disease, CAD triple-vessel disease: On medical treatment. Patient was admitted in 2019 and was suggested CABG but opted for medical management. 4. Chronic CVA/intracerebral hemorrhage, dementia, anxiety and depression with left hip severe arthritis: Patient follows psychiatris Dr. Brian. 5. Hypertension and dyslipidemia: Patient on a statin. Blood pressure is low, hypotension as described above 6. Former tobacco smoker: Started 1 to 1.5 pack/day in college. Quit about 7 years ago. As per his doctor, he does not have COPD DVT prophylaxis: On Lovenox 40 mg subcu daily. Living will/advanced directive/end of life care: Patient does have living will or advanced directive. His , May near the bedside is power of corporate associate attorney for health. She showed me the paper signed by PCP Dr. Ming Mckeon as DNR CC but she meant DNR CC arrest with no intubation. After discussion of benefits/risks procedures involved with full code, DNR CC arrest and DNR CC, the patient opted for full code. Patient and his do not want artificial life support including intubation, tube feed, ventilator and/chest compression, and DC shock if needed but okay with CVC catheter/PICC line and vasopressin Clinical Impression(s) from Imaging Studies Chest X-Ray 01/25/24 10:43 IMPRESSION: Findings suggest a right lower lobe infiltrate superimposed on bibasilar scarring. Charges/Coding Visit Charges Inpatient E&M: 90338 Subs Hosp L3
--- NOTE | 2024-01-26 09:18 | PCM.RX.CS ---
Consult Antibiotic Management Pharmacy has been consulted to manage selected antibiotic: Vancomycin Type of Intervention Type of Consult: Follow-up Suspected Infection Suspected Infection: Pneumonia Labs Labs: Sodium 139 mmol/L (136-145) 01/26/24 04:00 Potassium 3.7 mmol/L (3.5-5.1) 01/26/24 04:00 Chloride 109 mmol/L (98-107) H 01/26/24 04:00 Carbon Dioxide 27.0 mmol/L (21.0-32.0) 01/26/24 04:00 Anion Gap 3 (5-15) L 01/26/24 04:00 BUN 20 mg/dL (7-18) H 01/26/24 04:00 Creatinine 0.82 mg/dL (0.70-1.30) 01/26/24 04:00 Est GFR (MDRD) Af Amer 115 mL/min (>60) 01/26/24 04:00 Est GFR (MDRD) Non-Af 95 mL/min (>60) 01/26/24 04:00 BUN/Creatinine Ratio 24.4 RATIO (10-20) H 01/26/24 04:00 Glucose 162 mg/dL (74-106) H 01/26/24 04:00 Microbiology Microbiology: Microbiology 01/25/24 15:32 Mucosa - Nasopharyngeal Respiratory Panel (PCR) - Final 01/25/24 13:22 Mucosa - Nose SARS-CoV-2, Influenza & RSV (PCR) - Final SARS-CoV-2 (COVID 19 PCR) Pharmacy Plan for Drug Dosing Pharmacy Plan for Drug Dosing: DAILY ASSESSMENT Current Vancomycin Dose: 750MG Q12 Number of Doses Received: 2 Current Renal Function: SCR 0.82 MG/DL, CRCL 71 ML/MIN Renal Function Trend: IMPROVED Any Change in Vanc Plan: YES, INCREASE DOSE TO 1250MG Q12 DUE TO IMPROVEMENT IN SCR. WILL ADJUST TROUGH TO PRIOR TO THE 5TH DOSE TO ENSURE STEADY STATE AFTER INCREASING DOSE. Pending Level: 01/27/24 @ 1600 Pharmacy Service will continue to monitor and adjust dosing as required.
[2024-01-26] MEDS: LORazepam 0.5 MG Tablet PO ×2 (12:29→21:18)
[2024-01-26] MEDS: QUEtiapine 25 MG Tablet 50 MG PO (12:30)
--- NOTE | 2024-01-26 13:17 | CASEMGMT ---
Addendum entered by Bridger Bender 01/26/24 15:13: Daylin (Transition care nurse through [facility]) calls this RN CM. Daylin updated with pt status and POC at this time. Daylin states that the pt has a medical alert system and also transportation access through [facility]. The transportation service is through [id number] and the # is [phone]. Daylin's # is [phone]. Daylin states that they can increase the time the private duty aides are in the home if needed. Original Note: RN CM Assessment Face to Face with patient for initial transition planning/care coordination assessment. RN HAYDE introduced self and role at [facility], pt voices understanding. Pt is A&Ox4 and is resting comfortably in the chair and is calm. Care providers, pharmacy, and demographics verified. Admitting dx: RLL Pneumonia, Suspected Sepsis LACE Strata: 2 PCP: Maxwell Mcdonald Specialists: Dr. Pinzon (Psychiatry) Preferred Pharmacy: [facility] Insurance: My Best Interest [facility], [facility] Prescription Benefit: Yes LNOK: Geetha Jang (W), Kristie Rodrigezcheng (Sister [place]) Living Arrangements: Pt lives with his in a two story home with a FFSU and 3 steps to enter ADLs/IADLs: Pt requires assistance. Pt states that he is able to help him as well as his private duty aides. Pt states that he has private duty aides that come to his home 5 days per week for around 2 hours. Pt manages the pt medications Transportation: Pt . Denies concerns at this time DME: FWW, Rollator, Cane, Walk in shower with chair and grab bars. Pt states that he does not wear oxygen or a PAP at home. Pt is currently requiring additional oxygen. A Verbal list of local in-network DME companies provided to the pt at this time. Pt states that he prefers [facility]. HHC/SNF: States HH Hx but is unsure of the agency. Pt states that he has been to [facility] in the past Pt?s goal: Return to PLOF and return home Plan: TBD. Pt states that he would like to DC home once he is medically cleared. At this time the pt is refusing HH, SNF, or OP Tx needs. Pt states that he feels safe with the help of his and private duty aides. Pt states that I do physical exercises at home. PT and OT evaluations are pending. CM and SW to follow. CM to follow for oxygen needs. Ronald Bender RN C
[2024-01-26] MEDS: Vancomycin HCl 1,250 MG in 0.9% Normal Saline (250mL Bag) 250 ML 167 MG IV (16:26)
[2024-01-26] MEDS: guaiFENesin/D-Methorphan TAB.SR.12H 2 TABLET PO ×2 (16:31→21:21)
[2024-01-26] MEDS: Loratadine 10 MG Tablet PO (16:32)
[2024-01-26] MEDS: QUEtiapine 100 MG Tablet PO (21:21)
[2024-01-26] MEDS: Acetaminophen 325 MG Tablet 650 MG PO (21:21)
[2024-01-27 02:37] VITALS: BMI 27.6
[2024-01-27] MEDS: Vancomycin HCl 1,250 MG in 0.9% Normal Saline (250mL Bag) 250 ML 167 MG IV ×2 (03:24→18:13)
[2024-01-27 03:30] VITALS: BP 107/53; PULSE 85; RESP 18; TEMP 36.7; O2SAT 96
[2024-01-27] MEDS: Piperacil/Tazobactam 3.375 GM in 0.9% Normal Saline (50mL MB+) 50 ML IV ×3 (05:50→22:11)
[2024-01-27 09:00] VITALS: O2SAT 88
[2024-01-27] MEDS: 0.9% Saline Lock 10 ML Syringe IV ×2 (09:09→22:12)
[2024-01-27] MEDS: Enoxaparin 40 MG/0.4 ML Syringe SC (09:09)
[2024-01-27] MEDS: FLU VACCINE **HIGH DOSE** TV 24-25 180 MCG/0.5 ML SYRINGE IM (09:09)
[2024-01-27 09:10] VITALS: BP 140/47; PULSE 89; RESP 20; TEMP 36.6; O2SAT 94
[2024-01-27] MEDS: Loratadine 10 MG Tablet PO (09:10)
[2024-01-27] MEDS: guaiFENesin/D-Methorphan TAB.SR.12H 2 TABLET PO ×2 (09:10→22:03)
[2024-01-27] MEDS: QUEtiapine 25 MG Tablet PO (09:10)
[2024-01-27] MEDS: Losartan Potassium 25 MG Tablet PO (09:10)
[2024-01-27] MEDS: LORazepam 0.5 MG Tablet PO ×2 (09:10→22:03)
[2024-01-27] MEDS: dexAMETHasone 10 MG/ML Vial 6 MG IV (09:11)
--- NOTE | 2024-01-27 09:29 | PN.CC_ITS ---
Assessment & Plan Assessment/Plan (1) Acute hypoxemic respiratory failure: PLAN: Plan RECOMMENDATIONS: 1. Supplemental oxygen to maintain saturations at or above 90%. 2. Continue empiric antibiotics. 3. Continue Decadron to complete 10 days of therapy. 4. Encourage incentive spirometer use and mobilize patient as tolerated. 5. Continue appropriate DVT prophylaxis. 6. Will sign off from a critical care perspective. Please call with any additional questions. IMPRESSIONS: 1. Acute hypoxemic respiratory failure Appears secondary to COVID-19 infection coupled with possible right lower lobe bacterial pneumonia. Given the duration of onset of symptoms, I agree with continuing Decadron x 10 days, along with empiric antibiotics to complete 7 days of therapy. The patient will be continued on supplemental oxygen to maintain saturations at or above 90%. Continue appropriate DVT prophylaxis. Perform walking oximetry study prior to consideration for discharge home. 2. History of coronary artery disease/hypertension/hyperlipidemia/depression/anxiety Complicates care, management, recovery and prognosis. Continue home medications as indicated. CODE STATUS: DNR CCA without intubation This note was generated with [email or web address] dictation software. It may contain incorrect words, spelling, and punctuation that were not noted in checking the note before signing. Subjective Subjective The patient was seen and examined at the bedside this morning. Events from the last 24 hours have been reviewed. The patient is currently afebrile, hemodynamically stable and maintaining appropriate oxygen saturations on 2 L/min via nasal cannula. No overnight issues were reported. The patient remains on antimicrobials and Decadron. Objective Data Objective Data The patient's most recent lab work, culture data and imaging studies have all been personally reviewed. COVID PCR was positive on January 24. Vital Signs: Vital Signs Temp Pulse Resp BP Pulse Ox O2 Del Method O2 Flow Rate 97.9 F 89 20 H 140/47 H 94 Nasal Cannula 2 01/27/24 09:08 01/27/24 09:08 01/27/24 09:08 01/27/24 09:08 01/27/24 09:08 01/27/24 09:08 01/27/24 09:08 FiO2 40 01/26/24 14:42 Oxygen Flow Rate (L/min) 2 Oxygen Delivery Method Nasal Cannula Weight: 186 lb 8.177 oz Body Mass Index (BMI) 27.6 Intake & Output: Intake and Output for Last 24 Hours 01/25/24 01/26/24 01/27/24 23:59 23:59 23:59 Intake Total 2857.75 / 2857.75 1325 / 1675 775 / 775 Output Total 375 / 375 875 / 1175 600 / 600 Balance 2482.75 / 2482.75 450 / 500 175 / 175 Lab / Micro Data Attestation: I reviewed the patient's lab results. 01/26/24 04:00 01/26/24 04:00 Micro: Microbiology 01/25/24 11:09 Blood Culture (Wb) - Anticubital Left Blood Culture - Preliminary No growth in 48 hours. 01/26/24 12:00 Nasal Secretion MRSA (PCR) - Final 01/25/24 14:00 Urine, Clean Catch Legionella Antigen - Final 01/25/24 14:00 Urine, Clean Catch Streptococcus pneumoniae Antigen (M - Final 01/25/24 15:00 Sputum, Expectorated/Coughed Gram Stain - Final 01/25/24 15:00 Sputum, Expectorated/Coughed Respiratory Culture - Preliminary Appears to be normal respiratory jose. Further studies to follow. 01/25/24 14:00 Urine, Random Urine Culture - Preliminary Culture exhibits no growth. 01/25/24 15:32 Mucosa - Nasopharyngeal Respiratory Panel (PCR) - Final 01/25/24 13:22 Mucosa - Nose SARS-CoV-2, Influenza & RSV (PCR) - Final SARS-CoV-2 (COVID 19 PCR) Physical Exam Const alert and no apparent distress General Appearance: cooperative HEENT normocephalic, head/scalp atraumatic and moist oral mucous membranes Eyes PERRL, EOMs intact bilaterally and conjunctivae normal Neck supple General: trachea midline Chest inspection of chest normal Resp normal respiratory effort Auscultation: diminished lung sounds Cardio regular rate and regular rhythm GI normal to inspection, nondistended, normoactive bowel sounds Extremity no clubbing, cyanosis or edema Skin no rashes or lesions noted Neuro CN's II-XII intact bilaterally, moves all extremities and no focal motor deficits Psych cooperative and affect normal Charges/Coding Visit Charges Inpatient E&M: 80661 Subs Hosp L2
--- NOTE | 2024-01-27 11:30 | CASEMGMT ---
Patient's Geetha asked to speak with this RN CM regarding discharge planning. RN CM reviewed progress with therapy and patient ambulated SBA with therapy. Patient is currently on 2lpm of oxygen. RN CM discussed possible HHC and home oxygen at discharge. voiced concerns with patient coming home at discharge. RN CM informed that therapy will continue to work with patient and provide recommendations for at discharge. voiced understanding and had no further questions or concerns. CM will continue to follow this patient and plan for a safe discharge.
[2024-01-27 14:20] VITALS: O2SAT 91
--- NOTE | 2024-01-27 14:49 | PCM.PN.HOSP ---
Reason for Visit Reason for Visit: Diagnoses Pneumonia, unspecified organism (01/25/24) Acute respiratory failure with hypoxia (01/25/24) Objective Data Objective Data Vital Signs: Vital Signs Temp Pulse Resp BP Pulse Ox O2 Del Method O2 Flow Rate 97.9 F 89 20 H 140/47 H 94 Nasal Cannula 2 01/27/24 09:10 01/27/24 09:10 01/27/24 09:10 01/27/24 09:10 01/27/24 09:10 01/27/24 14:00 01/27/24 14:00 FiO2 40 01/26/24 14:42 Oxygen Flow Rate (L/min) 2 Oxygen Delivery Method Nasal Cannula Weight: 186 lb 8.177 oz Body Mass Index (BMI) 27.6 Intake & Output: Intake and Output for Last 24 Hours 01/25/24 01/26/24 01/27/24 23:59 23:59 23:59 Intake Total 2857.75 / 2857.75 1325 / 1675 1017.5 / 1017.5 Output Total 375 / 375 875 / 1175 600 / 600 Balance 2482.75 / 2482.75 450 / 500 417.5 / 417.5 Lab / Micro Data 01/26/24 04:00 01/26/24 04:00 Micro: Microbiology 01/25/24 15:00 Sputum, Expectorated/Coughed Gram Stain - Final 01/25/24 15:00 Sputum, Expectorated/Coughed Respiratory Culture - Preliminary Staphylococcus aureus 01/25/24 11:09 Blood Culture (Wb) - Anticubital Left Blood Culture - Preliminary No growth in 48 hours. 01/26/24 12:00 Nasal Secretion MRSA (PCR) - Final 01/25/24 14:00 Urine, Clean Catch Legionella Antigen - Final 01/25/24 14:00 Urine, Clean Catch Streptococcus pneumoniae Antigen (M - Final 01/25/24 14:00 Urine, Random Urine Culture - Preliminary Culture exhibits no growth. 01/25/24 15:32 Mucosa - Nasopharyngeal Respiratory Panel (PCR) - Final 01/25/24 13:22 Mucosa - Nose SARS-CoV-2, Influenza & RSV (PCR) - Final SARS-CoV-2 (COVID 19 PCR) Physical Exam Narrative Seen and examined. The patient was on Airvo about 40% FiO2 last night. Currently on oxygen through nasal cannula. Respiratory status has improved. Was transferred from ICU yesterday. Afebrile. Physical exam General: Alert, Oriented x3, Cooperative, middle-aged, fatigue. HEENT: Atraumatic, PERRLA, EOMI, Normocephalic Oral: Oral mucosa dry. No Gingival or Mucosal Lesions/ Ulcerations Neck: Supple, No JVD, Negative Carotid Bruits Chest wall/Lungs: Air entry diminished in both lungs. Improvement in crepitations. Dyspnea on exertion Cardiovascular: Sinus tachycardia, normal S1, Normal S2, No M/G/R Abdomen: Bowel Sounds Present, Soft, Non Tender, Non-Distended : No dysuria. No renal angle tenderness. No suprapubic tenderness. Extremities: Mild pedal bilateral pitting edema, Capillary Refill Less than 3 Seconds Skin: No rashes, No breakdown Musculoskeletal: No Tenderness to Palpation of Joints or Extremities. ROM full but bilateral degenerative arthritis Neurological: Cranial nerves II-XII grossly intact, DTR 2+/4. No acute focal neurological deficit. Psych/Mental Status: Flat affect. Assessment & Plan Assessment/Plan (1) Right lower lobe pneumonia: (2) Acute hypoxemic respiratory failure: PLAN: Plan This is a 83-year-old gentleman being admitted for shortness of breath, severe tachypnea and hypoxia, hypotension suggestive of sepsis. 1. Suspected sepsis due to right lower lobe pneumonia, suspected bacterial secondary infection on COVID-pneumonia: Patient is being admitted in ICU. The patient presented with sepsis with clinical indicators shortness of breath, tachypnea, hypoxia of due to right lower lobe consolidation/pneumonia with acute sepsis-related organ dysfunction as evidenced by hypotension, SBP requiring IV fluid bolus and acute hypoxic respiratory failure. WBC count normal but ALC low, toxic granulation 2+, Dohle bodies all suggestive of sepsis. Chest x-ray reviewed and shows right lower lobe infiltrate with bibasilar atelectasis. IV fluid bolus 30 mill per KG as per sepsis protocol. Levophed blood pressure is still low. IV antibiotic upgraded to IV Zosyn and vancomycin. Sepsis workup ordered. 01/25: Patient on Decadron. Does not qualify for remdesivir as patient's symptom for more than 10 days. Still tachypneic on Airvo. Patient on IV vancomycin and Zosyn 01/26: Prelim sputum culture is growing 2+ GPC, Staph aureus exact typing and sensitivity pending. Continue IV vancomycin and Zosyn. 2. Acute hypoxic respiratory failure requiring Airvo: ABG ordered. Microfabrication Engineer Manager consulted. Discussed with the patient's and does not want intubation or ventilator therefore DNRCC arrest with no intubation. ABG done on 01/25: 01/24 shows pH 7.3 6/41/85 on 6 L high flow oxygen. Therefore no hypercarbia. Patient seen by concrete pavement installer. On Airvo. 01/26: Hypoxia/oxygen requirement is better. 3. Atherosclerotic heart disease, CAD triple-vessel disease: On medical treatment. Patient was admitted in 2019 and was suggested CABG but opted for medical management. 4. Chronic CVA/intracerebral hemorrhage, dementia, anxiety and depression with left hip severe arthritis: Patient follows psychiatris Dr. Brian. 01/26: Patient on quetiapine 25 mg a.m. and 100 mg nightly, lorazepam 0.5 mg twice daily. Home medication escitalopram resumed. 5. Hypertension and dyslipidemia: Patient on a statin. Blood pressure is low, hypotension as described above 01/26: BP recovered currently 140 systolic. 6. Former tobacco smoker: Started 1 to 1.5 pack/day in college. Quit about 7 years ago. As per his doctor, he does not have COPD DVT prophylaxis: On Lovenox 40 mg subcu daily. Living will/advanced directive/end of life care: Patient does have living will or advanced directive. His , May near the bedside is power of supervisor leaf spring fabrication for health. She showed me the paper signed by PCP Dr. Ming Mckeon as DNR CC but she meant DNR CC arrest with no intubation. After discussion of benefits/risks procedures involved with full code, DNR CC arrest and DNR CC, the patient opted for full code. Patient and his do not want artificial life support including intubation, tube feed, ventilator and/chest compression, and DC shock if needed but okay with CVC catheter/PICC line and vasopressin Clinical Impression(s) from Imaging Studies Chest X-Ray 01/25/24 10:43 IMPRESSION: Findings suggest a right lower lobe infiltrate superimposed on bibasilar scarring. Charges/Coding Visit Charges Inpatient E&M: 58380 Subs Hosp L2
[2024-01-27 15:00] VITALS: BP 96/83; PULSE 86; RESP 17; TEMP 36.7; O2SAT 96
[2024-01-27 16:58] LABS: Vancomycin, Trough Level 17.9 ug/mL (5.0-15.0)
--- NOTE | 2024-01-27 17:26 | PCM.RX.CS ---
Consult Antibiotic Management Pharmacy has been consulted to manage selected antibiotic: Vancomycin Type of Intervention Type of Consult: Follow-up Suspected Infection Suspected Infection: Pneumonia Prior Doses of Antibiotics Prior Doses of Antibiotics Received/Current Regimen: On 1250mg iv q12h Labs Labs: Sodium 139 mmol/L (136-145) 01/26/24 04:00 Potassium 3.7 mmol/L (3.5-5.1) 01/26/24 04:00 Chloride 109 mmol/L (98-107) H 01/26/24 04:00 Carbon Dioxide 27.0 mmol/L (21.0-32.0) 01/26/24 04:00 Anion Gap 3 (5-15) L 01/26/24 04:00 BUN 20 mg/dL (7-18) H 01/26/24 04:00 Creatinine 0.82 mg/dL (0.70-1.30) 01/26/24 04:00 Est GFR (MDRD) Af Amer 115 mL/min (>60) 01/26/24 04:00 Est GFR (MDRD) Non-Af 95 mL/min (>60) 01/26/24 04:00 BUN/Creatinine Ratio 24.4 RATIO (10-20) H 01/26/24 04:00 Glucose 162 mg/dL (74-106) H 01/26/24 04:00 Vancomycin Trough 17.9 ug/mL (5.0-15.0) H 01/27/24 16:01 Microbiology Microbiology: Microbiology 01/25/24 14:00 Urine, Random Urine Culture - Final Culture exhibits no growth. 01/25/24 15:00 Sputum, Expectorated/Coughed Gram Stain - Final 01/25/24 15:00 Sputum, Expectorated/Coughed Respiratory Culture - Preliminary Staphylococcus aureus 01/25/24 11:09 Blood Culture (Wb) - Anticubital Left Blood Culture - Preliminary No growth in 48 hours. 01/26/24 12:00 Nasal Secretion MRSA (PCR) - Final 01/25/24 14:00 Urine, Clean Catch Legionella Antigen - Final 01/25/24 14:00 Urine, Clean Catch Streptococcus pneumoniae Antigen (M - Final 01/25/24 15:32 Mucosa - Nasopharyngeal Respiratory Panel (PCR) - Final 01/25/24 13:22 Mucosa - Nose SARS-CoV-2, Influenza & RSV (PCR) - Final SARS-CoV-2 (COVID 19 PCR) Dosing Weight Weight used for dosin.3 kg Estimated Creatinine Clearance Estimated Creatinine Clearance: 71ml/min Goal Trough Goal Trough: 15-20 mcg/mL Pharmacy Plan for Drug Dosing Pharmacy Plan for Drug Dosing: Trough today 17.9 and therapeutic. Recommend continuing same dose with new trough before another 4th dose. Pharmacy Service will continue to monitor and adjust dosing as required. Follow-Up Labs Follow-Up Labs: Trough: Vancomycin (9. 0400)
[2024-01-27 22:01] VITALS: BP 151/83; PULSE 79; RESP 18; TEMP 35.6; O2SAT 98
[2024-01-27] MEDS: QUEtiapine 100 MG Tablet PO (22:03)
[2024-01-27] MEDS: MENTHOL 226.8 GM JAR 1 APPLIC TOPICAL (22:14)
[2024-01-28] MEDS: 0.9% Saline Lock 10 ML Syringe IV ×5 (04:01→21:54)
[2024-01-28] MEDS: Vancomycin HCl 1,250 MG in 0.9% Normal Saline (250mL Bag) 250 ML 167 MG IV ×2 (04:01→17:16)
[2024-01-28 04:04] VITALS: BP 146/78; PULSE 85; RESP 18; TEMP 36.8; O2SAT 94
[2024-01-28] MEDS: Piperacil/Tazobactam 3.375 GM in 0.9% Normal Saline (50mL MB+) 50 ML IV ×3 (06:47→22:02)
[2024-01-28] MEDS: QUEtiapine 25 MG Tablet PO (09:00)
[2024-01-28] MEDS: LORazepam 0.5 MG Tablet PO ×2 (09:00→21:55)
[2024-01-28] MEDS: Escitalopram Oxalate 20 MG Tablet PO (09:00)
[2024-01-28] MEDS: dexAMETHasone 10 MG/ML Vial 6 MG IV (09:00)
[2024-01-28] MEDS: Loratadine 10 MG Tablet PO (09:00)
[2024-01-28] MEDS: Acetaminophen 325 MG Tablet 650 MG PO (09:00)
[2024-01-28] MEDS: Losartan Potassium 25 MG Tablet PO (09:00)
[2024-01-28] MEDS: guaiFENesin/D-Methorphan TAB.SR.12H 2 TABLET PO ×2 (09:00→21:55)
[2024-01-28] MEDS: BENZOCAINE/MENTHOL 1 LOZENGE MUCOUS MEM ×3 (09:00→22:40)
[2024-01-28] MEDS: Enoxaparin 40 MG/0.4 ML Syringe SC (09:00)
--- NOTE | 2024-01-28 09:28 | CASEMGMT ---
Discharge Planning A list of HH providers including quality and resource use data and consistent with the patient's preferred geographic region, medical needs, and insurance network was created in [facility] Guide.? This list was provided to the RN HAYDE. Sisi Granger, Discharge Planning Asst.
[2024-01-28 09:40] VITALS: BP 152/80; PULSE 86; RESP 18; TEMP 36.1; O2SAT 94
[2024-01-28] MEDS: Ipratropium/Albuterol Sulfate 3 ML AMPUL.NEB INHALATION ×2 (12:18→19:45)
[2024-01-28 12:19] VITALS: PULSE 79; RESP 24; O2SAT 97
--- NOTE | 2024-01-28 13:30 | CASEMGMT ---
ROBLES LOCK spoke to prior to entering patient's room. ROBLES LOCK discuss progress with therapy and recommendations for home with HHC. RN HAYDE provide HHC list to to discuss with patient. is adamant that she feels patient is not ready to return home and will need to build up endurance at SNF prior to coming home as she feels that she cannot care for patient. ROBLES LOCK informed that she can be provided with list of SNF in-network with insurance but updated her that patient's insurance may not approve SNF level of care based on therapy progress. voiced understanding and states she would like to try for SNF at discharge. had no further questions or concerns. ROBLES LOCK updated SW.
--- NOTE | 2024-01-28 14:40 | CASEMGMT ---
Discharge Planning A list of SNF providers including quality and resource use data and consistent with the patient's preferred geographic region, medical needs, and insurance network was created in [facility] Guide.? This list was provided to the SW. Sisi Granger Discharge Planning Asst.
--- NOTE | 2024-01-28 15:37 | CASEMGMT ---
Patient's would like patient to go to a long term facility. EMELY spoke with patient's Geetha via phone to let her know that SW will leave a list of facilities in patient's room. Geetha told EMELY she would like [facility], [place], and then [place]. SW let her know SW will work on a referral to TCU. EMELY told Geetha that SW will likely not have an answer for her today. EMELY then made a referral to [facility]. Juani CHO
--- NOTE | 2024-01-28 16:21 | PCM.PN.HOSP ---
Reason for Visit Reason for Visit: Diagnoses Pneumonia, unspecified organism (01/25/24) Acute respiratory failure with hypoxia (01/25/24) Objective Data Objective Data Vital Signs: Vital Signs Temp Pulse Resp BP Pulse Ox O2 Del Method O2 Flow Rate 96.9 F L 79 24 H 152/80 H 97 Nasal Cannula 2 01/28/24 09:40 01/28/24 12:19 01/28/24 12:19 01/28/24 09:40 01/28/24 12:19 01/28/24 14:32 01/28/24 14:32 FiO2 40 01/26/24 14:42 Oxygen Flow Rate (L/min) 2 Oxygen Delivery Method Nasal Cannula Weight: 186 lb 8.177 oz Body Mass Index (BMI) 27.6 Intake & Output: Intake and Output for Last 24 Hours 01/26/24 01/27/24 01/28/24 23:59 23:59 23:59 Intake Total 1325 / 1675 1342.5 / 1342.5 778.25 / 778.25 Output Total 875 / 1175 600 / 600 1250 / 1250 Balance 450 / 500 742.5 / 742.5 -471.75 / -471.75 Lab / Micro Data 01/26/24 04:00 01/26/24 04:00 Labs: Laboratory Results - last 24 hr 01/27/24 16:01: Vancomycin Trough 17.9 H Micro: Microbiology 01/25/24 15:00 Sputum, Expectorated/Coughed Gram Stain - Final 01/25/24 15:00 Sputum, Expectorated/Coughed Respiratory Culture - Final Staphylococcus aureus 01/26/24 12:00 Nasal Secretion MRSA (PCR) - Final Meth. resistant Staph. aureus 01/25/24 14:00 Urine, Random Urine Culture - Final Culture exhibits no growth. 01/25/24 11:09 Blood Culture (Wb) - Anticubital Left Blood Culture - Preliminary No growth in 48 hours. 01/25/24 14:00 Urine, Clean Catch Legionella Antigen - Final 01/25/24 14:00 Urine, Clean Catch Streptococcus pneumoniae Antigen (M - Final 01/25/24 15:32 Mucosa - Nasopharyngeal Respiratory Panel (PCR) - Final 01/25/24 13:22 Mucosa - Nose SARS-CoV-2, Influenza & RSV (PCR) - Final SARS-CoV-2 (COVID 19 PCR) Physical Exam Narrative Seen and examined. Patient woke up in the morning and states he feels bad. Patient on 3 L of oxygen improved to 2 L. The patient was on Airvo about 40% FiO2\ Currently on oxygen through nasal cannula. Afebrile. Physical exam General: Alert, Oriented x3, Cooperative, middle-aged, fatigue. HEENT: Atraumatic, PERRLA, EOMI, Normocephalic Oral: Oral mucosa dry. No Gingival or Mucosal Lesions/ Ulcerations Neck: Supple, No JVD, Negative Carotid Bruits Chest wall/Lungs: Air entry diminished in both lungs. Bilateral coarse crepitations and wheezing dyspnea on exertion Cardiovascular: Sinus tachycardia, normal S1, Normal S2, No M/G/R Abdomen: Bowel Sounds Present, Soft, Non Tender, Non-Distended : No dysuria. No renal angle tenderness. No suprapubic tenderness. Extremities: Mild pedal bilateral pitting edema, Capillary Refill Less than 3 Seconds Skin: No rashes, No breakdown Musculoskeletal: No Tenderness to Palpation of Joints or Extremities. ROM full but bilateral degenerative arthritis Neurological: Cranial nerves II-XII grossly intact, DTR 2+/4. No acute focal neurological deficit. Psych/Mental Status: Flat affect. Assessment & Plan Assessment/Plan (1) Right lower lobe pneumonia: (2) Acute hypoxemic respiratory failure: PLAN: Plan This is a 83-year-old gentleman being admitted for shortness of breath, severe tachypnea and hypoxia, hypotension suggestive of sepsis. 1. Suspected sepsis due to right lower lobe pneumonia, suspected bacterial secondary infection on COVID-pneumonia: Patient is being admitted in ICU. The patient presented with sepsis with clinical indicators shortness of breath, tachypnea, hypoxia of due to right lower lobe consolidation/pneumonia with acute sepsis-related organ dysfunction as evidenced by hypotension, SBP requiring IV fluid bolus and acute hypoxic respiratory failure. WBC count normal but ALC low, toxic granulation 2+, Dohle bodies all suggestive of sepsis. Chest x-ray reviewed and shows right lower lobe infiltrate with bibasilar atelectasis. IV fluid bolus 30 mill per KG as per sepsis protocol. Levophed blood pressure is still low. IV antibiotic upgraded to IV Zosyn and vancomycin. Sepsis workup ordered. 01/25: Patient on Decadron. Does not qualify for remdesivir as patient's symptom for more than 10 days. Still tachypneic on Airvo. Patient on IV vancomycin and Zosyn 01/26: Prelim sputum culture is growing 2+ GPC, Staph aureus exact typing and sensitivity pending. Continue IV vancomycin and Zosyn. 01/27: Sputum culture growing MRSA. Continue IV vancomycin and Zosyn. Patient stated he did not sleep last night and feeling worse lung sounds more wheezing and crepitations. ID consulted. 2. Acute hypoxic respiratory failure requiring Airvo: ABG ordered. Structures Mechanic consulted. Discussed with the patient's and does not want intubation or ventilator therefore DNRCC arrest with no intubation. ABG done on 01/25: 01/24 shows pH 7.3 6/ on 6 L high flow oxygen. Therefore no hypercarbia. Patient seen by environmental technical officer. On Airvo. 01/26: Hypoxia/oxygen requirement is better. 01/27 oxygenation is better. Next 3. Atherosclerotic heart disease, CAD triple-vessel disease: On medical treatment. Patient was admitted in 2018 and was suggested CABG but opted for medical management. 4. Chronic CVA/intracerebral hemorrhage, dementia, anxiety and depression with left hip severe arthritis: Patient follows psychiatris Dr. Brian. 01/26: Patient on quetiapine 25 mg a.m. and 100 mg nightly, lorazepam 0.5 mg twice daily. Home medication escitalopram resumed. 5. Hypertension and dyslipidemia: Patient on a statin. Blood pressure is low, hypotension as described above 01/26: BP recovered currently 140 systolic. 6. Former tobacco smoker: Started 1 to 1.5 pack/day in college. Quit about 7 years ago. As per his doctor, he does not have COPD DVT prophylaxis: On Lovenox 40 mg subcu daily. Living will/advanced directive/end of life care: Patient does have living will or advanced directive. His , May near the bedside is power of tax attorney for health. She showed me the paper signed by PCP Dr. Ming Mckeon as DNR CC but she meant DNR CC arrest with no intubation. After discussion of benefits/risks procedures involved with full code, DNR CC arrest and DNR CC, the patient opted for full code. Patient and his do not want artificial life support including intubation, tube feed, ventilator and/chest compression, and DC shock if needed but okay with CVC catheter/PICC line and vasopressin Clinical Impression(s) from Imaging Studies Chest X-Ray 01/25/24 10:43 IMPRESSION: Findings suggest a right lower lobe infiltrate superimposed on bibasilar scarring. Charges/Coding Visit Charges Inpatient E&M: 54734 Subs Hosp L2
[2024-01-28 17:10] LABS: Absolute Neutrophil Count 11.1 X10^3/uL (2.0-7.7); Basophil# 0.12 X10^3/uL; Basophil% 0.9 % (0-1); Hematocrit 33.3 % (40-54); Hemoglobin 11.2 g/dL (13.0-16.5); Lymphocyte % 6.9 % (19-41); Mean Corp Hgb Conc 33.6 g/dL (32-36); Mean Corpuscular Hgb 29.6 pg (27.0-32.0); Mean Corpuscular Volume 87.9 fL (80-94); Mean Platelet Vol. 10.5 fl (6.2-12.0); Monocyte# 0.58 X10^3/uL; Monocyte% 4.4 % (0-10); NRBC Flagged by Analyzer 0 % (0-5); Neutrophil # 11.12 X10^3/uL (2.7-7.7); Neutrophil % 85.2 % (47-70); Platelet Count 212 K/mm3 (150-450); RBC Distribution Width CV 14.7 % (11.6-14.6); RBC Distribution Width SD 47.1 fl (35.1-43.9); Red Blood Count 3.79 M/mm3 (4.6-6.2); White Blood Count 13.1 K/mm3 (4.4-11.0)
[2024-01-28 17:19] VITALS: BP 136/69; PULSE 72; RESP 17; TEMP 36.1; O2SAT 93
[2024-01-28 17:20] LABS: Anion Gap 6 (5-15); BUN 18 mg/dL (7-18); BUN/Creat Ratio 24.6 RATIO (10-20); Calcium,Total 8.8 mg/dL (8.5-10.1); Chloride 107 mmol/L (98-107); Creatinine, Serum 0.73 mg/dL (0.70-1.30); EST Glomerular Filtration Rate 108 mL/min (>60); Est Glom Filt Rate - Afr Amer 131 mL/min (>60); Glucose 119 mg/dL (74-106); Potassium 3.4 mmol/L (3.5-5.1); Sodium Level 138 mmol/L (136-145)
[2024-01-28 19:46] VITALS: PULSE 76; RESP 20; O2SAT 96
[2024-01-28 21:52] VITALS: BP 119/59; PULSE 79; RESP 18; TEMP 37; O2SAT 94
[2024-01-28] MEDS: QUEtiapine 100 MG Tablet PO (21:55)
[2024-01-28] MEDS: MENTHOL 226.8 GM JAR 1 APPLIC TOPICAL (22:10)
[2024-01-29] VITALS (7 sets, daily range): BP systolic 122–152; BP diastolic 70–79; PULSE 69–81; RESP 14–18; TEMP 36.7–37.3; O2SAT 92–96; BMI 27.6
[2024-01-29 04:32] LABS: Absolute Lymphocyte Count 0.92 X10^3/uL (0.83-4.51); Absolute Neutrophil Count 11.2 X10^3/uL (2.0-7.7); Basophil# 0.02 X10^3/uL; Basophil% 0.2 % (0-1); Hemoglobin 10.7 g/dL (13.0-16.5); Lymphocyte # 0.92 X10^3/ul (0.83-4.51); Lymphocyte % 7.2 % (19-41); Mean Corp Hgb Conc 33.4 g/dL (32-36); Mean Corpuscular Hgb 29.5 pg (27.0-32.0); Mean Corpuscular Volume 88.2 fL (80-94); Mean Platelet Vol. 10.2 fl (6.2-12.0); Monocyte# 0.34 X10^3/uL; Monocyte% 2.7 % (0-10); NRBC Flagged by Analyzer 0 % (0-5); Neutrophil # 11.19 X10^3/uL (2.7-7.7); Neutrophil % 87.2 % (47-70); Platelet Count 217 K/mm3 (150-450); RBC Distribution Width CV 14.9 % (11.6-14.6); Red Blood Count 3.63 M/mm3 (4.6-6.2); White Blood Count 12.8 K/mm3 (4.4-11.0)
[2024-01-29 04:50] LABS: Anion Gap 2 (5-15); BUN 18 mg/dL (7-18); BUN/Creat Ratio 22.5 RATIO (10-20); Calcium,Total 8.6 mg/dL (8.5-10.1); Chloride 108 mmol/L (98-107); EST Glomerular Filtration Rate 98 mL/min (>60); Est Glom Filt Rate - Afr Amer 118 mL/min (>60); Glucose 147 mg/dL (74-106); Potassium 3.4 mmol/L (3.5-5.1); Sodium Level 138 mmol/L (136-145); Vancomycin, Trough Level 19.9 ug/mL (5.0-15.0)
[2024-01-29] MEDS: Vancomycin HCl 1,250 MG in 0.9% Normal Saline (250mL Bag) 250 ML 167 MG IV (05:12)
[2024-01-29] MEDS: Vancomycin Trough/Random Due 1 LAB MC (05:12)
[2024-01-29] MEDS: 0.9% Saline Lock 10 ML Syringe IV ×2 (05:15→07:06)
--- NOTE | 2024-01-29 06:17 | PCM.RX.CS ---
Consult Antibiotic Management Pharmacy has been consulted to manage selected antibiotic: Vancomycin Type of Intervention Type of Consult: Follow-up Labs Labs: Sodium 138 mmol/L (136-145) 01/29/24 04:18 Potassium 3.4 mmol/L (3.5-5.1) L 01/29/24 04:18 Chloride 108 mmol/L (98-107) H 01/29/24 04:18 Carbon Dioxide 28.0 mmol/L (21.0-32.0) 01/29/24 04:18 Anion Gap 2 (5-15) L 01/29/24 04:18 BUN 18 mg/dL (7-18) 01/29/24 04:18 Creatinine 0.80 mg/dL (0.70-1.30) 01/29/24 04:18 Est GFR (MDRD) Af Amer 118 mL/min (>60) 01/29/24 04:18 Est GFR (MDRD) Non-Af 98 mL/min (>60) 01/29/24 04:18 BUN/Creatinine Ratio 22.5 RATIO (10-20) H 01/29/24 04:18 Glucose 147 mg/dL (74-106) H 01/29/24 04:18 Vancomycin Trough 19.9 ug/mL (5.0-15.0) H 01/29/24 04:18 Microbiology Microbiology: Microbiology 01/25/24 15:00 Sputum, Expectorated/Coughed Gram Stain - Final 01/25/24 15:00 Sputum, Expectorated/Coughed Respiratory Culture - Final Staphylococcus aureus 01/26/24 12:00 Nasal Secretion MRSA (PCR) - Final Meth. resistant Staph. aureus 01/25/24 14:00 Urine, Random Urine Culture - Final Culture exhibits no growth. 01/25/24 11:09 Blood Culture (Wb) - Anticubital Left Blood Culture - Preliminary No growth in 48 hours. 01/25/24 14:00 Urine, Clean Catch Legionella Antigen - Final 01/25/24 14:00 Urine, Clean Catch Streptococcus pneumoniae Antigen (M - Final 01/25/24 15:32 Mucosa - Nasopharyngeal Respiratory Panel (PCR) - Final 01/25/24 13:22 Mucosa - Nose SARS-CoV-2, Influenza & RSV (PCR) - Final SARS-CoV-2 (COVID 19 PCR) Pharmacy Plan for Drug Dosing Pharmacy Plan for Drug Dosing: Pharmacy Service will continue to monitor and adjust dosing as required. TROUGH 19.9 @ 11 HORS. NO CHANGES FOLLOW UP TROUGH IN 2 DAYS Follow-Up Labs Follow-Up Labs: Trough: Vancomycin Date/Time Labs Ordered Labs to be done on [date and time ordered]: 01/30 @ 0400
[2024-01-29] MEDS: Piperacil/Tazobactam 3.375 GM in 0.9% Normal Saline (50mL MB+) 50 ML IV (07:06)
[2024-01-29] MEDS: guaiFENesin/D-Methorphan TAB.SR.12H 2 TABLET PO (09:26)
[2024-01-29] MEDS: QUEtiapine 25 MG Tablet PO (09:26)
[2024-01-29] MEDS: Loratadine 10 MG Tablet PO (09:27)
[2024-01-29] MEDS: Acetaminophen 325 MG Tablet 650 MG PO (09:27)
[2024-01-29] MEDS: Escitalopram Oxalate 20 MG Tablet PO (09:27)
[2024-01-29] MEDS: BENZOCAINE/MENTHOL 1 LOZENGE MUCOUS MEM (09:27)
[2024-01-29] MEDS: LORazepam 0.5 MG Tablet PO (09:27)
[2024-01-29] MEDS: Losartan Potassium 25 MG Tablet PO (09:27)
[2024-01-29] MEDS: Enoxaparin 40 MG/0.4 ML Syringe SC (09:33)
--- NOTE | 2024-01-29 11:12 | CASEMGMT ---
TCU has accepted patient and will start pre-cert. Should patient get denied by his Medicare portion of his insurance patient will have to pick a community SNF and go on his Medicaid. SW will talk with patient's about this. Juani CHO
[2024-01-29] MEDS: 0.9% Normal Saline (250mL Bag) 250 ML 15 ML IV (11:15)
--- NOTE | 2024-01-29 12:06 | CASEMGMT ---
Patient's Geetha arrived at [facility]. SW went to patient's room. Geetha wanted to talk to SW about patient's d/c plan in the hallway. SW did talk with Geetha for a little while in the hallway, but then went into the room as patient needs to be a part of this conversation as he is alert and oriented. SW explained to patient that when deciding a discharge plan a lot of things need to be taken into account. SW explained therapy, medications, and caregiver's comfort with caring for the patient. SW explained that right now his does not feel she can manage patient's care at home. SW explained that if his insurance approves he would be going to [facility] for short term rehab. SW explained if his insurance does not approve he may go to [place]. Patient was not happy about this, but agreeable. SW told them SW will let them know when SW has an answer. Juani Coleman APPOINTMENT SETTER [facility]
--- NOTE | 2024-01-29 15:03 | PCM.CONS.GEN ---
Assessment & Plan Assessment/Plan (1) Right lower lobe pneumonia: PLAN: covid (+), sputum with mssa. Will narrow abx to cefazolin. Plan on 4 more days po keflex 500mg tid at discharge. Will follow as needed, thank you (2) Acute hypoxemic respiratory failure: HPI Consult Data Date of Consult: 01/29/24 HPI Narrative Reason for Consultation: pneumonia HPI Narrative: DHRAA ORDONEZ, is a 83 M with h/o COPD, presented 01/25 with progressive cough, dyspnea, not feeling well. has not been sick. Came to ED, found to have covid and pneumonia. Given dex, azithro, ceftriaxone, then broadened to vanc/zosyn. Now feeling better. Full ROS performed and neg except as noted above. [facility] Medical History Generalized anxiety disorder Major depressive disorder in remission Anxiety GERD (gastroesophageal reflux disease) Former smoker COPD (chronic obstructive pulmonary disease) Myocardial infarct Triple vessel coronary artery disease History of tobacco abuse Atherosclerotic heart disease of [place] coronary artery without angina pectoris History of non-ST elevation myocardial infarction (NSTEMI) Hyperlipidemia CVA (cerebral vascular accident) Intracerebral hemorrhage Anxiety Depression Home Medications ?Medication ?Instructions ?Recorded ?Last Taken ?Type acetaminophen 325 mg tablet 650 mg PO QHS PAIN 10/10/20 01/24/24 History atorvastatin 40 mg tablet 40 mg PO QHS CHOLESTEROL 10/10/20 01/24/24 History losartan 25 mg tablet 25 mg PO DAILY BP 10/10/20 01/25/24 History melatonin 5 mg capsule 5 mg PO QHS SLEEP 10/10/20 01/24/24 History cetirizine 10 mg tablet (Zyrtec) 10 mg PO DAILY 12/10/20 01/25/24 History escitalopram oxalate 20 mg tablet 20 mg PO DAILY #90 tabs 12/31/23 01/25/24 Rx lorazepam 0.5 mg tablet 0.5 mg PO BID ANXIETY 30 days #60 12/31/23 01/25/24 Rx tabs mirtazapine 15 mg tablet 15 mg PO QHS DEPRESSION 90 days 12/31/23 01/24/24 Rx #90 tabs quetiapine 100 mg tablet See Rx Instructions .Route 12/31/23 01/24/24 Rx .COMPLEX #90 tabs quetiapine 25 mg tablet 25 mg PO QAM #90 tabs 12/31/23 01/25/24 Rx guaifenesin 600 mg tablet, 1,200 mg PO BID 01/25/24 01/25/24 History extended release 12 hr (Mucinex) Allergy/AdvReac Type Severity Reaction Status Date / Time No Known Allergies Allergy Verified 01/25/24 10:28 Family History Father Heart disease Dementia Mother CVA (cerebral vascular accident) Dementia Other Sepsis Surgical History History of thoracentesis History of vasectomy Social History household members: spouse Smoking Status: Former smoker how long ago did patient quit smoking: Quit 5-7 yrs prior, started in college, 1-1.5 ppd. alcohol intake: never substance use type: does not use Physical Exam Const alert and no apparent distress General Appearance: cooperative HEENT normocephalic and head/scalp atraumatic Eyes PERRL and EOMs intact bilaterally Neck supple and No nodes Resp Auscultation: diminished lung sounds Cardio regular rate and regular rhythm GI soft to palpation, non-tender and non-distended Extremity General Extremity: Negative for edema Skin no rashes or lesions noted Neuro CN's II-XII intact bilaterally Lab / Micro Data Attestation: I reviewed the patient's lab results. 01/29/24 04:18 01/29/24 04:18 Labs: Laboratory Results - last 24 hr 01/28/24 16:59: WBC 13.1 H, RBC 3.79 L, Hgb 11.2 L, Hct 33.3 L, MCV 87.9, MCH 29.6, MCHC 33.6, RDW Std Deviation 47.1 H, RDW Coeff of Ethan 14.7 H, Plt Count 212, MPV 10.5, Immature Gran % (Auto) 2.600 H, Neut % (Auto) 85.2 H, Lymph % (Auto) 6.9 L, [place] % (Auto) 4.4, Eos % (Auto) 0.0, Baso % (Auto) 0.9, Absolute Neuts (auto) 11.1 H, Absolute Lymphs (auto) 0.90, Nucleated RBC % 0, Sodium 138, Potassium 3.4 L, Chloride 107, Carbon Dioxide 25.0, Anion Gap 6, BUN 18, Creatinine 0.73, Estim Creat Clear Calc 72.80, Est GFR (MDRD) Af Amer 131, Est GFR (MDRD) Non-Af 108, BUN/Creatinine Ratio 24.6 H, Glucose 119 H, Calcium 8.8 01/29/24 04:18: WBC 12.8 H, RBC 3.63 L, Hgb 10.7 L, Hct 32.0 L, MCV 88.2, MCH 29.5, MCHC 33.4, RDW Std Deviation 48.0 H, RDW Coeff of Ethan 14.9 H, Plt Count 217, MPV 10.2, Immature Gran % (Auto) 2.700 H, Neut % (Auto) 87.2 H, Lymph % (Auto) 7.2 L, [place] % (Auto) 2.7, Eos % (Auto) 0.0, Baso % (Auto) 0.2, Absolute Neuts (auto) 11.2 H, Absolute Lymphs (auto) 0.92, Nucleated RBC % 0, Sodium 138, Potassium 3.4 L, Chloride 108 H, Carbon Dioxide 28.0, Anion Gap 2 L, BUN 18, Creatinine 0.80, Estim Creat Clear Calc 72.80, Est GFR (MDRD) Af Amer 118, Est GFR (MDRD) Non-Af 98, BUN/Creatinine Ratio 22.5 H, Glucose 147 H, Calcium 8.6, Vancomycin Trough 19.9 H
--- NOTE | 2024-01-29 15:54 | CASEMGMT ---
Patient was approved to go to [facility]. EMELY notified physician, discharge planner RN, medical records secretary, patient, and his . EMELY let all of them know patient will go today. Plan: d/c to [facility] under skilled level of care. Juani CHO
--- NOTE | 2024-01-29 16:09 | PCM.TXEXTCAR ---
Diet Diet Order/Speech Therapy: 01/25/24 15:35 Diet: Regular - General Type of Dietary Supplement:: 4 oz crystal EPHP w/ meals Routine Orders/Code Status Suppository Type: Dulcolax 10mg Suppository Frequency: Daily PRN Therapies Extremity Affected:: Bilateral Lower Physical Therapy: Eval and Treat Occupational Therapy: Eval and Treat Speech Therapy: Eval and Treat Problem/Diagnosis (1) Right lower lobe pneumonia: Status: Acute Code(s): J18.9 - Pneumonia, unspecified organism (2) Acute hypoxemic respiratory failure: Status: Acute Code(s): J96.01 - Acute respiratory failure with hypoxia Plan This is a 83-year-old gentleman being admitted for shortness of breath, severe tachypnea and hypoxia, hypotension suggestive of sepsis. 1. Suspected sepsis due to right lower lobe pneumonia, suspected bacterial secondary infection on COVID-pneumonia: Patient is being admitted in ICU. The patient presented with sepsis with clinical indicators shortness of breath, tachypnea, hypoxia of due to right lower lobe consolidation/pneumonia with acute sepsis-related organ dysfunction as evidenced by hypotension, SBP requiring IV fluid bolus and acute hypoxic respiratory failure. WBC count normal but ALC low, toxic granulation 2+, Dohle bodies all suggestive of sepsis. Chest x-ray reviewed and shows right lower lobe infiltrate with bibasilar atelectasis. IV fluid bolus 30 mill per KG as per sepsis protocol. Levophed blood pressure is still low. IV antibiotic upgraded to IV Zosyn and vancomycin. Sepsis workup ordered. 01/25: Patient on Decadron. Does not qualify for remdesivir as patient's symptom for more than 10 days. Still tachypneic on Airvo. Patient on IV vancomycin and Zosyn 01/26: Prelim sputum culture is growing 2+ GPC, Staph aureus exact typing and sensitivity pending. Continue IV vancomycin and Zosyn. 01/27: Sputum culture growing MRSA. Continue IV vancomycin and Zosyn. Patient stated he did not sleep last night and feeling worse lung sounds more wheezing and crepitations. ID consulted. 2. Acute hypoxic respiratory failure requiring Airvo: ABG ordered. Information Assistant consulted. Discussed with the patient's and does not want intubation or ventilator therefore DNRCC arrest with no intubation. ABG done on 01/25: 01/24 shows pH 7.3 6/41/85 on 6 L high flow oxygen. Therefore no hypercarbia. Patient seen by analyst business analysis. On Airvo. 01/26: Hypoxia/oxygen requirement is better. 01/27 oxygenation is better. Next 3. Atherosclerotic heart disease, CAD triple-vessel disease: On medical treatment. Patient was admitted in 2019 and was suggested CABG but opted for medical management. 4. Chronic CVA/intracerebral hemorrhage, dementia, anxiety and depression with left hip severe arthritis: Patient follows psychiatris Dr. Brain. 01/26: Patient on quetiapine 25 mg a.m. and 100 mg nightly, lorazepam 0.5 mg twice daily. Home medication escitalopram resumed. 5. Hypertension and dyslipidemia: Patient on a statin. Blood pressure is low, hypotension as described above 01/26: BP recovered currently 140 systolic. 6. Former tobacco smoker: Started 1 to 1.5 pack/day in college. Quit about 7 years ago. As per his doctor, he does not have COPD DVT prophylaxis: On Lovenox 40 mg subcu daily. Living will/advanced directive/end of life care: Patient does have living will or advanced directive. His , May near the bedside is power of document review attorney for health. She showed me the paper signed by PCP Dr. Ming Mckeon as DNR CC but she meant DNR CC arrest with no intubation. After discussion of benefits/risks procedures involved with full code, DNR CC arrest and DNR CC, the patient opted for full code. Patient and his do not want artificial life support including intubation, tube feed, ventilator and/chest compression, and DC shock if needed but okay with CVC catheter/PICC line and vasopressin Clinical Impression(s) from Imaging Studies Chest X-Ray 01/25/24 10:43 IMPRESSION: Findings suggest a right lower lobe infiltrate superimposed on bibasilar scarring. Allergies/Procedures Done in Hospital Allergies No Known Allergies Allergy (Verified 01/25/24 10:28) Type of Care/Length of Stay Estimated LOS: Convalescent Care Less Than 30 days Type of Care Needed: Skilled Rehab Potential: Good Prognosis: Good Additional Orders/Day of Discharge Day of Discharge: 01/29/24 Dietary and Speech Recommendations Dietitian Recommendations/Changes: Continue Regular diet to optimize oral intakes Continue 4 oz chocolate ensure plus high protein TID with meals for increased nutrition if consumed. Discharge Plan Admission Admit Date/Time: 01/25/24 12:49 Primary Reason for Your Visit: Right lower lobe pneumonia, MSSA Attending Provider: Imtiaz Brownlee Primary Care Provider: Maxwell Mcdonald Consulting Providers: Gagandeep Chew Discharge Orders/Prescriptions Prescriptions: New dextromethorphan-guaifenesin 60-1,200 mg tablet extended release 12 hr 1 tab PO BID 7 Days Qty: 0 0RF ipratropium-albuterol 0.5 mg-3 mg(2.5 mg base)/3 mL Solution For Nebulization 3 ml inhalation [id number] PRN (Reason: Shortness of breath) Qty: 0 0RF sennosides-docusate sodium [Stimulant Laxative Plus] 8.6-50 mg Tablet 2 tab PO BID PRN PRN (Reason: Constipation) Qty: 0 0RF cephalexin 500 mg capsule 500 mg PO Q8H 4 Days Qty: 12 0RF dexamethasone 6 mg tablet 6 mg PO DAILY 5 Days Qty: 5 0RF Continued escitalopram oxalate 20 mg tablet 20 mg PO DAILY Qty: 90 1RF lorazepam 0.5 mg tablet 0.5 mg PO BID 30 Days Qty: 60 2RF mirtazapine 15 mg tablet 15 mg PO QHS 90 Days Qty: 90 1RF quetiapine 100 mg tablet See Rx Instructions .ROUTE .COMPLEX Qty: 90 1RF Dose Instruction: TAKE 1 TABLET BY MOUTH ONCE DAILY AT BEDTIME FOR MOOD Rx Instructions: TAKE 1 TABLET BY MOUTH ONCE DAILY AT BEDTIME FOR MOOD quetiapine 25 mg tablet 25 mg PO QAM Qty: 90 1RF acetaminophen 325 MG tablet 650 mg PO QHS melatonin 5 mg Capsule 5 mg PO QHS atorvastatin 40 mg tablet 40 mg PO QHS losartan 25 MG tablet 25 mg PO DAILY cetirizine [Zyrtec] 10 mg Tablet 10 mg PO DAILY Discontinued guaifenesin [Mucinex] 600 mg tablet extended release 12hr 1,200 mg PO BID Referrals / Follow Up: Maxwell Mcdonald MD [Primary Care Provider] - Within [address] NP, [employer] [Med Staff - Adv Practice Prof] - Within 2 Weeks ( right lower lobe pneumonia, COVID-pneumonia and COPD exacerbation) Disposition Disposition (needs filled in before D/C Order can be placed): [facility]
--- NOTE | 2024-01-29 16:16 | PCM.DC.SUM ---
Providers Date of Admission: 01/25/24 Date of Discharge: 01/29/24 Primary Care Physician: Dr. Maxwell Mcdonald MD Consultations 01/25/24 14:48 Consult: Emergency Medical Service Manager / Pulmonary Medicine Routine Consulting Provider: Intensivists/Pulmonary Med Reason for Consult: suspected sepsis, hypotension fromRLL pneumonia EMERGENT Consult: No Notified: Yes Date Notified: 01/25/24 Time Notified: 13:28 Method of Notification: Text 01/28/24 16:24 Consult: Infectious Disease Routine Consulting Provider: Gagandeep Chew Reason for Consult: complicated pneumonia MRSA EMERGENT Consult: No Notified: Yes Date Notified: 01/28/24 Time Notified: 16:24 Method of Notification: Text Reason For Visit: RLL PNEUMONIA, SUSPECTED SEPSIS Diagnosis Discharge Diagnosis (1) Right lower lobe pneumonia: Status: Acute Code(s): J18.9 - Pneumonia, unspecified organism (2) Acute hypoxemic respiratory failure: Status: Acute Code(s): J96.01 - Acute respiratory failure with hypoxia Plan This is a 83-year-old gentleman being admitted for shortness of breath, severe tachypnea and hypoxia, hypotension suggestive of sepsis. 1. Suspected sepsis due to right lower lobe pneumonia, suspected bacterial secondary infection on COVID-pneumonia: Patient is being admitted in ICU. The patient presented with sepsis with clinical indicators shortness of breath, tachypnea, hypoxia of due to right lower lobe consolidation/pneumonia with acute sepsis-related organ dysfunction as evidenced by hypotension, SBP requiring IV fluid bolus and acute hypoxic respiratory failure. WBC count normal but ALC low, toxic granulation 2+, Dohle bodies all suggestive of sepsis. Chest x-ray reviewed and shows right lower lobe infiltrate with bibasilar atelectasis. IV fluid bolus 30 mill per KG as per sepsis protocol. Levophed blood pressure is still low. IV antibiotic upgraded to IV Zosyn and vancomycin. Sepsis workup ordered. 01/25: Patient on Decadron. Does not qualify for remdesivir as patient's symptom for more than 10 days. Still tachypneic on Airvo. Patient on IV vancomycin and Zosyn 01/26: Prelim sputum culture is growing 2+ GPC, Staph aureus exact typing and sensitivity pending. Continue IV vancomycin and Zosyn. 01/27: MRSA nasal screen growing MRSA. Continue IV vancomycin and Zosyn. Patient stated he did not sleep last night and feeling worse lung sounds more wheezing and crepitations. ID consulted. 01/28: Sputum culture shows MSSA. Nasal screen MRSA therefore sputum culture is authentic and discussed with ID. Patient is discharged on 4 more days of Keflex. For COVID-19 pneumonia, 5 more days of dexamethasone 6 mg daily. 2. Acute hypoxic respiratory failure requiring Airvo: ABG ordered. Emergency Medical Service Manager consulted. Discussed with the patient's and does not want intubation or ventilator therefore DNRCC arrest with no intubation. ABG done on 01/25: 01/24 shows pH 7.3 / on 6 L high flow oxygen. Therefore no hypercarbia. Patient seen by direct marketing specialist. On Airvo. 01/26: Hypoxia/oxygen requirement is better. 01/27 oxygenation is better. 01/28: Currently patient requires 2 L of oxygen. Hypoxia much improved. 3. Atherosclerotic heart disease, CAD triple-vessel disease: On medical treatment. Patient was admitted in 2019 and was suggested CABG but opted for medical management. 4. Chronic CVA/intracerebral hemorrhage, dementia, anxiety and depression with left hip severe arthritis: Patient follows psychiatris Dr. Brian. 01/26: Patient on quetiapine 25 mg a.m. and 100 mg nightly, lorazepam 0.5 mg twice daily. Home medication escitalopram resumed. 5. Hypertension and dyslipidemia: Patient on a statin. Blood pressure is low, hypotension as described above 01/26: BP recovered currently 140 systolic. 6. Former tobacco smoker: Started 1 to 1.5 pack/day in college. Quit about 7 years ago. As per his doctor, he does not have COPD 01/28: Follow-up in pulmonary clinic for PFT testing. Might have undiagnosed COPD DVT prophylaxis: On Lovenox 40 mg subcu daily. Living will/advanced directive/end of life care: Patient does have living will or advanced directive. His , May near the bedside is power of bandoleer straightener stamper for health. She showed me the paper signed by PCP Dr. Ming Mckeon as DNR CC but she meant DNR CC arrest with no intubation. After discussion of benefits/risks procedures involved with full code, DNR CC arrest and DNR CC, the patient opted for full code. Patient and his do not want artificial life support including intubation, tube feed, ventilator and/chest compression, and DC shock if needed but okay with CVC catheter/PICC line and vasopressin Discharge medication reconciliation done. Discharge follow-up instructions completed. Discharge process discussed with the patient and all questions were answered to patient's satisfaction. Follow with PCP in 1 to 2 weeks Total time spent, exact 35 minutes on discharge meds reconciliation, examination, coordination of care with nurses and ancillary staff, review of imaging and blood test and discussion with the patient on follow-up instructions. Clinical Impression(s) from Imaging Studies Chest X-Ray 01/25/24 10:43 IMPRESSION: Findings suggest a right lower lobe infiltrate superimposed on bibasilar scarring. Medications at Discharge Home Medications acetaminophen 325 mg tablet 650 mg PO QHS PAIN 10/10/20 atorvastatin 40 mg tablet 40 mg PO QHS CHOLESTEROL 10/10/20 losartan 25 mg tablet 25 mg PO DAILY BP 10/10/20 melatonin 5 mg capsule 5 mg PO QHS SLEEP 10/10/20 cetirizine 10 mg tablet (Zyrtec) 10 mg PO DAILY 12/10/20 escitalopram oxalate 20 mg tablet 20 mg PO DAILY #90 tabs 12/31/23 lorazepam 0.5 mg tablet 0.5 mg PO BID ANXIETY 30 days #60 tabs 12/31/23 mirtazapine 15 mg tablet 15 mg PO QHS DEPRESSION 90 days #90 tabs 12/31/23 quetiapine 100 mg tablet See Rx Instructions .Route .COMPLEX #90 tabs 12/31/23 quetiapine 25 mg tablet 25 mg PO QAM #90 tabs 12/31/23 cephalexin 500 mg capsule 500 mg PO Q8H 4 days #12 caps 01/29/24 dexamethasone 6 mg tablet 6 mg PO DAILY 5 days #5 tabs 01/29/24 dextromethorphan-guaifenesin ER 60 mg-1,200 mg tab,extend release,12hr 1 tab PO BID 7 days #0 tabs 01/29/24 ipratropium 0.5 mg-albuterol 3 mg (2.5 mg base)/3 mL nebulization soln 3 ml inhalation Q4HWA.RT PRN Shortness of breath #0 mL 01/29/24 sennosides 8.6 mg-docusate sodium 50 mg tablet (Stimulant Laxative Plus) 2 tab PO BID PRN PRN Constipation #0 tabs 01/29/24 Physical Exam Narrative Seen and examined. He feels good. He said he had good sleep last night and feels much better. On 2 L of O2 through nasal cannula. The patient was on Airvo about 40% FiO2, improved from ICU. Currently on oxygen through nasal cannula. Afebrile. Physical exam General: Alert, Oriented x3, Cooperative, middle-aged, fatigue. HEENT: Atraumatic, PERRLA, EOMI, Normocephalic Oral: Oral mucosa dry. No Gingival or Mucosal Lesions/ Ulcerations Neck: Supple, No JVD, Negative Carotid Bruits Chest wall/Lungs: Air entry diminished in both lungs. Mild expiratory rhonchi. No dyspnea at rest. Cardiovascular: Sinus tachycardia, normal S1, Normal S2, No M/G/R Abdomen: Bowel Sounds Present, Soft, Non Tender, Non-Distended : No dysuria. No renal angle tenderness. No suprapubic tenderness. Extremities: Mild pedal bilateral pitting edema, Capillary Refill Less than 3 Seconds Skin: No rashes, No breakdown Musculoskeletal: No Tenderness to Palpation of Joints or Extremities. ROM full but bilateral degenerative arthritis Neurological: Cranial nerves II-XII grossly intact, DTR 2+/4. No acute focal neurological deficit. Psych/Mental Status: Flat affect. Major depression. Mild dementia Weight / BMI Weight Weight: 186 lb 11.704 oz Body Mass Index (BMI) 27.6 ABG / Lab / Microbiology Data 01/29/24 04:18 01/29/24 04:18 Laboratory: Laboratory Results - last 24 hr 01/28/24 16:59: WBC 13.1 H, RBC 3.79 L, Hgb 11.2 L, Hct 33.3 L, MCV 87.9, MCH 29.6, MCHC 33.6, RDW Std Deviation 47.1 H, RDW Coeff of Ethan 14.7 H, Plt Count 212, MPV 10.5, Immature Gran % (Auto) 2.600 H, Neut % (Auto) 85.2 H, Lymph % (Auto) 6.9 L, [place] % (Auto) 4.4, Eos % (Auto) 0.0, Baso % (Auto) 0.9, Absolute Neuts (auto) 11.1 H, Absolute Lymphs (auto) 0.90, Nucleated RBC % 0, Sodium 138, Potassium 3.4 L, Chloride 107, Carbon Dioxide 25.0, Anion Gap 6, BUN 18, Creatinine 0.73, Estim Creat Clear Calc 72.80, Est GFR (MDRD) Af Amer 131, Est GFR (MDRD) Non-Af 108, BUN/Creatinine Ratio 24.6 H, Glucose 119 H, Calcium 8.8 01/29/24 04:18: WBC 12.8 H, RBC 3.63 L, Hgb 10.7 L, Hct 32.0 L, MCV 88.2, MCH 29.5, MCHC 33.4, RDW Std Deviation 48.0 H, RDW Coeff of Ethan 14.9 H, Plt Count 217, MPV 10.2, Immature Gran % (Auto) 2.700 H, Neut % (Auto) 87.2 H, Lymph % (Auto) 7.2 L, [place] % (Auto) 2.7, Eos % (Auto) 0.0, Baso % (Auto) 0.2, Absolute Neuts (auto) 11.2 H, Absolute Lymphs (auto) 0.92, Nucleated RBC % 0, Sodium 138, Potassium 3.4 L, Chloride 108 H, Carbon Dioxide 28.0, Anion Gap 2 L, BUN 18, Creatinine 0.80, Estim Creat Clear Calc 72.80, Est GFR (MDRD) Af Amer 118, Est GFR (MDRD) Non-Af 98, BUN/Creatinine Ratio 22.5 H, Glucose 147 H, Calcium 8.6, Vancomycin Trough 19.9 H Microbiology: Microbiology 01/25/24 15:00 Sputum, Expectorated/Coughed Gram Stain - Final 01/25/24 15:00 Sputum, Expectorated/Coughed Respiratory Culture - Final Staphylococcus aureus 01/26/24 12:00 Nasal Secretion MRSA (PCR) - Final Meth. resistant Staph. aureus 01/25/24 14:00 Urine, Random Urine Culture - Final Culture exhibits no growth. 01/25/24 11:09 Blood Culture (Wb) - Anticubital Left Blood Culture - Preliminary No growth in 48 hours. 01/25/24 14:00 Urine, Clean Catch Legionella Antigen - Final 01/25/24 14:00 Urine, Clean Catch Streptococcus pneumoniae Antigen (M - Final 01/25/24 15:32 Mucosa - Nasopharyngeal Respiratory Panel (PCR) - Final 01/25/24 13:22 Mucosa - Nose SARS-CoV-2, Influenza & RSV (PCR) - Final SARS-CoV-2 (COVID 19 PCR) Meaningful Use Info Meaningful Use Meaningful Use Diagnoses (Choose all that apply): None applicable Ischemic Stroke Statin Dosing Therapy Reference: STATIN DOSE THERAPY REFERENCE: * Patients > 75 years receive moderate or high dose statin therapy. * Patients 75 years or YOUNGER should receive HIGH intensity statin dose unless contraindicated. You will be required to document reason for non-treatment if statin daily dose does not meet guidelines. HIGH DOSE STATIN THERAPY DAILY Atorvastatin > than or = to 40 mg Rosuvastatin > than or = to 20 mg Amlodipine + Atorvastatin > than or = to 2.5/40 mg Ezetimibe + Simvastatin 10/80 mg Simvastatin 80mg Discharge Plan Admission Admit Date/Time: 01/25/24 12:49 Primary Reason for Your Visit: Right lower lobe pneumonia, MSSA Attending Provider: Imtiaz Brownlee Primary Care Provider: Maxwell Mcdonald Consulting Providers: Gagandeep Chew Discharge Orders/Prescriptions Prescriptions: New dextromethorphan-guaifenesin 60-1,200 mg tablet extended release 12 hr 1 tab PO BID 7 Days Qty: 0 0RF ipratropium-albuterol 0.5 mg-3 mg(2.5 mg base)/3 mL Solution For Nebulization 3 ml inhalation Q4HWA.RT PRN (Reason: Shortness of breath) Qty: 0 0RF sennosides-docusate sodium [Stimulant Laxative Plus] 8.6-50 mg Tablet 2 tab PO BID PRN PRN (Reason: Constipation) Qty: 0 0RF cephalexin 500 mg capsule 500 mg PO Q8H 4 Days Qty: 12 0RF dexamethasone 6 mg tablet 6 mg PO DAILY 5 Days Qty: 5 0RF Continued escitalopram oxalate 20 mg tablet 20 mg PO DAILY Qty: 90 1RF lorazepam 0.5 mg tablet 0.5 mg PO BID 30 Days Qty: 60 2RF mirtazapine 15 mg tablet 15 mg PO QHS 90 Days Qty: 90 1RF quetiapine 100 mg tablet See Rx Instructions .ROUTE .COMPLEX Qty: 90 1RF Dose Instruction: TAKE 1 TABLET BY MOUTH ONCE DAILY AT BEDTIME FOR MOOD Rx Instructions: TAKE 1 TABLET BY MOUTH ONCE DAILY AT BEDTIME FOR MOOD quetiapine 25 mg tablet 25 mg PO QAM Qty: 90 1RF acetaminophen 325 MG tablet 650 mg PO QHS melatonin 5 mg Capsule 5 mg PO QHS atorvastatin 40 mg tablet 40 mg PO QHS losartan 25 MG tablet 25 mg PO DAILY cetirizine [Zyrtec] 10 mg Tablet 10 mg PO DAILY Discontinued guaifenesin [Mucinex] 600 mg tablet extended release 12hr 1,200 mg PO BID Referrals / Follow Up: Maxwell Mcdonald MD [Primary Care Provider] - Within [address] NP, [facility] [Med Staff - Adv Practice Prof] - Within 2 Weeks ( right lower lobe pneumonia, COVID-pneumonia and COPD exacerbation) Disposition Disposition (needs filled in before D/C Order can be placed): [facility] Charges/Coding Visit Charges Inpatient E&M: 40202 Disch Hosp >30min
[2024-01-29] MEDS: Cefazolin 2 GM in 0.9% Normal Saline (100mL Bag) 100 ML IV (16:39)
== END 2024-01-29 18:33 | disposition skilled nursing facility (03) | DRG 871 ==
LOC: ED 12:47 → ICU 13:49 → PCU 01-26 16:03
PROVIDERS: Admitting Provider Internal Medicine; Emergency Provider Emergency Medicine; PCP Family Medicine; Visit Provider Internal Medicine
DX: A41.9 Sepsis, unspecified organism (principal); J15.212 Pneumonia due to Methicillin resistant Staphylococcus aureus; J96.01 Acute respiratory failure with hypoxia; J12.82 Pneumonia due to coronavirus disease 2019; U07.1 COVID-19; J44.0 Chronic obstructive pulmonary disease with (acute) lower respiratory infection; F03.90 Unspecified dementia, unspecified severity, without behavioral disturbance, psychotic disturbance, mood disturbance, and anxiety; F32.A Depression, unspecified; I10 Essential (primary) hypertension; I25.10 Atherosclerotic heart disease of native coronary artery without angina pectoris; E78.5 Hyperlipidemia, unspecified; M16.12 Unilateral primary osteoarthritis, left hip; I25.2 Old myocardial infarction; F41.1 Generalized anxiety disorder; Z66 Do not resuscitate; Z79.899 Other long term (current) drug therapy; Z86.73 Personal history of transient ischemic attack (TIA), and cerebral infarction without residual deficits; Z87.891 Personal history of nicotine dependence; Z23 Encounter for immunization
CPT/HCPCS: 36415; 36569; 36600; 71046; 80048; 80053; 80202; 81001; 82550; 82803; 83605; 83735; 85025; 85027; 85610; 85730; 87040; 87070; 87077; 87086; 87149; 87186; 87205; 87449; 87631; 87633; 87641; 90662; 93005; 94640; 94660; 94668; 97110; 97162; 97166; 97530; 97535; 97802; 99252; 99285; J7030; J7040; J7050; A4216; G0463; J0696

== ENCOUNTER 2024-01-29 18:51 | Inpatient (IN) | payer MEDICARE, MEDICAID, SELFPAY ==
[2024-01-29 19:52] VITALS: BP 127/89; PULSE 75; RESP 18; TEMP 36.7; O2SAT 94; BMI 28.0
--- NOTE | 2024-01-29 20:22 | HP.PCM_ITS ---
HPI - General General Date of Admission: 01/29/24 Date of Service: 01/29/24 Chief Complaint: Here for rehabilitation. HPI Narrative 01/25/2024 DHARA ORDONEZ, is a 83 Male who presents to [facility] ED with shortness of breath. History of remote pneumonia. Cough productive of green brown sputum. Mild swelling of feet. IV antibiotics, IV fluids for sepsis, pneumonia. 01/25/2024 Admit [facility]. IV fluids, Levophed, Zosyn, Vancomycin, for sepsis, right lower lobe pneumonia. Declined intubation. 01/26/2024 +covid-19, nasal swab positive MRSA, sputum culture staph aureus. Urinary culture negative, Urinary antigens negative for strep, legionella. Decadron, no remdesivir for covid-19. Vancomycin, Zosyn, right lower lobe pneumonia. Airvo for acute respiratory failure with hypoxia. 01/27/2024 Airvo 40% FiO2 to oxygen per nasal cannula. Respiratory status improved. Vancomycin, Zosyn for right lower lobe pneumonia, sputum staph aureus. Hypoxia improved. 01/28/2024 Feels bad, oxygen improved from 3 liters to 2 liters. Oxygenation better. Consult ID for MSSA pneumonia. 01/29/2024 Dr. Chew MSSA right lower pneumonia, narrow antibiotics to Cefazolin IV, discharge on 4 more days Keflex 500mg po tid. 01/29/2024 Admit to TCU with debility, here for rehabilitation, strengthening, prior to discharge home with . [facility] Medical History (Updated 01/29/24 @ 20:[address] Benitez Garcia MD) Generalized anxiety disorder Major depressive disorder in remission Anxiety GERD (gastroesophageal reflux disease) Former smoker COPD (chronic obstructive pulmonary disease) Myocardial infarct Triple vessel coronary artery disease History of tobacco abuse Atherosclerotic heart disease of [place] coronary artery without angina pectoris History of non-ST elevation myocardial infarction (NSTEMI) Hyperlipidemia CVA (cerebral vascular accident) Intracerebral hemorrhage Anxiety Depression Home Medications ?Medication ?Instructions ?Recorded ?Last Taken ?Type acetaminophen 325 mg tablet 650 mg PO QHS PAIN 10/10/20 01/24/24 History atorvastatin 40 mg tablet 40 mg PO QHS CHOLESTEROL 10/10/20 01/24/24 History losartan 25 mg tablet 25 mg PO DAILY BP 10/10/20 01/25/24 History melatonin 5 mg capsule 5 mg PO QHS SLEEP 10/10/20 01/24/24 History cetirizine 10 mg tablet (Zyrtec) 10 mg PO DAILY Allergies 12/10/20 01/25/24 History escitalopram oxalate 20 mg tablet 20 mg PO DAILY mood #90 tabs 12/31/23 01/29/24 09:30 Rx lorazepam 0.5 mg tablet 0.5 mg PO BID ANXIETY 30 days #60 12/31/23 01/25/24 Rx tabs mirtazapine 15 mg tablet 15 mg PO QHS DEPRESSION 90 days 12/31/23 01/24/24 Rx #90 tabs quetiapine 100 mg tablet See Rx Instructions .Route 12/31/23 01/24/24 Rx .COMPLEX Mood #90 tabs quetiapine 25 mg tablet 25 mg PO QAM Mood #90 tabs 12/31/23 01/25/24 Rx cephalexin 500 mg capsule 500 mg PO Q8H Antibiotic 4 days 01/29/24 Unknown Rx #12 caps dexamethasone 6 mg tablet 6 mg PO DAILY Pneumonia 5 days #5 01/29/24 Unknown Rx tabs dextromethorphan-guaifenesin ER 60 1 tab PO BID Congestion 7 days #0 01/29/24 01/29/24 09:25 Rx mg-1,200 mg tab,extend release,12hr tabs ipratropium 0.5 mg-albuterol 3 mg 3 ml inhalation Q4HWA.RT PRN 01/29/24 01/28/24 Rx (2.5 mg base)/3 mL nebulization Shortness of breath #0 mL soln sennosides 8.6 mg-docusate sodium 2 tab PO BID PRN PRN Constipation 01/29/24 Unknown Rx 50 mg tablet (Stimulant Laxative #0 tabs Plus) Allergy/AdvReac Type Severity Reaction Status Date / Time No Known Allergies Allergy Verified 01/25/24 10:28 Family History Father Heart disease Dementia Mother CVA (cerebral vascular accident) Dementia Other Sepsis Surgical History History of thoracentesis History of vasectomy Social History household members: spouse Smoking Status: Former smoker how long ago did patient quit smoking: Quit 5-7 yrs prior, started in college, 1-1.5 ppd. alcohol intake: never substance use type: does not use ROS Constitutional Constitutional: Reports weakness; Denies chills, fever(s) or weight gain ENT HEENT: Denies headache(s), nasal congestion or nasal discharge Cardiovascular Cardiovascular: Denies chest pain or palpitations Respiratory/Chest Respiratory/Chest: Denies cough, excessive phlegm production or shortness of breath with exertion Gastrointestinal Gastrointestinal: Denies abdominal pain, nausea or vomiting Genitourinary Genitourinary: Denies dysuria Musculoskeletal Musculoskeletal: Denies joint pain or joint swelling Integumentary Integumentary: Denies rash or wounds Neurologic Neurologic: Denies focal weakness, numbness or tingling Psychiatric Psychiatric: Denies anxiety, auditory hallucinations, depression, homicidal idea tion or suicidal ideation Physical Exam Const alert General Appearance: cooperative HEENT normocephalic Eyes PERRL and EOMs intact bilaterally Neck supple, no JVD and no carotid bruits Resp normal respiratory effort and clear to auscultation bilaterally Auscultation: rhonchi right lower Cardio regular rate and regular rhythm GI normal to inspection, nondistended, normoactive bowel sounds, non-tender and non-distended Extremity normal capillary refill General Extremity: Negative for edema Skin no rashes or lesions noted General Skin Exam: no breakdown Psych affect normal Appearance: appropriate Assessment & Plan Assessment/Plan (1) Debility: (2) Septic shock: (3) MSSA (methicillin susceptible Staphylococcus aureus) pneumonia: (4) Acute respiratory failure with hypoxia: (5) COVID-19: (6) Essential (primary) hypertension: (7) Hyperlipidemia: (8) Insomnia: (9) Allergic rhinitis: (10) Depression: (11) Anxiety: (12) CVA (cerebral vascular accident): (13) Vascular dementia: PLAN: Plan 83 year old male with below past medical history hospitalized for septic shock 2/2 mssa pneumonia, complicated by acute respiratory failure with hypoxia, covid-19, admitted to TCU with debility, here for rehabilitation, strengthening, prior to discharge home with . * Debility - PT/OT. * Pain - Tylenol 1000mg qhs. * Bowel - senna/colace 2 tablets bid prn, Dulcolax 10mg pr daily prn. * Adult immunization - Administer pneumonia vaccine, covid vaccine, flu vaccine as appropriate. * DVT prophylaxis - Lovenox 40mg sc daily. * Hyperlipidemia - Atorvastatin 40mg qhs. * MSSA pneumonia - Keflex 500mg q8 thru 02/02/2024. * Covid-19 - Decadron 6mg daily thru 02/03/2024. * Depression - Lexapro 20mg daily, Seroquel 25mg qam, 100mg qhs, Mirtazapine 15mg qhs, stable chronic shelter use, gdr not recommended. * Congestion - Mucinex dm 1 tablet bid. * Shortness of breath - Duoneb 3ml q4 prn. * Allergic Rhinitis - Loratadine 10mg daily. * Anxiety - Lorazepam 0.5mg bid, stable chronic shelter use, gdr not recommended. * Hypertension - Losartan 25mg daily. * Insomnia - Melatonin 5mg qhs. *
[2024-01-29 21:30] VITALS: PULSE 61; O2SAT 93
[2024-01-29] MEDS: Cephalexin 500 MG Capsule PO (21:32)
[2024-01-29] MEDS: LORazepam 0.5 MG Tablet PO (21:32)
[2024-01-29] MEDS: Atorvastatin Calcium 40 MG Tablet PO (21:32)
[2024-01-29] MEDS: MELATONIN 10 MG TABLET 5 MG PO (21:33)
[2024-01-29] MEDS: QUEtiapine 100 MG Tablet PO (21:34)
[2024-01-29] MEDS: Mirtazapine 15 MG Tablet PO (21:34)
[2024-01-29] MEDS: guaiFENesin/D-Methorphan TAB.SR.12H 1 TABLET PO (21:34)
[2024-01-29] MEDS: Acetaminophen 500 MG Tablet 1000 MG PO (21:35)
--- NOTE | 2024-01-30 01:26 | NURSING ---
All care provided in room due to contact precautions for COVID.
[2024-01-30 02:40] VITALS: PULSE 74; RESP 18; O2SAT 94
[2024-01-30] MEDS: Cephalexin 500 MG Capsule PO ×3 (06:47→21:32)
[2024-01-30] MEDS: Enoxaparin 40 MG/0.4 ML Syringe SC (06:47)
[2024-01-30 07:10] LABS: Absolute Lymphocyte Count 2.14 X10^3/uL (0.83-4.51); Absolute Neutrophil Count 12.7 X10^3/uL (2.0-7.7); Basophil# 0.11 X10^3/uL; Basophil% 0.7 % (0-1); Eosinophil# 0.11 X10^3/uL; Eosinophils% 0.7 % (0-5); Hematocrit 34.3 % (40-54); Hemoglobin 11.4 g/dL (13.0-16.5); Lymphocyte # 2.14 X10^3/ul (0.83-4.51); Lymphocyte % 13.1 % (19-41); Mean Corp Hgb Conc 33.2 g/dL (32-36); Mean Corpuscular Hgb 28.9 pg (27.0-32.0); Mean Corpuscular Volume 87.1 fL (80-94); Mean Platelet Vol. 10.6 fl (6.2-12.0); Monocyte# 0.76 X10^3/uL; Monocyte% 4.6 % (0-10); NRBC Flagged by Analyzer 0 % (0-5); Neutrophil # 12.74 X10^3/uL (2.7-7.7); Neutrophil % 77.9 % (47-70); Platelet Count 259 K/mm3 (150-450); RBC Distribution Width CV 14.8 % (11.6-14.6); RBC Distribution Width SD 47.1 fl (35.1-43.9); Red Blood Count 3.94 M/mm3 (4.6-6.2); White Blood Count 16.4 K/mm3 (4.4-11.0)
[2024-01-30 07:15] VITALS: O2SAT 96
[2024-01-30 07:45] LABS: Anion Gap 6 (5-15); BUN 22 mg/dL (7-18); Calcium,Total 8.8 mg/dL (8.5-10.1); Chloride 110 mmol/L (98-107); Creatinine, Serum 0.92 mg/dL (0.70-1.30); EST Glomerular Filtration Rate 84 mL/min (>60); Est Glom Filt Rate - Afr Amer 101 mL/min (>60); Estimated Creatinine Clearance 63.79 ml/min; Glucose 97 mg/dL (74-106); Potassium 3.3 mmol/L (3.5-5.1); Sodium Level 143 mmol/L (136-145)
[2024-01-30] MEDS: dexAMETHasone 4 MG Tablet 6 MG PO (10:12)
[2024-01-30] MEDS: Menthol/Lanolin/Calamine/Znox 113 GM Tube 1 APPLIC TOPICAL ×2 (10:13→22:11)
[2024-01-30] MEDS: Escitalopram Oxalate 20 MG Tablet PO (10:14)
[2024-01-30] MEDS: Loratadine 10 MG Tablet PO (10:14)
[2024-01-30] MEDS: Losartan Potassium 25 MG Tablet PO (10:14)
[2024-01-30] MEDS: QUEtiapine 25 MG Tablet PO (10:15)
[2024-01-30] MEDS: guaiFENesin/D-Methorphan TAB.SR.12H 1 TABLET PO ×2 (10:15→21:32)
[2024-01-30] MEDS: Nystatin Powder 15gm Bottle 1 APPLIC TOPICAL ×2 (10:15→22:11)
[2024-01-30] MEDS: Tuberculin,Purif.prot.deriv. 50 TU/ML Vial 0.1 ML ID (10:17)
[2024-01-30] MEDS: LORazepam 0.5 MG Tablet PO ×2 (10:18→21:32)
[2024-01-30 10:56] VITALS: BP 118/66; PULSE 80; RESP 20; TEMP 36.4; O2SAT 92
[2024-01-30] MEDS: Potassium Chloride Oral Tablet 20 MEQ 40 MEQ PO (14:44)
[2024-01-30] MEDS: Atorvastatin Calcium 40 MG Tablet PO (21:32)
[2024-01-30] MEDS: MELATONIN 10 MG TABLET 5 MG PO (21:32)
[2024-01-30] MEDS: Mirtazapine 15 MG Tablet PO (21:32)
[2024-01-30] MEDS: Acetaminophen 500 MG Tablet 1000 MG PO (21:32)
[2024-01-30] MEDS: QUEtiapine 100 MG Tablet PO (21:32)
[2024-01-30] MEDS: Arthritis Pain Compound 60 CLICK TUBE TOPICAL (22:10)
[2024-01-31] MEDS: Cephalexin 500 MG Capsule PO ×3 (06:04→21:04)
[2024-01-31] MEDS: Enoxaparin 40 MG/0.4 ML Syringe SC (06:04)
[2024-01-31 06:53] LABS: Anion Gap 7 (5-15); BUN 20 mg/dL (7-18); BUN/Creat Ratio 24.6 RATIO (10-20); Calcium,Total 8.5 mg/dL (8.5-10.1); Chloride 110 mmol/L (98-107); Creatinine, Serum 0.81 mg/dL (0.70-1.30); EST Glomerular Filtration Rate 96 mL/min (>60); Est Glom Filt Rate - Afr Amer 116 mL/min (>60); Estimated Creatinine Clearance 72.45 ml/min; Glucose 93 mg/dL (74-106); Potassium 3.4 mmol/L (3.5-5.1); Sodium Level 143 mmol/L (136-145)
[2024-01-31 07:08] VITALS: O2SAT 95
[2024-01-31] MEDS: dexAMETHasone 4 MG Tablet 6 MG PO (10:14)
[2024-01-31 10:15] VITALS: BP 107/59; PULSE 65; RESP 18; TEMP 36.8; O2SAT 93
[2024-01-31] MEDS: Arthritis Pain Compound 60 CLICK TUBE TOPICAL ×2 (10:16→21:50)
[2024-01-31] MEDS: Potassium Chloride Oral Tablet 20 MEQ 40 MEQ PO (10:16)
[2024-01-31] MEDS: Loratadine 10 MG Tablet PO (10:16)
[2024-01-31] MEDS: Menthol/Lanolin/Calamine/Znox 113 GM Tube 1 APPLIC TOPICAL ×2 (10:16→21:51)
[2024-01-31] MEDS: Escitalopram Oxalate 20 MG Tablet PO (10:17)
[2024-01-31] MEDS: Nystatin Powder 15gm Bottle 1 APPLIC TOPICAL ×2 (10:17→21:51)
[2024-01-31] MEDS: Losartan Potassium 25 MG Tablet PO (10:17)
[2024-01-31] MEDS: guaiFENesin/D-Methorphan TAB.SR.12H 1 TABLET PO ×2 (10:17→21:04)
[2024-01-31] MEDS: QUEtiapine 25 MG Tablet PO (10:17)
[2024-01-31] MEDS: LORazepam 0.5 MG Tablet PO ×2 (10:18→21:04)
[2024-01-31] MEDS: 0.9% Saline Lock 10 ML Syringe IV ×2 (10:41→23:13)
--- NOTE | 2024-01-31 18:09 | PCM.PN.DRR ---
Documented by User: Verona Horn 01/31/24 18:24 TCU RX Drug Regimen Review Subjective/Objective Subjective/Objective: Subjective: TCU Admission. 83 YOM presented to the ER with SOB. Hospitalized for septic shock 2/2 mssa pneumonia, complicated by acute respiratory failure with hypoxia, covid-19. Admitted to TCU with debility for strengthening and rehabilitation. Objective: Allergies No Known Allergies Allergy (Verified 01/25/24 10:28) Current Medications Generic Name Dose Route Start Last Admin Trade Name Freq PRN Reason Stop Dose Admin Acetaminophen 1,000 mg 01/29/24 22:00 01/30/24 21:32 Acetaminophen 500 Mg Tablet PO 1,000 mg QHS CRISTOBAL Administration Albuterol/Ipratropium 3 ml 01/29/24 19:42 Ipratropium/Albuterol Sulfate 3 Ml Ampul.Neb INHALATION Q4HWA.RT PRN Shortness of breath Atorvastatin Calcium 40 mg 01/29/24 22:00 01/30/24 21:32 Atorvastatin Calcium 40 Mg Tablet PO 40 mg QHS CRISTOBAL Administration Bisacodyl 10 mg 01/29/24 19:46 Bisacodyl 10 Mg Suppository RC DAILY PRN PRN Constipation Calamine/Phenol 1 applic 01/30/24 10:00 01/31/24 10:16 Menthol/Lanolin/Calamine/Znox 113 Gm Tube TOPICAL 1 applic BID CRISTOBAL Administration Protocol Cephalexin 500 mg 01/29/24 22:00 01/31/24 15:54 Cephalexin 500 Mg Capsule PO 02/02/24 14:01 500 mg Q8 CRISTOBAL Administration Compound Med 0 click 01/30/24 22:00 01/31/24 10:16 Arthritis Pain Compound 60 Click Tube TOPICAL 2 click BID CRISTOBAL Administration Protocol Dexamethasone 6 mg 01/30/24 08:00 01/31/24 10:14 Dexamethasone 4 Mg Tablet PO 02/03/24 08:01 6 mg DAILYCM CRISTOBAL Administration Enoxaparin Sodium 40 mg 01/30/24 06:00 01/31/24 06:04 Enoxaparin 40 Mg/0.4 Ml Syringe SC 40 mg DAILY@0600 CRISTOBAL Administration Escitalopram Oxalate 20 mg 01/30/24 10:00 01/31/24 10:17 Escitalopram Oxalate 20 Mg Tablet PO 20 mg DAILY CRISTOBAL Administration Guaifenesin 1 tablet 01/29/24 22:00 01/31/24 10:17 Guaifenesin/D-Methorphan Tab.Sr.12h PO 1 tablet BID CRISTOBAL Administration Loratadine 10 mg 01/30/24 10:00 01/31/24 10:16 Loratadine 10 Mg Tablet PO 10 mg DAILY CRISTOBAL Administration Lorazepam 0.5 mg 01/29/24 22:00 01/31/24 10:18 Lorazepam 0.5 Mg Tablet PO 0.5 mg BID CRISTOBAL Administration Losartan Potassium 25 mg 01/30/24 10:00 01/31/24 10:17 Losartan Potassium 25 Mg Tablet PO 25 mg DAILY CRISTOBAL Administration Protocol Melatonin 5 mg 01/29/24 22:00 01/30/24 21:32 Melatonin 10 Mg Tablet PO 5 mg QHS CRISTOBAL Administration Mirtazapine 15 mg 01/29/24 22:00 01/30/24 21:32 Mirtazapine 15 Mg Tablet PO 15 mg QHS CRISTOBAL Administration Nystatin 1 applic 01/30/24 10:00 01/31/24 10:17 Nystatin Powder 15gm Bottle TOPICAL 1 applic BID CRISTOBAL Administration Protocol Potassium Chloride 20 meq 02/01/24 08:00 Potassium Chloride Oral Tablet 20 Meq PO DAILYCM CRISTOBAL Quetiapine Fumarate 25 mg 01/30/24 10:00 01/31/24 10:17 Quetiapine 25 Mg Tablet PO 25 mg QAM CRISTOBAL Administration Protocol Quetiapine Fumarate 100 mg 01/29/24 22:00 01/30/24 21:32 Quetiapine 100 Mg Tablet PO 100 mg QHS CRISTOBAL Administration Protocol Senna/Docusate Sodium 2 tablet 01/29/24 19:42 Senna/Docusate Sodium 1 Tablet PO BID PRN PRN Constipation Sodium Chloride 10 - 40 ml 01/30/24 03:36 0.9 % Nacl (Sterile) Posiflush 10 Ml IV UD PRN Port access or dressing change Sodium Chloride 10 - 40 ml 01/30/24 03:36 01/31/24 10:41 0.9% Saline Lock 10 Ml Syringe IV 20 ml UD PRN Administration Closed End PICC Flush Tuberculin PPD 0.1 ml 02/06/24 10:00 Tuberculin,Purif.Prot.Deriv. 50 Tu/Ml Vial ID 02/06/24 10:01 X1 ONE Problem List Vascular dementia (Acute) Anxiety (Acute) Depression (Acute) Allergic rhinitis (Acute) Insomnia (Acute) Essential (primary) hypertension (Acute) COVID-19 (Acute) Acute respiratory failure with hypoxia (Acute) MSSA (methicillin susceptible Staphylococcus aureus) pneumonia (Acute) Septic shock (Acute) Debility (Acute) Hyperlipidemia (Chronic) CVA (cerebral vascular accident) (Chronic) Vital Signs Temp Pulse Resp BP Pulse Ox O2 Del Method O2 Flow Rate 98.2 F 65 18 107/59 L 93 Nasal Cannula 2 01/31/24 10:15 01/31/24 10:15 01/31/24 10:15 01/31/24 10:15 01/31/24 10:15 01/31/24 10:25 01/31/24 10:25 Oxygen Flow Rate (L/min) 2 Oxygen Delivery Method Nasal Cannula Weight: 86.041 kg Body Mass Index (BMI) 28.0 Sodium 143 mmol/L (136-145) 01/31/24 05:10 Potassium 3.4 mmol/L (3.5-5.1) L 01/31/24 05:10 Chloride 110 mmol/L (98-107) H 01/31/24 05:10 Carbon Dioxide 26.0 mmol/L (21.0-32.0) 01/31/24 05:10 Anion Gap 7 (5-15) 01/31/24 05:10 BUN 20 mg/dL (7-18) H 01/31/24 05:10 Creatinine 0.81 mg/dL (0.70-1.30) 01/31/24 05:10 Est GFR (MDRD) Af Amer 116 mL/min (>60) 01/31/24 05:10 Est GFR (MDRD) Non-Af 96 mL/min (>60) 01/31/24 05:10 BUN/Creatinine Ratio 24.6 RATIO (10-20) H 01/31/24 05:10 Glucose 93 mg/dL (74-106) 01/31/24 05:10 Assessment/Plan: 1. Pain: acetaminophen 1000mg PO QHS and arthritis pain compound topical BID. Please continue to monitor for pain. 2. Bowel: senna/docusate 2T PO BID PRN constipation and bisacodyl 10mg RC daily PRN constipation. No PRN doses given. Please continue to monitor for constipation and PRN usage. Last documented bowel movement 01/30. 3. DVT prophylaxis: enoxaparin 40mg SC daily. Please continue to monitor for S/S of bleeding/DVT, hemoglobin (last 11.4g/dL), platelets (last 259,000) and renal function. 4. MSSA pneumonia: cephalexin 500mg PO Q8 thru 02/02/24. Please continue to monitor for S/S of infection, diarrhea, upset stomach and renal function. 5. COVID/congestion/SOB: dexamethasone 6mg PO daily thru 02/03/24, Mucinex DM 1T PO BID and Duoneb 3mL inhalation Q4H PRN SOB. No PRN doses have been given. Please continue to monitor for SOB, agitation, hunger, upset stomach and glucose (last 93mg/dL). 6. Hypertension: losartan 25mg PO daily. Please continue to monitor BP (last 107/59), potassium (last 3.4mmol/L) and renal function. 7. Hyperlipidemia: atorvastatin 40mg PO QHS. Please consider ordering a lipid panel if clinically appropriate as the last panel was from 01/2020. Thanks. Please continue to monitor for muscle pain and LFTs (last 01/25/24). 8. Allergic rhinitis: loratadine 10mg PO daily. Please continue to monitor for S/S of allergies. 9. Insomnia: melatonin 5mg PO QHS. Please continue to monitor for excessive drowsiness. Assessment/Plan for indications treated with psychotropic medications: 1. Depression: escitalopram 20mg PO daily, quetiapine 25mg PO daily and 100mg QHS, mirtazapine 15mg PO QHS. Please see physician note regarding GDR. Please continue to monitor for suicidal ideation (black box warning), dementia/delirium (BEERs), falls/fractures (BEERs), S/S of CVA (BEERs), sodium (last 143mmol/L), confusion, and drowsiness. 2. Anxiety: lorazepam 0.5mg PO BID. Please see physician note regarding GDR. Please continue to monitor for dementia/delirium (BEERs), falls/fractures (BEERs), confusion and drowsiness. Medical chart and medication regimen reviewed. The following medication irregularities or issues were identified: 1. Atorvastatin 40mg PO QHS. Please consider ordering a lipid panel if clinically appropriate as the last panel was from 01/2020. Thanks. Date Date of Note:: 01/31/24 Documented by User: Dr. Benitez Garcia MD 02/01/24 07:26 TCU RX Drug Regimen Review Provider Comments Provider responsibility Provider Comments to Recommendations by Pharmacy: Agree
[2024-01-31] MEDS: MELATONIN 10 MG TABLET 5 MG PO (21:04)
[2024-01-31] MEDS: Atorvastatin Calcium 40 MG Tablet PO (21:04)
[2024-01-31] MEDS: Mirtazapine 15 MG Tablet PO (21:04)
[2024-01-31] MEDS: QUEtiapine 100 MG Tablet PO (21:05)
[2024-01-31] MEDS: Acetaminophen 500 MG Tablet 1000 MG PO (21:05)
--- NOTE | 2024-01-31 22:02 | NURSING ---
Spoke w/ Dr. Garcia via phone to report resident would like an order for blue gels for his knee(s) as this was ordered when he was on the acute unit and he uses biofreeze at home. Informed Dr. Garcia that the arthritis compound cream was applied as ordered this hs to the knee and shoulder. New order received and read back for blue gel 4 times daily as needed for pain.
[2024-02-01] MEDS: Enoxaparin 40 MG/0.4 ML Syringe SC (06:43)
[2024-02-01] MEDS: Cephalexin 500 MG Capsule PO ×3 (06:43→20:45)
[2024-02-01 06:58] LABS: Anion Gap 3 (5-15); BUN 17 mg/dL (7-18); BUN/Creat Ratio 21.5 RATIO (10-20); Calcium,Total 8.3 mg/dL (8.5-10.1); Chloride 109 mmol/L (98-107); Creatinine, Serum 0.79 mg/dL (0.70-1.30); EST Glomerular Filtration Rate 99 mL/min (>60); Est Glom Filt Rate - Afr Amer 120 mL/min (>60); Estimated Creatinine Clearance 73.36 ml/min; Glucose 100 mg/dL (74-106); Potassium 3.9 mmol/L (3.5-5.1); Sodium Level 141 mmol/L (136-145)
[2024-02-01] MEDS: guaiFENesin/D-Methorphan TAB.SR.12H 1 TABLET PO ×2 (09:02→20:46)
[2024-02-01] MEDS: LORazepam 0.5 MG Tablet PO ×2 (09:02→20:45)
[2024-02-01] MEDS: Potassium Chloride Oral Tablet 20 MEQ PO (09:02)
[2024-02-01] MEDS: Escitalopram Oxalate 20 MG Tablet PO (09:02)
[2024-02-01] MEDS: Loratadine 10 MG Tablet PO (09:02)
[2024-02-01] MEDS: dexAMETHasone 4 MG Tablet 6 MG PO (09:02)
[2024-02-01] MEDS: QUEtiapine 25 MG Tablet PO (09:02)
[2024-02-01] MEDS: Losartan Potassium 25 MG Tablet PO (09:02)
[2024-02-01] MEDS: Nystatin Powder 15gm Bottle 1 APPLIC TOPICAL ×2 (09:10→20:53)
[2024-02-01] MEDS: Arthritis Pain Compound 60 CLICK TUBE TOPICAL ×2 (09:10→20:51)
[2024-02-01] MEDS: Menthol/Lanolin/Calamine/Znox 113 GM Tube 1 APPLIC TOPICAL ×2 (09:18→20:52)
[2024-02-01 09:20] VITALS: O2SAT 95
[2024-02-01 09:31] VITALS: BP 127/64; PULSE 76
--- NOTE | 2024-02-01 10:33 | NS ---
MST score = 4
--- NOTE | 2024-02-01 12:46 | NURSING ---
[employer] Lead Note; Activity Asset: Manny Coleman was admitted on covid ISO thru 02/04. He will talk w/family and is allowed visitors w/covid ISO precautions in place. He is independent in his choice of daily activities and will watch tv, and read in his room at this time. Staff will offer in room activities thru ISO and then remind him of weekly group activities and respect his right to say no.
[2024-02-01] MEDS: 0.9 % NaCl (Sterile) Posiflush 10 mL IV (13:11)
--- NOTE | 2024-02-01 15:45 | CASEMGMT ---
Addendum entered by Audra Dotson 02/02/24 10:23: provided names and phone numbers to both CM for pt. [facility] CM Yamini ([phone]) and [facility] CM Sonia ([phone]) See SW assessment for further details on services. Original Note: Social Work SW made multiple attempts to speak with pt, including calling his cell phone number listed; however, the phone number is 's cell phone. SW completed assessment with . Verified/updated contacts. Educated to [facility] insurance with NRD 02/01 and continued stay is not guaranteed with each review. stated pt not be able to return home and pt has gone to [facility] for respite stays prior. SW offered ongoing assistance with DC planning. appreciative. Audra Dotson, HAND STONECUTTER COURT LIAISON
[2024-02-01 16:00] VITALS: BP 168/84; PULSE 81; RESP 18; TEMP 36.6; O2SAT 96
[2024-02-01] MEDS: MELATONIN 10 MG TABLET 5 MG PO (20:47)
[2024-02-01] MEDS: Mirtazapine 15 MG Tablet PO (20:49)
[2024-02-01] MEDS: Atorvastatin Calcium 40 MG Tablet PO (20:49)
[2024-02-01] MEDS: Acetaminophen 500 MG Tablet 1000 MG PO (20:50)
[2024-02-01] MEDS: QUEtiapine 100 MG Tablet PO (20:50)
[2024-02-01] MEDS: 0.9% Saline Lock 10 ML Syringe IV (20:54)
[2024-02-02 06:38] LABS: Anion Gap 3 (5-15); BUN 17 mg/dL (7-18); BUN/Creat Ratio 19.2 RATIO (10-20); Calcium,Total 8.4 mg/dL (8.5-10.1); Chloride 109 mmol/L (98-107); Cholesterol 147 mg/dL (200); Creatinine, Serum 0.88 mg/dL (0.70-1.30); EST Glomerular Filtration Rate 87 mL/min (>60); Est Glom Filt Rate - Afr Amer 105 mL/min (>60); Estimated Creatinine Clearance 66.69 ml/min; Glucose 88 mg/dL (74-106); High Density Lipoprotein 51 mg/dL; Potassium 4.4 mmol/L (3.5-5.1); Sodium Level 139 mmol/L (136-145); Triglycerides 105 mg/dL; Very Low Density Lipoprotein 21 mg/dL (5-40)
[2024-02-02] MEDS: Cephalexin 500 MG Capsule PO ×2 (07:01→14:17)
[2024-02-02] MEDS: Enoxaparin 40 MG/0.4 ML Syringe SC (07:01)
[2024-02-02 08:04] VITALS: O2SAT 94
[2024-02-02] MEDS: Loratadine 10 MG Tablet PO (09:24)
[2024-02-02] MEDS: guaiFENesin/D-Methorphan TAB.SR.12H 1 TABLET PO ×2 (09:24→21:41)
[2024-02-02] MEDS: Potassium Chloride Oral Tablet 20 MEQ PO (09:24)
[2024-02-02] MEDS: Losartan Potassium 25 MG Tablet PO (09:24)
[2024-02-02] MEDS: QUEtiapine 25 MG Tablet PO (09:24)
[2024-02-02] MEDS: LORazepam 0.5 MG Tablet PO ×2 (09:24→21:42)
[2024-02-02] MEDS: dexAMETHasone 4 MG Tablet 6 MG PO (09:24)
[2024-02-02] MEDS: Escitalopram Oxalate 20 MG Tablet PO (09:24)
[2024-02-02] MEDS: Arthritis Pain Compound 60 CLICK TUBE TOPICAL ×2 (09:25→21:44)
[2024-02-02] MEDS: Menthol/Lanolin/Calamine/Znox 113 GM Tube 1 APPLIC TOPICAL ×2 (09:26→21:43)
[2024-02-02] MEDS: Nystatin Powder 15gm Bottle 1 APPLIC TOPICAL ×2 (09:27→21:44)
[2024-02-02 09:47] VITALS: BP 110/76; PULSE 83; RESP 16; TEMP 36.8; O2SAT 93
[2024-02-02 10:01] VITALS: O2SAT 96
--- NOTE | 2024-02-02 12:24 | NURSING ---
pt remains in precautions for covid, all treatment and care provided in pt room
[2024-02-02] MEDS: 0.9% Saline Lock 10 ML Syringe IV (14:24)
--- NOTE | 2024-02-02 17:27 | NURSING ---
roho cushion applied to recliner chair, pt has some excoriation inner buttocks and coccyx. pt assisted to BR x1 w/rollator then back to chair. oxygen remains at 2liters NC. dyspnea noted with ambulation.
[2024-02-02] MEDS: Acetaminophen 500 MG Tablet 1000 MG PO (21:41)
[2024-02-02] MEDS: MELATONIN 10 MG TABLET 5 MG PO (21:41)
[2024-02-02] MEDS: Atorvastatin Calcium 40 MG Tablet PO (21:42)
[2024-02-02] MEDS: QUEtiapine 100 MG Tablet PO (21:42)
[2024-02-02] MEDS: Mirtazapine 15 MG Tablet PO (21:42)
[2024-02-03] MEDS: Enoxaparin 40 MG/0.4 ML Syringe SC (05:28)
--- NOTE | 2024-02-03 07:06 | NURSING ---
Patient remains in precautions for COVID, all table games shift manager care provided in the room.
[2024-02-03 07:07] VITALS: O2SAT 94
[2024-02-03 07:29] LABS: Anion Gap 4 (5-15); BUN 17 mg/dL (7-18); BUN/Creat Ratio 18.2 RATIO (10-20); Calcium,Total 8.7 mg/dL (8.5-10.1); Chloride 108 mmol/L (98-107); Creatinine, Serum 0.93 mg/dL (0.70-1.30); EST Glomerular Filtration Rate 82 mL/min (>60); Est Glom Filt Rate - Afr Amer 99 mL/min (>60); Estimated Creatinine Clearance 63.11 ml/min; Glucose 91 mg/dL (74-106); Potassium 4.3 mmol/L (3.5-5.1); Sodium Level 140 mmol/L (136-145)
[2024-02-03 10:00] VITALS: PULSE 85; RESP 18
[2024-02-03] MEDS: LORazepam 0.5 MG Tablet PO ×2 (10:01→20:13)
[2024-02-03] MEDS: dexAMETHasone 4 MG Tablet 6 MG PO (10:02)
[2024-02-03] MEDS: Arthritis Pain Compound 60 CLICK TUBE TOPICAL ×2 (10:02→20:21)
[2024-02-03] MEDS: Losartan Potassium 25 MG Tablet PO (10:02)
[2024-02-03] MEDS: Loratadine 10 MG Tablet PO (10:02)
[2024-02-03] MEDS: Escitalopram Oxalate 20 MG Tablet PO (10:02)
[2024-02-03] MEDS: Potassium Chloride Oral Tablet 20 MEQ PO (10:02)
[2024-02-03] MEDS: guaiFENesin/D-Methorphan TAB.SR.12H 1 TABLET PO ×2 (10:02→20:16)
[2024-02-03] MEDS: QUEtiapine 25 MG Tablet PO (10:02)
[2024-02-03] MEDS: Menthol/Lanolin/Calamine/Znox 113 GM Tube 1 APPLIC TOPICAL ×2 (10:03→20:22)
[2024-02-03] MEDS: Nystatin Powder 15gm Bottle 1 APPLIC TOPICAL ×2 (10:03→20:22)
[2024-02-03 10:35] VITALS: BP 117/63; PULSE 85; RESP 18; TEMP 36.7; O2SAT 94
--- NOTE | 2024-02-03 10:38 | NURSING ---
pt remains in covid precautions, all care and treatments provided in room
--- NOTE | 2024-02-03 13:30 | NURSING ---
pt had liquid emesis with some undigested food after eating veg soup at lunch, stated that he doesn't do well with tomato's. gingerale given and pt has had no more emesis since lunch.
--- NOTE | 2024-02-03 13:43 | CASEMGMT ---
Social Work IDT met with out of room d/t pt's COVID isolation precautions for care plan meeting. Discussed patient's progress in PT/OT/SN. Educated to [facility] 02/07, [facility] 02/10, and continued stay is not guaranteed with each review. discussed having caregiver burnout, despite ASSOCIATE DIRECTOR, and unsure if she can accept pt at home again. noted pt has mental health issues and is active with Dr. Pinzon. SW acknowledged, per nursing report, pt's mood has declined with being in-room isolation. SW offered to better assess pt's mental health and physical abilities once he is out of his room and participating in therapy in the gym. SW to assist with DC plans once recommendations from IDT are made and offered to contact [facility] Waiver CM on possible increase in aides. unsure if that is enough. SW offered to inquire anyway to assist in making informed decision. agreed and appreciative of assistance, and states if pt does need to go to a SNF, she would like [facility] as pt is already acquainted with facility and staff from prior respite stays. SW will continue to follow. CAT CortésW
--- NOTE | 2024-02-03 15:11 | CHAPLAIN ---
Type of Pastoral Visit ___ Initial Visit ___ Follow-up Visit ___ On-call Visit ___ General Patient Visit ___ Spiritual Assessment ___ Family Conference ___ Bereavement ___ Rapid Response ___ Code Blue ___ Other (describe below) Pastoral Care Referral From ___ Patient ___ Family ___ Nurse ___ Physician ___ Lime Puller ___ Reservoir Engineering Manager ___ Other (describe below) Sacrament/Intervention ___ Active listening ___ Anointing ___ Rastafarian ___ Bereavement ___ Communion ___ Carolyn exploration ___ ___ Life review ___ Prayer ___ Reconciliation ___ Sacrament of Sick ___ Supportive presence ___ Wedding ___ Other (describe below) Pastoral Comments phone call made into this isolation room but the voicemail states 'the patient is not available at this time'
[2024-02-03] MEDS: Atorvastatin Calcium 40 MG Tablet PO (20:14)
[2024-02-03 20:15] VITALS: O2SAT 95
[2024-02-03] MEDS: MELATONIN 10 MG TABLET 5 MG PO (20:16)
[2024-02-03] MEDS: Mirtazapine 15 MG Tablet PO (20:16)
[2024-02-03] MEDS: Acetaminophen 500 MG Tablet 1000 MG PO (20:17)
[2024-02-03] MEDS: QUEtiapine 100 MG Tablet PO (20:17)
[2024-02-03] MEDS: 0.9% Saline Lock 10 ML Syringe IV (21:02)
--- NOTE | 2024-02-04 02:07 | NURSING ---
Patient had small yellowish liquid emesis with white phlegm noted, alejo bill given and patient sipping on,
--- NOTE | 2024-02-04 02:38 | NURSING ---
All care provided in room due to contact precautions for COVID.
[2024-02-04] MEDS: Enoxaparin 40 MG/0.4 ML Syringe SC (05:27)
--- NOTE | 2024-02-04 05:32 | NURSING ---
Patient voices less nausea at time when asked.
[2024-02-04 07:10] VITALS: O2SAT 95
--- NOTE | 2024-02-04 09:30 | RAD_ITS ---
STUDY: X-RAY - ABDOMEN/PELVIS REASON FOR EXAM: Male, 83 years old. Nausea/constipation. TECHNIQUE: Single AP view of the abdomen / pelvis. COMPARISON: None. FINDINGS: Minimal linear scarring and/or atelectasis at the left lung base. Moderate amount of fecal material is seen. The visualized liver, spleen and kidneys are grossly normal in size and morphology. Normal soft tissue structures. There are diffuse degenerative changes of the visualized lumbar spine. Dextroscoliosis. Marked degree of degenerative changes and destruction of the left hip joint. RAD/Abdomen Single View IMPRESSION: Moderate amount of material is seen in the colon. Electronically Signed: Steven Quiroz MD at 10:51 EDT ,
[2024-02-04] MEDS: Escitalopram Oxalate 20 MG Tablet PO (09:47)
[2024-02-04] MEDS: Losartan Potassium 25 MG Tablet PO (09:47)
[2024-02-04] MEDS: Potassium Chloride Oral Tablet 20 MEQ PO (09:47)
[2024-02-04] MEDS: guaiFENesin/D-Methorphan TAB.SR.12H 1 TABLET PO ×2 (09:47→21:41)
[2024-02-04] MEDS: LORazepam 0.5 MG Tablet PO ×2 (09:47→21:40)
[2024-02-04] MEDS: QUEtiapine 25 MG Tablet PO (09:47)
[2024-02-04] MEDS: Loratadine 10 MG Tablet PO (09:48)
[2024-02-04] MEDS: Ondansetron ODT 4 MG Tablet 8 MG PO ×2 (09:49→22:06)
[2024-02-04 10:25] VITALS: BP 125/65; PULSE 74; RESP 18; TEMP 36.9; O2SAT 94
[2024-02-04] MEDS: Menthol/Lanolin/Calamine/Znox 113 GM Tube 1 APPLIC TOPICAL ×2 (10:58→21:55)
[2024-02-04] MEDS: 0.9 % NaCl (Sterile) Posiflush 10 mL IV (10:58)
[2024-02-04] MEDS: Nystatin Powder 15gm Bottle 1 APPLIC TOPICAL ×2 (10:59→21:55)
[2024-02-04 11:47] VITALS: O2SAT 87
[2024-02-04] MEDS: Magnesium Citrate 300 ML PO (12:08)
--- NOTE | 2024-02-04 13:04 | CHAPLAIN ---
Type of Pastoral Visit ___ Initial Visit ___ Follow-up Visit ___ On-call Visit ___ General Patient Visit ___ Spiritual Assessment ___ Family Conference ___ Bereavement ___ Rapid Response ___ Code Blue ___ Other (describe below) Pastoral Care Referral From ___ Patient ___ Family ___ Nurse ___ Physician ___ Banking Officer ___ Sales & Service Associate ___ Other (describe below) Sacrament/Intervention ___ Active listening ___ Anointing ___ Advent ___ Bereavement ___ Communion ___ Carolyn exploration ___ ___ Life review ___ Prayer ___ Reconciliation ___ Sacrament of Sick ___ Supportive presence ___ Wedding ___ Other (describe below) Pastoral Comments phone call made into the patient's room who is in isolation but voicemail states patient is unavailable at this time
--- NOTE | 2024-02-04 15:50 | CASEMGMT ---
Social Work SW phoned Sonia [facility] Waiver HAYDE, left VM, requesting an increase to JOINER APPRENTICE services and if staffing would be available to accommodate. Audra Dotson TOOL CLERK REPLENISHMENT ANALYST
[2024-02-04] MEDS: MELATONIN 10 MG TABLET 5 MG PO (21:41)
[2024-02-04] MEDS: Atorvastatin Calcium 40 MG Tablet PO (21:41)
[2024-02-04] MEDS: Acetaminophen 500 MG Tablet 1000 MG PO (21:41)
[2024-02-04] MEDS: QUEtiapine 100 MG Tablet PO (21:41)
[2024-02-04] MEDS: Mirtazapine 15 MG Tablet PO (21:41)
[2024-02-04] MEDS: MENTHOL 226.8 GM JAR 1 APPLIC TOPICAL (21:56)
[2024-02-05 06:23] LABS: Bedside Glucose 92 mg/dL (74-106)
[2024-02-05] MEDS: Enoxaparin 40 MG/0.4 ML Syringe SC (06:39)
[2024-02-05 07:04] VITALS: O2SAT 94
[2024-02-05 07:46] LABS: Absolute Lymphocyte Count 1.77 X10^3/uL (0.83-4.51); Absolute Neutrophil Count 8.4 X10^3/uL (2.0-7.7); Basophil# 0.03 X10^3/uL; Basophil% 0.3 % (0-1); Eosinophil# 0.16 X10^3/uL; Eosinophils% 1.4 % (0-5); Hemoglobin 10.2 g/dL (13.0-16.5); Lymphocyte # 1.77 X10^3/ul (0.83-4.51); Lymphocyte % 15.3 % (19-41); Mean Corp Hgb Conc 31.9 g/dL (32-36); Mean Corpuscular Hgb 29.3 pg (27.0-32.0); Mean Platelet Vol. 10.8 fl (6.2-12.0); Monocyte# 1.14 X10^3/uL; Monocyte% 9.9 % (0-10); NRBC Flagged by Analyzer 0 % (0-5); Neutrophil # 8.36 X10^3/uL (2.7-7.7); Neutrophil % 72.3 % (47-70); Platelet Count 302 K/mm3 (150-450); RBC Distribution Width CV 15.9 % (11.6-14.6); RBC Distribution Width SD 52.2 fl (35.1-43.9); Red Blood Count 3.48 M/mm3 (4.6-6.2); White Blood Count 11.6 K/mm3 (4.4-11.0)
[2024-02-05 08:22] LABS: Anion Gap 4 (5-15); BUN 25 mg/dL (7-18); BUN/Creat Ratio 19.8 RATIO (10-20); Calcium,Total 8.3 mg/dL (8.5-10.1); Chloride 111 mmol/L (98-107); Creatinine, Serum 1.26 mg/dL (0.70-1.30); EST Glomerular Filtration Rate 58 mL/min (>60); Est Glom Filt Rate - Afr Amer 70 mL/min (>60); Estimated Creatinine Clearance 46.58 ml/min; Glucose 85 mg/dL (74-106); Potassium 4.4 mmol/L (3.5-5.1); Sodium Level 140 mmol/L (136-145)
[2024-02-05 08:56] VITALS: BP 97/48; PULSE 86; RESP 18; TEMP 36.7; O2SAT 93
[2024-02-05] MEDS: Arthritis Pain Compound 60 CLICK TUBE TOPICAL ×2 (09:01→21:06)
[2024-02-05] MEDS: Potassium Chloride Oral Tablet 20 MEQ PO (09:01)
[2024-02-05] MEDS: Menthol/Lanolin/Calamine/Znox 113 GM Tube 1 APPLIC TOPICAL ×2 (09:01→21:09)
[2024-02-05] MEDS: Escitalopram Oxalate 20 MG Tablet PO (09:02)
[2024-02-05] MEDS: Nystatin Powder 15gm Bottle 1 APPLIC TOPICAL ×2 (09:02→21:10)
[2024-02-05] MEDS: Losartan Potassium 25 MG Tablet PO (09:02)
[2024-02-05] MEDS: QUEtiapine 25 MG Tablet PO (09:02)
[2024-02-05] MEDS: guaiFENesin/D-Methorphan TAB.SR.12H 1 TABLET PO ×2 (09:02→21:08)
[2024-02-05] MEDS: Loratadine 10 MG Tablet PO (09:02)
[2024-02-05] MEDS: LORazepam 0.5 MG Tablet PO ×2 (09:04→21:07)
[2024-02-05 10:11] VITALS: O2SAT 94
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
[2024-02-05] MEDS: QUEtiapine 100 MG Tablet PO (21:07)
[2024-02-05] MEDS: Acetaminophen 500 MG Tablet 1000 MG PO (21:08)
[2024-02-05] MEDS: MELATONIN 10 MG TABLET 5 MG PO (21:08)
[2024-02-05] MEDS: Atorvastatin Calcium 40 MG Tablet PO (21:08)
[2024-02-05] MEDS: Mirtazapine 15 MG Tablet PO (21:08)
--- NOTE | 2024-02-06 01:19 | NURSING ---
Around 2100 on 02/05/24, this nurse entered patient's room to administer HS medications. While patient was taking the medications, patient stated he had needed to use the bathroom for hours. This nurse inquired to whether patient had used his call light, in an attempt to assess for the need for education salesperson handbags light use. Patient become notably frustrated, stating nurses should know their patient's needs and insisting that he is left alone for hours and no one cares about him. Prior to this nurse entering room, COMMERCIAL ARTIST had been noted assisting patient with care. This nurse educated patient on hourly rounds and encouraged patient to use call light in order to make needs known so those needs could be met. Patient continued to grow increasingly frustrated and verbally aggressive. De-escalation techniques used; patient very difficult to redirect. Medications administered and patient assisted to the bathroom to toilet. Patient set-up with washcloth and towel and another staff member was able to help patient get ready for bed.
[2024-02-06 05:38] LABS: Absolute Lymphocyte Count 1.75 X10^3/uL (0.83-4.51); Absolute Neutrophil Count 6.2 X10^3/uL (2.0-7.7); Basophil# 0.02 X10^3/uL; Basophil% 0.2 % (0-1); Eosinophil# 0.16 X10^3/uL; Eosinophils% 1.7 % (0-5); Hematocrit 30.3 % (40-54); Hemoglobin 9.7 g/dL (13.0-16.5); Lymphocyte # 1.75 X10^3/ul (0.83-4.51); Mean Corpuscular Hgb 29.3 pg (27.0-32.0); Mean Corpuscular Volume 91.5 fL (80-94); Mean Platelet Vol. 10.9 fl (6.2-12.0); Monocyte% 10.9 % (0-10); NRBC Flagged by Analyzer 0 % (0-5); Neutrophil % 67.4 % (47-70); Platelet Count 287 K/mm3 (150-450); RBC Distribution Width CV 15.6 % (11.6-14.6); RBC Distribution Width SD 51.6 fl (35.1-43.9); Red Blood Count 3.31 M/mm3 (4.6-6.2); White Blood Count 9.2 K/mm3 (4.4-11.0)
[2024-02-06 05:54] LABS: Anion Gap 4 (5-15); BUN 26 mg/dL (7-18); BUN/Creat Ratio 26.7 RATIO (10-20); Calcium,Total 8.5 mg/dL (8.5-10.1); Chloride 111 mmol/L (98-107); Creatinine, Serum 0.97 mg/dL (0.70-1.30); EST Glomerular Filtration Rate 78 mL/min (>60); Est Glom Filt Rate - Afr Amer 94 mL/min (>60); Glucose 92 mg/dL (74-106); Potassium 4.4 mmol/L (3.5-5.1); Sodium Level 139 mmol/L (136-145)
[2024-02-06 09:30] VITALS: BP 107/55; PULSE 80; RESP 18; TEMP 36.5; O2SAT 95
[2024-02-06] MEDS: Potassium Chloride Oral Tablet 20 MEQ PO (09:34)
[2024-02-06] MEDS: Arthritis Pain Compound 60 CLICK TUBE TOPICAL ×2 (09:34→20:48)
[2024-02-06] MEDS: Menthol/Lanolin/Calamine/Znox 113 GM Tube 1 APPLIC TOPICAL ×2 (09:34→20:50)
[2024-02-06] MEDS: LORazepam 0.5 MG Tablet PO ×2 (09:34→20:47)
[2024-02-06] MEDS: Escitalopram Oxalate 20 MG Tablet PO (09:35)
[2024-02-06] MEDS: Losartan Potassium 25 MG Tablet PO (09:35)
[2024-02-06] MEDS: Loratadine 10 MG Tablet PO (09:35)
[2024-02-06] MEDS: guaiFENesin/D-Methorphan TAB.SR.12H 1 TABLET PO ×2 (09:35→20:50)
[2024-02-06] MEDS: Nystatin Powder 15gm Bottle 1 APPLIC TOPICAL ×2 (09:35→20:50)
[2024-02-06] MEDS: Enoxaparin 40 MG/0.4 ML Syringe SC (09:35)
[2024-02-06] MEDS: QUEtiapine 25 MG Tablet PO (09:36)
[2024-02-06] MEDS: 0.9 % NaCl (Sterile) Posiflush 10 mL IV (09:43)
[2024-02-06] MEDS: Tuberculin,Purif.prot.deriv. 50 TU/ML Vial 0.1 ML ID (13:57)
[2024-02-06] MEDS: Acetaminophen 500 MG Tablet 1000 MG PO (20:48)
[2024-02-06] MEDS: Atorvastatin Calcium 40 MG Tablet PO (20:49)
[2024-02-06] MEDS: MELATONIN 10 MG TABLET 5 MG PO (20:49)
[2024-02-06] MEDS: QUEtiapine 100 MG Tablet PO (20:49)
[2024-02-06] MEDS: Mirtazapine 15 MG Tablet PO (20:50)
[2024-02-07 06:23] LABS: Absolute Lymphocyte Count 1.33 X10^3/uL (0.83-4.51); Absolute Neutrophil Count 4.8 X10^3/uL (2.0-7.7); Basophil# 0.02 X10^3/uL; Basophil% 0.3 % (0-1); Eosinophil# 0.17 X10^3/uL; Eosinophils% 2.4 % (0-5); Hemoglobin 9.7 g/dL (13.0-16.5); Lymphocyte # 1.33 X10^3/ul (0.83-4.51); Lymphocyte % 18.6 % (19-41); Mean Corp Hgb Conc 32.3 g/dL (32-36); Mean Corpuscular Hgb 29.5 pg (27.0-32.0); Mean Corpuscular Volume 91.2 fL (80-94); Mean Platelet Vol. 10.6 fl (6.2-12.0); Monocyte# 0.83 X10^3/uL; Monocyte% 11.6 % (0-10); NRBC Flagged by Analyzer 0 % (0-5); Neutrophil # 4.77 X10^3/uL (2.7-7.7); Neutrophil % 66.7 % (47-70); Platelet Count 285 K/mm3 (150-450); RBC Distribution Width CV 15.4 % (11.6-14.6); RBC Distribution Width SD 50.8 fl (35.1-43.9); Red Blood Count 3.29 M/mm3 (4.6-6.2); White Blood Count 7.2 K/mm3 (4.4-11.0)
[2024-02-07 06:48] LABS: Anion Gap 2 (5-15); BUN 18 mg/dL (7-18); Calcium,Total 8.4 mg/dL (8.5-10.1); Chloride 110 mmol/L (98-107); Creatinine, Serum 0.86 mg/dL (0.70-1.30); EST Glomerular Filtration Rate 90 mL/min (>60); Est Glom Filt Rate - Afr Amer 109 mL/min (>60); Estimated Creatinine Clearance 68.24 ml/min; Glucose 96 mg/dL (74-106); Potassium 4.2 mmol/L (3.5-5.1); Sodium Level 138 mmol/L (136-145)
[2024-02-07 09:06] VITALS: BP 103/67; PULSE 75; RESP 18; O2SAT 96
[2024-02-07] MEDS: Potassium Chloride Oral Tablet 20 MEQ PO (09:08)
[2024-02-07] MEDS: LORazepam 0.5 MG Tablet PO ×2 (09:09→20:41)
[2024-02-07] MEDS: Loratadine 10 MG Tablet PO (09:09)
[2024-02-07] MEDS: Menthol/Lanolin/Calamine/Znox 113 GM Tube 1 APPLIC TOPICAL ×2 (09:09→20:43)
[2024-02-07] MEDS: Arthritis Pain Compound 60 CLICK TUBE TOPICAL ×2 (09:09→20:44)
[2024-02-07] MEDS: Losartan Potassium 25 MG Tablet PO (09:09)
[2024-02-07] MEDS: Escitalopram Oxalate 20 MG Tablet PO (09:10)
[2024-02-07] MEDS: Nystatin Powder 15gm Bottle 1 APPLIC TOPICAL ×2 (09:10→20:43)
[2024-02-07] MEDS: guaiFENesin/D-Methorphan TAB.SR.12H 1 TABLET PO ×2 (09:10→20:42)
[2024-02-07] MEDS: Enoxaparin 40 MG/0.4 ML Syringe SC (09:10)
[2024-02-07] MEDS: QUEtiapine 25 MG Tablet PO (09:11)
[2024-02-07] MEDS: 0.9 % NaCl (Sterile) Posiflush 10 mL IV (09:17)
--- NOTE | 2024-02-07 09:23 | NURSING ---
Patient weaned to 1L via NC. Maintaining spO2 95-97%. Patient denies any shortness of breath. Will continue to monitor. Call light within reach.
[2024-02-07 09:24] VITALS: O2SAT 96
[2024-02-07 10:35] VITALS: O2SAT 93
[2024-02-07] MEDS: MELATONIN 10 MG TABLET 5 MG PO (20:42)
[2024-02-07] MEDS: QUEtiapine 100 MG Tablet PO (20:42)
[2024-02-07] MEDS: Mirtazapine 15 MG Tablet PO (20:43)
[2024-02-07] MEDS: Atorvastatin Calcium 40 MG Tablet PO (20:43)
[2024-02-07] MEDS: MENTHOL 226.8 GM JAR 1 APPLIC TOPICAL (20:44)
[2024-02-07] MEDS: Acetaminophen 500 MG Tablet 1000 MG PO (20:44)
[2024-02-07] MEDS: 0.9% Saline Lock 10 ML Syringe IV (20:45)
[2024-02-08 05:49] LABS: Absolute Lymphocyte Count 1.48 X10^3/uL (0.83-4.51); Basophil# 0.02 X10^3/uL; Basophil% 0.3 % (0-1); Eosinophil# 0.18 X10^3/uL; Eosinophils% 2.7 % (0-5); Hematocrit 30.8 % (40-54); Hemoglobin 9.8 g/dL (13.0-16.5); Lymphocyte # 1.48 X10^3/ul (0.83-4.51); Lymphocyte % 22.4 % (19-41); Mean Corp Hgb Conc 31.8 g/dL (32-36); Mean Corpuscular Hgb 29.2 pg (27.0-32.0); Mean Corpuscular Volume 91.7 fL (80-94); Mean Platelet Vol. 10.7 fl (6.2-12.0); Monocyte# 0.85 X10^3/uL; Monocyte% 12.9 % (0-10); NRBC Flagged by Analyzer 0 % (0-5); Neutrophil # 4.04 X10^3/uL (2.7-7.7); Neutrophil % 61.1 % (47-70); Platelet Count 292 K/mm3 (150-450); RBC Distribution Width CV 15.4 % (11.6-14.6); RBC Distribution Width SD 51.4 fl (35.1-43.9); Red Blood Count 3.36 M/mm3 (4.6-6.2); White Blood Count 6.6 K/mm3 (4.4-11.0)
[2024-02-08 06:28] LABS: Anion Gap 3 (5-15); BUN 17 mg/dL (7-18); BUN/Creat Ratio 15.2 RATIO (10-20); Calcium,Total 8.6 mg/dL (8.5-10.1); Chloride 109 mmol/L (98-107); Creatinine, Serum 1.12 mg/dL (0.70-1.30); EST Glomerular Filtration Rate 66 mL/min (>60); Est Glom Filt Rate - Afr Amer 80 mL/min (>60); Glucose 99 mg/dL (74-106); Potassium 4.4 mmol/L (3.5-5.1); Sodium Level 140 mmol/L (136-145)
[2024-02-08 07:41] VITALS: O2SAT 93
[2024-02-08] MEDS: Potassium Chloride Oral Tablet 20 MEQ PO (08:26)
[2024-02-08] MEDS: Losartan Potassium 25 MG Tablet PO (08:26)
[2024-02-08] MEDS: guaiFENesin/D-Methorphan TAB.SR.12H 1 TABLET PO ×2 (08:26→21:09)
[2024-02-08] MEDS: Escitalopram Oxalate 20 MG Tablet PO (08:26)
[2024-02-08] MEDS: QUEtiapine 25 MG Tablet PO (08:26)
[2024-02-08] MEDS: Enoxaparin 40 MG/0.4 ML Syringe SC (08:27)
[2024-02-08] MEDS: Arthritis Pain Compound 60 CLICK TUBE TOPICAL ×2 (08:27→21:08)
[2024-02-08] MEDS: Loratadine 10 MG Tablet PO (08:27)
[2024-02-08] MEDS: Nystatin Powder 15gm Bottle 1 APPLIC TOPICAL ×2 (08:28→21:09)
[2024-02-08] MEDS: Menthol/Lanolin/Calamine/Znox 113 GM Tube 1 APPLIC TOPICAL ×2 (08:28→21:09)
[2024-02-08] MEDS: LORazepam 0.5 MG Tablet PO ×2 (09:59→21:08)
--- NOTE | 2024-02-08 11:31 | NURSING ---
Offered covid vaccine, VIS provided. Resident refuses at this time.
--- NOTE | 2024-02-08 15:57 | CHAPLAIN ---
Type of Pastoral Visit _x__ Initial Visit ___ Follow-up Visit ___ On-call Visit ___ General Patient Visit ___ Spiritual Assessment ___ Family Conference ___ Bereavement ___ Rapid Response ___ Code Blue ___ Other (describe below) Pastoral Care Referral From _x__ Patient ___ Family ___ Nurse ___ Physician ___ Batch Attendant ___ Fitness Floor Attendant ___ Other (describe below) Sacrament/Intervention _x__ Active listening ___ Anointing ___ Sabianist ___ Bereavement ___ Communion ___ Carolyn exploration ___ _x__ Life review ___ Prayer ___ Reconciliation ___ Sacrament of Sick _x__ Supportive presence ___ Wedding ___ Other (describe below) Pastoral Comments patient is welcoming and talks a bit about his life and work; pt states that his brother is a advertising columnist; pt however declares that he gave up on catholic years ago; pt states several times when asked about himself and his health I don't know how I am, because no one told me and I'm not sure how I feel, no one has seen me; pt says that he has just been watching TV for two weeks while I was in here with COVID;
[2024-02-08 16:00] VITALS: BP 112/72; PULSE 80; RESP 16; TEMP 36.6; O2SAT 96
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
[2024-02-08] MEDS: Atorvastatin Calcium 40 MG Tablet PO (21:09)
[2024-02-08] MEDS: MELATONIN 10 MG TABLET 5 MG PO (21:09)
[2024-02-08] MEDS: Mirtazapine 15 MG Tablet PO (21:10)
[2024-02-08] MEDS: Acetaminophen 500 MG Tablet 1000 MG PO (21:10)
[2024-02-08] MEDS: QUEtiapine 100 MG Tablet PO (21:10)
[2024-02-09 06:29] LABS: Absolute Lymphocyte Count 1.52 X10^3/uL (0.83-4.51); Absolute Neutrophil Count 4.3 X10^3/uL (2.0-7.7); Basophil# 0.03 X10^3/uL; Basophil% 0.4 % (0-1); Eosinophil# 0.16 X10^3/uL; Eosinophils% 2.3 % (0-5); Hematocrit 31.6 % (40-54); Hemoglobin 10.2 g/dL (13.0-16.5); Lymphocyte # 1.52 X10^3/ul (0.83-4.51); Mean Corp Hgb Conc 32.3 g/dL (32-36); Mean Corpuscular Hgb 29.6 pg (27.0-32.0); Mean Corpuscular Volume 91.6 fL (80-94); NRBC Flagged by Analyzer 0 % (0-5); Neutrophil # 4.26 X10^3/uL (2.7-7.7); Neutrophil % 61.7 % (47-70); Platelet Count 304 K/mm3 (150-450); RBC Distribution Width CV 15.8 % (11.6-14.6); RBC Distribution Width SD 52.2 fl (35.1-43.9); Red Blood Count 3.45 M/mm3 (4.6-6.2); White Blood Count 6.9 K/mm3 (4.4-11.0)
[2024-02-09 06:42] LABS: Anion Gap 4 (5-15); BUN 17 mg/dL (7-18); BUN/Creat Ratio 17.8 RATIO (10-20); Calcium,Total 8.9 mg/dL (8.5-10.1); Chloride 108 mmol/L (98-107); Creatinine, Serum 0.96 mg/dL (0.70-1.30); EST Glomerular Filtration Rate 80 mL/min (>60); Est Glom Filt Rate - Afr Amer 96 mL/min (>60); Estimated Creatinine Clearance 61.13 ml/min; Glucose 98 mg/dL (74-106); Potassium 4.5 mmol/L (3.5-5.1); Sodium Level 140 mmol/L (136-145)
[2024-02-09] MEDS: LORazepam 0.5 MG Tablet PO ×2 (08:46→21:26)
[2024-02-09] MEDS: Enoxaparin 40 MG/0.4 ML Syringe SC (08:47)
[2024-02-09] MEDS: Escitalopram Oxalate 20 MG Tablet PO (08:47)
[2024-02-09] MEDS: guaiFENesin/D-Methorphan TAB.SR.12H 1 TABLET PO ×2 (08:47→21:26)
[2024-02-09] MEDS: Loratadine 10 MG Tablet PO (08:47)
[2024-02-09] MEDS: Losartan Potassium 25 MG Tablet PO (08:47)
[2024-02-09] MEDS: Potassium Chloride Oral Tablet 20 MEQ PO (08:47)
[2024-02-09] MEDS: Nystatin Powder 15gm Bottle 1 APPLIC TOPICAL ×2 (08:48→21:27)
[2024-02-09] MEDS: QUEtiapine 25 MG Tablet PO (08:48)
[2024-02-09] MEDS: Arthritis Pain Compound 60 CLICK TUBE TOPICAL ×2 (08:49→21:27)
[2024-02-09] MEDS: Menthol/Lanolin/Calamine/Znox 113 GM Tube 1 APPLIC TOPICAL ×2 (08:57→21:27)
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
--- NOTE | 2024-02-09 11:41 | MDS.RN ---
Information for the MDS was obtained from review of the clinical record, interview of resident, staff, and direct observation of resident?s care.
[2024-02-09 11:48] VITALS: BMI 25.9
[2024-02-09 13:36] VITALS: BP 112/56; PULSE 82; RESP 18; TEMP 36.6; O2SAT 96
[2024-02-09] MEDS: 0.9 % NaCl (Sterile) Posiflush 10 mL IV (13:39)
[2024-02-09 13:50] VITALS: O2SAT 94
[2024-02-09 14:12] VITALS: O2SAT 87; O2SAT 92; O2SAT 93; O2SAT 96
--- NOTE | 2024-02-09 16:46 | DS.PCM_ITS ---
Providers Date of Admission: 01/29/24 Primary Care Physician: Dr. Maxwell Mcdonald MD Reason For Visit: RIGHT LOWER LOBE PNEUMONIA,SUSPECTED SEPSIS Diagnosis Discharge Diagnosis (1) Debility: Status: Acute Code(s): R53.81 - Other malaise (2) Septic shock: Status: Acute Code(s): A41.9 - Sepsis, unspecified organism; R65.21 - Severe sepsis with septic shock (3) MSSA (methicillin susceptible Staphylococcus aureus) pneumonia: Status: Acute Code(s): J15.211 - Pneumonia due to Methicillin susceptible Staphylococcus aureus (4) Acute respiratory failure with hypoxia: Status: Acute Code(s): J96.01 - Acute respiratory failure with hypoxia (5) COVID-19: Status: Acute Code(s): U07.1 - COVID-19 (6) Essential (primary) hypertension: Status: Acute Code(s): I10 - Essential (primary) hypertension (7) Hyperlipidemia: Status: Chronic Code(s): E78.5 - Hyperlipidemia, unspecified (8) Insomnia: Status: Acute Code(s): G47.00 - Insomnia, unspecified (9) Allergic rhinitis: Status: Acute Code(s): J30.9 - Allergic rhinitis, unspecified (10) Depression: Status: Acute Code(s): F32.9 - Major depressive disorder, single episode, unspecified (11) Anxiety: Status: Acute Code(s): F41.9 - Anxiety disorder, unspecified (12) CVA (cerebral vascular accident): Status: Chronic Code(s): I63.9 - Cerebral infarction, unspecified (13) Vascular dementia: Status: Acute Code(s): F01.50 - Vascular dementia, unspecified severity, without behavioral disturbance, psychotic disturbance, mood disturbance, and anxiety Plan 83 year old male with below past medical history hospitalized for septic shock 2/2 mssa pneumonia, complicated by acute respiratory failure with hypoxia, covid-19, admitted to TCU with debility, here for rehabilitation, strengthening, prior to discharge home with . * Debility - PT/OT. * Pain - Tylenol 1000mg qhs. * Bowel - senna/colace 2 tablets bid prn, Dulcolax 10mg pr daily prn. * Adult immunization - Administer pneumonia vaccine, covid vaccine, flu vaccine as appropriate. * DVT prophylaxis - Lovenox 40mg sc daily. * Hyperlipidemia - Atorvastatin 40mg qhs. * MSSA pneumonia - Keflex 500mg q8 thru 02/02/2024. * Covid-19 - Decadron 6mg daily thru 02/03/2024. * Depression - Lexapro 20mg daily, Seroquel 25mg qam, 100mg qhs, Mirtazapine 15mg qhs, stable chronic group home use, gdr not recommended. * Congestion - Mucinex dm 1 tablet bid. * Shortness of breath - Duoneb 3ml q4 prn. * Allergic Rhinitis - Loratadine 10mg daily. 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 * Hypertension - Losartan 25mg daily. * Insomnia - Melatonin 5mg qhs. * Medications at Discharge Home Medications atorvastatin 40 mg tablet 40 mg PO QHS CHOLESTEROL 10/10/20 losartan 25 mg tablet 25 mg PO DAILY BP 10/10/20 melatonin 5 mg capsule 5 mg PO QHS SLEEP 10/10/20 cetirizine 10 mg tablet (Zyrtec) 10 mg PO DAILY Allergies 12/10/20 escitalopram oxalate 20 mg tablet 20 mg PO DAILY mood #90 tabs 12/31/23 mirtazapine 15 mg tablet 15 mg PO QHS DEPRESSION 90 days #90 tabs 12/31/23 quetiapine 100 mg tablet See Rx Instructions .Route .COMPLEX Mood #90 tabs 12/31/23 quetiapine 25 mg tablet 25 mg PO QAM Mood #90 tabs 12/31/23 dextromethorphan-guaifenesin ER 60 mg-1,200 mg tab,extend release,12hr 1 tab PO BID Congestion 7 days #0 tabs 01/29/24 acetaminophen 500 mg tablet 1,000 mg (2 x 500 mg) PO QHS #0 tabs 02/09/24 lorazepam 0.5 mg tablet 0.5 mg PO BID 30 days #60 tabs 02/09/24 potassium chloride 20 mEq tablet,extended release(part/cryst) 20 meq PO DAILYCM 30 days #30 tabs 02/09/24 Hospital Course Operations None Procedures None Summary of Care Provided Minutes Spent on Discharge: 35 Hospital Course: 83 year old male with below past medical history hospitalized for septic shock 2/2 mssa pneumonia, complicated by acute respiratory failure with hypoxia, covid-19, admitted to TCU with debility, here for rehabilitation, strengthening, prior to discharge home with . Discharge home 02/11/2024 with , Wilda PARKS, no skilled services, oxygen. O2 documentation: Patient requires 1 LPM of oxygen via nasal cannula due to right lower lobe pneumonia, copd. Requires a concentrator and portable O2 tanks to allow patient to be mobiel in the home and the community; O2 will improve the patient's condition in the home setting. Qualifying testing complete within 48 hours of discharge, reviewed, and agreed. Physical Exam Const alert General Appearance: cooperative HEENT normocephalic Eyes PERRL and EOMs intact bilaterally Neck supple, no JVD and no carotid bruits Resp normal respiratory effort, normal air movement and clear to auscultation bilaterally Cardio regular rate and regular rhythm GI normal to inspection, nondistended, normoactive bowel sounds, non-tender and non-distended Extremity normal capillary refill General Extremity: Negative for edema Skin no rashes or lesions noted General Skin Exam: no breakdown Psych affect normal Appearance: appropriate Weight / BMI Weight Weight: 79.243 kg Body Mass Index (BMI) 25.9 ABG / Lab / Microbiology Data 02/09/24 05:29 02/09/24 05:29 Laboratory: Laboratory Results - last 24 hr 02/09/24 05:29: WBC 6.9, RBC 3.45 L, Hgb 10.2 L, Hct 31.6 L, MCV 91.6, MCH 29.6, MCHC 32.3, RDW Std Deviation 52.2 H, RDW Coeff of Ethan 15.8 H, Plt Count 304, MPV 11.0, Immature Gran % (Auto) 0.600, Neut % (Auto) 61.7, Lymph % (Auto) 22.0, M jayson % (Auto) 13.0 H, Eos % (Auto) 2.3, Baso % (Auto) 0.4, Absolute Neuts (auto) 4.3, Absolute Lymphs (auto) 1.52, Nucleated RBC % 0, Sodium 140, Potassium 4.5, Chloride 108 H, Carbon Dioxide 27.0, Anion Gap 4 L, BUN 17, Creatinine 0.96, Estim Creat Clear Calc 61.13, Est GFR (MDRD) Af Amer 96, Est GFR (MDRD) Non-Af 80, BUN/Creatinine Ratio 17.8, Glucose 98, Calcium 8.9 D/C Instructions Discharge Diet: No restrictions Discharge Activity: Return to Normal Activity, May Shower and Use Walker Weight Bearing Status: Weight bearing as tolerated Call your doctor if you observe: Fever of 101 or Higher, Inability to urinate, Inability to have a bowel movement, Shortness of breath, Dizziness, Fainting spells, Swelling in the ankles, Chest pain and Uncontrolled pain Additional Instructions: Discharge home 02/11/2024 with Wilda, no skilled services, oxygen. O2 documentation: Patient requires 1 LPM of oxygen via nasal cannula due to right lower lobe pneumonia, copd. Requires a concentrator and portable O2 tanks to allow patient to be mobiel in the home and the community; O2 will improve the patient's condition in the home setting. Qualifying testing complete within 48 hours of discharge, reviewed, and agreed. Meaningful Use Info Meaningful Use Meaningful Use Diagnoses (Choose all that apply): None applicable Ischemic Stroke Statin Dosing Therapy Reference: STATIN DOSE THERAPY REFERENCE: * Patients > 75 years receive moderate or high dose statin therapy. * Patients 75 years or YOUNGER should receive HIGH intensity statin dose unless contraindicated. You will be required to document reason for non-treatment if statin daily dose does not meet guidelines. HIGH DOSE STATIN THERAPY DAILY Atorvastatin > than or = to 40 mg Rosuvastatin > than or = to 20 mg Amlodipine + Atorvastatin > than or = to 2.5/40 mg Ezetimibe + Simvastatin 10/80 mg Simvastatin 80mg Discharge Plan Admission Admit Date/Time: 01/29/24 18:51 Primary Reason for Your Visit: Debility. Attending Provider: Benitez Garcia Chi Primary Care Provider: Maxwell Mcdonald Instructions Additional Instructions / Restrictions: Discharge home 02/11/2024 with Wilda, no skilled services, oxygen. O2 documentation: Patient requires 1 LPM of oxygen via nasal cannula due to right lower lobe pneumonia, copd. Requires a concentrator and portable O2 tanks to allow patient to be mobiel in the home and the community; O2 will improve the patient's condition in the home setting. Qualifying testing complete within 48 hours of discharge, reviewed, and agreed. Discharge Orders/Prescriptions Prescriptions: New acetaminophen 500 mg Tablet 1,000 mg PO QHS Qty: 0 0RF potassium chloride 20 mEq Tablet,Er Particles/Crystals 20 meq PO DAILYCM 30 Days Qty: 30 0RF lorazepam 0.5 mg Tablet 0.5 mg PO BID 30 Days Qty: 60 0RF Continued escitalopram oxalate 20 mg tablet 20 mg PO DAILY Qty: 90 1RF mirtazapine 15 mg tablet 15 mg PO QHS 90 Days Qty: 90 1RF quetiapine 100 mg tablet See Rx Instructions .ROUTE .COMPLEX Qty: 90 1RF Dose Instruction: TAKE 1 TABLET BY MOUTH ONCE DAILY AT BEDTIME FOR MOOD Rx Instructions: TAKE 1 TABLET BY MOUTH ONCE DAILY AT BEDTIME FOR MOOD quetiapine 25 mg tablet 25 mg PO QAM Qty: 90 1RF melatonin 5 mg Capsule 5 mg PO QHS atorvastatin 40 mg tablet 40 mg PO QHS losartan 25 MG tablet 25 mg PO DAILY cetirizine [Zyrtec] 10 mg Tablet 10 mg PO DAILY dextromethorphan-guaifenesin 60-1,200 mg tablet extended release 12 hr 1 tab PO BID 7 Days Qty: 0 0RF Discontinued lorazepam 0.5 mg tablet 0.5 mg PO BID 30 Days Qty: 60 2RF acetaminophen 325 MG tablet 650 mg PO QHS ipratropium-albuterol 0.5 mg-3 mg(2.5 mg base)/3 mL Solution For Nebulization 3 ml inhalation Q4HWA.RT PRN (Reason: Shortness of breath) Qty: 0 0RF sennosides-docusate sodium [Stimulant Laxative Plus] 8.6-50 mg Tablet 2 tab PO BID PRN PRN (Reason: Constipation) Qty: 0 0RF cephalexin 500 mg capsule 500 mg PO Q8H 4 Days Qty: 12 0RF dexamethasone 6 mg tablet 6 mg PO DAILY 5 Days Qty: 5 0RF Referrals / Follow Up: Maxwell Mcdonald MD [Primary Care Provider] - ( said his will make this appointment, he was very adament on this) Disposition Disposition (needs filled in before D/C Order can be placed): Home, Self Care
[2024-02-09] MEDS: Atorvastatin Calcium 40 MG Tablet PO (21:26)
[2024-02-09] MEDS: QUEtiapine 100 MG Tablet PO (21:26)
[2024-02-09] MEDS: Acetaminophen 500 MG Tablet 1000 MG PO (21:27)
[2024-02-09] MEDS: Mirtazapine 15 MG Tablet PO (21:27)
[2024-02-09] MEDS: MELATONIN 10 MG TABLET 5 MG PO (21:27)
[2024-02-09] MEDS: MENTHOL 226.8 GM JAR 1 APPLIC TOPICAL (21:28)
[2024-02-10 09:06] VITALS: BP 110/63; PULSE 81; RESP 16; TEMP 36.2; O2SAT 94
[2024-02-10] MEDS: Losartan Potassium 25 MG Tablet PO (09:10)
[2024-02-10] MEDS: Potassium Chloride Oral Tablet 20 MEQ PO (09:10)
[2024-02-10] MEDS: Enoxaparin 40 MG/0.4 ML Syringe SC (09:10)
[2024-02-10] MEDS: Loratadine 10 MG Tablet PO (09:10)
[2024-02-10] MEDS: Escitalopram Oxalate 20 MG Tablet PO (09:10)
[2024-02-10] MEDS: QUEtiapine 25 MG Tablet PO (09:11)
[2024-02-10] MEDS: guaiFENesin/D-Methorphan TAB.SR.12H 1 TABLET PO ×2 (09:11→21:12)
[2024-02-10] MEDS: Arthritis Pain Compound 60 CLICK TUBE TOPICAL ×2 (09:11→21:13)
[2024-02-10] MEDS: Menthol/Lanolin/Calamine/Znox 113 GM Tube 1 APPLIC TOPICAL ×2 (09:11→21:13)
[2024-02-10] MEDS: Nystatin Powder 15gm Bottle 1 APPLIC TOPICAL ×2 (09:12→21:12)
[2024-02-10] MEDS: LORazepam 0.5 MG Tablet PO ×2 (09:14→21:22)
--- NOTE | 2024-02-10 09:17 | NURSING ---
pt pleasant & cooperative this AM, pt can flick behavior quick as a switch at times. pt resting in recliner chair, sat 94% on room air.
[2024-02-10 11:00] VITALS: O2SAT 95
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
--- NOTE | 2024-02-10 15:56 | TREXTCAR_ITS ---
Diet Diet Order/Speech Therapy: 01/29/24 19:47 Diet: Regular - General Type of Dietary Supplement:: 4 oz crystal EPHP tid Diet Comments: small portions, extra broth/gravy w/ meat, likes peaches, meatloaf, salmon Routine Orders/Code Status Code Status: DNRCC-A (No intubation.) Wound(s) bilateral buttocks: Wound Type: Excoriation Dressing Change: INES Therapies Weight Bearing: Weight bearing as tolerated Extremity Affected:: Bilateral Lower Physical Therapy: Eval and Treat Occupational Therapy: Eval and Treat Speech Therapy: Eval and Treat Problem/Diagnosis (1) Debility: Status: Acute Code(s): R53.81 - Other malaise (2) Septic shock: Status: Acute Code(s): A41.9 - Sepsis, unspecified organism; R65.21 - Severe sepsis with septic shock (3) MSSA (methicillin susceptible Staphylococcus aureus) pneumonia: Status: Acute Code(s): J15.211 - Pneumonia due to Methicillin susceptible Staphylococcus aureus (4) Acute respiratory failure with hypoxia: Status: Acute Code(s): J96.01 - Acute respiratory failure with hypoxia (5) COVID-19: Status: Acute Code(s): U07.1 - COVID-19 (6) Essential (primary) hypertension: Status: Acute Code(s): I10 - Essential (primary) hypertension (7) Hyperlipidemia: Status: Chronic Code(s): E78.5 - Hyperlipidemia, unspecified (8) Insomnia: Status: Acute Code(s): G47.00 - Insomnia, unspecified (9) Allergic rhinitis: Status: Acute Code(s): J30.9 - Allergic rhinitis, unspecified (10) Depression: Status: Acute Code(s): F32.9 - Major depressive disorder, single episode, unspecified (11) Anxiety: Status: Acute Code(s): F41.9 - Anxiety disorder, unspecified (12) CVA (cerebral vascular accident): Status: Chronic Code(s): I63.9 - Cerebral infarction, unspecified (13) Vascular dementia: Status: Acute Code(s): F01.50 - Vascular dementia, unspecified severity, without behavioral disturbance, psychotic disturbance, mood disturbance, and anxiety Plan 83 year old male with below past medical history hospitalized for septic shock 2/2 mssa pneumonia, complicated by acute respiratory failure with hypoxia, c ovid-19, admitted to TCU with debility, here for rehabilitation, strengthening, prior to discharge home with . * Debility - PT/OT. * Pain - Tylenol 1000mg qhs. * Bowel - senna/colace 2 tablets bid prn, Dulcolax 10mg pr daily prn. * Adult immunization - Administer pneumonia vaccine, covid vaccine, flu vaccine as appropriate. * DVT prophylaxis - Lovenox 40mg sc daily. * Hyperlipidemia - Atorvastatin 40mg qhs. * MSSA pneumonia - Keflex 500mg q8 thru 02/02/2024. * Covid-19 - Decadron 6mg daily thru 02/03/2024. * Depression - Lexapro 20mg daily, Seroquel 25mg qam, 100mg qhs, Mirtazapine 15mg qhs, stable chronic mcc use, gdr not recommended. * Congestion - Mucinex dm 1 tablet bid. * Shortness of breath - Duoneb 3ml q4 prn. * Allergic Rhinitis - Loratadine 10mg daily. * Anxiety - Lorazepam 0.5mg bid, stable chronic mcc use, gdr not recommended. * Hypertension - Losartan 25mg daily. * Insomnia - Melatonin 5mg qhs. * Allergies/Procedures Done in Hospital Allergies No Known Allergies Allergy (Verified 01/25/24 10:28) Procedures: None Type of Care/Length of Stay Estimated LOS: More Than 30 Days Type of Care Needed: Intermediate Rehab Potential: Fair Prognosis: Fair Additional Orders/Day of Discharge Day of Discharge: 02/11/24 Dietary and Speech Recommendations Dietitian Recommendations/Changes: Will continue liberalized Regular diet. Continue 4oz Ensure plus high protein with meals to provide supplemental energy Discharge Plan Admission Admit Date/Time: 01/29/24 18:51 Primary Reason for Your Visit: Debility. Attending Provider: Benitez Garcia Chi Primary Care Provider: Maxwell Mcdonald Instructions Additional Instructions / Restrictions: Discharge home 02/11/2024 with , Wilda PARKS, no skilled services, oxygen. O2 documentation: Patient requires 1 LPM of oxygen via nasal cannula due to right lower lobe pneumonia, copd. Requires a concentrator and portable O2 tanks to allow patient to be mobiel in the home and the community; O2 will improve the patient's condition in the home setting. Qualifying testing complete within 48 hours of discharge, reviewed, and agreed. Discharge Orders/Prescriptions Prescriptions: New acetaminophen 500 mg Tablet 1,000 mg PO QHS Qty: 0 0RF potassium chloride 20 mEq Tablet,Er Particles/Crystals 20 meq PO DAILYCM 30 Days Qty: 30 0RF lorazepam 0.5 mg Tablet 0.5 mg PO BID 30 Days Qty: 60 0RF Continued escitalopram oxalate 20 mg tablet 20 mg PO DAILY Qty: 90 1RF mirtazapine 15 mg tablet 15 mg PO QHS 90 Days Qty: 90 1RF quetiapine 100 mg tablet See Rx Instructions .ROUTE .COMPLEX Qty: 90 1RF Dose Instruction: TAKE 1 TABLET BY MOUTH ONCE DAILY AT BEDTIME FOR MOOD Rx Instructions: TAKE 1 TABLET BY MOUTH ONCE DAILY AT BEDTIME FOR MOOD quetiapine 25 mg tablet 25 mg PO QAM Qty: 90 1RF melatonin 5 mg Capsule 5 mg PO QHS atorvastatin 40 mg tablet 40 mg PO QHS losartan 25 MG tablet 25 mg PO DAILY cetirizine [Zyrtec] 10 mg Tablet 10 mg PO DAILY dextromethorphan-guaifenesin 60-1,200 mg tablet extended release 12 hr 1 tab PO BID 7 Days Qty: 0 0RF Discontinued lorazepam 0.5 mg tablet 0.5 mg PO BID 30 Days Qty: 60 2RF acetaminophen 325 MG tablet 650 mg PO QHS ipratropium-albuterol 0.5 mg-3 mg(2.5 mg base)/3 mL Solution For Nebulization 3 ml inhalation Q4HWA.RT PRN (Reason: Shortness of breath) Qty: 0 0RF sennosides-docusate sodium [Stimulant Laxative Plus] 8.6-50 mg Tablet 2 tab PO BID PRN PRN (Reason: Constipation) Qty: 0 0RF cephalexin 500 mg capsule 500 mg PO Q8H 4 Days Qty: 12 0RF dexamethasone 6 mg tablet 6 mg PO DAILY 5 Days Qty: 5 0RF Referrals / Follow Up: Maxwell Mcdonald MD [Primary Care Provider] - ( said his will make this appointment, he was very adament on this) Disposition Disposition (needs filled in before D/C Order can be placed): Home, Self Care
--- NOTE | 2024-02-10 16:37 | RAD.NOTE ---
pt placed call light on immediately after criminal justice social worker spoke with pt regarding DC to [facility] d/t unable to care for him d/t a recent injury of her own. ELEMENTARY ART TEACHER went in room and this fiction and nonfiction writer prose stood near by to be sure pt was not going to be aggressive or verbally abusive. pt known to be verbally abusive to staff at times. pt concerned about going to [facility], states he has never been there. Dr Garcia went in to speak with pt and pt does not seem to understand his inability to care for self, pt needs assistance with all care. pt sitting in chair, sounded like pt was talking to another person on phone, but pt is talking to himself. will continue to monitor pts behavior. sitting in recliner chair, call light in reach, continues to talk to self.
[2024-02-10] MEDS: Atorvastatin Calcium 40 MG Tablet PO (21:12)
[2024-02-10] MEDS: Acetaminophen 500 MG Tablet 1000 MG PO (21:12)
[2024-02-10] MEDS: MELATONIN 10 MG TABLET 5 MG PO (21:13)
[2024-02-10] MEDS: QUEtiapine 100 MG Tablet PO (21:13)
[2024-02-10] MEDS: Mirtazapine 15 MG Tablet PO (21:14)
[2024-02-11] MEDS: Escitalopram Oxalate 20 MG Tablet PO (09:28)
[2024-02-11] MEDS: guaiFENesin/D-Methorphan TAB.SR.12H 1 TABLET PO (09:28)
[2024-02-11] MEDS: Losartan Potassium 25 MG Tablet PO (09:28)
[2024-02-11] MEDS: Loratadine 10 MG Tablet PO (09:28)
[2024-02-11] MEDS: Potassium Chloride Oral Tablet 20 MEQ PO (09:28)
[2024-02-11] MEDS: Arthritis Pain Compound 60 CLICK TUBE TOPICAL (09:28)
[2024-02-11] MEDS: QUEtiapine 25 MG Tablet PO (09:28)
[2024-02-11] MEDS: Nystatin Powder 15gm Bottle 1 APPLIC TOPICAL (09:29)
[2024-02-11] MEDS: Menthol/Lanolin/Calamine/Znox 113 GM Tube 1 APPLIC TOPICAL (09:30)
[2024-02-11] MEDS: Enoxaparin 40 MG/0.4 ML Syringe SC (09:30)
[2024-02-11] MEDS: LORazepam 0.5 MG Tablet PO (09:40)
--- NOTE | 2024-02-11 11:16 | CASEMGMT ---
Addendum entered by Audra Dotson 02/11/24 16:06: Transport is 30 minutes late. SW phoned [facility] to inquire about ETA. After waiting on hold for 25 mins, dispatch stated the supervisor histology changed the p/u time to 1700. SW requested to speak with the supervisor histology as this was not communicated/cleared with this worker prior. SW provided this worker's contact information to receive phone call with explanation. Broker Associate called floor nurse and explained they are dropping off another pt in-house and that was delayed, so they will p/u pt once that DC was completed. SW updated pt. Original Note: Social Work SW phoned [id number] for [facility] coverage with transports. Cot transport was scheduled for pt through [facility] with a p/u time of 1445. Total time spent on the phone scheduling transport was 60 minutes. SW phoned to update on time. will visit pt this AM to collect dirty laundry. EMELY spoke with pt at bedside to update on time of transport. Pt recalled he is going to [facility]. Pt wanting to speak with . SW informed pt that will be visiting today to collect laundry. pt pleased with this visit, though stated, I couldn't think she could do anything. SW reiterated time for transport and this worker will return at that time. EMELY sent DC paperwork to [facility]. Audra Dotson, CAT SALES
[2024-02-11 12:51] VITALS: BP 100/50; PULSE 105; RESP 18; TEMP 36.6; O2SAT 99
[2024-02-11 14:47] VITALS: BP 117/61; PULSE 82; RESP 19; TEMP 36.9; O2SAT 92
--- NOTE | 2024-02-11 14:54 | NURSING ---
This RN went to call report to [facility] and Nurse had me on hold for 5min 11 sec trying to find what unit pt was going too. Nurse stated that she can not find that pt is getting admitted and that admissions nurse is in a meeting and there are no names on the list of admissions. [facility] to talk with admissions nurse and call back as they know that pt should be picked up at 1445 today but Transport is not here yet.
--- NOTE | 2024-02-11 15:14 | NURSING ---
Report given to Nga, Nurse at [facility]. pt is going to room 210. Waiting for transport to get here.
== END 2024-02-11 17:30 | DRG 177 ==
PROVIDERS: Admitting Provider Family Medicine Geriatric Medicine; PCP Family Medicine; Visit Provider Family Medicine Geriatric Medicine
DX: U07.1 COVID-19 (principal); J15.211 Pneumonia due to Methicillin susceptible Staphylococcus aureus; J96.01 Acute respiratory failure with hypoxia; J44.0 Chronic obstructive pulmonary disease with (acute) lower respiratory infection; F01.50 Vascular dementia, unspecified severity, without behavioral disturbance, psychotic disturbance, mood disturbance, and anxiety; I10 Essential (primary) hypertension; F32.9 Major depressive disorder, single episode, unspecified; E78.5 Hyperlipidemia, unspecified; J30.9 Allergic rhinitis, unspecified; I25.10 Atherosclerotic heart disease of native coronary artery without angina pectoris; Z87.891 Personal history of nicotine dependence; G47.00 Insomnia, unspecified; F41.1 Generalized anxiety disorder; Z79.899 Other long term (current) drug therapy
CPT/HCPCS: 36415; 74018; 80048; 80061; 82962; 85025; 92610; 97110; 97116; 97162; 97166; 97530; 97535; 97802; A4216

== ENCOUNTER → 2024-02-18 05:00 | Outpatient (REF) | payer MEDICARE, MEDICAID, SELFPAY ==
[2024-02-18 08:20] LABS: Hematocrit 34.9 % (40-54); Mean Corp Hgb Conc 31.5 g/dL (32-36); Mean Corpuscular Hgb 29.3 pg (27.0-32.0); Mean Corpuscular Volume 93.1 fL (80-94); Mean Platelet Vol. 11.3 fl (6.2-12.0); Platelet Count 217 K/mm3 (150-450); RBC Distribution Width CV 16.4 % (11.6-14.6); RBC Distribution Width SD 55.8 fl (35.1-43.9); Red Blood Count 3.75 M/mm3 (4.6-6.2); White Blood Count 5.4 K/mm3 (4.4-11.0)
[2024-02-18 08:31] LABS: Anion Gap 4 (5-15); BUN 11 mg/dL (7-18); Chloride 111 mmol/L (98-107); Cholesterol 135 mg/dL (200); EST Glomerular Filtration Rate 76 mL/min (>60); Est Glom Filt Rate - Afr Amer 92 mL/min (>60); Glucose 87 mg/dL (74-106); High Density Lipoprotein 67 mg/dL; Potassium 4.2 mmol/L (3.5-5.1); Sodium Level 143 mmol/L (136-145); Triglycerides 118 mg/dL; Very Low Density Lipoprotein 24 mg/dL (5-40)
== END ==
LOC: OLS.SW 05:00
PROVIDERS: PCP Family Medicine; Visit Provider Family Medicine
DX: I10 Essential (primary) hypertension (principal); J44.9 Chronic obstructive pulmonary disease, unspecified
CPT/HCPCS: 36415; 80048; 80061; 85027